=== PATIENT | male | born 1950 | race Caucasian/White ===

== ENCOUNTER 2017-01-21 14:02 | Observation (INO) | payer BC ==
[~2017-01-21 14:02] MED LIST: cefTRIAXone 2 GM Vial IVPUSH SCH
[2017-01-21] MEDS ORDERED: Ondansetron 4 MG/2 ML SDV IV PRN (14:59)
[2017-01-21] MEDS ORDERED: Sodium Chloride 0.9% 10 ML Syringe FLUSH PRN (14:59)
[2017-01-21] MEDS ORDERED: Acetaminophen/oxyCODONE 325-5 MG Tab PO PRN (14:59)
[2017-01-21] MEDS ORDERED: Temazepam 15 MG Cap PO PRN (14:59)
[2017-01-21] MEDS ORDERED: Ondansetron 8 MG in Sodium Chloride 0.9% 50 ML IV PRN (15:15)
[2017-01-21] MEDS: LEVODOPA PO SCH ×2 (15:42→20:16)
[2017-01-21] MEDS: PTOM-Gabapentin 300 MG Cap PO SCH ×2 (15:42→20:16)
[2017-01-21] MEDS: CARBIDOPA PO SCH ×2 (15:42→20:16)
[2017-01-21 15:56] LABS: CHLORIDE,CL 104 mEq/L (98-106); SODIUM,NA 140 mEq/L (136-145)
[2017-01-21] MEDS: Enoxaparin 40 MG/0.4 ML Syringe SUBCUT SCH (20:15)
[2017-01-22] MEDS: LEVODOPA PO SCH ×3 (07:42→20:49)
[2017-01-22] MEDS: CARBIDOPA PO SCH ×3 (07:42→20:49)
[2017-01-22] MEDS: PTOM-Gabapentin 300 MG Cap PO SCH ×3 (07:42→20:49)
[2017-01-22] MEDS: LOSARTAN 100 MG PO SCH (07:54)
[2017-01-22] MEDS: FUROSEMIDE 40 MG PO SCH (07:54)
[2017-01-22] MEDS: Metoprolol Succinate 100 MG Tab.ER PO SCH (07:57)
[2017-01-22] MEDS ORDERED: FUROSEMIDE 40 MG PO SCH ×2 (08:00)
[2017-01-22] MEDS ORDERED: Clindamycin Phosphate in D5W 300 MG in Premix Bag 1 BAG IV ONE ×2 (09:30)
--- NOTE | 2017-01-22 17:21 | PCM.PN ---
- General Info Date of Service: 01/22/17 Functional Status: Reports: pain controlled, tolerating diet, ambulating - Review of Systems General: Denies: fever, weakness, fatigue HEENT: Reports: no symptoms Pulmonary: Denies: shortness of breath, cough, wheezing Cardiovascular: Reports: edema. Denies: chest pain, lightheadedness Gastrointestinal: Denies: Abdominal pain, Constipation, Diarrhea, Nausea, Vomiting Genitourinary: Reports: no symptoms Musculoskeletal: Reports: leg pain Skin: Reports: other (redness noted to RLE) Neurological: Reports: no symptoms - Patient Data Vitals - most recent: Last Vital Signs Temp 98.2 F 01/22/17 16:00 Pulse 60 01/22/17 16:00 Resp 18 01/22/17 16:00 BP 138/97 H 01/22/17 16:00 Pulse Ox 97 01/22/17 16:00 Weight - most recent: 376 lb Med Orders - Current: Current Medications Carbidopa/Levodopa (Sinemet 25-100 Mg) 1 tab PO TID [facility] Last Admin: 01/22/17 13:27 Dose: 1 tab Enoxaparin Sodium (Lovenox) 40 mg SUBCUT Q24H [facility] Last Admin: 01/21/17 20:15 Dose: 40 mg Furosemide (Lasix) 80 mg PO DAILY [facility] Last Admin: 01/22/17 07:54 Dose: 80 mg Gabapentin (Neurontin) 300 mg PO TID [facility] Last Admin: 01/22/17 13:27 Dose: 300 mg Ondansetron HCl 8 mg/ Sodium (Chloride) 54 mls @ 100 mls/hr IV Q6H PRN PRN Reason: NAUSEA Clindamycin Phosphate 300 mg/ (Premix) 50 mls @ 100 mls/hr IV Q6H [facility] Losartan Potassium (Cozaar) 100 mg PO DAILY [facility] Last Admin: 01/22/17 07:54 Dose: 100 mg Metoprolol Succinate (Toprol Xl) 100 mg PO DAILY [facility] Last Admin: 01/22/17 07:57 Dose: 100 mg Oxycodone/Acetaminophen (Percocet 325-5 Mg) 1 tab PO Q4H PRN PRN Reason: Pain (moderate 4-6) Sodium Chloride (Saline Flush) 10 ml FLUSH ASDIRECTED PRN PRN Reason: Keep Vein Open Temazepam (Restoril) 15 mg PO BEDTIME PRN PRN Reason: Sleep Discontinued Medications Ceftriaxone Sodium (Rocephin) 2 gm IVPUSH Q24H [facility] Last Admin: 01/21/17 15:47 Dose: 2 gm Furosemide (Lasix) 60 mg PO DAILY [facility] Furosemide (Lasix) 40 mg PO DAILY [facility] Clindamycin Phosphate 300 mg/ (Premix) 50 mls @ 100 mls/hr IV ONETIME ONE Stop: 01/22/17 09:59 Last Admin: 01/22/17 09:29 Dose: 100 mls/hr - Exam General: alert, oriented HEENT: Mucous membr. moist/pink Neck: supple Lungs: Clear to auscultation, Normal respiratory effort Cardiovascular: regular rate, regular rhythm Abdomen: bowel sounds present, soft, no tenderness Extremities: edema, other (RLE continues to be edematous. Redness noted but improved from yesterday. Less swelling than yesterday per markings. Mildly warm to the touch in comparison to the LLE. Patient states less tender to palpation.) - Problem List & Annotations (1) Cellulitis SNOMED Code(s): 290959150 Code(s): L03.90 - CELLULITIS, UNSPECIFIED Status: Acute Priority: High Current Visit: Yes Qualifiers: Site of cellulitis: extremity Site of cellulitis of extremity: lower extremity Laterality: right Qualified Code(s): L03.115 - Cellulitis of right lower limb (2) Edema leg SNOMED Code(s): 486595314 Code(s): R60.0 - LOCALIZED EDEMA Status: Acute Priority: High Current Visit: No Qualifiers: Laterality: bilateral Qualified Code(s): R60.0 - Localized edema - Problem List Review Problem List Initiated/Reviewed/Updated: Yes - My Orders Last 24 Hours: My Active Orders 01/22/17 18:00 Clindamycin Phosphate in D5W [Cleocin in D5W] 300 mg Premix Bag 1 bag IV Q6H - Assessment Assessment:: Cellulitis of RLE - Plan Plan:: Patient states is doing well today. Per nurse markings, less redness and swelling versus admission yesterday. Did have an ultrasound yesterday to rule out DVT which was negative. Patient admits to less discomfort today in his leg. Leg is only minimally warm and tender today by exam. Lasix dose was increased on admission to 80 mg daily, Norvasc was stopped and Toprol restarted due to edema. Labs noted elevated CRP on admit. Continue to elevate leg as able. Switch to IV Cleocin. Possible discharge home in am.
[2017-01-22] MEDS: Clindamycin Phosphate in D5W 300 MG in Premix Bag 1 BAG IV SCH ×2 (18:13)
[2017-01-22] MEDS: Enoxaparin 40 MG/0.4 ML Syringe SUBCUT SCH (20:49)
[2017-01-23] MEDS: Clindamycin Phosphate in D5W 300 MG in Premix Bag 1 BAG IV SCH ×4 (00:37→05:48)
[2017-01-23 07:12] VITALS: BP 127/76
[2017-01-23] MEDS: FUROSEMIDE 40 MG PO SCH (07:51)
[2017-01-23] MEDS: CARBIDOPA PO SCH (07:52)
[2017-01-23] MEDS: LEVODOPA PO SCH (07:52)
[2017-01-23] MEDS: LOSARTAN 100 MG PO SCH (07:52)
[2017-01-23] MEDS: PTOM-Gabapentin 300 MG Cap PO SCH (07:52)
[2017-01-23 07:56] LABS: CHLORIDE,CL 105 mEq/L (98-106); SODIUM,NA 143 mEq/L (136-145)
[2017-01-23] MEDS: Metoprolol Succinate 100 MG Tab.ER PO SCH (07:56)
--- NOTE | 2017-01-23 11:05 | PCM.DCSUM1 ---
Discharge Summary - Hospital Course Free Text/Narrative:: Patient admitted by Dr. Anderson due to increased swelling and redness to E to rule out DVT versus Cellulitis. Patient does have a history of edema in his legs but states it had gotten much worse over several days prior. Extremity red and warm to the touch as well. Ultrasound ordered which did rule out a DVT. Norvasc was stopped due to increased edema. Lasix increased. Started on Toprol for control of his blood pressure. Initial CRP on admit was 10.7. Started on IV Rocephin. - Discharge Data Discharge Date: 01/23/17 Discharge Disposition: Home, Self-Care 01 Condition: Good - Discharge Diagnosis/Problem(s) (1) Cellulitis SNOMED Code(s): 084202403 ICD Code: L03.90 - CELLULITIS, UNSPECIFIED Status: Acute Priority: High Current Visit: Yes Qualifiers: Qualified Code(s): L03.115 - Cellulitis of right lower limb (2) Edema leg SNOMED Code(s): 464692680 ICD Code: R60.0 - LOCALIZED EDEMA Status: Acute Priority: High Current Visit: No Qualifiers: Qualified Code(s): R60.0 - Localized edema - Patient Summary/Data Complications: none Hospital Course: As mentioned above, US was negative for DVT. Did have improvement of swelling with increase of Lasix and stopping Norvasc. He had improvement of the swelling and redness of his leg after IV meds were switched to Cleocin. CRP improved to 4.9. WBC normal. - Patient Instructions Diet: Low Sodium Activity: As Tolerated - Discharge Plan Prescriptions/Med Rec: Clindamycin HCl [Cleocin HCl] 300 mg PO QID #40 capsule Metoprolol Succinate [Toprol XL] 100 mg PO DAILY #30 tab.er Home Medications: Home Meds Gabapentin 300 mg PO TID 08/07/16 [History] Losartan Potassium 100 mg PO DAILY 08/07/16 [History] Carbidopa/Levodopa [Carbidopa-Levodopa 25-100 Tab] 1 each PO TID 01/21/17 [ History] Clindamycin HCl [Cleocin HCl] 300 mg PO QID #40 capsule 01/23/17 [Rx] Furosemide 40 mg PO BID #60 01/23/17 [Rx] Metoprolol Succinate [Toprol XL] 100 mg PO DAILY #30 tab.er 01/23/17 [Rx] Referrals: Marbin Anderson MD [Primary Care Provider] - (Follow up with Dr. Anderson in 10 days ) - Discharge Summary/Plan Comment DC Time >30 min.: No Discharge Summary/Plan Comment: Discharge home on Cleocin. Stop Norvasc and continue Toprol. Lasix 40 mg BID. Follow up with Dr. Anderson in 10 days. - General Info Date of Service: 01/23/17 Admission Dx/Problem (Free Text: Cellulitis Functional Status: Reports: pain controlled, tolerating diet, ambulating - Review of Systems General: Denies: fever, weakness, fatigue HEENT: Reports: no symptoms Pulmonary: Denies: shortness of breath, cough, wheezing Cardiovascular: Reports: edema. Denies: chest pain, lightheadedness Gastrointestinal: Reports: No symptoms Genitourinary: Reports: no symptoms Musculoskeletal: Reports: no symptoms Skin: Reports: other (redness noted to RLE) Neurological: Reports: no symptoms Psychiatric: Reports: no symptoms - Patient Data Vitals - Most Recent: Last Vital Signs Temp 96.8 F 01/23/17 07:11 Pulse 86 01/23/17 07:56 Resp 18 01/23/17 07:11 BP 127/76 01/23/17 07:56 Pulse Ox 96 01/23/17 07:11 Weight - Most Recent: 376 lb I&O - Last 24 hours: Intake & Output 01/22/17 01/23/17 01/23/17 22:59 06:59 14:59 Intake Total 50 50 Balance 50 50 Lab Results - Last 24 hrs: Laboratory Results - last 24 hr 01/23/17 01/23/17 Range/Units 07:42 07:42 WBC 6.2 (5.0-10.0) 10^3/uL RBC 5.24 (4.50-6.00) 10^6/uL Hgb 13.5 L (14.0-18.0) g/dL Hct 42.4 (40.0-54.0) % MCV 80.9 L (82.0-94.0) fL MCH 25.8 L (27.0-32.0) pg MCHC 31.8 L (33.0-38.0) g/dL RDW Coeff of Connie 15.8 H (11.0-15.0) % Plt Count 236 (150-400) 10^3/uL Neut % (Auto) 67.5 (35-85) % Lymph % (Auto) 16.9 (10-55) % [place] % (Auto) 9.5 (0-16) % Eos % (Auto) 5.8 H (0-5) % Baso % (Auto) 0.3 (0-3) % Neut # 4.19 (1.80-7.00) 10^3/uL Lymph # 1.05 (1.00-4.80) 10^3/uL [place] # 0.59 (0.00-0.80) 10^3/uL Eos # 0.36 (0.00-0.45) 10^3/uL Baso # 0.02 10^3/uL Sodium 143 (136-145) mEq/L Potassium 3.9 (3.5-5.0) mEq/L Chloride 105 (98-106) mEq/L Carbon Dioxide 32 (21-32) mmol/L BUN 14 (7-18) mg/dL Creatinine 0.9 (0.7-1.3) mg/dL Est Cr Clr Drug Dosing 88.31 mL/min Estimated GFR (MDRD) > 60 (>=60) mL/min Glucose 90 (75-99) mg/dL Calcium 8.4 (8.4-10.1) mg/dL C-Reactive Protein 4.9 H (0.2-0.8) mg/dL Med Orders - Current: Current Medications Carbidopa/Levodopa (Sinemet 25-100 Mg) 1 tab PO TID [facility] Last Admin: 01/23/17 07:52 Dose: 1 tab Enoxaparin Sodium (Lovenox) 40 mg SUBCUT Q24H [facility] Last Admin: 01/22/17 20:49 Dose: 40 mg Furosemide (Lasix) 80 mg PO DAILY [facility] Last Admin: 01/23/17 07:51 Dose: 80 mg Gabapentin (Neurontin) 300 mg PO TID [facility] Last Admin: 01/23/17 07:52 Dose: 300 mg Ondansetron HCl 8 mg/ Sodium (Chloride) 54 mls @ 100 mls/hr IV Q6H PRN PRN Reason: NAUSEA Clindamycin Phosphate 300 mg/ (Premix) 50 mls @ 100 mls/hr IV Q6H [facility] Last Admin: 01/23/17 05:48 Dose: 100 mls/hr Losartan Potassium (Cozaar) 100 mg PO DAILY [facility] Last Admin: 01/23/17 07:52 Dose: 100 mg Metoprolol Succinate (Toprol Xl) 100 mg PO DAILY [facility] Last Admin: 01/23/17 07:56 Dose: 100 mg Oxycodone/Acetaminophen (Percocet 325-5 Mg) 1 tab PO Q4H PRN PRN Reason: Pain (moderate 4-6) Sodium Chloride (Saline Flush) 10 ml FLUSH ASDIRECTED PRN PRN Reason: Keep Vein Open Temazepam (Restoril) 15 mg PO BEDTIME PRN PRN Reason: Sleep Discontinued Medications Ceftriaxone Sodium (Rocephin) 2 gm IVPUSH Q24H [facility] Last Admin: 01/21/17 15:47 Dose: 2 gm Furosemide (Lasix) 60 mg PO DAILY [facility] Furosemide (Lasix) 40 mg PO DAILY [facility] Clindamycin Phosphate 300 mg/ (Premix) 50 mls @ 100 mls/hr IV ONETIME ONE Stop: 01/22/17 09:59 Last Admin: 01/22/17 09:29 Dose: 100 mls/hr - Exam General: Reports: alert, oriented HEENT: Reports: Mucous membr. moist/pink Neck: Reports: supple Lungs: Reports: Clear to auscultation, Normal respiratory effort Cardiovascular: Reports: regular rate, regular rhythm Abdomen: Reports: bowel sounds present, soft, no tenderness Skin: Reports: other (RLE is still red but improved from admit per markings. Mildly warm to the touch. Chronic venous stasis changes.) *Q Meaningful Use (DIS) - VTE *Q VTE Criteria *Q: - Stroke *Q Stroke Criteria *Q: - AMI *Q AMI Criteria *Q:
== END 2017-01-23 12:49 | disposition home or self-care (01) ==
LOC: UNDOADMOB 14:02 → CC.MS 14:02
PROVIDERS: ADMIT Family Medicine; ATTEND Family Medicine
DX: L03.115 Cellulitis of right lower limb (principal); I10 Essential (primary) hypertension; E78.00 Pure hypercholesterolemia, unspecified; G20 Parkinson's disease; Z79.899 Other long term (current) drug therapy; Z98.890 Other specified postprocedural states
CPT/HCPCS: 36415; 80048; 85025; 85379; 86140; 93971; 96365; 96366; 96372; 96375; A9270; G0378; J0696; J1650

== ENCOUNTER 2017-03-06 09:45 | Inpatient (IN) | payer OTHER, MEDICARE ==
[2017-03-06] MEDS ORDERED: Ondansetron 4 MG Tab.DIS PO PRN (11:09)
[2017-03-06] MEDS: Lactated Ringers 1,000 ML IV SCH ×2 (11:45→21:01)
[2017-03-06] MEDS: metroNIDAZOLE/Normal Saline 500 MG in Premix Bag 1 BAG IV SCH ×3 (11:50→23:00)
[2017-03-06] MEDS: Vancomycin 125 MG/2.5 ML Oral Solution 2.5 ML UD Cup PO SCH ×3 (11:54→20:55)
[2017-03-06] MEDS: Acetaminophen 325 MG Tab PO PRN ×2 (11:58→16:18)
[2017-03-06] MEDS: Gabapentin 300 MG Cap PO SCH ×2 (13:27→20:55)
[2017-03-06] MEDS: Carbidopa/Levodopa 25-100 MG Tab PO SCH ×2 (13:27→20:55)
[2017-03-06] MEDS: Losartan 100 MG Tab PO SCH (13:28)
[2017-03-06] MEDS: Ibuprofen 200 MG Tab PO PRN ×2 (13:52→22:57)
[2017-03-06] MEDS: Furosemide 40 MG Tab PO SCH (16:05)
[2017-03-06] MEDS: Enoxaparin 40 MG/0.4 ML Syringe SUBCUT SCH (16:05)
[2017-03-07] MEDS ORDERED: metroNIDAZOLE/Normal Saline 500 MG in Premix Bag 1 BAG IV SCH (08:00)
[2017-03-07] MEDS: Carbidopa/Levodopa 25-100 MG Tab PO SCH ×3 (08:04→19:42)
[2017-03-07] MEDS: Gabapentin 300 MG Cap PO SCH ×3 (08:04→19:42)
[2017-03-07] MEDS: Furosemide 40 MG Tab PO SCH ×2 (08:04→16:02)
[2017-03-07] MEDS: Losartan 100 MG Tab PO SCH (08:04)
[2017-03-07] MEDS: Vancomycin 125 MG/2.5 ML Oral Solution 2.5 ML UD Cup PO SCH ×4 (08:05→19:41)
[2017-03-07] MEDS: Ibuprofen 200 MG Tab PO PRN ×2 (08:05→16:36)
[2017-03-07] MEDS: Metoprolol Succinate 100 MG Tab.ER PO SCH (08:05)
[2017-03-07] MEDS: metroNIDAZOLE/Normal Saline 500 MG in Premix Bag 1 BAG IV SCH (08:07)
[2017-03-07] MEDS ORDERED: Vancomycin 1.5 GM in Sodium Chloride 0.9% 500 ML IV SCH (09:00)
--- NOTE | 2017-03-07 10:07 | PN ---
DATE: 03/07/2017 S: Albin was admitted for fever and sepsis syndrome of unclear etiology. He is being treated for C. diff. He really did not have any abdominal pain or diarrhea associated with this. Racheal Hernandez had seen him and I asked her to do blood cultures, put him on empiric antibiotics. During the night, he woke up with severe redness to his right leg and he does have a history of cellulitis related to his chronic stasis dermatitis, very well demarcated almost up to the thigh and down to the foot. He denies any pain at this time. Since admission, his temp is down to around 100 now, came in at 100.4 on exam. PHYSICAL EXAMINATION: GENERAL: He is pleasant and cooperative. HEENT: Grossly benign. NECK: Neck veins are flat. LUNGS: Clear. CARDIAC: Tones are regular. ABDOMEN: Obese, soft, and nontender. EXTREMITIES: Lower extremity with bilateral stasis dermatitis. His right leg now has cellulitis extending from the upper inner thigh all way down through the leg into the ankle, there is a grossly 3+ edema as compared to 1+ to 2 on the left. ASSESSMENT: CELLULITIS, RELATED TO STASIS DERMATITIS. P: The patient's IV Flagyl was stopped. We will keep him on the oral vancomycin because he is just getting over C-diff. We switched him to IV vancomycin and Cleocin. Blood cultures appear to be positive, we are waiting for identification. VERONIKA/MAURICIO /[id number]
[2017-03-07] MEDS ORDERED: Clindamycin Phosphate in D5W 300 MG in Premix Bag 1 BAG IV ONE ×2 (11:00)
[2017-03-07] MEDS: Lactated Ringers 1,000 ML IV SCH ×2 (13:56→21:59)
[2017-03-07] MEDS: Acetaminophen 325 MG Tab PO PRN ×2 (14:02→18:04)
[2017-03-07] MEDS: Enoxaparin 40 MG/0.4 ML Syringe SUBCUT SCH (16:03)
[2017-03-07] MEDS: ceFAZolin 1 GM Vial IVPUSH SCH ×2 (17:39→23:48)
[2017-03-07] MEDS ORDERED: Clindamycin Phosphate in D5W 300 MG in Premix Bag 1 BAG IV SCH ×2 (18:00)
[2017-03-08] MEDS: Acetaminophen 325 MG Tab PO PRN ×2 (06:44→13:17)
[2017-03-08] MEDS: Vancomycin 125 MG/2.5 ML Oral Solution 2.5 ML UD Cup PO SCH ×4 (08:00→19:48)
[2017-03-08] MEDS: Metoprolol Succinate 100 MG Tab.ER PO SCH (08:01)
[2017-03-08] MEDS: Losartan 100 MG Tab PO SCH (08:01)
[2017-03-08] MEDS: Gabapentin 300 MG Cap PO SCH ×3 (08:01→19:47)
[2017-03-08] MEDS: Carbidopa/Levodopa 25-100 MG Tab PO SCH ×3 (08:01→19:47)
[2017-03-08] MEDS: Furosemide 40 MG Tab PO SCH ×2 (08:01→16:18)
[2017-03-08] MEDS: ceFAZolin 1 GM Vial IVPUSH SCH ×3 (08:02→23:48)
[2017-03-08] MEDS: Ibuprofen 200 MG Tab PO PRN (08:02)
[2017-03-08] MEDS ORDERED: Iopamidol 612 MG/ML 100 ML Bottle IVPUSH ONE (16:08)
[2017-03-08] MEDS: Enoxaparin 40 MG/0.4 ML Syringe SUBCUT SCH (16:19)
--- NOTE | 2017-03-08 21:39 | PCM.PN ---
- General Info Date of Service: 03/08/17 Admission Dx/Problem (Free Text): R lower extremity cellulitis related to stasis dermatitis Subjective Update: Nursing staff report that patient slept in the recliner last night with his feet on the floor. This morning he woke up with significant edema behind and above his right knee. The redness and warmth to his right leg has improved some overnight. Patient has no pain to his leg and has no other concerns. Blood cultures were resulted on March 07 showing gram-positive cocci, beta-hemolytic strep, not group A or B. Patient has been receiving oral vancomycin for recent infection, IV vancomycin and IV clindamycin. CRP increased to 30.1. Functional Status: Reports: tolerating diet, urinating - Review of Systems General: Reports: Fever. Denies: Chills Pulmonary: Denies: shortness of breath, cough Cardiovascular: Denies: Chest Pain Gastrointestinal: Reports: No symptoms Genitourinary: Reports: no symptoms Neurological: Reports: No Symptoms - Patient Data Vitals - most recent: Last Vital Signs Temp 100.1 F 03/08/17 19:20 Pulse 80 03/08/17 19:20 Resp 20 03/08/17 19:20 BP 160/81 H 03/08/17 19:20 Pulse Ox 95 03/08/17 19:20 Weight - most recent: 392 lb I&O - last 24 hours: Intake & Output 03/08/17 03/08/17 03/08/17 06:59 14:59 22:59 Intake Total 480 240 990 Output Total 900 500 300 Balance -420 -260 690 Lab Results last 24 hrs: Laboratory Results - last 24 hr 03/08/17 03/08/17 03/08/17 Range/Units 07:10 07:10 07:15 WBC 10.1 H (5.0-10.0) 10^3/uL RBC 5.15 (4.50-6.00) 10^6/uL Hgb 13.2 L (14.0-18.0) g/dL Hct 41.0 (40.0-54.0) % MCV 79.6 L (82.0-94.0) fL MCH 25.6 L (27.0-32.0) pg MCHC 32.2 L (33.0-38.0) g/dL RDW Coeff of Connie 18.0 H (11.0-15.0) % Plt Count 127 L (150-400) 10^3/uL Neut % (Auto) 88.1 H (35-85) % Lymph % (Auto) 6.0 L (10-55) % [place] % (Auto) 4.6 (0-16) % Eos % (Auto) 1.1 (0-5) % Baso % (Auto) 0.2 (0-3) % Neut # (Auto) 8.92 H (1.80-7.00) 10^3/uL Lymph # (Auto) 0.61 L (1.00-4.80) 10^3/uL [place] # (Auto) 0.47 (0.00-0.80) 10^3/uL Eos # (Auto) 0.11 (0.00-0.45) 10^3/uL Baso # (Auto) 0.02 10^3/uL Sodium 140 (136-145) mEq/L Potassium 3.7 (3.5-5.0) mEq/L Chloride 101 (98-106) mEq/L Carbon Dioxide 28 (21-32) mmol/L BUN 33 H (7-18) mg/dL Creatinine 1.4 H (0.7-1.3) mg/dL Est Cr Clr Drug Dosing 56.77 mL/min Estimated GFR (MDRD) 51 L (>=60) mL/min Glucose 84 D (75-99) mg/dL Calcium 7.8 L (8.4-10.1) mg/dL C-Reactive Protein 30.1 H (0.2-0.8) mg/dL Pablo Results last 24 hrs: Microbiology 03/06/17 14:53 Urine Culture - Final Urine, Voided 03/06/17 11:51 Aerobic Blood Culture - Final Blood Gram Positive Cocci Anaerobic Blood Culture - Final Gram Positive Cocci Med Orders - Current: Current Medications Acetaminophen (Tylenol) 650 mg PO Q4H PRN PRN Reason: Pain (Mild 1-3)/fever Last Admin: 03/08/17 13:17 Dose: 650 mg Carbidopa/Levodopa (Sinemet 25-100 Mg) 1 tab PO TID [facility] Last Admin: 03/08/17 19:47 Dose: 1 tab Cefazolin Sodium (Ancef) 1 gm IVPUSH Q8H [facility] Last Admin: 03/08/17 16:19 Dose: 1 gm Enoxaparin Sodium (Lovenox) 40 mg SUBCUT Q24H [facility] Last Admin: 03/08/17 16:19 Dose: 40 mg Furosemide (Lasix) 40 mg PO BIDDIURETIC [facility] Last Admin: 03/08/17 16:18 Dose: 40 mg Gabapentin (Neurontin) 300 mg PO TID [facility] Last Admin: 03/08/17 19:47 Dose: 300 mg Ibuprofen (Motrin) 400 mg PO Q6H PRN PRN Reason: Fever Last Admin: 03/08/17 08:02 Dose: 400 mg Losartan Potassium (Cozaar) 100 mg PO DAILY [facility] Last Admin: 03/08/17 08:01 Dose: 100 mg Metoprolol Succinate (Toprol Xl) 100 mg PO DAILY [facility] Last Admin: 03/08/17 08:01 Dose: 100 mg Ondansetron HCl (Zofran Odt) 8 mg PO Q4H PRN PRN Reason: nausea, able to take PO Vancomycin HCl (Vancocin 125 Mg/2.5 Ml Soln) 125 mg PO QID [facility] Last Admin: 03/08/17 19:48 Dose: 125 mg Vancomycin HCl (Pharmacy To Dose - Vancomycin) 1 dose .XX ASDIRECTED [facility] Discontinued Medications Lactated Ringer's (Ringers, Lactated) 1,000 mls @ 100 mls/hr IV ASDIRECTED [facility] Last Admin: 03/06/17 21:01 Dose: 100 mls/hr Metronidazole 500 mg/ Premix 100 mls @ 100 mls/hr IV 1130,1700 [facility] Stop: 03/06/17 17:59 Last Admin: 03/06/17 17:24 Dose: 100 mls/hr Metronidazole 500 mg/ Premix 100 mls @ 100 mls/hr IV Q8H [facility] Last Admin: 03/07/17 08:07 Dose: 100 mls/hr Vancomycin HCl 1.5 gm/ Sodium (Chloride) 500 mls @ 334.014 mls/hr IV Q24H [facility] Last Admin: 03/07/17 09:10 Dose: 334.014 mls/hr Clindamycin Phosphate 300 mg/ (Premix) 50 mls @ 100 mls/hr IV Q6H [facility] Clindamycin Phosphate 300 mg/ (Premix) 50 mls @ 100 mls/hr IV ONETIME ONE Stop: 03/07/17 11:29 Last Admin: 03/07/17 11:53 Dose: 100 mls/hr Lactated Ringer's (Ringers, Lactated) 1,000 mls @ 125 mls/hr IV ASDIRECTED [facility] Last Admin: 03/07/17 21:59 Dose: 125 mls/hr Ibuprofen (Motrin) 400 mg PO Q4H PRN PRN Reason: Fever Last Admin: 03/07/17 08:05 Dose: 400 mg Iopamidol (Isovue-300 (61%)) 100 ml IVPUSH ONETIME ONE Stop: 03/08/17 16:09 - Exam General: alert, oriented, cooperative Lungs: Clear to auscultation, Normal respiratory effort Cardiovascular: Regular Rate, Regular Rhythm Abdomen: soft, no tenderness Extremities: other (Left ankle measures 14 inches. Right ankle measured 18 inches. Left knee 22.5 inches. Right knee 28 inches. Left midthigh 26 inches. Right midthigh 33.5 inches) Peripheral Pulses: 2+: dorsalis pedis (L), dorsalis pedis (R) Skin: warm, dry, other (No skin breakdown or weeping appreciated to right lower leg) Neurological: no new focal deficit - Problem List Review Problem List Initiated/Reviewed/Updated: Yes - My Orders Last 24 Hours: My Active Orders 03/08/17 15:16 Lower Leg w Cont Rt [CT] Routine - Assessment Assessment:: Right leg cellulitis - Plan Plan:: We'll obtain a CT scan of patient's right lower extremity looking for gas and abscess. Continue current antibiotics and treatment. Repeat CBC BMP and CRP in the morning.
[2017-03-09] MEDS: Acetaminophen 325 MG Tab PO PRN (06:51)
[2017-03-09] MEDS: ceFAZolin 1 GM Vial IVPUSH SCH ×3 (07:46→23:15)
[2017-03-09] MEDS: Metoprolol Succinate 100 MG Tab.ER PO SCH (07:47)
[2017-03-09] MEDS: Gabapentin 300 MG Cap PO SCH ×3 (07:47→20:30)
[2017-03-09] MEDS: Furosemide 40 MG Tab PO SCH ×2 (07:47→16:20)
[2017-03-09] MEDS: Carbidopa/Levodopa 25-100 MG Tab PO SCH ×3 (07:47→20:29)
[2017-03-09] MEDS: Losartan 100 MG Tab PO SCH (07:47)
[2017-03-09] MEDS: Vancomycin 125 MG/2.5 ML Oral Solution 2.5 ML UD Cup PO SCH ×4 (07:47→20:30)
[2017-03-09] MEDS: Vancomycin 1.5 GM in Sodium Chloride 0.9% 500 ML IV SCH (07:53)
[2017-03-09 08:41] LABS: CHLORIDE,CL 103 mEq/L (98-106); SODIUM,NA 140 mEq/L (136-145)
[2017-03-09] MEDS ORDERED: Ondansetron 4 MG/2 ML SDV IVPUSH PRN (10:00)
[2017-03-09] MEDS: HYDROmorphone 1 MG/ML Syringe IVPUSH PRN ×2 (10:38→13:43)
--- NOTE | 2017-03-09 11:29 | PCM.PN ---
- General Info Date of Service: 03/09/17 Admission Dx/Problem (Free Text): R lower extremity cellulitis related to stasis dermatitis Subjective Update: Patient complains of increased pain this morning to his right lower extremity unrelieved with Tylenol and ibuprofen. Improved significantly with IV Dilaudid. Nursing staff have noted increased swelling to his lower leg, knee and moving up his right thigh. Has had some mild erythema moving towards his groin area. Nursing staff have noticed red blister type lesions to his right knee area. He denies any scrotal pain and swelling. Upon chart review, it appears that IV vancomycin and clindamycin were discontinued on March 07 p.m. when Ancef was started. He continues to take orally vancomycin for recent C. difficile infection. White blood cell count has improved to 10.0. BUN decreased from 33 to 22. Creatinine from 1.4 to 1.1. CRP 3.1 to 21.3. Patient has been afebrile overnight. Vital signs are stable. Nursing staff have no other concerns at this time. Functional Status: Reports: tolerating diet, urinating - Review of Systems General: Denies: Fever, Fatigue, Chills HEENT: Reports: no symptoms Pulmonary: Denies: shortness of breath, cough Cardiovascular: Denies: Chest Pain Gastrointestinal: Denies: Abdominal pain, Decreased appetite, Nausea, Vomiting Skin: Reports: other (blistery lesions to R knee) Neurological: Reports: No Symptoms Psychiatric: Reports: no symptoms - Patient Data Vitals - most recent: Last Vital Signs Temp 98.8 F 03/09/17 07:46 Pulse 84 03/09/17 07:47 Resp 18 03/09/17 07:46 BP 150/89 H 03/09/17 07:47 Pulse Ox 94 L 03/09/17 07:46 Weight - most recent: 395 lb 14.4 oz I&O - last 24 hours: Intake & Output 03/08/17 03/09/17 03/09/17 22:59 06:59 14:59 Intake Total 990 1700 200 Output Total 300 1500 550 Balance 690 200 -350 Lab Results last 24 hrs: Laboratory Results - last 24 hr 03/09/17 03/09/17 03/09/17 Range/Units 07:10 07:10 07:15 WBC 10.0 (5.0-10.0) 10^3/uL RBC 5.12 (4.50-6.00) 10^6/uL Hgb 13.1 L (14.0-18.0) g/dL Hct 40.7 (40.0-54.0) % MCV 79.5 L (82.0-94.0) fL MCH 25.6 L (27.0-32.0) pg MCHC 32.2 L (33.0-38.0) g/dL RDW Coeff of Connie 17.6 H (11.0-15.0) % Plt Count 140 L (150-400) 10^3/uL Neut % (Auto) 80.6 (35-85) % Lymph % (Auto) 8.8 L (10-55) % [place] % (Auto) 8.4 (0-16) % Eos % (Auto) 1.9 (0-5) % Baso % (Auto) 0.3 (0-3) % Neut # (Auto) 8.10 H (1.80-7.00) 10^3/uL Lymph # (Auto) 0.88 L (1.00-4.80) 10^3/uL [place] # (Auto) 0.84 H (0.00-0.80) 10^3/uL Eos # (Auto) 0.19 (0.00-0.45) 10^3/uL Baso # (Auto) 0.03 10^3/uL Sodium 140 (136-145) mEq/L Potassium 3.5 (3.5-5.0) mEq/L Chloride 103 (98-106) mEq/L Carbon Dioxide 27 (21-32) mmol/L BUN 22 H (7-18) mg/dL Creatinine 1.1 (0.7-1.3) mg/dL Est Cr Clr Drug Dosing 72.26 mL/min Estimated GFR (MDRD) > 60 (>=60) mL/min Glucose 95 (75-99) mg/dL Calcium 7.9 L (8.4-10.1) mg/dL C-Reactive Protein 21.3 H (0.2-0.8) mg/dL Pablo Results last 24 hrs: Microbiology 03/06/17 14:53 Urine Culture - Final Urine, Voided 03/06/17 11:51 Aerobic Blood Culture - Final Blood Gram Positive Cocci Anaerobic Blood Culture - Final Gram Positive Cocci Med Orders - Current: Current Medications Acetaminophen (Tylenol) 650 mg PO Q4H PRN PRN Reason: Pain (Mild 1-3)/fever Last Admin: 03/09/17 06:51 Dose: 650 mg Carbidopa/Levodopa (Sinemet 25-100 Mg) 1 tab PO TID [facility] Last Admin: 03/09/17 07:47 Dose: 1 tab Cefazolin Sodium (Ancef) 1 gm IVPUSH Q8H [facility] Last Admin: 03/09/17 07:46 Dose: 1 gm Enoxaparin Sodium (Lovenox) 40 mg SUBCUT Q24H [facility] Last Admin: 03/08/17 16:19 Dose: 40 mg Furosemide (Lasix) 40 mg PO BIDDIURETIC [facility] Last Admin: 03/09/17 07:47 Dose: 40 mg Gabapentin (Neurontin) 300 mg PO TID [facility] Last Admin: 03/09/17 07:47 Dose: 300 mg Hydromorphone HCl (Dilaudid) 1 mg IVPUSH Q2H PRN PRN Reason: Pain (moderate 4-6) Last Admin: 03/09/17 10:38 Dose: 1 mg Vancomycin HCl 1.5 gm/ Sodium (Chloride) 500 mls @ 334.014 mls/hr IV Q24H [facility] Last Admin: 03/09/17 07:53 Dose: 334.014 mls/hr Acyclovir 1,000 mg/ Sodium (Chloride) 120 mls @ 200 mls/hr IV Q8HR [facility] Clindamycin Phosphate 300 mg/ (Premix) 50 mls @ 100 mls/hr IV Q6H [facility] Ibuprofen (Motrin) 400 mg PO Q6H PRN PRN Reason: Fever Last Admin: 03/08/17 08:02 Dose: 400 mg Losartan Potassium (Cozaar) 100 mg PO DAILY [facility] Last Admin: 03/09/17 07:47 Dose: 100 mg Metoprolol Succinate (Toprol Xl) 100 mg PO DAILY [facility] Last Admin: 03/09/17 07:47 Dose: 100 mg Ondansetron HCl (Zofran Odt) 8 mg PO Q4H PRN PRN Reason: nausea, able to take PO Ondansetron HCl (Zofran) 4 mg IVPUSH Q4H PRN PRN Reason: Nausea Vancomycin HCl (Vancocin 125 Mg/2.5 Ml Soln) 125 mg PO QID [facility] Last Admin: 03/09/17 07:47 Dose: 125 mg Vancomycin HCl (Pharmacy To Dose - Vancomycin) 1 dose .XX ASDIRECTED [facility] Discontinued Medications Lactated Ringer's (Ringers, Lactated) 1,000 mls @ 100 mls/hr IV ASDIRECTED [facility] Last Admin: 03/06/17 21:01 Dose: 100 mls/hr Metronidazole 500 mg/ Premix 100 mls @ 100 mls/hr IV 1130,1700 [facility] Stop: 03/06/17 17:59 Last Admin: 03/06/17 17:24 Dose: 100 mls/hr Metronidazole 500 mg/ Premix 100 mls @ 100 mls/hr IV Q8H [facility] Last Admin: 03/07/17 08:07 Dose: 100 mls/hr Vancomycin HCl 1.5 gm/ Sodium (Chloride) 500 mls @ 334.014 mls/hr IV Q24H [facility] Last Admin: 03/07/17 09:10 Dose: 334.014 mls/hr Clindamycin Phosphate 300 mg/ (Premix) 50 mls @ 100 mls/hr IV Q6H [facility] Clindamycin Phosphate 300 mg/ (Premix) 50 mls @ 100 mls/hr IV ONETIME ONE Stop: 03/07/17 11:29 Last Admin: 03/07/17 11:53 Dose: 100 mls/hr Lactated Ringer's (Ringers, Lactated) 1,000 mls @ 125 mls/hr IV ASDIRECTED [facility] Last Admin: 03/07/17 21:59 Dose: 125 mls/hr Ibuprofen (Motrin) 400 mg PO Q4H PRN PRN Reason: Fever Last Admin: 03/07/17 08:05 Dose: 400 mg Iopamidol (Isovue-300 (61%)) 100 ml IVPUSH ONETIME ONE Stop: 03/08/17 16:09 Last Admin: 03/09/17 07:03 Dose: Not Given - Exam General: alert, oriented, cooperative Lungs: Clear to auscultation, Normal respiratory effort. No: Crackles, Wheezing Cardiovascular: Regular Rate, Regular Rhythm Abdomen: soft, no distension Extremities: edema (swelling has increased further up his leg. See nurses notes for measurements. Increased swelling to top of R foot. 2+ pitting. Pedal pulses are 2+. 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 Very light erythema to R upper thigh/groin area. ) Skin: warm, dry, intact, other (Small vesicular lesions on an erythematous base scattered to patella of R knee, extending laterally. Consistent with herpes zoster. ) Neurological: no new focal deficit Psy/Mental Status: alert, normal affect, normal mood - Problem List Review Problem List Initiated/Reviewed/Updated: Yes - My Orders Last 24 Hours: My Active Orders 03/08/17 15:16 Lower Leg w Cont Rt [CT] Routine 03/09/17 09:34 VL Duplex Lwr Ext Veins Ltd Rt [US] Routine 03/09/17 09:58 HYDROmorphone [Dilaudid] 1 mg IVPUSH Q2H PRN 03/09/17 10:00 Ondansetron [Zofran] 4 mg IVPUSH Q4H PRN 03/09/17 11:15 Acyclovir [Zovirax] 1,000 mg Sodium Chloride 0.9% [Normal Saline] 100 ml IV Q8HR 03/09/17 11:30 Clindamycin Phosphate in D5W [Cleocin in D5W] 300 mg Premix Bag 1 bag IV Q6H 03/09/17 Breakfast 2 Gram Sodium Diet [DIET] - Assessment Assessment:: Right leg cellulitis, improving Right leg edema Herpes Zoster, R knee - Plan Plan:: obtained an ultrasound of patient's right lower extremity looking for DVT due to increased pain and swelling. No DVT or abnormality is found. Continue Ancef. Will restart Vancomycin and clindamycin IV. Start acyclovir 800mg IV q 8 hours. Order for Dilaudid is given which makes patient much more comfortable. Denies any pain 30 min after administration. We discussed adding acyclovir, and restarting clinda and vancomycin with reevaluation by Dr. Anderson in the a.m. versus transfer to [facility] for specialist intervention and evaluation. Patient would prefer to remain in [place] at this time. Repeat CBC BMP and CRP in the morning.
[2017-03-09] MEDS: Clindamycin Phosphate in D5W 300 MG in Premix Bag 1 BAG IV SCH ×6 (11:54→23:18)
[2017-03-09] MEDS: Ibuprofen 200 MG Tab PO PRN (11:54)
[2017-03-09] MEDS: Enoxaparin 40 MG/0.4 ML Syringe SUBCUT SCH (16:21)
[2017-03-10] MEDS: HYDROmorphone 1 MG/ML Syringe IVPUSH PRN ×2 (01:19→08:00)
[2017-03-10] MEDS: Clindamycin Phosphate in D5W 300 MG in Premix Bag 1 BAG IV SCH ×6 (05:02→19:00)
[2017-03-10] MEDS: Losartan 100 MG Tab PO SCH (07:54)
[2017-03-10] MEDS: Metoprolol Succinate 100 MG Tab.ER PO SCH (07:55)
[2017-03-10] MEDS: Furosemide 40 MG Tab PO SCH ×2 (07:55→16:38)
[2017-03-10] MEDS: Carbidopa/Levodopa 25-100 MG Tab PO SCH ×3 (07:55→20:09)
[2017-03-10] MEDS: Vancomycin 125 MG/2.5 ML Oral Solution 2.5 ML UD Cup PO SCH ×4 (07:55→20:09)
[2017-03-10] MEDS: Ibuprofen 200 MG Tab PO PRN ×2 (07:55→20:18)
[2017-03-10] MEDS: Gabapentin 300 MG Cap PO SCH ×3 (07:59→20:09)
[2017-03-10] MEDS: ceFAZolin 1 GM Vial IVPUSH SCH ×2 (08:02→16:39)
[2017-03-10] MEDS: Vancomycin 1.5 GM in Sodium Chloride 0.9% 500 ML IV SCH (09:24)
[2017-03-10] MEDS: Acetaminophen 325 MG Tab PO PRN (12:09)
[2017-03-10] MEDS: Enoxaparin 40 MG/0.4 ML Syringe SUBCUT SCH (16:38)
[2017-03-11] MEDS ORDERED: Acyclovir 500 MG in Sodium Chloride 0.9% 100 ML IV SCH ×2
[2017-03-11] MEDS: Clindamycin Phosphate in D5W 300 MG in Premix Bag 1 BAG IV SCH ×8 (00:09→17:59)
[2017-03-11] MEDS: HYDROmorphone 1 MG/ML Syringe IVPUSH PRN (06:20)
--- NOTE | 2017-03-11 07:09 | PN ---
DATE: 03/10/2017 S: Albin has had an interesting weekend. Apparently, his leg started getting more swollen and more red, going all the way up to the groin. CRP went up. He was put back on Cleocin and vancomycin because there was some blistering around his knee. I believe, he was given acyclovir for possible zoster. He has run some low grade temps since Friday, though his white blood cell count and CRP are trending down, I think he has never spiked another high fever and he says he feels better, less pain, and the redness has gone from the groin, it is now at the mid thigh, extending all the way to the ankle. He had a CT scan of the leg and an ultrasound. No DVTs were seen. No gas or gangrene was seen in the leg. PHYSICAL EXAMINATION: GENERAL: He is pleasant, alert, and cooperative. He does not appear in distress. He has had no blood pressure regularities or hypotension. HEENT: Benign. NECK: Veins are flat. LUNGS: Clear throughout. CARDIAC: Tones are regular. ABDOMEN: Obese, soft, and nontender. EXTREMITIES: The right lower extremity has massive edema, as compared to the left, although the left is 2 to 3+ as well. Right leg has erythema extending from the mid thigh on the inside all the way down through the ankle. There was minimal calor now and there is less tenderness to palpation. ASSESSMENT: 1. RIGHT LOWER EXTREMITY CELLULITIS WITH A HISTORY OF CHRONIC STASIS DERMATITIS. 2. HISTORY OF CHRONIC PERIPHERAL EDEMA. 3. MORBID OBESITY. P: I am going to stop the acyclovir, stop the Ancef, he is currently on vancomycin and Cleocin. I will continue him on oral vancomycin because of his recent history of C. diff colitis. Still waiting for sensitivities on his strep culture, which was positive from blood. VERONIKA/MAURICIO /[id number]
[2017-03-11] MEDS: Losartan 100 MG Tab PO SCH (07:29)
[2017-03-11] MEDS: Metoprolol Succinate 100 MG Tab.ER PO SCH (07:29)
[2017-03-11] MEDS: Vancomycin 125 MG/2.5 ML Oral Solution 2.5 ML UD Cup PO SCH ×4 (07:29→19:52)
[2017-03-11] MEDS: Furosemide 40 MG Tab PO SCH (07:30)
[2017-03-11] MEDS: Carbidopa/Levodopa 25-100 MG Tab PO SCH ×3 (07:30→19:52)
[2017-03-11] MEDS: Gabapentin 300 MG Cap PO SCH ×3 (07:30→19:52)
[2017-03-11] MEDS ORDERED: Vancomycin 1.5 GM in Sodium Chloride 0.9% 500 ML IV SCH (09:00)
--- NOTE | 2017-03-11 11:41 | PN ---
DATE: 03/11/2017 S: Albin has done well over night. He has not spiked a temp for over a day now. His lab work today shows his white count continued to trend down. His CRP is down as well. Renal function remained stable. He continues to have pain in the leg, but his erythema seems slightly less. There are a few areas that are less intense. He still has a lot of intensity of erythema and redness to the right inner thigh. O: His exam confirms clear breath sounds. Cardiac tones remain regular. His right lower extremity remains markedly edematous, erythematous from the ankle to the mid thigh. The inner thigh is much more erythematous and tender, but there is some slight lightening of his calor and erythema. ASSESSMENT: RIGHT LOWER EXTREMITY CELLULITIS. P: His blood culture came back positive for beta-hemolytic strep. We are going to stop his vancomycin now, and keep him on Cleocin and Rocephin for now. I am trying to get a hold of Infectious Disease and will try again today. I could not get the specialists on the phone yesterday and I am waiting for his call back today. No other changes at this time. VERONIKA/MAURICIO /[id number]
[2017-03-11] MEDS: cefTRIAXone 1 GM Vial IVPUSH SCH (12:28)
[2017-03-11] MEDS: Ibuprofen 200 MG Tab PO PRN (12:29)
[2017-03-11] MEDS ORDERED: Furosemide 40 MG/4 ML VIAL IVPUSH ONE (14:30)
[2017-03-11] MEDS: Enoxaparin 40 MG/0.4 ML Syringe SUBCUT SCH (18:00)
[2017-03-12] MEDS: Clindamycin Phosphate in D5W 300 MG in Premix Bag 1 BAG IV SCH ×10 (00:13→23:37)
[2017-03-12] MEDS: HYDROmorphone 1 MG/ML Syringe IVPUSH PRN ×3 (00:46→11:54)
[2017-03-12] MEDS: Metoprolol Succinate 100 MG Tab.ER PO SCH (07:46)
[2017-03-12] MEDS: Carbidopa/Levodopa 25-100 MG Tab PO SCH ×3 (07:46→19:16)
[2017-03-12] MEDS: Losartan 100 MG Tab PO SCH (07:47)
[2017-03-12] MEDS: Gabapentin 300 MG Cap PO SCH ×3 (07:47→19:15)
[2017-03-12] MEDS: Furosemide 40 MG/4 ML VIAL IVPUSH SCH (07:48)
[2017-03-12] MEDS: cefTRIAXone 1 GM Vial IVPUSH SCH (07:49)
[2017-03-12] MEDS: Vancomycin 125 MG/2.5 ML Oral Solution 2.5 ML UD Cup PO SCH ×4 (07:49→19:16)
[2017-03-12] MEDS: Acetaminophen 325 MG Tab PO PRN (11:52)
--- NOTE | 2017-03-12 12:40 | PN ---
DATE: 03/12/2017 S: Albin continues to do well. Vitals have been stable. He remains afebrile. Sensitivities came back on his beta strep sensitive to all antibiotics. Right now, he is on Cleocin and Rocephin. For the most part, his redness looks improved. There is much less intensity. He has less tenderness in the upper thigh. He continues to have a lot of edema. We did put him on IV Lasix and held his oral Lasix yesterday, and he definitely noticed results. His leg size appears improved as well. O: GENERAL: He is a pleasant, alert, and cooperative. Appears in no distress. NECK: Supple. Veins flat. LUNGS: Clear. CARDIAC: Tones are regular. ABDOMEN: Remains obese, soft, and nontender. EXTREMITIES: Remain edematous more so on the right at 3+ to 4, left side at 2+. The erythema is starting to resolve especially below the knee. His most intense remains in the right upper inner thigh, but that appears to have less calor and intensity as well. ASSESSMENT: 1. RIGHT LOWER EXTREMITY CELLULITIS. 2. CHRONIC PERIPHERAL EDEMA WITH STASIS DERMATITIS. P: We will continue all cares. Repeat lab work tomorrow. Clinically looks much better. VERONIKA/MAURICIO /[id number]
[2017-03-12] MEDS: Enoxaparin 40 MG/0.4 ML Syringe SUBCUT SCH (18:05)
[2017-03-13] MEDS: HYDROmorphone 1 MG/ML Syringe IVPUSH PRN ×3 (02:26→16:39)
[2017-03-13] MEDS: Clindamycin Phosphate in D5W 300 MG in Premix Bag 1 BAG IV SCH ×4 (05:19→11:54)
[2017-03-13] MEDS: Furosemide 40 MG/4 ML VIAL IVPUSH SCH (08:38)
[2017-03-13] MEDS: Vancomycin 125 MG/2.5 ML Oral Solution 2.5 ML UD Cup PO SCH ×4 (08:39→20:01)
[2017-03-13] MEDS: Carbidopa/Levodopa 25-100 MG Tab PO SCH ×3 (08:40→20:01)
[2017-03-13] MEDS: Gabapentin 300 MG Cap PO SCH ×3 (08:40→20:01)
[2017-03-13] MEDS: Losartan 100 MG Tab PO SCH (08:40)
[2017-03-13] MEDS: Metoprolol Succinate 100 MG Tab.ER PO SCH (08:40)
[2017-03-13] MEDS: cefTRIAXone 1 GM Vial IVPUSH SCH (08:42)
--- NOTE | 2017-03-13 09:22 | PCM.PN ---
- General Info Date of Service: 03/13/17 Functional Status: Reports: pain controlled, tolerating diet - Review of Systems General: Reports: Fever, Weakness, Fatigue HEENT: Denies: ear pain, sinus congestion, rhinitis Pulmonary: Denies: shortness of breath, cough, wheezing Cardiovascular: Reports: Edema. Denies: Chest Pain, Lightheadedness Gastrointestinal: Reports: No symptoms Genitourinary: Reports: no symptoms Musculoskeletal: Reports: leg pain Skin: Reports: other (redness and swelling up to thigh) Neurological: Reports: No Symptoms - Patient Data Vitals - most recent: Last Vital Signs Temp 99 F 03/13/17 08:00 Pulse 65 03/13/17 08:40 Resp 16 03/13/17 08:00 BP 129/66 03/13/17 08:40 Pulse Ox 98 03/13/17 08:00 Weight - most recent: 398 lb 6.4 oz I&O - last 24 hours: Intake & Output 03/12/17 03/13/17 03/13/17 22:59 06:59 14:59 Intake Total 2190 950 Output Total 450 875 Balance 1740 75 Lab Results last 24 hrs: Laboratory Results - last 24 hr 03/13/17 03/13/17 Range/Units 06:50 06:50 WBC 7.6 (5.0-10.0) 10^3/uL RBC 4.54 (4.50-6.00) 10^6/uL Hgb 11.7 L (14.0-18.0) g/dL Hct 36.9 L (40.0-54.0) % MCV 81.3 L (82.0-94.0) fL MCH 25.8 L (27.0-32.0) pg MCHC 31.7 L (33.0-38.0) g/dL RDW Coeff of Connie 16.9 H (11.0-15.0) % Plt Count 238 (150-400) 10^3/uL Neut % (Auto) 69.0 (35-85) % Lymph % (Auto) 15.1 (10-55) % [place] % (Auto) 10.2 (0-16) % Eos % (Auto) 5.4 H (0-5) % Baso % (Auto) 0.3 (0-3) % Neut # (Auto) 5.26 (1.80-7.00) 10^3/uL Lymph # (Auto) 1.15 (1.00-4.80) 10^3/uL [place] # (Auto) 0.78 (0.00-0.80) 10^3/uL Eos # (Auto) 0.41 (0.00-0.45) 10^3/uL Baso # (Auto) 0.02 10^3/uL C-Reactive Protein 9.0 H (0.2-0.8) mg/dL Med Orders - Current: Current Medications Acetaminophen (Tylenol) 650 mg PO Q4H PRN PRN Reason: Pain (Mild 1-3)/fever Last Admin: 03/12/17 11:52 Dose: 650 mg Carbidopa/Levodopa (Sinemet 25-100 Mg) 1 tab PO TID [facility] Last Admin: 03/13/17 08:40 Dose: 1 tab Ceftriaxone Sodium (Rocephin) 1 gm IVPUSH Q24H [facility] Last Admin: 03/13/17 08:42 Dose: 1 gm Enoxaparin Sodium (Lovenox) 40 mg SUBCUT Q24H [facility] Last Admin: 03/12/17 18:05 Dose: 40 mg Furosemide (Lasix) 40 mg PO BIDDIURETIC [facility] Last Admin: 03/11/17 07:30 Dose: 40 mg Furosemide (Lasix) 40 mg IVPUSH Q24H [facility] Last Admin: 03/13/17 08:38 Dose: 40 mg Gabapentin (Neurontin) 300 mg PO TID [facility] Last Admin: 03/13/17 08:40 Dose: 300 mg Hydromorphone HCl (Dilaudid) 1 mg IVPUSH Q2H PRN PRN Reason: Pain (moderate 4-6) Last Admin: 03/13/17 08:36 Dose: 1 mg Clindamycin Phosphate 300 mg/ (Premix) 50 mls @ 100 mls/hr IV Q6H [facility] Last Admin: 03/13/17 05:19 Dose: 100 mls/hr Ibuprofen (Motrin) 400 mg PO Q6H PRN PRN Reason: Fever Last Admin: 03/11/17 12:29 Dose: 400 mg Losartan Potassium (Cozaar) 100 mg PO DAILY [facility] Last Admin: 03/13/17 08:40 Dose: 100 mg Metoprolol Succinate (Toprol Xl) 100 mg PO DAILY [facility] Last Admin: 03/13/17 08:40 Dose: 100 mg Ondansetron HCl (Zofran Odt) 8 mg PO Q4H PRN PRN Reason: nausea, able to take PO Ondansetron HCl (Zofran) 4 mg IVPUSH Q4H PRN PRN Reason: Nausea Vancomycin HCl (Vancocin 125 Mg/2.5 Ml Soln) 125 mg PO QID [facility] Last Admin: 03/13/17 08:39 Dose: 125 mg Discontinued Medications Cefazolin Sodium (Ancef) 1 gm IVPUSH Q8H [facility] Last Admin: 03/10/17 16:39 Dose: Not Given Enoxaparin Sodium (Lovenox) 40 mg SUBCUT Q24H [facility] Last Admin: 03/10/17 16:38 Dose: 40 mg Furosemide (Lasix) 40 mg IVPUSH ONETIME ONE Stop: 03/11/17 14:31 Last Admin: 03/11/17 16:03 Dose: 40 mg Lactated Ringer's (Ringers, Lactated) 1,000 mls @ 100 mls/hr IV ASDIRECTED [facility] Last Admin: 03/06/17 21:01 Dose: 100 mls/hr Metronidazole 500 mg/ Premix 100 mls @ 100 mls/hr IV 1130,1700 [facility] Stop: 03/06/17 17:59 Last Admin: 03/06/17 17:24 Dose: 100 mls/hr Metronidazole 500 mg/ Premix 100 mls @ 100 mls/hr IV Q8H [facility] Last Admin: 03/07/17 08:07 Dose: 100 mls/hr Vancomycin HCl 1.5 gm/ Sodium (Chloride) 500 mls @ 334.014 mls/hr IV Q24H [facility] Last Admin: 03/07/17 09:10 Dose: 334.014 mls/hr Clindamycin Phosphate 300 mg/ (Premix) 50 mls @ 100 mls/hr IV Q6H [facility] Clindamycin Phosphate 300 mg/ (Premix) 50 mls @ 100 mls/hr IV ONETIME ONE Stop: 03/07/17 11:29 Last Admin: 03/07/17 11:53 Dose: 100 mls/hr Lactated Ringer's (Ringers, Lactated) 1,000 mls @ 125 mls/hr IV ASDIRECTED [facility] Last Admin: 03/07/17 21:59 Dose: 125 mls/hr Vancomycin HCl 1.5 gm/ Sodium (Chloride) 500 mls @ 334.014 mls/hr IV Q24H [facility] Last Admin: 03/10/17 09:24 Dose: 334.014 mls/hr Acyclovir 1,000 mg/ Sodium (Chloride) 120 mls @ 200 mls/hr IV Q8HR [facility] Clindamycin Phosphate 300 mg/ (Premix) 50 mls @ 100 mls/hr IV Q6H [facility] Last Admin: 03/10/17 11:38 Dose: 100 mls/hr Acyclovir 800 mg/ Sodium (Chloride) 116 mls @ 100 mls/hr IV Q8H [facility] Last Admin: 03/10/17 12:11 Dose: 100 mls/hr Vancomycin HCl 1.5 gm/ Sodium (Chloride) 500 mls @ 250 mls/hr IV Q24H [facility] Last Admin: 03/11/17 08:46 Dose: 250 mls/hr Acyclovir 500 mg/ Sodium (Chloride) 110 mls @ 94.828 mls/hr IV Q8H [facility] Clindamycin Phosphate 300 mg/ (Premix) 50 mls @ 100 mls/hr IV Q6H [facility] Last Admin: 03/11/17 06:14 Dose: 100 mls/hr Ibuprofen (Motrin) 400 mg PO Q4H PRN PRN Reason: Fever Last Admin: 03/07/17 08:05 Dose: 400 mg Iopamidol (Isovue-300 (61%)) 100 ml IVPUSH ONETIME ONE Stop: 03/08/17 16:09 Last Admin: 03/09/17 07:03 Dose: Not Given Vancomycin HCl (Pharmacy To Dose - Vancomycin) 1 dose .XX ASDIRECTED [facility] - Exam General: alert, oriented HEENT: Mucous membr. moist/pink Neck: supple Lungs: Clear to auscultation, Normal respiratory effort Cardiovascular: Regular Rate, Regular Rhythm Abdomen: bowel sounds present, soft, no tenderness Extremities: edema (3+ to thigh, 2+ in RLE. Is very erythematous yet in thigh, warm to the touch, tender. Patient states is somewhat improved and has much less pain than admission.) - Problem List Review Problem List Initiated/Reviewed/Updated: Yes - Assessment Assessment:: Right leg cellulitis, improving Right leg edema Herpes Zoster, R knee - Plan Plan:: obtained an ultrasound of patient's right lower extremity looking for DVT due to increased pain and swelling. No DVT or abnormality is found. Continue Ancef. Will restart Vancomycin and clindamycin IV. Start acyclovir 800mg IV q 8 hours. Order for Dilaudid is given which makes patient much more comfortable. Denies any pain 30 min after administration. We discussed adding acyclovir, and restarting clinda and vancomycin with reevaluation by Dr. Anderson in the a.m. versus transfer to [facility] for specialist intervention and evaluation. Patient would prefer to remain in [place] at this time. Repeat CBC BMP and CRP in the morning. 03-13-2017 Patient is slowing improving. Has much less pain in leg than admission. Does continue to be red and swollen. Low grade fevers. Tender. Not ambulating much due to discomfort. Overall, per notes, leg is improving. Labs much improved. CRP down to 9. WBC normal. Continue with same orders/meds. Continue to follow CRP. Patient discharge inappropriate at this time.
[2017-03-13] MEDS: Ibuprofen 200 MG Tab PO PRN (14:53)
[2017-03-13] MEDS: ceFAZolin 1 GM Vial IVPUSH SCH ×2 (17:08→23:38)
[2017-03-13] MEDS: Enoxaparin 40 MG/0.4 ML Syringe SUBCUT SCH (17:08)
[2017-03-13] MEDS: Acetaminophen/HYDROcodone 325-5 MG Tab PO PRN (20:02)
[2017-03-14] MEDS: Acetaminophen/HYDROcodone 325-5 MG Tab PO PRN ×3 (05:08→15:14)
[2017-03-14] MEDS: ceFAZolin 1 GM Vial IVPUSH SCH ×3 (06:10→17:55)
[2017-03-14] MEDS: Gabapentin 300 MG Cap PO SCH ×3 (07:48→20:20)
[2017-03-14] MEDS: Vancomycin 125 MG/2.5 ML Oral Solution 2.5 ML UD Cup PO SCH ×4 (07:48→20:20)
[2017-03-14] MEDS: Losartan 100 MG Tab PO SCH (07:48)
[2017-03-14] MEDS: Carbidopa/Levodopa 25-100 MG Tab PO SCH ×3 (07:48→20:20)
[2017-03-14] MEDS: Metoprolol Succinate 100 MG Tab.ER PO SCH (07:49)
[2017-03-14] MEDS: Furosemide 40 MG/4 ML VIAL IVPUSH SCH (07:49)
--- NOTE | 2017-03-14 08:19 | PCM.PN ---
- General Info Date of Service: 03/14/17 Admission Dx/Problem (Free Text): R lower extremity cellulitis related to stasis dermatitis Functional Status: Reports: pain controlled (states the oral pain meds have helped), tolerating diet. Denies: ambulating - Review of Systems General: Reports: Weakness, Fatigue. Denies: Fever HEENT: Reports: no symptoms Pulmonary: Denies: shortness of breath, cough, wheezing Cardiovascular: Reports: Edema. Denies: Chest Pain, Lightheadedness Gastrointestinal: Denies: Abdominal pain, Nausea, Vomiting Genitourinary: Reports: no symptoms Musculoskeletal: Reports: leg pain Skin: Reports: other (erythema) Neurological: Reports: No Symptoms Psychiatric: Reports: no symptoms - Patient Data Vitals - most recent: Last Vital Signs Temp 98.6 F 03/14/17 07:32 Pulse 63 03/14/17 07:49 Resp 20 03/14/17 07:32 BP 138/82 03/14/17 07:49 Pulse Ox 94 L 03/14/17 07:32 Weight - most recent: 395 lb 12.8 oz I&O - last 24 hours: Intake & Output 03/13/17 03/14/17 03/14/17 22:59 06:59 14:59 Intake Total 2286 1300 Output Total 3600 1025 250 Balance -1314 275 -250 Pablo Results last 24 hrs: Microbiology 03/06/17 11:51 Bacterial Identification - Final Blood Beta Streptococcus Group G Med Orders - Current: Current Medications Acetaminophen (Tylenol) 650 mg PO Q4H PRN PRN Reason: Pain (Mild 1-3)/fever Last Admin: 03/12/17 11:52 Dose: 650 mg Hydrocodone Bitart/Acetaminophen ([employer] 325-5 Mg) 1 - 2 tab PO Q6H PRN PRN Reason: pain Last Admin: 03/14/17 05:08 Dose: 1 tab Carbidopa/Levodopa (Sinemet 25-100 Mg) 1 tab PO TID MAXI Last Admin: 03/14/17 07:48 Dose: 1 tab Cefazolin Sodium (Ancef) 1 gm IVPUSH Q6H MAXI Last Admin: 03/14/17 06:10 Dose: 1 gm Enoxaparin Sodium (Lovenox) 40 mg SUBCUT Q24H MAXI Last Admin: 03/13/17 17:08 Dose: 40 mg Furosemide (Lasix) 40 mg PO BIDDIURETIC [facility] Last Admin: 03/11/17 07:30 Dose: 40 mg Furosemide (Lasix) 40 mg IVPUSH Q24H [facility] Last Admin: 03/14/17 07:49 Dose: 40 mg Gabapentin (Neurontin) 300 mg PO TID [facility] Last Admin: 03/14/17 07:48 Dose: 300 mg Hydromorphone HCl (Dilaudid) 1 mg IVPUSH Q2H PRN PRN Reason: Pain (moderate 4-6) Last Admin: 03/13/17 16:39 Dose: 1 mg Ibuprofen (Motrin) 400 mg PO Q6H PRN PRN Reason: Fever Last Admin: 03/13/17 14:53 Dose: 400 mg Losartan Potassium (Cozaar) 100 mg PO DAILY [facility] Last Admin: 03/14/17 07:48 Dose: 100 mg Metoprolol Succinate (Toprol Xl) 100 mg PO DAILY [facility] Last Admin: 03/14/17 07:49 Dose: 100 mg Ondansetron HCl (Zofran Odt) 8 mg PO Q4H PRN PRN Reason: nausea, able to take PO Ondansetron HCl (Zofran) 4 mg IVPUSH Q4H PRN PRN Reason: Nausea Vancomycin HCl (Vancocin 125 Mg/2.5 Ml Soln) 125 mg PO QID [facility] Last Admin: 03/14/17 07:48 Dose: 125 mg Discontinued Medications Cefazolin Sodium (Ancef) 1 gm IVPUSH Q8H [facility] Last Admin: 03/10/17 16:39 Dose: Not Given Ceftriaxone Sodium (Rocephin) 1 gm IVPUSH Q24H [facility] Last Admin: 03/13/17 08:42 Dose: 1 gm Enoxaparin Sodium (Lovenox) 40 mg SUBCUT Q24H [facility] Last Admin: 03/10/17 16:38 Dose: 40 mg Furosemide (Lasix) 40 mg IVPUSH ONETIME ONE Stop: 03/11/17 14:31 Last Admin: 03/11/17 16:03 Dose: 40 mg Lactated Ringer's (Ringers, Lactated) 1,000 mls @ 100 mls/hr IV ASDIRECTED [facility] Last Admin: 03/06/17 21:01 Dose: 100 mls/hr Metronidazole 500 mg/ Premix 100 mls @ 100 mls/hr IV 1130,1700 [facility] Stop: 03/06/17 17:59 Last Admin: 03/06/17 17:24 Dose: 100 mls/hr Metronidazole 500 mg/ Premix 100 mls @ 100 mls/hr IV Q8H [facility] Last Admin: 03/07/17 08:07 Dose: 100 mls/hr Vancomycin HCl 1.5 gm/ Sodium (Chloride) 500 mls @ 334.014 mls/hr IV Q24H [facility] Last Admin: 03/07/17 09:10 Dose: 334.014 mls/hr Clindamycin Phosphate 300 mg/ (Premix) 50 mls @ 100 mls/hr IV Q6H [facility] Clindamycin Phosphate 300 mg/ (Premix) 50 mls @ 100 mls/hr IV ONETIME ONE Stop: 03/07/17 11:29 Last Admin: 03/07/17 11:53 Dose: 100 mls/hr Lactated Ringer's (Ringers, Lactated) 1,000 mls @ 125 mls/hr IV ASDIRECTED [facility] Last Admin: 03/07/17 21:59 Dose: 125 mls/hr Vancomycin HCl 1.5 gm/ Sodium (Chloride) 500 mls @ 334.014 mls/hr IV Q24H [facility] Last Admin: 03/10/17 09:24 Dose: 334.014 mls/hr Acyclovir 1,000 mg/ Sodium (Chloride) 120 mls @ 200 mls/hr IV Q8HR [facility] Clindamycin Phosphate 300 mg/ (Premix) 50 mls @ 100 mls/hr IV Q6H [facility] Last Admin: 03/10/17 11:38 Dose: 100 mls/hr Acyclovir 800 mg/ Sodium (Chloride) 116 mls @ 100 mls/hr IV Q8H [facility] Last Admin: 03/10/17 12:11 Dose: 100 mls/hr Vancomycin HCl 1.5 gm/ Sodium (Chloride) 500 mls @ 250 mls/hr IV Q24H [facility] Last Admin: 03/11/17 08:46 Dose: 250 mls/hr Acyclovir 500 mg/ Sodium (Chloride) 110 mls @ 94.828 mls/hr IV Q8H [facility] Clindamycin Phosphate 300 mg/ (Premix) 50 mls @ 100 mls/hr IV Q6H [facility] Last Admin: 03/11/17 06:14 Dose: 100 mls/hr Clindamycin Phosphate 300 mg/ (Premix) 50 mls @ 100 mls/hr IV Q6H [facility] Last Admin: 03/13/17 11:54 Dose: 100 mls/hr Ibuprofen (Motrin) 400 mg PO Q4H PRN PRN Reason: Fever Last Admin: 03/07/17 08:05 Dose: 400 mg Iopamidol (Isovue-300 (61%)) 100 ml IVPUSH ONETIME ONE Stop: 03/08/17 16:09 Last Admin: 03/09/17 07:03 Dose: Not Given Vancomycin HCl (Pharmacy To Dose - Vancomycin) 1 dose .XX ASDIRECTED [facility] - Exam General: alert, oriented HEENT: Mucous membr. moist/pink Neck: supple Lungs: Clear to auscultation, Normal respiratory effort Cardiovascular: Regular Rate, Regular Rhythm Abdomen: bowel sounds present, soft, no tenderness Extremities: edema (edema to RLE) Skin: warm, other (erythema noted to thigh, warm to the touch; patient is tender ; overall looks improved) - Problem List Review Problem List Initiated/Reviewed/Updated: Yes - My Orders Last 24 Hours: My Active Orders 03/13/17 18:00 ceFAZolin [Ancef] 1 gm IVPUSH Q6H 03/13/17 19:21 Acetaminophen/HYDROcodone [[employer] 325-5 MG] 1 - 2 tab PO Q6H PRN - Assessment Assessment:: Right leg cellulitis, improving Right leg edema Herpes Zoster, R knee - Plan Plan:: obtained an ultrasound of patient's right lower extremity looking for DVT due to increased pain and swelling. No DVT or abnormality is found. Continue Ancef. Will restart Vancomycin and clindamycin IV. Start acyclovir 800mg IV q 8 hours. Order for Dilaudid is given which makes patient much more comfortable. Denies any pain 30 min after administration. We discussed adding acyclovir, and restarting clinda and vancomycin with reevaluation by Dr. Anderson in the a.m. versus transfer to [facility] for specialist intervention and evaluation. Patient would prefer to remain in [place] at this time. Repeat CBC BMP and CRP in the morning. 03-13-2017 Patient is slowing improving. Has much less pain in leg than admission. Does continue to be red and swollen. Low grade fevers. Tender. Not ambulating much due to discomfort. Overall, per notes, leg is improving. Labs much improved. CRP down to 9. WBC normal. Continue with same orders/meds. Continue to follow CRP. Patient discharge inappropriate at this time. 03-14-2017 Patient admits that does continue to have leg pain but pain pills are helping with the discomfort for longer period of time than the Dilaudid. He is ambulating but with discomfort. Leg does look improved from yesterday, less redness. Is down another 3# from yesterday. Was noted to be resistant to Clindamycin so that was discontinued yesterday. Stopped Rocephin and switched to Ancef. Continue vancomycin for C Diff coverage. Will continue with new IV meds, monitor edema. Encourage ambulation. Discharge inappropriate due to ongoing need for new IV antibiotic.
[2017-03-14] MEDS: Acetaminophen 325 MG Tab PO PRN (16:10)
[2017-03-14] MEDS: Enoxaparin 40 MG/0.4 ML Syringe SUBCUT SCH (17:54)
[2017-03-14] MEDS: HYDROmorphone 1 MG/ML Syringe IVPUSH PRN (18:01)
[2017-03-14] MEDS: Ibuprofen 200 MG Tab PO PRN (20:20)
[2017-03-15] MEDS: ceFAZolin 1 GM Vial IVPUSH SCH ×3 (00:44→11:43)
[2017-03-15] MEDS: Acetaminophen/HYDROcodone 325-5 MG Tab PO PRN ×2 (00:48→11:41)
[2017-03-15] MEDS: Furosemide 40 MG/4 ML VIAL IVPUSH SCH (08:00)
[2017-03-15] MEDS: Vancomycin 125 MG/2.5 ML Oral Solution 2.5 ML UD Cup PO SCH ×2 (08:00→11:41)
[2017-03-15] MEDS: Losartan 100 MG Tab PO SCH (08:00)
[2017-03-15] MEDS: Gabapentin 300 MG Cap PO SCH (08:00)
[2017-03-15] MEDS: Metoprolol Succinate 100 MG Tab.ER PO SCH (08:00)
[2017-03-15] MEDS: Carbidopa/Levodopa 25-100 MG Tab PO SCH (08:01)
[2017-03-15 11:47] VITALS: BP 160/97
--- NOTE | 2017-03-15 12:55 | PCM.DCSUM1 ---
Discharge Summary - Hospital Course HPI Initial Comments: This patient is a 66 year old male that presented with RLE cellulitis. He reports he is slowly getting better. Patient continues on IV abx treatment. I have reviewed the culture report and he is susceptable to Vanc, will continue. Patient denies kruse, dizziness, n, v, d, f. Will swing today. - Discharge Data Discharge Date: 03/15/17 Discharge Disposition: DC/Tfer W/I Hosp To Swing 61 Condition: Good - Patient Instructions Diet: Low Sodium Showering/Bathing: March Shower Notify Provider of: Fever, Increased Pain, Swelling and Redness, Drainage, Nausea and/or Vomiting - Discharge Plan Home Medications: Home Meds Gabapentin 300 mg PO TID 08/07/16 [History] Losartan Potassium 100 mg PO DAILY 08/07/16 [History] Carbidopa/Levodopa [Carbidopa-Levodopa 25-100 Tab] 1 each PO TID 01/21/17 [ History] Furosemide 40 mg PO BID #60 01/23/17 [Rx] Metoprolol Succinate [Toprol XL] 100 mg PO DAILY #30 tab.er 01/23/17 [Rx] metroNIDAZOLE [Flagyl] 500 mg PO TID 03/06/17 [History] - Discharge Summary/Plan Comment DC Time >30 min.: No - General Info Date of Service: 03/15/17 Functional Status: Reports: pain controlled - Review of Systems General: Reports: No Symptoms HEENT: Reports: no symptoms Pulmonary: Reports: no symptoms Cardiovascular: Reports: No Symptoms Gastrointestinal: Reports: No symptoms Genitourinary: Reports: no symptoms Musculoskeletal: Reports: other (RLE pain, swelling, redness. ) Skin: Reports: other (RLE redness. ) Neurological: Reports: No Symptoms Psychiatric: Reports: no symptoms - Patient Data Vitals - Most Recent: Last Vital Signs Temp 99.6 F 03/15/17 11:46 Pulse 66 03/15/17 11:46 Resp 20 03/15/17 11:46 BP 160/97 H 03/15/17 11:46 Pulse Ox 96 03/15/17 11:46 Weight - Most Recent: 391 lb 11.2 oz I&O - Last 24 hours: Intake & Output 03/14/17 03/15/17 03/15/17 22:59 06:59 14:59 Intake Total 180 1100 1186 Output Total 896 216 9469 Balance -670 571 -1062 Med Orders - Current: Current Medications Acetaminophen (Tylenol) 650 mg PO Q4H PRN PRN Reason: Pain (Mild 1-3)/fever Last Admin: 03/14/17 16:10 Dose: 650 mg Hydrocodone Bitart/Acetaminophen ([place] 325-5 Mg) 1 - 2 tab PO Q6H PRN PRN Reason: pain Last Admin: 03/15/17 11:41 Dose: 2 tab Carbidopa/Levodopa (Sinemet 25-100 Mg) 1 tab PO TID [facility] Last Admin: 03/15/17 08:01 Dose: 1 tab Cefazolin Sodium (Ancef) 1 gm IVPUSH Q6H [facility] Last Admin: 03/15/17 11:43 Dose: 1 gm Enoxaparin Sodium (Lovenox) 40 mg SUBCUT Q24H [facility] Last Admin: 03/14/17 17:54 Dose: 40 mg Furosemide (Lasix) 40 mg PO BIDDIURETIC [facility] Last Admin: 03/11/17 07:30 Dose: 40 mg Furosemide (Lasix) 40 mg IVPUSH Q24H [facility] Last Admin: 03/15/17 08:00 Dose: 40 mg Gabapentin (Neurontin) 300 mg PO TID [facility] Last Admin: 03/15/17 08:00 Dose: 300 mg Hydromorphone HCl (Dilaudid) 1 mg IVPUSH Q2H PRN PRN Reason: Pain (moderate 4-6) Last Admin: 03/14/17 18:01 Dose: 1 mg Ibuprofen (Motrin) 400 mg PO Q6H PRN PRN Reason: Fever Last Admin: 03/14/17 20:20 Dose: 400 mg Losartan Potassium (Cozaar) 100 mg PO DAILY [facility] Last Admin: 03/15/17 08:00 Dose: 100 mg Metoprolol Succinate (Toprol Xl) 100 mg PO DAILY [facility] Last Admin: 03/15/17 08:00 Dose: 100 mg Ondansetron HCl (Zofran Odt) 8 mg PO Q4H PRN PRN Reason: nausea, able to take PO Ondansetron HCl (Zofran) 4 mg IVPUSH Q4H PRN PRN Reason: Nausea Vancomycin HCl (Vancocin 125 Mg/2.5 Ml Soln) 125 mg PO QID [facility] Last Admin: 03/15/17 11:41 Dose: 125 mg Discontinued Medications Cefazolin Sodium (Ancef) 1 gm IVPUSH Q8H [facility] Last Admin: 03/10/17 16:39 Dose: Not Given Ceftriaxone Sodium (Rocephin) 1 gm IVPUSH Q24H [facility] Last Admin: 03/13/17 08:42 Dose: 1 gm Enoxaparin Sodium (Lovenox) 40 mg SUBCUT Q24H [facility] Last Admin: 03/10/17 16:38 Dose: 40 mg Furosemide (Lasix) 40 mg IVPUSH ONETIME ONE Stop: 03/11/17 14:31 Last Admin: 03/11/17 16:03 Dose: 40 mg Lactated Ringer's (Ringers, Lactated) 1,000 mls @ 100 mls/hr IV ASDIRECTED [facility] Last Admin: 03/06/17 21:01 Dose: 100 mls/hr Metronidazole 500 mg/ Premix 100 mls @ 100 mls/hr IV 1130,1700 [facility] Stop: 03/06/17 17:59 Last Admin: 03/06/17 17:24 Dose: 100 mls/hr Metronidazole 500 mg/ Premix 100 mls @ 100 mls/hr IV Q8H [facility] Last Admin: 03/07/17 08:07 Dose: 100 mls/hr Vancomycin HCl 1.5 gm/ Sodium (Chloride) 500 mls @ 334.014 mls/hr IV Q24H [facility] Last Admin: 03/07/17 09:10 Dose: 334.014 mls/hr Clindamycin Phosphate 300 mg/ (Premix) 50 mls @ 100 mls/hr IV Q6H [facility] Clindamycin Phosphate 300 mg/ (Premix) 50 mls @ 100 mls/hr IV ONETIME ONE Stop: 03/07/17 11:29 Last Admin: 03/07/17 11:53 Dose: 100 mls/hr Lactated Ringer's (Ringers, Lactated) 1,000 mls @ 125 mls/hr IV ASDIRECTED [facility] Last Admin: 03/07/17 21:59 Dose: 125 mls/hr Vancomycin HCl 1.5 gm/ Sodium (Chloride) 500 mls @ 334.014 mls/hr IV Q24H [facility] Last Admin: 03/10/17 09:24 Dose: 334.014 mls/hr Acyclovir 1,000 mg/ Sodium (Chloride) 120 mls @ 200 mls/hr IV Q8HR [facility] Clindamycin Phosphate 300 mg/ (Premix) 50 mls @ 100 mls/hr IV Q6H [facility] Last Admin: 03/10/17 11:38 Dose: 100 mls/hr Acyclovir 800 mg/ Sodium (Chloride) 116 mls @ 100 mls/hr IV Q8H [facility] Last Admin: 03/10/17 12:11 Dose: 100 mls/hr Vancomycin HCl 1.5 gm/ Sodium (Chloride) 500 mls @ 250 mls/hr IV Q24H [facility] Last Admin: 03/11/17 08:46 Dose: 250 mls/hr Acyclovir 500 mg/ Sodium (Chloride) 110 mls @ 94.828 mls/hr IV Q8H [facility] Clindamycin Phosphate 300 mg/ (Premix) 50 mls @ 100 mls/hr IV Q6H [facility] Last Admin: 03/11/17 06:14 Dose: 100 mls/hr Clindamycin Phosphate 300 mg/ (Premix) 50 mls @ 100 mls/hr IV Q6H [facility] Last Admin: 03/13/17 11:54 Dose: 100 mls/hr Ibuprofen (Motrin) 400 mg PO Q4H PRN PRN Reason: Fever Last Admin: 03/07/17 08:05 Dose: 400 mg Iopamidol (Isovue-300 (61%)) 100 ml IVPUSH ONETIME ONE Stop: 03/08/17 16:09 Last Admin: 03/09/17 07:03 Dose: Not Given Vancomycin HCl (Pharmacy To Dose - Vancomycin) 1 dose .XX ASDIRECTED [facility] - Exam General: Reports: alert, oriented, cooperative, no acute distress Lungs: Reports: Clear to auscultation, Normal respiratory effort Cardiovascular: Reports: Regular Rate, Regular Rhythm Abdomen: Reports: soft, no tenderness Extremities: Reports: normal pulses, other (RLE redness, heat, swelling. Improved since yesterday per RN. Circumferential. Toes to inner thigh near groin.) Wound/Incisions: Reports: healing well Neurological: Reports: no new focal deficit Psy/Mental Status: Reports: alert, normal affect, normal mood *Q Meaningful Use (DIS) - VTE *Q VTE Criteria *Q: - Stroke *Q Stroke Criteria *Q: - AMI *Q AMI Criteria *Q:
[2017-03-15] MEDS ORDERED: Ondansetron 4 MG/2 ML SDV IV PRN (13:05)
[2017-03-15] MEDS ORDERED: Acetaminophen/HYDROcodone 325-5 MG Tab PO PRN (13:05)
[2017-03-15] MEDS ORDERED: Acetaminophen 325 MG Tab PO PRN (13:05)
[2017-03-15] MEDS ORDERED: Morphine 2 MG/ML Syringe IVPUSH PRN (13:05)
[2017-03-15] MEDS ORDERED: Ibuprofen 200 MG Tab PO PRN (13:05)
[2017-03-15] MEDS ORDERED: Furosemide 40 MG/4 ML VIAL IVPUSH SCH (13:30)
[2017-03-15] MEDS ORDERED: Enoxaparin 40 MG/0.4 ML Syringe SUBCUT SCH (13:30)
[2017-03-15] MEDS ORDERED: ceFAZolin 1 GM Vial IVPUSH SCH (13:30)
[2017-03-15] MEDS ORDERED: HYDROmorphone 1 MG/ML Syringe IVPUSH PRN (13:30)
[2017-03-15] MEDS ORDERED: Gabapentin 300 MG Cap PO SCH (14:00)
[2017-03-15] MEDS ORDERED: Furosemide 40 MG Tab PO SCH (16:00)
[2017-03-15] MEDS ORDERED: Vancomycin 125 MG/2.5 ML Oral Solution 2.5 ML UD Cup PO SCH (16:00)
[2017-03-15] MEDS ORDERED: Carbidopa/Levodopa 25-100 MG Tab PO SCH (17:30)
[2017-03-16] MEDS ORDERED: Metoprolol Succinate 100 MG Tab.ER PO SCH (08:00)
[2017-03-16] MEDS ORDERED: Losartan 100 MG Tab PO SCH (08:00)
== END 2017-03-15 12:52 | disposition swing bed (61) | DRG 603 ==
LOC: CC.MS 09:45 → CC.FCMC 09:45 → UNDOADMIN 10:54 → CC.MS 10:54 → UNDOADMIN 11:09 → CC.MS 11:09
PROVIDERS: ADMIT Physician Assistant Medical; ATTEND Family Medicine
DX: L03.115 Cellulitis of right lower limb (principal); B95.4 Other streptococcus as the cause of diseases classified elsewhere; I87.2 Venous insufficiency (chronic) (peripheral); R60.9 Edema, unspecified; E66.01 Morbid (severe) obesity due to excess calories; B02.9 Zoster without complications; Z79.899 Other long term (current) drug therapy
CPT/HCPCS: 36415; 71020; 73701-RT; 80048; 80053; 81001; 82565; 85025; 86140; 87040; 87077; 87086; 87147; 87184; 87186; 93971-RT; 94760; A9270-GY; J0133; J0690; J0696; J1170; J1650; J1940; J3370; J7040; J7050; J7120; Q9967

== ENCOUNTER 2017-03-15 12:55 | Inpatient (IN) | payer BC, MEDICARE ==
[2017-03-15] MEDS ORDERED: Acetaminophen 325 MG Tab PO PRN (13:16)
[2017-03-15] MEDS ORDERED: Morphine 2 MG/ML Syringe IVPUSH PRN (13:16)
[2017-03-15] MEDS ORDERED: Ondansetron 4 MG/2 ML SDV IV PRN (13:16)
[2017-03-15] MEDS ORDERED: Ibuprofen 200 MG Tab PO PRN (13:16)
[2017-03-15] MEDS ORDERED: HYDROmorphone 1 MG/ML Syringe IVPUSH PRN (13:41)
[2017-03-15] MEDS: Gabapentin 300 MG Cap PO SCH ×2 (14:14→19:50)
[2017-03-15] MEDS: Carbidopa/Levodopa 25-100 MG Tab PO SCH ×2 (14:14→19:50)
[2017-03-15] MEDS: Vancomycin 125 MG/2.5 ML Oral Solution 2.5 ML UD Cup PO SCH ×2 (15:24→19:50)
[2017-03-15] MEDS: Enoxaparin 40 MG/0.4 ML Syringe SUBCUT SCH (17:20)
[2017-03-15] MEDS: ceFAZolin 1 GM Vial IVPUSH SCH (17:21)
[2017-03-15] MEDS: Acetaminophen/HYDROcodone 325-5 MG Tab PO PRN (19:51)
[2017-03-15] MEDS ORDERED: Furosemide 40 MG Tab PO SCH (20:00)
[2017-03-16] MEDS: ceFAZolin 1 GM Vial IVPUSH SCH ×5 (00:08→23:59)
[2017-03-16] MEDS: Acetaminophen/HYDROcodone 325-5 MG Tab PO PRN (00:12)
[2017-03-16] MEDS: Gabapentin 300 MG Cap PO SCH ×3 (08:07→20:30)
[2017-03-16] MEDS: Losartan 100 MG Tab PO SCH (08:07)
[2017-03-16] MEDS: Metoprolol Succinate 100 MG Tab.ER PO SCH (08:07)
[2017-03-16] MEDS: Vancomycin 125 MG/2.5 ML Oral Solution 2.5 ML UD Cup PO SCH ×4 (08:07→20:30)
[2017-03-16] MEDS: Furosemide 40 MG/4 ML VIAL IVPUSH SCH (08:08)
[2017-03-16] MEDS: Carbidopa/Levodopa 25-100 MG Tab PO SCH ×3 (08:08→20:30)
[2017-03-16] MEDS: Enoxaparin 40 MG/0.4 ML Syringe SUBCUT SCH (17:54)
[2017-03-17] MEDS: ceFAZolin 1 GM Vial IVPUSH SCH ×4 (05:53→23:39)
[2017-03-17] MEDS: Acetaminophen/HYDROcodone 325-5 MG Tab PO PRN ×2 (05:54→19:43)
[2017-03-17] MEDS: Metoprolol Succinate 100 MG Tab.ER PO SCH (07:43)
[2017-03-17] MEDS: Carbidopa/Levodopa 25-100 MG Tab PO SCH ×3 (07:43→19:43)
[2017-03-17] MEDS: Gabapentin 300 MG Cap PO SCH ×3 (07:43→19:44)
[2017-03-17] MEDS: Losartan 100 MG Tab PO SCH (07:43)
[2017-03-17] MEDS: Vancomycin 125 MG/2.5 ML Oral Solution 2.5 ML UD Cup PO SCH ×4 (07:44→19:44)
[2017-03-17] MEDS: Furosemide 40 MG/4 ML VIAL IVPUSH SCH (07:44)
[2017-03-17] MEDS: Enoxaparin 40 MG/0.4 ML Syringe SUBCUT SCH (17:51)
[2017-03-18] MEDS: ceFAZolin 1 GM Vial IVPUSH SCH ×2 (06:39→11:44)
[2017-03-18] MEDS: Acetaminophen/HYDROcodone 325-5 MG Tab PO PRN (07:26)
[2017-03-18] MEDS: Furosemide 40 MG/4 ML VIAL IVPUSH SCH (07:26)
[2017-03-18] MEDS: Losartan 100 MG Tab PO SCH (07:26)
[2017-03-18] MEDS: Gabapentin 300 MG Cap PO SCH ×2 (07:27→14:42)
[2017-03-18] MEDS: Carbidopa/Levodopa 25-100 MG Tab PO SCH ×2 (07:27→14:42)
[2017-03-18] MEDS: Metoprolol Succinate 100 MG Tab.ER PO SCH (07:28)
[2017-03-18] MEDS: Vancomycin 125 MG/2.5 ML Oral Solution 2.5 ML UD Cup PO SCH ×3 (07:28→16:32)
[2017-03-18 12:10] VITALS: BP 150/80
[2017-03-18] MEDS ORDERED: cefTRIAXone 2 GM Vial IVPUSH SCH (16:00)
--- NOTE | 2017-03-19 08:51 | DISCH ---
ADMISSION DIAGNOSIS: Right lower extremity cellulitis. DISCHARGE DIAGNOSIS: RIGHT LOWER EXTREMITY CELLULITIS. HISTORY: The patient presented from acute care for transfer to swing bed for ongoing IV antibiotics. He was admitted for acute onset of cellulitis with sepsis. Positive blood cultures ended up growing out group B Strep sensitive to penicillins and cephalosporins. He was ultimately put on IV Ancef and was also being actively treated for C. diff at that time and was finishing a course of Flagyl. He has been getting oral vancomycin here. HOSPITAL COURSE: The patient did well while here over the course of his admission. He has not spiked any further temperatures. Lab work shows improvement in his lab parameters including CBC and CRP. His CRP reached a giulia above 40s, down to 5.8. Clinically, he is doing quite well, although he continues to have a lot of edema to his legs. He is on daily diuretics. He has been stable. He is approved for longer swing bed stay, but he feels comfortable going home, keeping his foot up, he will have ongoing outpatient PT and he will come in for daily IV Rocephin shots for now. I will come down and see him on a daily basis and make sure he continues to make improvement. He will have a formal repeat lab work in 1 week's time. COMPLICATIONS: During his stay were none. CONSULTATIONS: PT. DISPOSITION: Discharged home. MARY /[id number]
== END 2017-03-18 16:43 | disposition home or self-care (01) | DRG 603 ==
LOC: CC.MS 12:55 → UNDOADMIN 12:55 → CC.MS 13:16
PROVIDERS: ADMIT Family Medicine; ATTEND Family Medicine
DX: L03.115 Cellulitis of right lower limb (principal); B95.1 Streptococcus, group B, as the cause of diseases classified elsewhere
CPT/HCPCS: 36415; 86140; 97161-GP; 97597-GP; 97598-GP; A9270-GY; J0690; J0696; J1650; J1940

== ENCOUNTER 2018-03-24 14:26 | Inpatient (IN) | payer MEDICARE, BC ==
[2018-03-24] MEDS ORDERED: Sodium Chloride 0.9% 10 ML Syringe FLUSH PRN (15:31)
[2018-03-24] MEDS ORDERED: Temazepam 15 MG Cap PO PRN (15:31)
[2018-03-24] MEDS ORDERED: Ondansetron 4 MG Tab.DIS PO PRN (15:31)
[2018-03-24] MEDS ORDERED: Enoxaparin 40 MG/0.4 ML Syringe SUBCUT SCH (15:45)
[2018-03-24 16:05] LABS: CHLORIDE,CL 102 mEq/L (98-106); SODIUM,NA 138 mEq/L (136-145)
[2018-03-24] MEDS: Clindamycin Phosphate in D5W 300 MG in Premix Bag 1 BAG IV SCH ×4 (16:16→21:48)
[2018-03-24] MEDS: Furosemide 40 MG Tab PO SCH (16:16)
[2018-03-24] MEDS: Acetaminophen 500 MG Tab PO PRN (16:59)
[2018-03-24] MEDS ORDERED: Triamcinolone Acetonide 0.1% Crm 15 GM Tube TOP PRN (17:00)
[2018-03-24] MEDS: Ibuprofen 200 MG Tab PO PRN (17:53)
[2018-03-24] MEDS: Acetaminophen/HYDROcodone 325-5 MG Tab PO PRN (19:02)
[2018-03-24] MEDS: Gabapentin 300 MG Cap PO SCH (20:17)
[2018-03-24] MEDS: Carbidopa/Levodopa 25-100 MG Tab PO SCH (20:17)
[2018-03-25] MEDS: Clindamycin Phosphate in D5W 300 MG in Premix Bag 1 BAG IV SCH ×8 (03:36→21:48)
[2018-03-25] MEDS: Acetaminophen 500 MG Tab PO PRN ×2 (06:22→17:17)
[2018-03-25] MEDS: Acetaminophen/HYDROcodone 325-5 MG Tab PO PRN ×2 (06:23→21:46)
[2018-03-25] MEDS ORDERED: Metoprolol Succinate 100 MG Tab.ER PO SCH (08:00)
[2018-03-25] MEDS ORDERED: amLODIPine 2.5 MG Tab PO SCH (08:00)
[2018-03-25] MEDS ORDERED: Losartan 100 MG Tab PO SCH (08:00)
[2018-03-25] MEDS: Carbidopa/Levodopa 25-100 MG Tab PO SCH ×3 (08:11→19:39)
[2018-03-25] MEDS: Gabapentin 300 MG Cap PO SCH ×3 (08:11→19:39)
[2018-03-25] MEDS: Furosemide 40 MG Tab PO SCH ×2 (08:12→16:25)
--- NOTE | 2018-03-25 08:40 | PCM.PN ---
- General Info Date of Service: 03/25/18 Admission Dx/Problem (Free Text): Cellulitis Functional Status: Reports: Pain Controlled, Tolerating Diet. Denies: Ambulating (states unable to ambulate far due to pain) - Review of Systems General: Reports: Fever, Weakness, Fatigue, Malaise HEENT: Reports: No Symptoms Pulmonary: Reports: Shortness of Breath. Denies: Cough, Sputum Cardiovascular: Reports: Edema (right lower extremity 4+ taut). Denies: Chest Pain, Lightheadedness Gastrointestinal: Denies: Abdominal Pain, Nausea, Vomiting Genitourinary: Reports: No Symptoms Musculoskeletal: Reports: Leg Pain Skin: Reports: Other (redness to leg) Neurological: Reports: No Symptoms - Patient Data Vitals - Most Recent: Last Vital Signs Temp 100.2 F 03/25/18 07:26 Pulse 104 H 03/25/18 08:11 Resp 20 03/25/18 07:26 BP 88/66 L 03/25/18 08:11 Pulse Ox 93 L 03/25/18 07:26 Weight - Most Recent: 398 lb 8 oz I&O - Last 24 Hours: Intake & Output 03/24/18 03/25/18 03/25/18 22:59 06:59 14:59 Intake Total 100 Balance 100 Lab Results Last 24 Hours: Laboratory Results - last 24 hr 03/24/18 03/24/18 03/24/18 Range/Units 15:45 15:50 16:15 WBC 9.3 (5.0-10.0) 10^3/uL RBC 5.30 (4.50-6.00) 10^6/uL Hgb 13.8 L (14.0-18.0) g/dL Hct 43.5 (40.0-54.0) % MCV 82.1 (82.0-94.0) fL MCH 26.0 L (27.0-32.0) pg MCHC 31.7 L (33.0-38.0) g/dL RDW Coeff of Connie 15.7 H (11.0-15.0) % Plt Count 162 (150-400) 10^3/uL Neut % (Auto) 80.8 (35-85) % Lymph % (Auto) 8.4 L (10-55) % [place] % (Auto) 9.4 (0-16) % Eos % (Auto) 1.3 (0-5) % Baso % (Auto) 0.1 (0-3) % Neut # (Auto) 7.53 H (1.80-7.00) 10^3/uL Lymph # (Auto) 0.78 L (1.00-4.80) 10^3/uL [place] # (Auto) 0.88 H (0.00-0.80) 10^3/uL Eos # (Auto) 0.12 (0.00-0.45) 10^3/uL Baso # (Auto) 0.01 10^3/uL Sodium 138 (136-145) mEq/L Potassium 4.1 (3.5-5.0) mEq/L Chloride 102 (98-106) mEq/L Carbon Dioxide 32 (21-32) mmol/L BUN 20 H (7-18) mg/dL Creatinine 1.2 (0.7-1.3) mg/dL Est Cr Clr Drug Dosing 65.36 mL/min Estimated GFR (MDRD) > 60 (>=60) mL/min Glucose 98 (75-99) mg/dL Calcium 8.2 L (8.4-10.1) mg/dL C-Reactive Protein 18.6 H (0.2-0.8) mg/dL Urine Color Dark yellow (YELLOW) Urine Appearance Clear (CLEAR) Urine pH 7.0 (4.5-8.0) Ur Specific [place] 1.015 (1.003-1.020) Urine Protein 100 H (NEGATIVE) mg/dL Urine Glucose (UA) Negative (NEGATIVE) mg/dL Urine Ketones Negative (NEGATIVE) mg/dL Urine Occult Blood Trace-intact H (NEGATIVE) Urine Nitrite Negative (NEGATIVE) Urine Bilirubin Negative (NEGATIVE) Urine Urobilinogen 1.0 (0.2-1.0) EU/dL Ur Leukocyte Esterase Negative (NEGATIVE) Urine RBC 0-5 (0-5) /HPF Urine WBC 0-5 (0-5) /HPF Ur Epithelial Cells Occasional H (NOT SEEN) /HPF Urine Bacteria Occasional H (NOT SEEN) /HPF Urine Mucus Occasional H (NOT SEEN) /HPF Med Orders - Current: Current Medications Acetaminophen (Tylenol Extra Strength) 1,000 mg PO Q6H PRN PRN Reason: Temperature Last Admin: 03/25/18 06:22 Dose: 500 mg Hydrocodone Bitart/Acetaminophen ([place] 325-5 Mg) 1 tab PO Q4H PRN PRN Reason: Pain (moderate 4-6) Last Admin: 03/25/18 06:23 Dose: 1 tab Amlodipine Besylate (Norvasc) 5 mg PO DAILY [facility] Last Admin: 03/25/18 08:13 Dose: Not Given Carbidopa/Levodopa (Sinemet 25-100 Mg) 2 tab PO TID [facility] Last Admin: 03/25/18 08:11 Dose: 2 tab Enoxaparin Sodium (Lovenox) 40 mg SUBCUT DAILY@1600 [facility] Furosemide (Lasix) 40 mg PO BIDDIURETIC [facility] Last Admin: 03/25/18 08:12 Dose: 40 mg Gabapentin (Neurontin) 300 mg PO TID [facility] Last Admin: 03/25/18 08:11 Dose: 300 mg Clindamycin Phosphate 300 mg/ (Premix) 50 mls @ 100 mls/hr IV Q6H [facility] Last Admin: 03/25/18 03:36 Dose: 100 mls/hr Ibuprofen (Motrin) 400 mg PO Q6H PRN PRN Reason: Temperature Last Admin: 03/24/18 17:53 Dose: 400 mg Losartan Potassium (Cozaar) 100 mg PO DAILY [facility] Last Admin: 03/25/18 08:12 Dose: 100 mg Metoprolol Succinate (Toprol Xl) 100 mg PO DAILY [facility] Last Admin: 03/25/18 08:11 Dose: 100 mg Ondansetron HCl (Zofran Odt) 8 mg PO Q6H PRN PRN Reason: nausea, able to take PO Sodium Chloride (Saline Flush) 10 ml FLUSH ASDIRECTED PRN PRN Reason: Keep Vein Open Temazepam (Restoril) 15 mg PO BEDTIME PRN PRN Reason: Sleep Triamcinolone Acetonide (Triamcinolone Acetonide 0.1% Crm) 0 gm TOP BID PRN PRN Reason: skin Discontinued Medications Enoxaparin Sodium (Lovenox) 40 mg SUBCUT Q24H [facility] Last Admin: 03/24/18 17:00 Dose: 40 mg - Exam General: Alert, Oriented HEENT: Mucous Membr. Moist/[place] Neck: Supple Lungs: Clear to Auscultation, Normal Respiratory Effort Cardiovascular: Regular Rate, Regular Rhythm GI/Abdominal Exam: Normal Bowel Sounds, Soft, Non-Tender Extremities: Leg Pain, Increased Warmth, Redness, Other (Patient has considerable edema and redness to right lower extremity; increased warmth to the touch) Skin: Other (venous stasis changes in leg noted, chronic; redness and warmth new finding ) Wound/Incisions: Erythema - Problem List & Annotations (1) Cellulitis SNOMED Code(s): 106910248 Code(s): L03.90 - CELLULITIS, UNSPECIFIED Status: Acute Priority: High Current Visit: Yes Qualifiers: Site of cellulitis: extremity Site of cellulitis of extremity: lower extremity Laterality: right Qualified Code(s): L03.115 - Cellulitis of right lower limb (2) Edema leg SNOMED Code(s): 141178562 Code(s): R60.0 - LOCALIZED EDEMA Status: Acute Priority: High Current Visit: Yes - Problem List Review Problem List Initiated/Reviewed/Updated: Yes - Assessment Assessment:: Cellulitis RLE - Plan Plan:: Patient continues to have leg pain. States difficult to ambulate due to the pain. He has considerable redness and warmth to the RLE. Edema 4+ to RLE. BLood pressure low this am, 90/60s. Temp 100.2 this am, did reach max of 103.3 last evening. Labs from admit reviewed. WBC 9.3, CRP 18.6. Electrolytes normal. Will hold BP meds this am. IV Normal saline at 100 ml per hour over 5 hours. Continue Cleocin. Inappropriate for discharge.
[2018-03-25] MEDS ORDERED: Sodium Chloride 0.9% 1,000 ML IV SCH (08:45)
[2018-03-25] MEDS ORDERED: Sodium Chloride 0.9% 500 ML ONE (09:04)
[2018-03-25] MEDS ORDERED: Sodium Chloride 0.9% 500 ML IV SCH (09:30)
[2018-03-25] MEDS ORDERED: Enoxaparin 40 MG/0.4 ML Syringe SUBCUT SCH (16:00)
[2018-03-25] MEDS: Ibuprofen 200 MG Tab PO PRN (19:41)
[2018-03-26] MEDS: Clindamycin Phosphate in D5W 300 MG in Premix Bag 1 BAG IV SCH ×4 (03:58→09:48)
[2018-03-26] MEDS: Acetaminophen 500 MG Tab PO PRN (04:04)
[2018-03-26] MEDS: Acetaminophen/HYDROcodone 325-5 MG Tab PO PRN ×2 (07:39→12:50)
[2018-03-26] MEDS: Ibuprofen 200 MG Tab PO PRN (07:39)
[2018-03-26] MEDS: Carbidopa/Levodopa 25-100 MG Tab PO SCH (07:39)
[2018-03-26] MEDS: Furosemide 40 MG Tab PO SCH (07:40)
[2018-03-26] MEDS: Gabapentin 300 MG Cap PO SCH (07:40)
[2018-03-26] MEDS ORDERED: Sodium Chloride 0.9% 1,000 ML IV SCH (08:30)
[2018-03-26] MEDS ORDERED: cefTRIAXone 1 GM Vial IVPUSH SCH (09:15)
[2018-03-26] MEDS ORDERED: Sodium Chloride 0.9% 500 ML IV SCH ×2 (09:30→12:15)
[2018-03-26 12:52] VITALS: BP 83/59
--- NOTE | 2018-03-26 16:19 | PCM.DCSUM1 ---
Discharge Summary - Hospital Course Free Text/Narrative:: Patient admitted by Dr. Anderson for cellulitis of his right lower extremity. He has had a history of recurrences of this. Presented with fever, increased swelling of his right leg and redness. Had felt increased headache and body aches. Was having more pain and difficulty with tolerating activity. Temp 102 on admission. WBC normal at 9.3, CRP 18.6, creatinine 1.2. Electrolytes normal. Blood pressure normotensive. Patient was admitted and started on IV Cleocin 300 mg every 6 hours. - Discharge Data Discharge Date: 03/26/18 Discharge Disposition: DC/Tfer to Acute Hospital 02 Condition: Undetermined - Discharge Diagnosis/Problem(s) (1) Cellulitis SNOMED Code(s): 053521165 ICD Code: L03.90 - CELLULITIS, UNSPECIFIED Status: Acute Priority: High Qualifiers: Site of cellulitis: extremity Site of cellulitis of extremity: lower extremity Laterality: right Qualified Code(s): L03.115 - Cellulitis of right lower limb (2) Edema leg SNOMED Code(s): 575829434 ICD Code: R60.0 - LOCALIZED EDEMA Status: Acute Priority: High - Patient Summary/Data Complications: hypotension, renal insuffiency, question sepsis Consults: Consultations 03/24/18 15:31 PT Evaluation and Treatment [CONS] Routine Hospital Course: Patient admitted for cellulitis of RLE. Started on IV Cleocin. Continues to have body aches, does not feel well. Yesterday, blood pressure was low at 90/ 60 in the am, fluid bolus was given and responded well and blood pressures were normotensive throughout the rest of the day. RLE swelling is more red today and swollen than even yesterday. Has been trying to elevate leg at times in bed but also reclines in the recliner. Patient's blood pressure again low this am at 85/68. Fluid bolus given without blood pressure returning to normal, still low at 80 systolic. He did have increased changes in his labs today, creatinine worsened to 2.4, CRP increased to 27.6. WBC now 16.5. Has been running low grade fevers. Did add Rocephin this am but due to concerns with sepsis and not responding, Dr. Padron was consulted at [facility]. Status of patient given. Agreed to accept the patient in transfer. Additional fluid bolus given to patient prior to transfer. Will monitor cardiac status per telemetry. Patient in agreement with plan. - Patient Instructions Other/Special Instructions: Transfer ALS to [facility]. - Discharge Plan Home Medications: Home Meds Gabapentin 300 mg PO TID 08/07/16 [History] Losartan Potassium 100 mg PO DAILY 08/07/16 [History] Carbidopa/Levodopa [Carbidopa-Levodopa 25-100 Tab] 2 tab PO TID 01/21/17 [ History] Furosemide 40 mg PO BID #60 01/23/17 [Rx] Metoprolol Succinate [Toprol XL] 100 mg PO DAILY #30 tab.er 01/23/17 [Rx] Triamcinolone Acetonide [Triamcinolone Acetonide 0.025% Crm] 1 applic TOP BID PRN 03/24/18 [History] amLODIPine [Norvasc] 5 mg PO DAILY 03/24/18 [History] - Discharge Summary/Plan Comment DC Time >30 min.: Yes Discharge Summary/Plan Comment: Transfer to [facility] per ALS to Dr. Padron. - General Info Date of Service: 03/26/18 Admission Dx/Problem (Free Text: Cellulitis Functional Status: Reports: Pain Controlled. Denies: Tolerating Diet, Ambulating - Review of Systems General: Reports: Fever, Weakness, Fatigue HEENT: Reports: No Symptoms Pulmonary: Denies: Shortness of Breath, Cough Cardiovascular: Denies: Chest Pain, Edema, Lightheadedness Gastrointestinal: Reports: No Symptoms Genitourinary: Reports: No Symptoms Musculoskeletal: Reports: Leg Pain Skin: Reports: Other (redness to RLE) Neurological: Reports: No Symptoms - Patient Data Vitals - Most Recent: Last Vital Signs Temp 98 F 03/26/18 12:00 Pulse 113 H 03/26/18 12:00 Resp 20 03/26/18 12:00 BP 83/59 L 03/26/18 12:00 Pulse Ox 91 L 03/26/18 12:00 Weight - Most Recent: 398 lb 8 oz I&O - Last 24 hours: Intake & Output 03/26/18 03/26/18 03/26/18 06:59 14:59 22:59 Intake Total 50 Balance 50 Lab Results - Last 24 hrs: Laboratory Results - last 24 hr 03/26/18 03/26/18 Range/Units 06:57 06:57 WBC 16.5 H (5.0-10.0) 10^3/uL RBC 5.02 (4.50-6.00) 10^6/uL Hgb 12.9 L (14.0-18.0) g/dL Hct 41.5 (40.0-54.0) % MCV 82.7 (82.0-94.0) fL MCH 25.7 L (27.0-32.0) pg MCHC 31.1 L (33.0-38.0) g/dL RDW Coeff of Connie 15.9 H (11.0-15.0) % Plt Count 205 (150-400) 10^3/uL Neut % (Auto) 83.5 (35-85) % Lymph % (Auto) 6.5 L (10-55) % Marion % (Auto) 9.1 (0-16) % Eos % (Auto) 0.8 (0-5) % Baso % (Auto) 0.1 (0-3) % Neut # (Auto) 13.74 H (1.80-7.00) 10^3/uL Lymph # (Auto) 1.07 (1.00-4.80) 10^3/uL Marion # (Auto) 1.50 H (0.00-0.80) 10^3/uL Eos # (Auto) 0.13 (0.00-0.45) 10^3/uL Baso # (Auto) 0.02 10^3/uL Sodium 135 L (136-145) mEq/L Potassium 3.8 (3.5-5.0) mEq/L Chloride 98 (98-106) mEq/L Carbon Dioxide 28 (21-32) mmol/L BUN 38 H D (7-18) mg/dL Creatinine 2.4 H D (0.7-1.3) mg/dL Est Cr Clr Drug Dosing 32.68 mL/min Estimated GFR (MDRD) 27 L (>=60) mL/min Glucose 111 H (75-99) mg/dL Calcium 8.1 L (8.4-10.1) mg/dL C-Reactive Protein 27.6 H (0.2-0.8) mg/dL ISSA Results - Last 24 hrs: Microbiology 03/24/18 15:45 Aerobic Blood Culture - Preliminary Blood - Venous NO GROWTH AFTER 2 DAYS Anaerobic Blood Culture - Preliminary NO GROWTH AFTER 2 DAYS 03/24/18 15:50 Aerobic Blood Culture - Preliminary Blood - Venous - Lab Draw NO GROWTH AFTER 2 DAYS Anaerobic Blood Culture - Preliminary NO GROWTH AFTER 2 DAYS Med Orders - Current: Current Medications Discontinued Medications Acetaminophen (Tylenol Extra Strength) 1,000 mg PO Q6H PRN PRN Reason: Temperature Last Admin: 03/26/18 04:04 Dose: 1,000 mg Hydrocodone Bitart/Acetaminophen ([place] 325-5 Mg) 1 tab PO Q4H PRN PRN Reason: Pain (moderate 4-6) Last Admin: 03/26/18 12:50 Dose: 1 tab Amlodipine Besylate (Norvasc) 5 mg PO DAILY [facility] Last Admin: 03/25/18 08:13 Dose: Not Given Carbidopa/Levodopa (Sinemet 25-100 Mg) 2 tab PO TID [facility] Last Admin: 03/26/18 07:39 Dose: 2 tab Ceftriaxone Sodium (Rocephin) 1 gm IVPUSH DAILY@0800 [facility] Last Admin: 03/26/18 09:16 Dose: 1 gm Enoxaparin Sodium (Lovenox) 40 mg SUBCUT Q24H [facility] Last Admin: 03/24/18 17:00 Dose: 40 mg Enoxaparin Sodium (Lovenox) 40 mg SUBCUT DAILY@1600 [facility] Last Admin: 03/25/18 16:26 Dose: 40 mg Furosemide (Lasix) 40 mg PO BIDDIURETIC [facility] Last Admin: 03/26/18 07:40 Dose: 40 mg Gabapentin (Neurontin) 300 mg PO TID [facility] Last Admin: 03/26/18 07:40 Dose: 300 mg Clindamycin Phosphate 300 mg/ (Premix) 50 mls @ 100 mls/hr IV Q6H [facility] Last Admin: 03/26/18 09:48 Dose: 100 mls/hr Sodium Chloride (Normal Saline) 1,000 mls @ 100 mls/hr IV ASDIRECTED [facility] Sodium Chloride (Normal Saline) Confirm Administered Dose 500 mls @ as directed .ROUTE .STK-MED ONE Stop: 03/25/18 09:05 Last Admin: 03/25/18 09:28 Dose: Not Given Sodium Chloride (Normal Saline) 500 mls @ 500 mls/hr IV ASDIRECTED [facility] Last Admin: 03/25/18 09:32 Dose: 100 mls/hr Sodium Chloride (Normal Saline) 1,000 mls @ 150 mls/hr IV ASDIRECTED [facility] Last Admin: 03/26/18 09:27 Dose: 150 mls/hr Sodium Chloride (Normal Saline) 500 mls @ 500 mls/hr IV ASDIRECTED [facility] Last Admin: 03/26/18 09:25 Dose: 500 mls/hr Sodium Chloride (Normal Saline) 500 mls @ 500 mls/hr IV .BOLUS [facility] Last Admin: 03/26/18 12:38 Dose: 500 mls/hr Ibuprofen (Motrin) 400 mg PO Q6H PRN PRN Reason: Temperature Last Admin: 03/26/18 07:39 Dose: 400 mg Losartan Potassium (Cozaar) 100 mg PO DAILY [facility] Last Admin: 03/25/18 08:12 Dose: 100 mg Metoprolol Succinate (Toprol Xl) 100 mg PO DAILY [facility] Last Admin: 03/25/18 08:11 Dose: 100 mg Ondansetron HCl (Zofran Odt) 8 mg PO Q6H PRN PRN Reason: nausea, able to take PO Sodium Chloride (Saline Flush) 10 ml FLUSH ASDIRECTED PRN PRN Reason: Keep Vein Open Temazepam (Restoril) 15 mg PO BEDTIME PRN PRN Reason: Sleep Triamcinolone Acetonide (Triamcinolone Acetonide 0.1% Crm) 0 gm TOP BID PRN PRN Reason: skin - Exam General: Reports: Alert, Oriented HEENT: Reports: Mucous Membr. Moist/[place] Neck: Reports: Supple Lungs: Reports: Clear to Auscultation, Normal Respiratory Effort Cardiovascular: Reports: Regular Rate, Regular Rhythm GI/Abdominal Exam: Normal Bowel Sounds, Soft, Non-Tender Extremities: Increased Warmth, Redness Skin: Reports: Warm, Dry Neurological: Reports: No New Focal Deficit
== END 2018-03-26 13:15 | DRG 603 ==
LOC: UNDOADMIN 14:26 → CC.MS 14:26
PROVIDERS: ADMIT Family Medicine; ATTEND Family Medicine
DX: L03.115 Cellulitis of right lower limb (principal); I10 Essential (primary) hypertension; E78.00 Pure hypercholesterolemia, unspecified; G20 Parkinson's disease; R60.0 Localized edema; I87.2 Venous insufficiency (chronic) (peripheral); Z79.899 Other long term (current) drug therapy
CPT/HCPCS: 36415; 80048; 81001; 85025; 86140; 87040; 97161-GP; A9270-GY; J0696; J1650; J7030; J7040

== ENCOUNTER 2018-06-09 09:46 | Observation (INO) | payer MEDICARE, BC ==
[2018-06-09] MEDS ORDERED: Ondansetron 4 MG Tab.DIS PO PRN (11:57)
[2018-06-09] MEDS ORDERED: Temazepam 15 MG Cap PO PRN (11:57)
[2018-06-09] MEDS ORDERED: Acetaminophen 325 MG Tab PO PRN (11:57)
[2018-06-09] MEDS ORDERED: Lactated Ringers 1,000 ML IV SCH (12:30)
[2018-06-09] MEDS: Pantoprazole 40 MG Vial IVPUSH SCH ×2 (12:49→21:22)
[2018-06-09] MEDS: metroNIDAZOLE/Normal Saline 500 MG in Premix Bag 1 BAG IV SCH ×2 (12:49→21:21)
[2018-06-09 13:00] LABS: CHLORIDE,CL 104 mEq/L (98-106); SODIUM,NA 143 mEq/L (136-145)
[2018-06-09] MEDS: Gabapentin 300 MG Cap**OWN MED PO SCH ×2 (13:16→21:21)
[2018-06-09] MEDS: CARBIDOPA PO SCH ×2 (13:16→21:22)
[2018-06-09] MEDS: LEVODOPA PO SCH ×2 (13:16→21:22)
[2018-06-09] MEDS ORDERED: Phytonadione ORAL 2.5mg/2.5ml Soln Simple Syrup U/D PO ONE (14:35)
[2018-06-09] MEDS ORDERED: Furosemide 40 MG Tab PO SCH (20:00)
[2018-06-09] MEDS ORDERED: Triamcinolone Acetonide 0.1% Crm 15 GM Tube TOP PRN (20:00)
[2018-06-09] MEDS ORDERED: Metoprolol Succinate 100 MG Tab.ER PO SCH ×2 (20:00)
[2018-06-09] MEDS: METOPROLOL TARTRATE 100 MG PO SCH (21:22)
[2018-06-10] MEDS: metroNIDAZOLE/Normal Saline 500 MG in Premix Bag 1 BAG IV SCH ×2 (03:14→11:00)
[2018-06-10] MEDS: Pantoprazole 40 MG Vial IVPUSH SCH (06:08)
[2018-06-10] MEDS: METOPROLOL TARTRATE 100 MG PO SCH (07:40)
[2018-06-10] MEDS: LEVODOPA PO SCH (07:41)
[2018-06-10] MEDS: CARBIDOPA PO SCH (07:41)
[2018-06-10] MEDS: Gabapentin 300 MG Cap**OWN MED PO SCH (07:41)
[2018-06-10] MEDS ORDERED: POTASSIUM 20 MEQ PO SCH (08:00)
[2018-06-10] MEDS ORDERED: Furosemide 40 MG Tab**OWN MED PO SCH (08:00)
[2018-06-10 08:31] VITALS: BP 142/92
--- NOTE | 2018-06-10 14:46 | PCM.DCSUM1 ---
Discharge Summary - Hospital Course Free Text/Narrative:: Patient admitted from clinic by Dr. Anderson for weakness, elevated blood pressure and diarrhea. Patient had not been feeling well. Saw a neurologist 2 days ago and was advised his blood pressure was elevated. Stopped in to have his blood pressure reevaluated and was found to be 160/100. He relates that many of his blood pressure pill, Diovan, was stopped due to renal concerns while he was a patient in [place] for his cellulitis. Relates he spent a month there getting IV antibiotics. Has had multiple loose stools now since. INR was supratherapeutic at 7.09. Vitamin K was given. Stool studies ordered. Labs ordered on admit showed a normal WBC, CRP of 1.6. Started on IV Flagyl. Coumadin held. Diagnosis: Stroke: No - Discharge Data Discharge Date: 06/10/18 Discharge Disposition: Home, Self-Care 01 Condition: Good - Patient Summary/Data Complications: none Hospital Course: Patient is feeling good this am. Still continues to have loose stools, tested positive for c diff, has received IV Flagyl during stay. INR still high today at 6.51. Coumadin held thus far. Blood pressure has improved since admission, ranging from 140/82 to 142/92. Denies any new pain, nausea or concerns this am. Right leg still does have significant edema, minimal redness. Is scheduled to see Dr. Singleton, vascular surgeon, to evaluate this. - Patient Instructions Diet: Usual Diet as Tolerated Activity: As Tolerated - Discharge Plan *PRESCRIPTION DRUG MONITORING PROGRAM REVIEWED*: Not Applicable *COPY OF PRESCRIPTION DRUG MONITORING REPORT IN PATIENT CYRUS: Not Applicable Prescriptions/Med Rec: metroNIDAZOLE [Flagyl] 500 mg PO Q8H #30 tablet Home Medications: Home Meds Gabapentin 300 mg PO TID 08/07/16 [History] Carbidopa/Levodopa [Carbidopa-Levodopa 25-100 Tab] 2 tab PO TID 01/21/17 [ History] Furosemide 40 mg PO BID #60 01/23/17 [Rx] Triamcinolone Acetonide [Triamcinolone Acetonide 0.025% Crm] 1 applic TOP BID PRN 03/24/18 [History] Metoprolol Tartrate 150 mg PO BID 06/09/18 [History] Pantoprazole Sodium [Protonix] 40 mg PO DAILY 06/09/18 [History] Potassium Chloride 20 meq PO DAILY 06/09/18 [History] metroNIDAZOLE [Flagyl] 500 mg PO Q8H #30 tablet 06/10/18 [Rx] Referrals: Marbin Anderson MD [Primary Care Provider] - (Follow up with Dr. Anderson on Friday, INR prior to visit ) - Discharge Summary/Plan Comment DC Time >30 min.: No Discharge Summary/Plan Comment: Patient discharged home Start Flagyl 500 mg every 8 hours Hold Coumadin Recheck with Dr. Anderson on Friday, INR prior to appointment. - General Info Date of Service: 06/10/18 Admission Dx/Problem (Free Text: C Diff Hypertension Functional Status: Reports: Pain Controlled, Tolerating Diet, Ambulating - Review of Systems General: Reports: Fatigue. Denies: Fever, Weakness HEENT: Reports: No Symptoms Pulmonary: Denies: Shortness of Breath, Cough, Sputum Cardiovascular: Reports: Edema. Denies: Chest Pain, Lightheadedness Gastrointestinal: Reports: Diarrhea. Denies: Abdominal Pain, Nausea, Vomiting Genitourinary: Reports: No Symptoms Musculoskeletal: Reports: Leg Pain Skin: Reports: No Symptoms Neurological: Reports: No Symptoms - Patient Data Vitals - Most Recent: Last Vital Signs Temp 95.9 F 06/10/18 07:45 Pulse 82 06/10/18 07:45 Resp 16 06/10/18 07:45 BP 142/92 H 06/10/18 07:45 Pulse Ox 94 L 06/10/18 07:45 Weight - Most Recent: 400 lb 3.2 oz I&O - Last 24 hours: Intake & Output 06/09/18 06/10/18 06/10/18 22:59 06:59 14:59 Intake Total 500 250 Output Total 400 850 Balance 100 -600 Lab Results - Last 24 hrs: Laboratory Results - last 24 hr 06/09/18 06/10/18 Range/Units 11:57 07:26 PT 58.9 H (9.7-12.3) SEC INR 6.51 H* (0.92-1.18) Urine Color Yellow (YELLOW) Urine Appearance Clear (CLEAR) Urine pH 5.5 (4.5-8.0) Ur Specific [place] 1.015 (1.003-1.020) Urine Protein Negative (NEGATIVE) mg/dL Urine Glucose (UA) Negative (NEGATIVE) mg/dL Urine Ketones Negative (NEGATIVE) mg/dL Urine Occult Blood Trace-lysed H (NEGATIVE) Urine Nitrite Negative (NEGATIVE) Urine Bilirubin Negative (NEGATIVE) Urine Urobilinogen 0.2 (0.2-1.0) EU/dL Ur Leukocyte Esterase Negative (NEGATIVE) Urine RBC Not seen (0-5) /HPF Urine WBC Not seen (0-5) /HPF ISSA Results - Last 24 hrs: Microbiology 06/09/18 15:07 C. difficile DNA Amplification - Final Stool / Feces Positive C. Diff Toxin 06/09/18 12:00 Stool for WBCs - Final Stool / Feces NO WBC SEEN Med Orders - Current: Current Medications Discontinued Medications Acetaminophen (Tylenol) 650 mg PO Q4H PRN PRN Reason: Pain (Mild 1-3)/fever Carbidopa/Levodopa (Sinemet 25-100 Mg) 2 tab PO TID [facility] Last Admin: 06/10/18 07:41 Dose: 2 tab Furosemide (Lasix) 40 mg PO BID [facility] Furosemide (Lasix) 40 mg PO 0800,1400 [facility] Last Admin: 06/10/18 07:41 Dose: 40 mg Gabapentin (Neurontin) 300 mg PO TID [facility] Last Admin: 06/10/18 07:41 Dose: 300 mg Lactated Ringer's (Ringers, Lactated) 1,000 mls @ 50 mls/hr IV ASDIRECTED [facility] Last Admin: 06/09/18 12:50 Dose: 50 mls/hr Metronidazole 500 mg/ Premix 100 mls @ 100 mls/hr IV 0400,1200,2000 [facility] Last Admin: 06/10/18 11:00 Dose: 100 mls/hr Metoprolol Succinate (Toprol Xl) 100 mg PO BID [facility] Metoprolol Succinate (Toprol Xl) 150 mg PO BID [facility] Potassium 20 Meq (Own Med) 1 each PO DAILY [facility] Last Admin: 06/10/18 07:40 Dose: 1 each Metoprolol Tartrate (100 Mg Own Med) 150 each PO BID [facility] Last Admin: 06/10/18 07:40 Dose: 150 each Ondansetron HCl (Zofran Odt) 8 mg PO Q6H PRN PRN Reason: nausea, able to take PO Pantoprazole Sodium (Protonix Iv) 40 mg IVPUSH 699,1999 [facility] Last Admin: 06/10/18 06:08 Dose: 40 mg Phytonadione (Aquamephyton) 2.5 mg PO ONETIME ONE Stop: 06/09/18 14:36 Last Admin: 06/09/18 14:51 Dose: 2.5 mg Temazepam (Restoril) 15 mg PO BEDTIME PRN PRN Reason: Sleep Triamcinolone Acetonide (Triamcinolone Acetonide 0.1% Crm) 0 gm TOP BID PRN PRN Reason: skin - Exam General: Reports: Alert, Oriented HEENT: Reports: Mucous Membr. Moist/[place] Neck: Reports: Supple Lungs: Reports: Clear to Auscultation, Normal Respiratory Effort Cardiovascular: Reports: Regular Rate, Regular Rhythm GI/Abdominal Exam: Normal Bowel Sounds, Soft, Non-Tender Extremities: Pedal Edema (3-4+ in RLE, 1+ in LLE) Skin: Reports: Warm, Dry, Other (terrance appearance to bilateral lower extremities. Venous stasis noted.)
== END 2018-06-10 13:00 | disposition home or self-care (01) ==
LOC: CC.LAB 09:46 → UNDOADMOB 10:39 → CC.MS 10:39
PROVIDERS: ADMIT Family Medicine; ATTEND Family Medicine
DX: R19.7 Diarrhea, unspecified (principal); B96.89 Other specified bacterial agents as the cause of diseases classified elsewhere; I10 Essential (primary) hypertension; G20 Parkinson's disease; E78.00 Pure hypercholesterolemia, unspecified; K21.9 Gastro-esophageal reflux disease without esophagitis; I48.91 Unspecified atrial fibrillation; Z79.01 Long term (current) use of anticoagulants
CPT/HCPCS: 36415; 80053; 81001; 83735; 85025; 85610; 86140; 87493; 89055; 93005; 96361; 96365; 96366; 96375; 96376; A9270-GY; C9113; G0378; J3490; J7120

== ENCOUNTER 2019-05-11 11:26 | Observation (INO) | payer MEDICARE, BC ==
[2019-05-11] MEDS ORDERED: Sodium Chloride 0.9% 10 ML Syringe FLUSH PRN (11:59)
[2019-05-11] MEDS ORDERED: Ondansetron 4 MG/2 ML SDV IV PRN (11:59)
[2019-05-11] MEDS ORDERED: Ondansetron 4 MG Tab.DIS PO PRN (11:59)
[2019-05-11] MEDS ORDERED: **PTOM** Warfarin 5 MG Tab PO SCH (12:00)
[2019-05-11] MEDS ORDERED: Barium Sulfate Oral Susp 450 ML Bottle PO ONE (12:31)
[2019-05-11] MEDS ORDERED: Iopamidol 755 Mg/ML 200 ML Bottle IV ONE (12:32)
[2019-05-11 12:34] LABS: CHLORIDE,CL 105 mEq/L (98-106); SODIUM,NA 143 mEq/L (136-145)
[2019-05-11] MEDS: Pantoprazole 40 MG Vial IVPUSH SCH ×2 (13:54→19:46)
[2019-05-11] MEDS: Furosemide 40 MG/4 ML VIAL IVPUSH SCH (13:56)
[2019-05-11] MEDS: CARBIDOPA PO SCH ×2 (17:30→19:46)
[2019-05-11] MEDS: LEVODOPA PO SCH ×2 (17:30→19:46)
[2019-05-11] MEDS: **PTOM** Gabapentin 300 MG Cap PO SCH (19:44)
[2019-05-11] MEDS: METOPROLOL TARTRATE 100 MG PO SCH (19:45)
[2019-05-12] MEDS: Furosemide 40 MG/4 ML VIAL IVPUSH SCH (07:20)
[2019-05-12] MEDS: Pantoprazole 40 MG Vial IVPUSH SCH (07:20)
[2019-05-12] MEDS: CARBIDOPA PO SCH (07:21)
[2019-05-12] MEDS: METOPROLOL TARTRATE 100 MG PO SCH (07:21)
[2019-05-12] MEDS: LEVODOPA PO SCH (07:21)
[2019-05-12 07:23] VITALS: BP 155/71
[2019-05-12] MEDS ORDERED: POTASSIUM CHLORIDE 20 MEQ PO SCH (08:00)
[2019-05-12] MEDS ORDERED: AMLODIPINE BESYLATE 5 MG PO SCH (08:00)
[2019-05-12] MEDS ORDERED: **PTOM** Losartan 100 MG Tab PO SCH (08:00)
[2019-05-12] MEDS: **PTOM** Gabapentin 300 MG Cap PO SCH (08:50)
[2019-05-12] MEDS ORDERED: **PTOM** Warfarin 5 MG Tab PO SCH (12:00)
== END 2019-05-12 09:02 | disposition home or self-care (01) ==
LOC: UNDOADMOB 11:26 → CC.MS 11:26
PROVIDERS: ADMIT Family Medicine; ATTEND Family Medicine
DX: R11.0 Nausea (principal); R06.02 Shortness of breath; R10.9 Unspecified abdominal pain; I87.2 Venous insufficiency (chronic) (peripheral); I48.91 Unspecified atrial fibrillation; I10 Essential (primary) hypertension; E78.00 Pure hypercholesterolemia, unspecified; K21.9 Gastro-esophageal reflux disease without esophagitis; G20 Parkinson's disease; M50.90 Cervical disc disorder, unspecified, unspecified cervical region; Z79.01 Long term (current) use of anticoagulants; Z79.899 Other long term (current) drug therapy
CPT/HCPCS: 36415; 74177; 80053; 81001; 82150; 83735; 85025; 85610; 93005; 96374; 96375; 96376; A9270-GY; C9113; G0378; J1940; Q9967

== ENCOUNTER 2019-11-07 04:55 | Inpatient (IN) | payer MEDICARE, BC ==
[2019-11-07] MEDS ORDERED: Acetaminophen 500 MG Tab PO ONE (05:05)
--- NOTE | 2019-11-07 05:30 | EDM.PDOC ---
ED HPI GENERAL MEDICAL PROBLEM - General Chief Complaint: Fever Stated Complaint: "Fever and weakness" Time Seen by Provider: 11/07/19 05:04 Source of Information: Reports: Patient History Limitations: Reports: No Limitations - History of Present Illness INITIAL COMMENTS - FREE TEXT/NARRATIVE: This patient is an pleasant obese 69 year old male that presents to the ER via EMS. EMS reports that they were called out to the house due to the patient kneeling on the floor and could not get up. When they responded they said the patient was laying on the floor on his right side, did not fall. They report the said he was a little confused. EMS reports patient oxygen saturation was 88% on arrival, they placed 4L NC on patient. The patient arrives to the ER. Patient reports that just today he started to not feel well. He reports that he has been short of breath, little more than usual. He reports that he has had a cough. He reports that he did not know he had a fever or his leg was red. does report patient has chronic swelling in both legs to EMS. is not here in the ER. Patient oxygen saturation on RA in ER is 89%, placed on 2L NC. He is alert and oriented. No unilateral weaknesses. Onset: Today Onset Date: 11/07/19 Improves with: Reports: None Worsens with: Reports: None Associated Symptoms: Reports: Confusion ( said he was confused at house), Cough, Fever/Chills, Malaise, Shortness of Breath, Weakness (generalized). Denies: Chest Pain, cough w sputum, Diaphoresis, Headaches, Nausea/Vomiting, Seizure, Syncope - Related Data Allergies Allergy/AdvReac Type Severity Reaction Status Date / Time No Known Allergies Allergy Verified 11/07/19 05:12 Home Meds: Home Meds Gabapentin 300 mg PO TID 08/07/16 [History] Carbidopa/Levodopa [Carbidopa-Levodopa 25-100 Tab] 2 tab PO TID 01/21/17 [ History] Triamcinolone Acetonide [Triamcinolone Acetonide 0.025% Crm] 1 applic TOP BID PRN 03/24/18 [History] Metoprolol Tartrate 150 mg PO BID 06/09/18 [History] Pantoprazole Sodium [Protonix] 40 mg PO DAILY 06/09/18 [History] Potassium Chloride 20 meq PO DAILY 06/09/18 [History] Losartan Potassium 100 mg PO DAILY 05/11/19 [History] Warfarin Sodium 2.5 mg PO SUTUTHSA 05/11/19 [History] Warfarin Sodium 5 mg PO MOWEFR 05/11/19 [History] amLODIPine Besylate [Amlodipine Besylate] 5 mg PO DAILY 05/11/19 [History] Furosemide 60 mg PO BID #60 tablet 05/12/19 [Rx] Past Medical History HEENT History: Reports: Other (See Below) Other HEENT History: tinnitis Cardiovascular History: Reports: High Cholesterol, Hypertension Gastrointestinal History: Reports: Other (See Below) Other Gastrointestinal History: abd hernia Musculoskeletal History: Reports: Arthritis, Fracture, Neck Pain, Chronic Neurological History: Reports: Migraines, Parkinson's Psychiatric History: Reports: Anxiety, Depression Endocrine/Metabolic History: Reports: Obesity/BMI 30+ Hematologic History: Reports: Blood Transfusion(s) Dermatologic History: Reports: Cellulitis, Venous Stasis Dermatitis - Infectious Disease History Infectious Disease History: Reports: C-Difficile - Past Surgical History GI Surgical History: Reports: Hernia Repair/Other, Other (See Below) Endocrine Surgical History: Reports: None Neurological Surgical History: Reports: Other (See Below) Social & Family History - Family History Family Medical History: Noncontributory Cardiac: Reports: Other (See Below) Other Cardiac Family History: enlarged heart Respiratory: Reports: Other (See Below) Other Respiratory Family Hisory: Scarlet fever Oncologic: Reports: Brain - Caffeine Use Caffeine Use: Reports: None - Living Situation & Occupation Living situation: Reports: , with Spouse, Other Occupation: Disabled ED ROS GENERAL - Review of Systems Review Of Systems: See Below Constitutional: Reports: Fever, Malaise, Weakness (generally) HEENT: Reports: No Symptoms Respiratory: Reports: Shortness of Breath, Cough. Denies: Sputum Cardiovascular: Reports: Edema. Denies: Chest Pain, Lightheadedness, Palpitations, Syncope Endocrine: Reports: No Symptoms GI/Abdominal: Reports: No Symptoms. Denies: Abdominal Pain, Diarrhea, Nausea, Vomiting : Reports: No Symptoms Musculoskeletal: Reports: No Symptoms Skin: Reports: Erythema (RLE) Neurological: Reports: No Symptoms Psychiatric: Reports: No Symptoms Hematologic/Lymphatic: Reports: No Symptoms Immunologic: Reports: No Symptoms ED EXAM, SEPSIS - Physical Exam Exam: See Below Exam Limited By: No Limitations General Appearance: Alert, WD/WN, No Apparent Distress, Obese Eye Exam: Bilateral Eye: Normal Inspection, PERRL Ears: Normal External Exam, Normal Canal, Hearing Grossly Normal, Normal TMs Nose: Normal Inspection, Normal Mucosa, No Blood Throat/Mouth: Normal Inspection, Normal Lips, Normal Gums, Normal Oropharynx, Normal Voice, No Airway Compromise, Dental Decay Head: Atraumatic, Normocephalic Neck: Normal Inspection, Supple, Non-Tender, Full Range of Motion Respiratory/Chest: No Respiratory Distress, Lungs Clear, Normal Breath Sounds, No Accessory Muscle Use Cardiovascular: Normal Peripheral Pulses, Regular Rate, Rhythm, No Edema, No Gallop, No JVD, No Murmur, No Rub Peripheral Pulses: 2+: Radial (L), Radial (R), Posterior Tibial (L), Posterior Tibial (R) GI/Abdominal Exam: Normal Bowel Sounds, Soft, Non-Tender, No Distention, Other ( obese) (Male) Exam: Deferred Rectal (Males) Exam: Deferred Back: Normal Inspection Extremities: Pedal Edema (+4), Increased Warmth (RLE), Redness (RLE all the way into the right leg medial thigh from the foot. Will kodi with marker.) Neurological: Alert, Oriented, CN II-XII Intact, Normal Cognition, No Motor/ Sensory Deficits Psychiatric: Normal Affect, Normal Mood Skin: Warm, Dry, Normal Color, Erythema (RLE), Wound/Incision (Open poor healing dry, crusty wound top of right foot. About size of half nickel.) Lymphatic: Bilateral: No Adenopathy EKG INTERPRETATION EKG Date: 11/07/19 Time: 07:40 Rhythm: A-Fib Rate (Beats/Min): 125 EKG Interpretation Comments: A-fib: Rate 125. However, patient has fever. Will monitor his HR and after temperature becomes afebrile will evaluate need for further a-fib tx if needed. Course - Vital Signs Last Recorded V/S: Last Vital Signs Temp 102.4 F H 11/07/19 05:11 Pulse 125 H 11/07/19 05:11 Resp 24 H 11/07/19 05:11 BP 152/78 H 11/07/19 05:11 Pulse Ox 88 L 11/07/19 05:11 - Orders/Labs/Meds Orders: Active Orders 24 hr Category Date Time Status Patient Status [ADT] Routine ADT 11/07/19 07:01 Active Antiembolic Devices [RC] PER UNIT ROUTINE Care 11/07/19 07:01 Active Bedrest Bedside Commode [RC] ASDIRECTED Care 11/07/19 07:01 Active Height and Weight [RC] DAILY Care 11/07/19 07:01 Active Intake and Output [RC] QSHIFT Care 11/07/19 07:01 Active Notify Provider Vital Signs [RC] ASDIRECTED Care 11/07/19 07:01 Active Oxygen Therapy [RC] PRN Care 11/07/19 07:01 Active Up With Assistance [RC] ASDIRECTED Care 11/07/19 07:01 Active VTE/DVT Education [RC] PER UNIT ROUTINE Care 11/07/19 07:01 Active Vital Signs [RC] Q4H Care 11/07/19 07:01 Active 2 Gram Sodium Diet [DIET] Diet 11/07/19 Breakfast Active Chest 1V Frontal [CR] Stat Exams 11/07/19 05:27 Taken BASIC METABOLIC PANEL,BMP [CHEM] DAILY Lab 11/08/19 05:00 Ordered BASIC METABOLIC PANEL,BMP [CHEM] DAILY Lab 11/09/19 05:00 Ordered BASIC METABOLIC PANEL,BMP [CHEM] DAILY Lab 11/10/19 05:00 Ordered CBC WITH AUTO DIFF [HEME] DAILY Lab 11/08/19 05:00 Ordered CBC WITH AUTO DIFF [HEME] DAILY Lab 11/09/19 05:00 Ordered CBC WITH AUTO DIFF [HEME] DAILY Lab 11/10/19 05:00 Ordered CULTURE BLOOD [BC] Stat Lab 11/07/19 05:04 Received CULTURE BLOOD [BC] Stat Lab 11/07/19 05:04 Received Acetaminophen [Tylenol] Med 11/07/19 07:01 Active 650 mg PO Q4H PRN Carbidopa/Levodopa [Sinemet 25-100 mg] Med 11/07/19 08:00 Active 2 tab PO TID Furosemide [Lasix] Med 11/07/19 08:00 Hold 60 mg PO BID Gabapentin [Neurontin] Med 11/07/19 08:00 Active 300 mg PO TID Ibuprofen [Motrin] Med 11/07/19 07:01 Active 600 mg PO Q6H PRN Losartan [Cozaar] Med 11/07/19 08:00 Active 100 mg PO DAILY Metoprolol Tartrate [Lopressor] Med 11/07/19 08:00 Active 150 mg PO BID Morphine Med 11/07/19 07:01 Active 2 mg IVPUSH Q2H PRN Ondansetron [Zofran] Med 11/07/19 07:01 Active 4 mg IV Q6H PRN Pantoprazole [ProTONIX] Med 11/07/19 08:00 Active 40 mg PO DAILY Potassium Chloride [Klor-Con 10] Med 11/07/19 08:00 Active 20 meq PO DAILY Sodium Chloride 0.9% [Normal Saline] 1,000 ml Med 11/07/19 07:01 Active IV ASDIRECTED Triamcinolone Acetonide [Triamcinolone Acetonide 0.025% Med 11/07/19 07:01 Pending Crm] 1 applic TOP BID PRN Warfarin [Coumadin] Med 11/07/19 12:00 Active 2.5 mg PO SuTuThSa@1200 Warfarin [Coumadin] Med 11/08/19 12:00 Active 5 mg PO MoWeFr@1200 amLODIPine [Norvasc] Med 11/07/19 08:00 Active 5 mg PO DAILY ceFAZolin [Ancef] Med 11/07/19 07:30 Active 1 gm IVPUSH Q6H Antiembolic Hose [OM.PC] Per Unit Routine Oth 11/07/19 07:01 Ordered Blood Culture x2 Reflex Set [OM.PC] Stat Oth 11/07/19 05:04 Ordered Resuscitation Status Routine Resus Stat 11/07/19 06:27 Ordered EKG 12 Lead [EK] Stat Ther 11/07/19 07:01 Ordered Medication Orders Acetaminophen (Tylenol) 650 mg PO Q4H PRN PRN Reason: Pain (Mild 1-3)/fever Amlodipine Besylate (Norvasc) 5 mg PO DAILY MAXI Carbidopa/Levodopa (Sinemet 25-100 Mg) 2 tab PO TID MAXI Cefazolin Sodium (Ancef) 1 gm IVPUSH Q6H MAXI Furosemide (Lasix) 60 mg PO BID MAXI Furosemide (Lasix) 20 mg IVPUSH BID MAXI Gabapentin (Neurontin) 300 mg PO TID MAXI Sodium Chloride (Normal Saline) 1,000 mls @ 100 mls/hr IV ASDIRECTED MAXI Stop: 11/08/19 08:00 Ibuprofen (Motrin) 600 mg PO Q6H PRN PRN Reason: Pain (mild 1-3) Losartan Potassium (Cozaar) 100 mg PO DAILY [facility] Metoprolol Tartrate (Lopressor) 150 mg PO BID [facility] Morphine Sulfate (Morphine) 2 mg IVPUSH Q2H PRN PRN Reason: Pain (severe 7-10) Non-Formulary Medication (Triamcinolone Acetonide [Triamcinolone Acetonide 0.025 % Crm]) 1 applic TOP BID PRN PRN Reason: skin Ondansetron HCl (Zofran) 4 mg IV Q6H PRN PRN Reason: Nausea/Vomiting Pantoprazole Sodium (Protonix) 40 mg PO DAILY [facility] Potassium Chloride (Klor-Con 10) 20 meq PO DAILY [facility] Warfarin Sodium (Coumadin) 2.5 mg PO SuTuThSa@1200 [facility] Warfarin Sodium (Coumadin) 5 mg PO MoWeFr@1200 [facility] Labs: Laboratory Tests 11/07/19 11/07/19 11/07/19 Range/Units 05:04 05:04 05:04 WBC 13.6 H (5.0-10.0) 10^3/uL RBC 5.01 (4.50-6.00) 10^6/uL Hgb 12.3 L (14.0-18.0) g/dL Hct 37.7 L (40.0-54.0) % MCV 75.2 L (82.0-94.0) fL MCH 24.6 L (27.0-32.0) pg MCHC 32.6 L (33.0-38.0) g/dL RDW Coeff of Connie 19.4 H (11.0-15.0) % Plt Count 162 (150-400) 10^3/uL Add Manual Diff Yes Neutrophils % (Manual) 85 (35-85) % Band Neutrophils % 5 (0-5) % Lymphocytes % (Manual) 7 L (21-55) % Monocytes % (Manual) 3 (2-12) % PT 17.6 H (9.7-12.3) SEC INR 1.76 H (0.92-1.18) Sodium 142 (136-145) mEq/L Potassium 3.7 (3.5-5.0) mEq/L Chloride 104 (98-106) mEq/L Carbon Dioxide 30 (21-32) mmol/L BUN 25 H (7-18) mg/dL Creatinine 1.5 H (0.7-1.3) mg/dL Est Cr Clr Drug Dosing TNP Estimated GFR (MDRD) 47 L (>=60) mL/min Glucose 114 H (75-99) mg/dL Lactic Acid (0.4-2.0) mmol/L Calcium 8.6 (8.4-10.1) mg/dL Total Bilirubin 1.3 H (0.0-1.0) mg/dL AST 30 (15-37) U/L ALT 11 L (12-78) U/L Alkaline Phosphatase 73 (46-116) U/L C-Reactive Protein 15.8 H (0.2-0.8) mg/dL NT-Pro-B Natriuret Pep 6721 H (0-1000) pg/mL Total Protein 7.1 (6.4-8.2) g/dL Albumin 3.3 L (3.4-5.0) g/dL Urine Color (YELLOW) Urine Appearance (CLEAR) Urine pH (4.5-8.0) Ur Specific [place] (1.003-1.020) Urine Protein (NEGATIVE) mg/dL Urine Glucose (UA) (NEGATIVE) mg/dL Urine Ketones (NEGATIVE) mg/dL Urine Occult Blood (NEGATIVE) Urine Nitrite (NEGATIVE) Urine Bilirubin (NEGATIVE) Urine Urobilinogen (0.2-1.0) EU/dL Ur Leukocyte Esterase (NEGATIVE) Urine RBC (0-5) /HPF Urine WBC (0-5) /HPF Ur Squamous Epith Cells (NOT SEEN) /HPF Urine Bacteria (NOT SEEN) /HPF Hyaline Casts (NOT SEEN) /LPF Urine Mucus (NOT SEEN) /HPF 11/07/19 11/07/19 Range/Units 05:04 05:37 WBC (5.0-10.0) 10^3/uL RBC (4.50-6.00) 10^6/uL Hgb (14.0-18.0) g/dL Hct (40.0-54.0) % MCV (82.0-94.0) fL MCH (27.0-32.0) pg MCHC (33.0-38.0) g/dL RDW Coeff of Connie (11.0-15.0) % Plt Count (150-400) 10^3/uL Add Manual Diff Neutrophils % (Manual) (35-85) % Band Neutrophils % (0-5) % Lymphocytes % (Manual) (21-55) % Monocytes % (Manual) (2-12) % PT (9.7-12.3) SEC INR (0.92-1.18) Sodium (136-145) mEq/L Potassium (3.5-5.0) mEq/L Chloride (98-106) mEq/L Carbon Dioxide (21-32) mmol/L BUN (7-18) mg/dL Creatinine (0.7-1.3) mg/dL Est Cr Clr Drug Dosing Estimated GFR (MDRD) (>=60) mL/min Glucose (75-99) mg/dL Lactic Acid 2.0 (0.4-2.0) mmol/L Calcium (8.4-10.1) mg/dL Total Bilirubin (0.0-1.0) mg/dL AST (15-37) U/L ALT (12-78) U/L Alkaline Phosphatase (46-116) U/L C-Reactive Protein (0.2-0.8) mg/dL NT-Pro-B Natriuret Pep (0-1000) pg/mL Total Protein (6.4-8.2) g/dL Albumin (3.4-5.0) g/dL Urine Color Dark yellow (YELLOW) Urine Appearance Clear (CLEAR) Urine pH 7.0 (4.5-8.0) Ur Specific [place] 1.020 (1.003-1.020) Urine Protein >=300 H (NEGATIVE) mg/dL Urine Glucose (UA) Negative (NEGATIVE) mg/dL Urine Ketones Trace H (NEGATIVE) mg/dL Urine Occult Blood Large H (NEGATIVE) Urine Nitrite Negative (NEGATIVE) Urine Bilirubin Negative (NEGATIVE) Urine Urobilinogen 0.2 (0.2-1.0) EU/dL Ur Leukocyte Esterase Small H (NEGATIVE) Urine RBC 0-5 (0-5) /HPF Urine WBC 0-5 (0-5) /HPF Ur Squamous Epith Cells Few H (NOT SEEN) /HPF Urine Bacteria Occasional H (NOT SEEN) /HPF Hyaline Casts Moderate H (NOT SEEN) /LPF Urine Mucus Few H (NOT SEEN) /HPF Meds: Medications Generic Name Dose Route Start Last Admin Trade Name Freq PRN Reason Stop Dose Admin Acetaminophen 650 mg 11/07/19 07:01 Tylenol PO Q4H PRN Pain (Mild 1-3)/fever Amlodipine Besylate 5 mg 11/07/19 08:00 Norvasc PO DAILY [facility] Carbidopa/Levodopa 2 tab 11/07/19 08:00 Sinemet 25-100 Mg PO TID [facility] Cefazolin Sodium 1 gm 11/07/19 07:30 Ancef IVPUSH Q6H [facility] Furosemide 60 mg 11/07/19 08:00 Lasix PO BID [facility] Furosemide 20 mg 11/07/19 08:00 Lasix IVPUSH BID [facility] Gabapentin 300 mg 11/07/19 08:00 Neurontin PO TID [facility] Sodium Chloride 1,000 mls @ 100 mls/hr 11/07/19 07:01 Normal Saline IV 11/08/19 08:00 ASDIRECTED [facility] Ibuprofen 600 mg 11/07/19 07:01 Motrin PO Q6H PRN Pain (mild 1-3) Losartan Potassium 100 mg 11/07/19 08:00 Cozaar PO DAILY [facility] Metoprolol Tartrate 150 mg 11/07/19 08:00 Lopressor PO BID [facility] Morphine Sulfate 2 mg 11/07/19 07:01 Morphine IVPUSH Q2H PRN Pain (severe 7-10) Non-Formulary Medication 1 applic 11/07/19 07:01 Triamcinolone Acetonide [Triamcinolone Acetonide 0.025% Crm] TOP BID PRN skin Ondansetron HCl 4 mg 11/07/19 07:01 Zofran IV Q6H PRN Nausea/Vomiting Pantoprazole Sodium 40 mg 11/07/19 08:00 Protonix PO DAILY [facility] Potassium Chloride 20 meq 11/07/19 08:00 Klor-Con 10 PO DAILY [facility] Warfarin Sodium 2.5 mg 11/07/19 12:00 Coumadin PO SuTuThSa@1200 [facility] Warfarin Sodium 5 mg 11/08/19 12:00 Coumadin PO MoWeFr@1200 [facility] Discontinued Medications Generic Name Dose Route Start Last Admin Trade Name Freq PRN Reason Stop Dose Admin Acetaminophen 1,000 mg 11/07/19 05:05 Tylenol Extra Strength PO 11/07/19 05:06 ONETIME ONE Furosemide 20 mg 11/07/19 08:00 Lasix IVPUSH BID MAXI Furosemide 40 mg 11/07/19 08:00 Lasix IVPUSH BID MAXI - Radiology Interpretation Free Text/Narrative:: CXR: Pulmonary vascular congestion, no infiltrates. Departure - Departure Time of Disposition: 06:15 Disposition: Admitted As Inpatient 68 Condition: Poor Clinical Impression: Edema leg, General weakness Cellulitis Qualifiers: Site of cellulitis: extremity Site of cellulitis of extremity: lower extremity Laterality: right Qualified Code(s): L03.115 - Cellulitis of right lower limb Congestive heart failure Qualifiers: Heart failure type: systolic Heart failure chronicity: acute Qualified Code(s) : I50.21 - Acute systolic (congestive) heart failure - Discharge Information *PRESCRIPTION DRUG MONITORING PROGRAM REVIEWED*: Not Applicable *COPY OF PRESCRIPTION DRUG MONITORING REPORT IN PATIENT CYRUS: Not Applicable Sepsis Event Note - Focused Exam Vital Signs: Vital Signs Temp Pulse Resp BP Pulse Ox 11/07/19 05:11 102.4 F H 125 H 24 H 152/78 H 88 L Date Exam was Performed: 11/07/19 Time Exam was Performed: 07:43 - My Orders Last 24 Hours: My Active Orders 11/07/19 05:04 CULTURE BLOOD [BC] Stat CULTURE BLOOD [BC] Stat Blood Culture x2 Reflex Set [OM.PC] Stat 11/07/19 05:27 Chest 1V Frontal [CR] Stat 11/07/19 06:27 Resuscitation Status Routine 11/07/19 07:01 Patient Status [ADT] Routine Antiembolic Devices [RC] PER UNIT ROUTINE Bedrest Bedside Commode [RC] ASDIRECTED Height and Weight [RC] DAILY Intake and Output [RC] QSHIFT Notify Provider Vital Signs [RC] ASDIRECTED Oxygen Therapy [RC] PRN Up With Assistance [RC] ASDIRECTED VTE/DVT Education [RC] PER UNIT ROUTINE Vital Signs [RC] Q4H Acetaminophen [Tylenol] 650 mg PO Q4H PRN Ibuprofen [Motrin] 600 mg PO Q6H PRN Morphine 2 mg IVPUSH Q2H PRN Ondansetron [Zofran] 4 mg IV Q6H PRN Sodium Chloride 0.9% [Normal Saline] 1,000 ml IV ASDIRECTED Triamcinolone Acetonide [Triamcinolone Acetonide 0.025% Crm] 1 applic TOP BID PRN Antiembolic Hose [OM.PC] Per Unit Routine EKG 12 Lead [EK] Stat 11/07/19 07:30 ceFAZolin [Ancef] 1 gm IVPUSH Q6H 11/07/19 08:00 Carbidopa/Levodopa [Sinemet 25-100 mg] 2 tab PO TID Furosemide [Lasix] 60 mg PO BID Gabapentin [Neurontin] 300 mg PO TID Losartan [Cozaar] 100 mg PO DAILY Metoprolol Tartrate [Lopressor] 150 mg PO BID Pantoprazole [ProTONIX] 40 mg PO DAILY Potassium Chloride [Klor-Con 10] 20 meq PO DAILY amLODIPine [Norvasc] 5 mg PO DAILY 11/07/19 12:00 Warfarin [Coumadin] 2.5 mg PO SuTuThSa@1200 11/07/19 Breakfast 2 Gram Sodium Diet [DIET] 11/08/19 05:00 BASIC METABOLIC PANEL,BMP [CHEM] DAILY CBC WITH AUTO DIFF [HEME] DAILY 11/08/19 12:00 Warfarin [Coumadin] 5 mg PO MoWeFr@1200 11/09/19 05:00 BASIC METABOLIC PANEL,BMP [CHEM] DAILY CBC WITH AUTO DIFF [HEME] DAILY 11/10/19 05:00 BASIC METABOLIC PANEL,BMP [CHEM] DAILY CBC WITH AUTO DIFF [HEME] DAILY - Assessment/Plan Last 24 Hours: My Active Orders 11/07/19 05:04 CULTURE BLOOD [BC] Stat CULTURE BLOOD [BC] Stat Blood Culture x2 Reflex Set [OM.PC] Stat 11/07/19 05:27 Chest 1V Frontal [CR] Stat 11/07/19 06:27 Resuscitation Status Routine 11/07/19 07:01 Patient Status [ADT] Routine Antiembolic Devices [RC] PER UNIT ROUTINE Bedrest Bedside Commode [RC] ASDIRECTED Height and Weight [RC] DAILY Intake and Output [RC] QSHIFT Notify Provider Vital Signs [RC] ASDIRECTED Oxygen Therapy [RC] PRN Up With Assistance [RC] ASDIRECTED VTE/DVT Education [RC] PER UNIT ROUTINE Vital Signs [RC] Q4H Acetaminophen [Tylenol] 650 mg PO Q4H PRN Ibuprofen [Motrin] 600 mg PO Q6H PRN Morphine 2 mg IVPUSH Q2H PRN Ondansetron [Zofran] 4 mg IV Q6H PRN Sodium Chloride 0.9% [Normal Saline] 1,000 ml IV ASDIRECTED Triamcinolone Acetonide [Triamcinolone Acetonide 0.025% Crm] 1 applic TOP BID PRN Antiembolic Hose [OM.PC] Per Unit Routine EKG 12 Lead [EK] Stat 11/07/19 07:30 ceFAZolin [Ancef] 1 gm IVPUSH Q6H 11/07/19 08:00 Carbidopa/Levodopa [Sinemet 25-100 mg] 2 tab PO TID Furosemide [Lasix] 60 mg PO BID Gabapentin [Neurontin] 300 mg PO TID Losartan [Cozaar] 100 mg PO DAILY Metoprolol Tartrate [Lopressor] 150 mg PO BID Pantoprazole [ProTONIX] 40 mg PO DAILY Potassium Chloride [Klor-Con 10] 20 meq PO DAILY amLODIPine [Norvasc] 5 mg PO DAILY 11/07/19 12:00 Warfarin [Coumadin] 2.5 mg PO SuTuThSa@1200 11/07/19 Breakfast 2 Gram Sodium Diet [DIET] 11/08/19 05:00 BASIC METABOLIC PANEL,BMP [CHEM] DAILY CBC WITH AUTO DIFF [HEME] DAILY 11/08/19 12:00 Warfarin [Coumadin] 5 mg PO MoWeFr@1200 11/09/19 05:00 BASIC METABOLIC PANEL,BMP [CHEM] DAILY CBC WITH AUTO DIFF [HEME] DAILY 11/10/19 05:00 BASIC METABOLIC PANEL,BMP [CHEM] DAILY CBC WITH AUTO DIFF [HEME] DAILY Plan: PLEASE SEE RN NOTE FOR PFSH. PLEASE USE ER H&P ADMIT H&P
[2019-11-07 05:37] LABS: CHLORIDE,CL 104 mEq/L (98-106); SODIUM,NA 142 mEq/L (136-145)
[2019-11-07] MEDS ORDERED: Ondansetron 4 MG/2 ML SDV IV PRN (07:01)
[2019-11-07] MEDS ORDERED: Morphine 2 MG/ML Syringe IVPUSH PRN (07:01)
[2019-11-07] MEDS ORDERED: Acetaminophen 500 MG Tab ONE (07:57)
[2019-11-07] MEDS ORDERED: Furosemide 20 MG Tab PO SCH (08:00)
[2019-11-07] MEDS ORDERED: Furosemide 40 MG Tab PO SCH (08:00)
[2019-11-07] MEDS ORDERED: Furosemide 20 MG/2 ML VIAL IVPUSH SCH ×2 (08:00)
[2019-11-07] MEDS: Sodium Chloride 0.9% 1,000 ML IV SCH ×2 (08:07→18:47)
[2019-11-07] MEDS: Potassium Chloride 10 MEQ Tab.ER PO SCH (08:09)
[2019-11-07] MEDS: Gabapentin 300 MG Cap PO SCH ×3 (08:09→19:33)
[2019-11-07] MEDS: Losartan 100 MG Tab PO SCH (08:09)
[2019-11-07] MEDS: Pantoprazole 40 MG Tab.CR PO SCH (08:10)
[2019-11-07] MEDS: Metoprolol Tartrate 50 MG Tab PO SCH ×2 (08:10→19:36)
[2019-11-07] MEDS: amLODIPine 2.5 MG Tab PO SCH (08:10)
[2019-11-07] MEDS: Carbidopa/Levodopa 25-100 MG Tab PO SCH ×3 (08:10→19:34)
[2019-11-07] MEDS: ceFAZolin 1 GM Vial IVPUSH SCH ×3 (08:28→18:47)
[2019-11-07] MEDS: Furosemide 20 MG/2 ML VIAL IVPUSH SCH ×2 (08:28→16:12)
--- NOTE | 2019-11-07 09:34 | PCM.SN ---
- Free Text/Narrative Note: Patient HR is now 85 controlled a-fib. His Fever is improving.
[2019-11-07] MEDS: Warfarin 5 MG Tab PO SCH (12:06)
[2019-11-07] MEDS: Acetaminophen 325 MG Tab PO PRN (12:09)
[2019-11-07] MEDS: Ibuprofen 200 MG Tab PO PRN (16:16)
[2019-11-08] MEDS: ceFAZolin 1 GM Vial IVPUSH SCH ×4 (01:40→19:41)
[2019-11-08] MEDS: Sodium Chloride 0.9% 1,000 ML IV SCH (04:50)
[2019-11-08] MEDS: Metoprolol Tartrate 50 MG Tab PO SCH ×2 (08:10→20:21)
[2019-11-08] MEDS: Pantoprazole 40 MG Tab.CR PO SCH (08:11)
[2019-11-08] MEDS: Gabapentin 300 MG Cap PO SCH ×3 (08:11→19:40)
[2019-11-08] MEDS: amLODIPine 2.5 MG Tab PO SCH (08:11)
[2019-11-08] MEDS: Carbidopa/Levodopa 25-100 MG Tab PO SCH ×3 (08:11→19:40)
[2019-11-08] MEDS: Furosemide 20 MG/2 ML VIAL IVPUSH SCH ×2 (08:12→15:58)
[2019-11-08] MEDS: Potassium Chloride 10 MEQ Tab.ER PO SCH (08:12)
[2019-11-08] MEDS: Losartan 100 MG Tab PO SCH (08:12)
[2019-11-08] MEDS ORDERED: FLU Vacc QS2019-20(6MOS UP)/PF 60 MCG/0.5 ML Vial IM ONE (08:59)
[2019-11-08] MEDS: Warfarin 5 MG Tab PO SCH (11:50)
[2019-11-08] MEDS: Acetaminophen 325 MG Tab PO PRN ×2 (13:42→19:48)
[2019-11-08] MEDS ORDERED: Albuterol/Ipratropium 3.0-0.5 MG/3 ML Neb Soln NEB PRN (15:25)
[2019-11-08] MEDS ORDERED: Albuterol/Ipratropium 3.0-0.5 MG/3 ML Neb Soln ONE (15:56)
[2019-11-08] MEDS: Ibuprofen 200 MG Tab PO PRN (15:59)
--- NOTE | 2019-11-08 22:06 | PCM.PN ---
- General Info Date of Service: 11/08/19 Admission Dx/Problem (Free Text): Cellulitis of RLE Functional Status: Reports: Pain Controlled, Tolerating Diet, Ambulating - Review of Systems General: Reports: Fever, Weakness, Fatigue, Malaise HEENT: Reports: No Symptoms Pulmonary: Denies: Shortness of Breath, Cough Cardiovascular: Reports: Edema. Denies: Chest Pain, Lightheadedness Gastrointestinal: Denies: Abdominal Pain, Nausea, Vomiting Genitourinary: Reports: No Symptoms Musculoskeletal: Reports: Leg Pain Skin: Reports: Other (redness in legs) Neurological: Reports: No Symptoms - Patient Data Vitals - Most Recent: Last Vital Signs Temp 99.1 F 11/08/19 20:56 Pulse 82 11/08/19 20:21 Resp 24 H 11/08/19 20:00 BP 86/52 L 11/08/19 20:21 Pulse Ox 94 L 11/08/19 20:00 Weight - Most Recent: 425 lb I&O - Last 24 Hours: Intake & Output 11/08/19 11/08/19 11/08/19 06:59 14:59 22:59 Intake Total 4613 610 6870 Output Total 400 1200 Balance 800 392 300 Lab Results Last 24 Hours: Laboratory Results - last 24 hr 11/08/19 11/08/19 11/08/19 Range/Units 07:00 07:00 15:35 WBC 8.6 (5.0-10.0) 10^3/uL RBC 4.87 (4.50-6.00) 10^6/uL Hgb 11.8 L (14.0-18.0) g/dL Hct 38.4 L (40.0-54.0) % MCV 78.9 L (82.0-94.0) fL MCH 24.2 L (27.0-32.0) pg MCHC 30.7 L (33.0-38.0) g/dL RDW Coeff of Connie 19.4 H (11.0-15.0) % Plt Count 127 L (150-400) 10^3/uL Neut % (Auto) 82.1 (35-85) % Lymph % (Auto) 7.8 L (10-55) % [place] % (Auto) 7.3 (0-16) % Eos % (Auto) 2.6 (0-5) % Baso % (Auto) 0.2 (0-3) % Neut # (Auto) 7.05 H (1.80-7.00) 10^3/uL Lymph # (Auto) 0.67 L (1.00-4.80) 10^3/uL [place] # (Auto) 0.63 (0.00-0.80) 10^3/uL Eos # (Auto) 0.22 (0.00-0.45) 10^3/uL Baso # (Auto) 0.02 10^3/uL Sodium 143 (136-145) mEq/L Potassium 3.8 (3.5-5.0) mEq/L Chloride 105 (98-106) mEq/L Carbon Dioxide 31 (21-32) mmol/L BUN 30 H (7-18) mg/dL Creatinine 1.5 H (0.7-1.3) mg/dL Est Cr Clr Drug Dosing 52.45 mL/min Estimated GFR (MDRD) 47 L (>=60) mL/min Glucose 88 (75-99) mg/dL Lactic Acid 0.8 (0.4-2.0) mmol/L Calcium 8.2 L (8.4-10.1) mg/dL Pablo Results Last 24 Hours: Microbiology 11/07/19 05:04 Aerobic Blood Culture - Preliminary Blood - Venous NO GROWTH AFTER 1 DAY Anaerobic Blood Culture - Preliminary NO GROWTH AFTER 1 DAY 11/07/19 05:04 Aerobic Blood Culture - Preliminary Blood - Venous - Lab Draw NO GROWTH AFTER 1 DAY Anaerobic Blood Culture - Preliminary NO GROWTH AFTER 1 DAY Med Orders - Current: Current Medications Acetaminophen (Tylenol) 650 mg PO Q4H PRN PRN Reason: Pain (Mild 1-3)/fever Last Admin: 11/08/19 19:48 Dose: 650 mg Albuterol/Ipratropium (Duoneb 3.0-0.5 Mg/3 Ml) 3 ml NEB Q4H PRN PRN Reason: Dyspnea Last Admin: 11/08/19 16:13 Dose: 3 ml Amlodipine Besylate (Norvasc) 5 mg PO DAILY [facility] Last Admin: 11/08/19 08:11 Dose: 5 mg Carbidopa/Levodopa (Sinemet 25-100 Mg) 2 tab PO TID [facility] Last Admin: 12/16/19 19:40 Dose: 2 tab Cefazolin Sodium (Ancef) 1 gm IVPUSH Q6H [facility] Last Admin: 11/08/19 19:41 Dose: 1 gm Furosemide (Lasix) 20 mg IVPUSH BIDDIURETIC [facility] Last Admin: 11/08/19 15:58 Dose: 20 mg Furosemide (Lasix) 60 mg PO BIDDIURETIC [facility] Gabapentin (Neurontin) 300 mg PO TID [facility] Last Admin: 11/08/19 19:40 Dose: 300 mg Ibuprofen (Motrin) 600 mg PO Q6H PRN PRN Reason: Pain (mild 1-3) Last Admin: 11/08/19 15:59 Dose: 600 mg Losartan Potassium (Cozaar) 100 mg PO DAILY [facility] Last Admin: 11/08/19 08:12 Dose: 100 mg Metoprolol Tartrate (Lopressor) 150 mg PO BID [facility] Last Admin: 11/08/19 20:21 Dose: Not Given Morphine Sulfate (Morphine) 2 mg IVPUSH Q2H PRN PRN Reason: Pain (severe 7-10) Non-Formulary Medication (Triamcinolone Acetonide [Triamcinolone Acetonide 0.025 % Crm]) 1 applic TOP BID PRN PRN Reason: skin Ondansetron HCl (Zofran) 4 mg IV Q6H PRN PRN Reason: Nausea/Vomiting Pantoprazole Sodium (Protonix) 40 mg PO DAILY [facility] Last Admin: 11/08/19 08:11 Dose: 40 mg Potassium Chloride (Klor-Con 10) 20 meq PO DAILY [facility] Last Admin: 11/08/19 08:12 Dose: 20 meq Warfarin Sodium (Coumadin) 2.5 mg PO SuTuThSa@1200 [facility] Last Admin: 11/07/19 12:06 Dose: 2.5 mg Warfarin Sodium (Coumadin) 5 mg PO MoWeFr@1200 [facility] Last Admin: 11/08/19 11:50 Dose: 5 mg Discontinued Medications Acetaminophen (Tylenol Extra Strength) 1,000 mg PO ONETIME ONE Stop: 11/07/19 05:06 Last Admin: 11/07/19 07:39 Dose: 1,000 mg Acetaminophen (Tylenol Extra Strength) Confirm Administered Dose 1,000 mg .ROUTE .STK-MED ONE Stop: 11/07/19 07:58 Last Admin: 11/07/19 08:00 Dose: Not Given Albuterol/Ipratropium (Duoneb 3.0-0.5 Mg/3 Ml) Confirm Administered Dose 3 ml .ROUTE .STK-MED ONE Stop: 11/08/19 15:57 Last Admin: 11/08/19 16:13 Dose: Not Given Furosemide (Lasix) 20 mg IVPUSH BID [facility] Furosemide (Lasix) 60 mg PO BIDDIURETIC [facility] Furosemide (Lasix) 40 mg IVPUSH BID [facility] Sodium Chloride (Normal Saline) 1,000 mls @ 100 mls/hr IV ASDIRECTED [facility] Stop: 11/08/19 08:00 Last Infusion: 11/08/19 08:45 Dose: 0 mls/hr - Exam General: Alert, Oriented HEENT: Mucous Membr. Moist/[place] Neck: Supple Lungs: Clear to Auscultation, Normal Respiratory Effort Cardiovascular: Regular Rate, Regular Rhythm GI/Abdominal Exam: Normal Bowel Sounds, Soft, Non-Tender Extremities: Pedal Edema, Leg Pain, Increased Warmth (patient right lower extremity is red, warm to the midthigh. Nontender. Does have chronic venous stasis changes and redness to his legs but increased at this time. ), Redness Sepsis Event Note - Evaluation Sepsis Screening Result: No Definite Risk - Focused Exam Vital Signs: Vital Signs Temp Pulse Pulse Resp BP BP BP 11/08/19 20:56 99.1 F 11/08/19 20:21 82 86/52 L 11/08/19 20:00 100 F 82 24 H 86/52 L 80/48 L 11/08/19 17:56 99.7 F 90 11/08/19 15:17 101.4 F H 108 H 20 106/65 11/08/19 13:42 101.5 F H 95 11/08/19 12:00 98.7 F 95 20 133/80 Pulse Ox 11/08/19 20:56 11/08/19 20:21 11/08/19 20:00 94 L 11/08/19 17:56 11/08/19 15:17 91 L 11/08/19 13:42 11/08/19 12:00 95 Date Exam was Performed: 11/08/19 Time Exam was Performed: 22:01 - Problem List & Annotations (1) Edema leg SNOMED Code(s): 575430418 Code(s): R60.0 - LOCALIZED EDEMA Status: Acute Priority: Low Current Visit: Yes (2) Cellulitis SNOMED Code(s): 821562194 Code(s): L03.90 - CELLULITIS, UNSPECIFIED Status: Acute Priority: High Current Visit: Yes Qualifiers: Site of cellulitis: extremity Site of cellulitis of extremity: lower extremity Laterality: right Qualified Code(s): L03.115 - Cellulitis of right lower limb (3) General weakness SNOMED Code(s): 20640236 Code(s): R53.1 - WEAKNESS Status: Acute Priority: High Current Visit: Yes - Problem List Review Problem List Initiated/Reviewed/Updated: Yes - My Orders Last 24 Hours: My Active Orders 11/08/19 15:25 Albuterol/Ipratropium [DuoNeb 3.0-0.5 MG/3 ML] 3 ml NEB Q4H PRN 11/08/19 15:26 RT Aerosol Therapy [RC] .PRN - Assessment Assessment:: RLE cellulitis - Plan Plan:: Patient resting comfortably in the recliner. Does feel mildly short of breath, on oxygen while at rest. Sats 94% on 1 liter. Lung sounds are diminished, expiratory wheezing noted. RLE edema noted, leg warm to the touch and red. Has chronic venous stasis changes. WBC is stable this am. Will continue with IV Ancef. Neb treatments, oxygen as needed. Repeat labs in am.
[2019-11-09] MEDS: ceFAZolin 1 GM Vial IVPUSH SCH ×4 (01:34→19:40)
[2019-11-09] MEDS: Losartan 100 MG Tab PO SCH (08:18)
[2019-11-09] MEDS: Carbidopa/Levodopa 25-100 MG Tab PO SCH ×3 (08:18→19:41)
[2019-11-09] MEDS: Metoprolol Tartrate 50 MG Tab PO SCH ×2 (08:18→19:42)
[2019-11-09] MEDS: Pantoprazole 40 MG Tab.CR PO SCH (08:19)
[2019-11-09] MEDS: Potassium Chloride 10 MEQ Tab.ER PO SCH (08:19)
[2019-11-09] MEDS: Gabapentin 300 MG Cap PO SCH ×3 (08:19→19:41)
[2019-11-09] MEDS: amLODIPine 2.5 MG Tab PO SCH (08:20)
[2019-11-09] MEDS: Furosemide 20 MG/2 ML VIAL IVPUSH SCH ×2 (08:20→15:54)
[2019-11-09] MEDS: Warfarin 5 MG Tab PO SCH (11:41)
--- NOTE | 2019-11-09 22:09 | PCM.PN ---
- General Info Date of Service: 11/09/19 Admission Dx/Problem (Free Text): Cellulitis of RLE Functional Status: Reports: Pain Controlled, Tolerating Diet, Ambulating - Review of Systems General: Reports: Weakness, Fatigue, Malaise. Denies: Fever HEENT: Reports: No Symptoms Pulmonary: Reports: Shortness of Breath, Cough, Hemoptysis, Wheezing Cardiovascular: Reports: Edema. Denies: Chest Pain, Lightheadedness Gastrointestinal: Denies: Abdominal Pain, Nausea, Vomiting Genitourinary: Reports: No Symptoms Musculoskeletal: Reports: Leg Pain Skin: Reports: Other (redness to legs) Neurological: Reports: No Symptoms - Patient Data Vitals - Most Recent: Last Vital Signs Temp 99.1 F 11/09/19 20:00 Pulse 78 11/09/19 20:00 Resp 20 11/09/19 20:00 BP 144/77 H 11/09/19 20:00 Pulse Ox 99 11/09/19 20:00 Weight - Most Recent: 425 lb I&O - Last 24 Hours: Intake & Output 11/09/19 11/09/19 11/09/19 06:59 14:59 22:59 Intake Total 300 900 Output Total 300 800 Balance 0 100 Lab Results Last 24 Hours: Laboratory Results - last 24 hr 11/09/19 11/09/19 Range/Units 05:00 05:00 WBC 7.5 (5.0-10.0) 10^3/uL RBC 4.55 (4.50-6.00) 10^6/uL Hgb 11.0 L (14.0-18.0) g/dL Hct 36.2 L (40.0-54.0) % MCV 79.6 L (82.0-94.0) fL MCH 24.2 L (27.0-32.0) pg MCHC 30.4 L (33.0-38.0) g/dL RDW Coeff of Connie 19.1 H (11.0-15.0) % Plt Count 132 L (150-400) 10^3/uL Neut % (Auto) 75.6 (35-85) % Lymph % (Auto) 9.2 L (10-55) % [place] % (Auto) 11.4 (0-16) % Eos % (Auto) 3.5 (0-5) % Baso % (Auto) 0.3 (0-3) % Neut # (Auto) 5.64 (1.80-7.00) 10^3/uL Lymph # (Auto) 0.69 L (1.00-4.80) 10^3/uL [place] # (Auto) 0.85 H (0.00-0.80) 10^3/uL Eos # (Auto) 0.26 (0.00-0.45) 10^3/uL Baso # (Auto) 0.02 10^3/uL Sodium 145 (136-145) mEq/L Potassium 3.5 (3.5-5.0) mEq/L Chloride 106 (98-106) mEq/L Carbon Dioxide 32 (21-32) mmol/L BUN 29 H (7-18) mg/dL Creatinine 1.3 (0.7-1.3) mg/dL Est Cr Clr Drug Dosing 60.52 mL/min Estimated GFR (MDRD) 55 L (>=60) mL/min Glucose 89 (75-99) mg/dL Calcium 8.0 L (8.4-10.1) mg/dL C-Reactive Protein 28.4 H (0.2-0.8) mg/dL Pablo Results Last 24 Hours: Microbiology 11/09/19 14:04 Gram Stain - Final Sputum - Expectorated 11/07/19 05:04 Aerobic Blood Culture - Preliminary Blood - Venous NO GROWTH AFTER 2 DAYS Anaerobic Blood Culture - Preliminary NO GROWTH AFTER 2 DAYS 11/07/19 05:04 Aerobic Blood Culture - Preliminary Blood - Venous - Lab Draw NO GROWTH AFTER 2 DAYS Anaerobic Blood Culture - Preliminary NO GROWTH AFTER 2 DAYS Med Orders - Current: Current Medications Acetaminophen (Tylenol) 650 mg PO Q4H PRN PRN Reason: Pain (Mild 1-3)/fever Last Admin: 11/08/19 19:48 Dose: 650 mg Albuterol/Ipratropium (Duoneb 3.0-0.5 Mg/3 Ml) 3 ml NEB Q4H PRN PRN Reason: Dyspnea Last Admin: 11/08/19 16:13 Dose: 3 ml Amlodipine Besylate (Norvasc) 5 mg PO DAILY [facility] Last Admin: 11/09/19 08:20 Dose: 5 mg Carbidopa/Levodopa (Sinemet 25-100 Mg) 2 tab PO TID [facility] Last Admin: 11/09/19 19:41 Dose: 2 tab Cefazolin Sodium (Ancef) 1 gm IVPUSH Q6H [facility] Last Admin: 11/09/19 19:40 Dose: 1 gm Furosemide (Lasix) 20 mg IVPUSH BIDDIURETIC [facility] Last Admin: 11/09/19 15:54 Dose: 20 mg Furosemide (Lasix) 60 mg PO BIDDIURETIC [facility] Gabapentin (Neurontin) 300 mg PO TID [facility] Last Admin: 11/09/19 19:41 Dose: 300 mg Ibuprofen (Motrin) 600 mg PO Q6H PRN PRN Reason: Pain (mild 1-3) Last Admin: 11/08/19 15:59 Dose: 600 mg Losartan Potassium (Cozaar) 100 mg PO DAILY [facility] Last Admin: 11/09/19 08:18 Dose: 100 mg Metoprolol Tartrate (Lopressor) 150 mg PO BID [facility] Last Admin: 11/09/19 19:42 Dose: 150 mg Morphine Sulfate (Morphine) 2 mg IVPUSH Q2H PRN PRN Reason: Pain (severe 7-10) Non-Formulary Medication (Triamcinolone Acetonide [Triamcinolone Acetonide 0.025 % Crm]) 1 applic TOP BID PRN PRN Reason: skin Ondansetron HCl (Zofran) 4 mg IV Q6H PRN PRN Reason: Nausea/Vomiting Pantoprazole Sodium (Protonix) 40 mg PO DAILY [facility] Last Admin: 11/09/19 08:19 Dose: 40 mg Potassium Chloride (Klor-Con 10) 20 meq PO DAILY [facility] Last Admin: 11/09/19 08:19 Dose: 20 meq Warfarin Sodium (Coumadin) 2.5 mg PO SuTuThSa@1200 [facility] Last Admin: 11/09/19 11:41 Dose: 2.5 mg Warfarin Sodium (Coumadin) 5 mg PO MoWeFr@1200 [facility] Last Admin: 11/08/19 11:50 Dose: 5 mg Discontinued Medications Acetaminophen (Tylenol Extra Strength) 1,000 mg PO ONETIME ONE Stop: 11/07/19 05:06 Last Admin: 11/07/19 07:39 Dose: 1,000 mg Acetaminophen (Tylenol Extra Strength) Confirm Administered Dose 1,000 mg .ROUTE .STK-MED ONE Stop: 11/07/19 07:58 Last Admin: 11/07/19 08:00 Dose: Not Given Albuterol/Ipratropium (Duoneb 3.0-0.5 Mg/3 Ml) Confirm Administered Dose 3 ml .ROUTE .K-MED ONE Stop: 11/08/19 15:57 Last Admin: 11/08/19 16:13 Dose: Not Given Furosemide (Lasix) 20 mg IVPUSH BID [facility] Furosemide (Lasix) 60 mg PO BIDDIURETIC [facility] Furosemide (Lasix) 40 mg IVPUSH BID [facility] Sodium Chloride (Normal Saline) 1,000 mls @ 100 mls/hr IV ASDIRECTED [facility] Stop: 11/08/19 08:00 Last Infusion: 11/08/19 08:45 Dose: 0 mls/hr - Exam Quality Assessment: Supplemental Oxygen (as needed with lying down) General: Alert, Oriented HEENT: Mucous Membr. Moist/[place] Neck: Supple Lungs: Decreased Breath Sounds, Wheezing Cardiovascular: Regular Rate, Regular Rhythm GI/Abdominal Exam: Soft, Non-Tender Extremities: Pedal Edema, Leg Pain, Increased Warmth, Redness (redness and warmth appears better today; relates legs feel stronger) Skin: Warm, Dry, Other (venous stasis/dermatitis noted in both legs) Neurological: No New Focal Deficit Sepsis Event Note - Evaluation Sepsis Screening Result: Sepsis Risk - Focused Exam Vital Signs: Vital Signs Temp Pulse Pulse Resp BP BP Pulse Ox 11/09/19 20:00 99.1 F 78 20 144/77 H 99 11/09/19 19:42 78 144/77 H 11/09/19 15:54 97.8 F 85 18 131/69 96 11/09/19 12:00 98.9 F 88 18 137/69 96 Date Exam was Performed: 11/09/19 Time Exam was Performed: 22:03 - Problem List & Annotations (1) Edema leg SNOMED Code(s): 172550103 Code(s): R60.0 - LOCALIZED EDEMA Status: Acute Priority: High Current Visit: Yes (2) Cellulitis SNOMED Code(s): 271333558 Code(s): L03.90 - CELLULITIS, UNSPECIFIED Status: Acute Priority: High Current Visit: Yes Qualifiers: Site of cellulitis: extremity Site of cellulitis of extremity: lower extremity Laterality: right Qualified Code(s): L03.115 - Cellulitis of right lower limb (3) General weakness SNOMED Code(s): 17438548 Code(s): R53.1 - WEAKNESS Status: Acute Priority: High Current Visit: Yes - Problem List Review Problem List Initiated/Reviewed/Updated: Yes - My Orders Last 24 Hours: My Active Orders 11/09/19 14:04 CULTURE SPUTUM + SMEAR [RM] Routine 11/10/19 05:11 C-REACTIVE PROTEIN [CHEM] DAILY - Assessment Assessment:: RLE cellulitis - Plan Plan:: Patient resting comfortably in the recliner. Does feel mildly short of breath, on oxygen while at rest. Sats 94% on 1 liter. Lung sounds are diminished, expiratory wheezing noted. RLE edema noted, leg warm to the touch and red. Has chronic venous stasis changes. WBC is stable this am. Will continue with IV Ancef. Neb treatments, oxygen as needed. Repeat labs in am. 11-09-2019 Patient states legs feel stronger today, less discomfort. Is afebrile this am. Does admit to still feeling short of breath at times. Has been coughing more , small amount of blood noted in phlegm this am. RLE is still red but less so than yesterday and less warmth noted. Lung sounds still note expiratory wheezing but oxygen sats are improved on room air. WBC remains normal. CRP did increase to 28 from 15 today. Continue with IV Ancef. Obtain sputum culture. Oxygen as needed. Encourage ambulation. Repeat labs in am. Possible discharge in next 1-2 days
[2019-11-10] MEDS: ceFAZolin 1 GM Vial IVPUSH SCH ×3 (01:49→13:43)
[2019-11-10] MEDS: Gabapentin 300 MG Cap PO SCH ×3 (07:32→19:36)
[2019-11-10] MEDS: Potassium Chloride 10 MEQ Tab.ER PO SCH (07:32)
[2019-11-10] MEDS: Pantoprazole 40 MG Tab.CR PO SCH (07:32)
[2019-11-10] MEDS: Furosemide 20 MG/2 ML VIAL IVPUSH SCH ×2 (07:32→15:54)
[2019-11-10] MEDS: Carbidopa/Levodopa 25-100 MG Tab PO SCH ×3 (07:33→19:36)
[2019-11-10] MEDS: Losartan 100 MG Tab PO SCH (07:35)
[2019-11-10] MEDS: Metoprolol Tartrate 50 MG Tab PO SCH ×2 (07:36→19:36)
[2019-11-10] MEDS: amLODIPine 2.5 MG Tab PO SCH (07:36)
[2019-11-10] MEDS: Acetaminophen 325 MG Tab PO PRN (07:40)
[2019-11-10 07:48] LABS: CHLORIDE,CL 107 mEq/L (98-106); SODIUM,NA 146 mEq/L (136-145)
[2019-11-10] MEDS: Ferrous Sulfate 324 MG Tab.EC PO SCH (08:55)
[2019-11-10] MEDS: Warfarin 5 MG Tab PO SCH (11:44)
[2019-11-10] MEDS ORDERED: Iopamidol 755 Mg/ML 100 ML Bottle IVPUSH ONE (14:24)
[2019-11-10] MEDS ORDERED: Levofloxacin/Dextrose 5%-Water 750 MG in Premix Bag 1 BAG IV SCH (20:00)
--- NOTE | 2019-11-10 20:19 | PCM.PN ---
- General Info Date of Service: 11/10/19 Admission Dx/Problem (Free Text): Cellulitis of RLE Functional Status: Reports: Pain Controlled - Review of Systems General: Reports: Weakness, Fatigue, Malaise. Denies: Fever HEENT: Reports: Sinus Congestion, Rhinitis Pulmonary: Reports: Shortness of Breath, Cough, Hemoptysis, Wheezing Cardiovascular: Reports: Edema. Denies: Chest Pain, Lightheadedness Gastrointestinal: Denies: Abdominal Pain, Nausea, Vomiting Genitourinary: Reports: No Symptoms Musculoskeletal: Reports: Leg Pain Skin: Reports: Dryness, Other (redness to legs) Neurological: Reports: Weakness - Patient Data Vitals - Most Recent: Last Vital Signs Temp 99 F 11/10/19 15:54 Pulse 101 H 11/10/19 19:36 Resp 16 11/10/19 15:54 BP 130/67 11/10/19 19:36 Pulse Ox 95 11/10/19 15:54 Weight - Most Recent: 425 lb I&O - Last 24 Hours: Intake & Output 11/10/19 11/10/19 11/10/19 06:59 14:59 22:59 Intake Total 600 500 800 Output Total 800 300 600 Balance -200 200 200 Lab Results Last 24 Hours: Laboratory Results - last 24 hr 11/10/19 11/10/19 11/10/19 Range/Units 06:55 06:55 13:21 WBC 6.6 (5.0-10.0) 10^3/uL RBC 4.38 L (4.50-6.00) 10^6/uL Hgb 10.6 L (14.0-18.0) g/dL Hct 35.0 L (40.0-54.0) % MCV 79.9 L (82.0-94.0) fL MCH 24.2 L (27.0-32.0) pg MCHC 30.3 L (33.0-38.0) g/dL RDW Coeff of Connie 18.8 H (11.0-15.0) % Plt Count 143 L (150-400) 10^3/uL Neut % (Auto) 71.5 (35-85) % Lymph % (Auto) 10.8 (10-55) % [place] % (Auto) 13.3 (0-16) % Eos % (Auto) 4.2 (0-5) % Baso % (Auto) 0.2 (0-3) % Neut # (Auto) 4.75 (1.80-7.00) 10^3/uL Lymph # (Auto) 0.72 L (1.00-4.80) 10^3/uL [place] # (Auto) 0.88 H (0.00-0.80) 10^3/uL Eos # (Auto) 0.28 (0.00-0.45) 10^3/uL Baso # (Auto) 0.01 10^3/uL D-Dimer, Quantitative 0.43 (0.00-0.50) Sodium 146 H (136-145) mEq/L Potassium 3.6 (3.5-5.0) mEq/L Chloride 107 H (98-106) mEq/L Carbon Dioxide 34 H (21-32) mmol/L BUN 23 H (7-18) mg/dL Creatinine 1.0 (0.7-1.3) mg/dL Est Cr Clr Drug Dosing 78.68 mL/min Estimated GFR (MDRD) > 60 (>=60) mL/min Glucose 89 (75-99) mg/dL Calcium 7.9 L (8.4-10.1) mg/dL C-Reactive Protein 17.0 H (0.2-0.8) mg/dL Pablo Results Last 24 Hours: Microbiology 11/09/19 14:04 Gram Stain - Final Sputum - Expectorated Sputum Culture - Preliminary 11/07/19 05:04 Aerobic Blood Culture - Preliminary Blood - Venous NO GROWTH AFTER 3 DAYS Anaerobic Blood Culture - Preliminary NO GROWTH AFTER 3 DAYS 11/07/19 05:04 Aerobic Blood Culture - Preliminary Blood - Venous - Lab Draw NO GROWTH AFTER 3 DAYS Anaerobic Blood Culture - Preliminary NO GROWTH AFTER 3 DAYS Med Orders - Current: Current Medications Acetaminophen (Tylenol) 650 mg PO Q4H PRN PRN Reason: Pain (Mild 1-3)/fever Last Admin: 11/10/19 07:40 Dose: 650 mg Albuterol/Ipratropium (Duoneb 3.0-0.5 Mg/3 Ml) 3 ml NEB Q4H PRN PRN Reason: Dyspnea Last Admin: 11/08/19 16:13 Dose: 3 ml Amlodipine Besylate (Norvasc) 5 mg PO DAILY [facility] Last Admin: 11/10/19 07:36 Dose: 5 mg Carbidopa/Levodopa (Sinemet 25-100 Mg) 2 tab PO TID [facility] Last Admin: 11/10/19 19:36 Dose: 2 tab Ferrous Sulfate (Ferrous Sulfate) 324 mg PO WITHBREAKFAST [facility] Last Admin: 11/10/19 08:55 Dose: 324 mg Furosemide (Lasix) 20 mg IVPUSH BIDDIURETIC [facility] Last Admin: 11/10/19 15:54 Dose: 20 mg Furosemide (Lasix) 60 mg PO BIDDIURETIC [facility] Gabapentin (Neurontin) 300 mg PO TID [facility] Last Admin: 11/10/19 19:36 Dose: 300 mg Levofloxacin/Dextrose 750 mg/ (Premix) 150 mls @ 100 mls/hr IV Q24H [facility] Last Admin: 11/10/19 19:34 Dose: 100 mls/hr Ibuprofen (Motrin) 600 mg PO Q6H PRN PRN Reason: Pain (mild 1-3) Last Admin: 11/08/19 15:59 Dose: 600 mg Losartan Potassium (Cozaar) 100 mg PO DAILY [facility] Last Admin: 11/10/19 07:35 Dose: 100 mg Metoprolol Tartrate (Lopressor) 150 mg PO BID [facility] Last Admin: 11/10/19 19:36 Dose: 150 mg Morphine Sulfate (Morphine) 2 mg IVPUSH Q2H PRN PRN Reason: Pain (severe 7-10) Non-Formulary Medication (Triamcinolone Acetonide [Triamcinolone Acetonide 0.025 % Crm]) 1 applic TOP BID PRN PRN Reason: skin Ondansetron HCl (Zofran) 4 mg IV Q6H PRN PRN Reason: Nausea/Vomiting Pantoprazole Sodium (Protonix) 40 mg PO DAILY [facility] Last Admin: 11/10/19 07:32 Dose: 40 mg Potassium Chloride (Klor-Con 10) 20 meq PO DAILY [facility] Last Admin: 11/10/19 07:32 Dose: 20 meq Warfarin Sodium (Coumadin) 2.5 mg PO SuTuThSa@1200 [facility] Last Admin: 11/09/19 11:41 Dose: 2.5 mg Warfarin Sodium (Coumadin) 5 mg PO MoWeFr@1200 [facility] Last Admin: 11/10/19 11:44 Dose: 5 mg Discontinued Medications Acetaminophen (Tylenol Extra Strength) 1,000 mg PO ONETIME ONE Stop: 11/07/19 05:06 Last Admin: 11/07/19 07:39 Dose: 1,000 mg Acetaminophen (Tylenol Extra Strength) Confirm Administered Dose 1,000 mg .ROUTE .STK-MED ONE Stop: 11/07/19 07:58 Last Admin: 11/07/19 08:00 Dose: Not Given Albuterol/Ipratropium (Duoneb 3.0-0.5 Mg/3 Ml) Confirm Administered Dose 3 ml .ROUTE .STK-MED ONE Stop: 11/08/19 15:57 Last Admin: 11/08/19 16:13 Dose: Not Given Cefazolin Sodium (Ancef) 1 gm IVPUSH Q6H [facility] Last Admin: 11/10/19 13:43 Dose: 1 gm Furosemide (Lasix) 20 mg IVPUSH BID [facility] Furosemide (Lasix) 60 mg PO BIDDIURETIC [facility] Furosemide (Lasix) 40 mg IVPUSH BID [facility] Sodium Chloride (Normal Saline) 1,000 mls @ 100 mls/hr IV ASDIRECTED [facility] Stop: 11/08/19 08:00 Last Infusion: 11/08/19 08:45 Dose: 0 mls/hr Iopamidol (Isovue-370 (76%)) 100 ml IVPUSH ONETIME ONE Stop: 11/10/19 14:25 Last Admin: 11/10/19 14:32 Dose: 100 ml - Exam General: Alert, Oriented HEENT: Mucous Membr. Moist/[place] Neck: Supple Lungs: Decreased Breath Sounds, Wheezing Cardiovascular: Regular Rate GI/Abdominal Exam: Normal Bowel Sounds, Soft, Non-Tender Extremities: Pedal Edema, Redness (redness much improved to right leg). No: Increased Warmth Skin: Warm, Dry Neurological: No New Focal Deficit Sepsis Event Note - Evaluation Sepsis Screening Result: No Definite Risk - Focused Exam Vital Signs: Vital Signs Temp Pulse Pulse Resp BP BP BP 11/10/19 19:36 101 H 130/67 11/10/19 15:54 99 F 90 16 139/90 11/10/19 11:44 97.7 F 81 22 H 118/71 Pulse Ox 11/10/19 19:36 11/10/19 15:54 95 11/10/19 11:44 Date Exam was Performed: 11/10/19 Time Exam was Performed: 19:56 - Problem List & Annotations (1) Edema leg SNOMED Code(s): 799504425 Code(s): R60.0 - LOCALIZED EDEMA Status: Acute Priority: High Current Visit: Yes (2) Cellulitis SNOMED Code(s): 290786255 Code(s): L03.90 - CELLULITIS, UNSPECIFIED Status: Acute Priority: High Current Visit: Yes Qualifiers: Site of cellulitis: extremity Site of cellulitis of extremity: lower extremity Laterality: right Qualified Code(s): L03.115 - Cellulitis of right lower limb (3) General weakness SNOMED Code(s): 86083562 Code(s): R53.1 - WEAKNESS Status: Acute Priority: High Current Visit: Yes - Problem List Review Problem List Initiated/Reviewed/Updated: Yes - My Orders Last 24 Hours: My Active Orders 11/10/19 07:00 FERRITIN [REF] Routine 11/10/19 08:12 Ferrous Sulfate 324 mg PO WITHBREAKFAST 11/10/19 14:12 Chest w Cont [CT] Routine 11/10/19 20:00 Levofloxacin/Dextrose 5%-Water [Levaquin in D5W 750 MG/150 ML] 750 mg Premix Bag 1 bag IV Q24H - Assessment Assessment:: RLE cellulitis - Plan Plan:: Patient resting comfortably in the recliner. Does feel mildly short of breath, on oxygen while at rest. Sats 94% on 1 liter. Lung sounds are diminished, expiratory wheezing noted. RLE edema noted, leg warm to the touch and red. Has chronic venous stasis changes. WBC is stable this am. Will continue with IV Ancef. Neb treatments, oxygen as needed. Repeat labs in am. 11-09-2019 Patient states legs feel stronger today, less discomfort. Is afebrile this am. Does admit to still feeling short of breath at times. Has been coughing more , small amount of blood noted in phlegm this am. RLE is still red but less so than yesterday and less warmth noted. Lung sounds still note expiratory wheezing but oxygen sats are improved on room air. WBC remains normal. CRP did increase to 28 from 15 today. Continue with IV Ancef. Obtain sputum culture. Oxygen as needed. Encourage ambulation. Repeat labs in am. Possible discharge in next 1-2 days 11-10-2019 Patient states feeling weaker today. Has been coughing more, noting blood yet this am. He does admit to shortness of breath and wheezing. Oxygen sats are still good at 97% on room air. RLE looks much better than on admit. Minimal redness. Has chronic edema and venous stasis changes. WBC 6.6. CRP 17, which is down from 28. Blood cultures negative. Gram stain negative. Hemoglobin low , MCV low. D-Dimer done today, negative. Will proceed with CT of chest due to hemoptysis. Start ferrous sulfate. Await CT report. Repeat labs in am.
[2019-11-11] MEDS: Metoprolol Tartrate 50 MG Tab PO SCH (08:28)
[2019-11-11] MEDS: Potassium Chloride 10 MEQ Tab.ER PO SCH (08:28)
[2019-11-11] MEDS: Gabapentin 300 MG Cap PO SCH (08:30)
[2019-11-11] MEDS: Carbidopa/Levodopa 25-100 MG Tab PO SCH (08:30)
[2019-11-11] MEDS: amLODIPine 2.5 MG Tab PO SCH (08:30)
[2019-11-11] MEDS: Ferrous Sulfate 324 MG Tab.EC PO SCH (08:31)
[2019-11-11] MEDS: Losartan 100 MG Tab PO SCH (08:31)
[2019-11-11] MEDS: Furosemide 20 MG/2 ML VIAL IVPUSH SCH (08:31)
[2019-11-11] MEDS: Pantoprazole 40 MG Tab.CR PO SCH (08:31)
[2019-11-11 09:02] LABS: CHLORIDE,CL 106 mEq/L (98-106); SODIUM,NA 146 mEq/L (136-145)
[2019-11-11] MEDS ORDERED: TRIAMCINOLONE ACETONIDE 0.025% TOP PRN (09:07)
[2019-11-11 11:33] VITALS: BP 113/74; PULSE 82
[2019-11-11] MEDS: Warfarin 5 MG Tab PO SCH (12:12)
--- NOTE | 2019-11-11 21:12 | PCM.DCSUM1 ---
Discharge Summary - Hospital Course Free Text/Narrative:: Albin is a 69 year old male who presented to ER per EMS after becoming weak and kneeling down on the floor. Was unable to get up due to weakness. had felt patient was a little confused, oxygen sat on arrival for EMS was 88%. Has been more short of breath than usual. Has chronic swelling and venous stasis of his legs, right leg felt to be more red than usual. Was found to have fever in ER. Oxygen sat did drop after being in ER on room air to 89% but responded well to 2 liters. History of multiple episodes of cellulitis in his legs. Heart rate 120s, atrial fib in ER. Febrile. WBC elevated at 13.7. hemoglobin 12.3. CRP 15.8. ProBNP 6721. Lactic acid 2.0. Creatinine 1.5. Chest xray shows venous congestion, no obvious infiltrate. Admitted for cellulitis of right leg, started on IV Ancef and fluids. Diagnosis: Stroke: No Modified [place] Scale: No Symptoms at All Modified [place] Scale Score: 0 - Discharge Data Discharge Date: 11/11/19 Discharge Disposition: DC/Tfer W/I Hosp To [place] [id number] Condition: Poor - Referral to Home Health Primary Care Physician: Marbin Anderson MD - Discharge Diagnosis/Problem(s) (1) Edema leg SNOMED Code(s): 506477053 ICD Code: R60.0 - LOCALIZED EDEMA Status: Acute Priority: High (2) Cellulitis SNOMED Code(s): 178238447 ICD Code: L03.90 - CELLULITIS, UNSPECIFIED Status: Acute Priority: High Qualifiers: Site of cellulitis: extremity Site of cellulitis of extremity: lower extremity Laterality: right Qualified Code(s): L03.115 - Cellulitis of right lower limb (3) General weakness SNOMED Code(s): 77506193 ICD Code: R53.1 - WEAKNESS Status: Acute Priority: High - Patient Summary/Data Complications: none Hospital Course: Patient is stable. Right lower extremity has much improved, minimal redness. Still has discomfort. chronic edema and venous stasis in legs. patient has continued to feel short of breath at times, wheezing at times. Oxygen levels had improved, no longer requiring but feels better if has on when lying down. Developed hemoptysis. D-dimer was done, was negative. CT scan of chest acquired, shows LLL pneumonia. IV Ancef was switched to Levaquin. Labs have improved. WBC normal at 6.6. CRP did peak at 28.4, now 17. Creatinine improved from 1.5 to 1.0, IV fluids stopped. Hemoglobin did drop to 10.6 with MCV low. Ferritin ordered, started on ferrous sulfate. Ferritin did come back stable at 119. As patient continues to feel short of breath, only on IV Levaquin for 2 days, will transfer to swing bed status for IV antibiotics. Oxygen as needed. - Patient Instructions Diet: Usual Diet as Tolerated Activity: As Tolerated - Discharge Plan *PRESCRIPTION DRUG MONITORING PROGRAM REVIEWED*: Not Applicable *COPY OF PRESCRIPTION DRUG MONITORING REPORT IN PATIENT CYRUS: Not Applicable Home Medications: Home Meds Gabapentin 300 mg PO TID 08/07/16 [History] Carbidopa/Levodopa [Carbidopa-Levodopa 25-100 Tab] 2 tab PO TID 01/21/17 [ History] Triamcinolone Acetonide [Triamcinolone Acetonide 0.025% Crm] 1 applic TOP BID PRN 03/24/18 [History] Metoprolol Tartrate 150 mg PO BID 06/09/18 [History] Pantoprazole Sodium [Protonix] 40 mg PO DAILY 06/09/18 [History] Potassium Chloride 20 meq PO DAILY 06/09/18 [History] Losartan Potassium 100 mg PO DAILY 05/11/19 [History] Warfarin Sodium 2.5 mg PO SUTUTHSA 05/11/19 [History] Warfarin Sodium 5 mg PO MOWEFR 05/11/19 [History] amLODIPine Besylate [Amlodipine Besylate] 5 mg PO DAILY 05/11/19 [History] Furosemide 60 mg PO BID #60 tablet 05/12/19 [Rx] Patient Handouts: Cellulitis, Adult, Edema, Heart Failure Forms: ED Department Discharge Referrals: Marbin Anderson MD [Primary Care Provider] - - Discharge Summary/Plan Comment DC Time >30 min.: No - General Info Date of Service: 11/11/19 Admission Dx/Problem (Free Text: Cellulitis of RLE Functional Status: Reports: Pain Controlled, Tolerating Diet, Ambulating - Review of Systems General: Reports: Weakness, Fatigue, Malaise, Chills HEENT: Reports: Sinus Congestion. Denies: Ear Pain, Sore Throat Pulmonary: Reports: Shortness of Breath, Cough, Sputum, Hemoptysis Cardiovascular: Reports: Edema. Denies: Chest Pain, Lightheadedness Gastrointestinal: Denies: Abdominal Pain, Nausea, Vomiting Genitourinary: Reports: No Symptoms Musculoskeletal: Reports: Leg Pain Skin: Reports: No Symptoms Neurological: Reports: No Symptoms - Patient Data Vitals - Most Recent: Last Vital Signs Temp 98.2 F 11/11/19 11:33 Pulse 82 11/11/19 11:33 Resp 20 11/11/19 11:33 BP 113/74 11/11/19 11:33 Pulse Ox 95 11/11/19 11:33 Weight - Most Recent: 425 lb I&O - Last 24 hours: Intake & Output 11/11/19 11/11/19 11/11/19 06:59 14:59 22:59 Intake Total 600 Balance 600 Lab Results - Last 24 hrs: Laboratory Results - last 24 hr 11/10/19 11/11/19 11/11/19 Range/Units 07:00 08:35 08:35 WBC 7.9 (5.0-10.0) 10^3/uL RBC 4.66 (4.50-6.00) 10^6/uL Hgb 11.4 L (14.0-18.0) g/dL Hct 36.8 L (40.0-54.0) % MCV 79.0 L (82.0-94.0) fL MCH 24.5 L (27.0-32.0) pg MCHC 31.0 L (33.0-38.0) g/dL RDW Coeff of Connie 18.6 H (11.0-15.0) % Plt Count 163 (150-400) 10^3/uL Neut % (Auto) 77.4 (35-85) % Lymph % (Auto) 9.1 L (10-55) % Ector % (Auto) 9.5 (0-16) % Eos % (Auto) 3.7 (0-5) % Baso % (Auto) 0.3 (0-3) % Neut # (Auto) 6.13 (1.80-7.00) 10^3/uL Lymph # (Auto) 0.72 L (1.00-4.80) 10^3/uL Ector # (Auto) 0.75 (0.00-0.80) 10^3/uL Eos # (Auto) 0.29 (0.00-0.45) 10^3/uL Baso # (Auto) 0.02 10^3/uL Sodium 146 H (136-145) mEq/L Potassium 3.7 (3.5-5.0) mEq/L Chloride 106 (98-106) mEq/L Carbon Dioxide 34 H (21-32) mmol/L BUN 18 (7-18) mg/dL Creatinine 0.9 (0.7-1.3) mg/dL Est Cr Clr Drug Dosing 87.42 mL/min Estimated GFR (MDRD) > 60 (>=60) mL/min Glucose 99 (75-99) mg/dL Calcium 8.1 L (8.4-10.1) mg/dL Ferritin 119 (24-336) ng/mL C-Reactive Protein 18.3 H (0.2-0.8) mg/dL ISSA Results - Last 24 hrs: Microbiology 11/09/19 14:04 Gram Stain - Final Sputum - Expectorated Sputum Culture - Final 11/07/19 05:04 Aerobic Blood Culture - Preliminary Blood - Venous NO GROWTH AFTER 4 DAYS Anaerobic Blood Culture - Preliminary NO GROWTH AFTER 4 DAYS 11/07/19 05:04 Aerobic Blood Culture - Preliminary Blood - Venous - Lab Draw NO GROWTH AFTER 4 DAYS Anaerobic Blood Culture - Preliminary NO GROWTH AFTER 4 DAYS Med Orders - Current: Current Medications Discontinued Medications Acetaminophen (Tylenol Extra Strength) 1,000 mg PO ONETIME ONE Stop: 11/07/19 05:06 Last Admin: 11/07/19 07:39 Dose: 1,000 mg Acetaminophen (Tylenol) 650 mg PO Q4H PRN PRN Reason: Pain (Mild 1-3)/fever Last Admin: 11/10/19 07:40 Dose: 650 mg Acetaminophen (Tylenol Extra Strength) Confirm Administered Dose 1,000 mg .ROUTE .STK-MED ONE Stop: 11/07/19 07:58 Last Admin: 11/07/19 08:00 Dose: Not Given Albuterol/Ipratropium (Duoneb 3.0-0.5 Mg/3 Ml) 3 ml NEB Q4H PRN PRN Reason: Dyspnea Last Admin: 11/08/19 16:13 Dose: 3 ml Albuterol/Ipratropium (Duoneb 3.0-0.5 Mg/3 Ml) Confirm Administered Dose 3 ml .ROUTE .STK-MED ONE Stop: 11/08/19 15:57 Last Admin: 11/08/19 16:13 Dose: Not Given Amlodipine Besylate (Norvasc) 5 mg PO DAILY [facility] Last Admin: 11/11/19 08:30 Dose: 5 mg Carbidopa/Levodopa (Sinemet 25-100 Mg) 2 tab PO TID [facility] Last Admin: 11/11/19 08:30 Dose: 2 tab Cefazolin Sodium (Ancef) 1 gm IVPUSH Q6H [facility] Last Admin: 11/10/19 13:43 Dose: 1 gm Ferrous Sulfate (Ferrous Sulfate) 324 mg PO WITHBREAKFAST [facility] Last Admin: 11/11/19 08:31 Dose: 324 mg Furosemide (Lasix) 20 mg IVPUSH BID MAXI Furosemide (Lasix) 60 mg PO BIDDIURETIC [facility] Furosemide (Lasix) 40 mg IVPUSH BID MAXI Furosemide (Lasix) 20 mg IVPUSH BIDDIURETIC [facility] Last Admin: 11/11/19 08:31 Dose: 20 mg Furosemide (Lasix) 60 mg PO BIDDIURETIC [facility] Gabapentin (Neurontin) 300 mg PO TID [facility] Last Admin: 11/11/19 08:30 Dose: 300 mg Sodium Chloride (Normal Saline) 1,000 mls @ 100 mls/hr IV ASDIRECTED [facility] Stop: 11/08/19 08:00 Last Infusion: 11/08/19 08:45 Dose: 0 mls/hr Levofloxacin/Dextrose 750 mg/ (Premix) 150 mls @ 100 mls/hr IV Q24H [facility] Last Admin: 11/10/19 19:34 Dose: 100 mls/hr Ibuprofen (Motrin) 600 mg PO Q6H PRN PRN Reason: Pain (mild 1-3) Last Admin: 11/08/19 15:59 Dose: 600 mg Iopamidol (Isovue-370 (76%)) 100 ml IVPUSH ONETIME ONE Stop: 11/10/19 14:25 Last Admin: 11/10/19 14:32 Dose: 100 ml Losartan Potassium (Cozaar) 100 mg PO DAILY [facility] Last Admin: 11/11/19 08:31 Dose: 100 mg Metoprolol Tartrate (Lopressor) 150 mg PO BID [facility] Last Admin: 11/11/19 08:28 Dose: 150 mg Morphine Sulfate (Morphine) 2 mg IVPUSH Q2H PRN PRN Reason: Pain (severe 7-10) Triamcinolone Acetonide 0.025% CreamOwn Med 1 applic TOP BID PRN PRN Reason: skin Last Admin: 11/11/19 12:13 Dose: 1 applic Ondansetron HCl (Zofran) 4 mg IV Q6H PRN PRN Reason: Nausea/Vomiting Pantoprazole Sodium (Protonix) 40 mg PO DAILY [facility] Last Admin: 11/11/19 08:31 Dose: 40 mg Potassium Chloride (Klor-Con 10) 20 meq PO DAILY [facility] Last Admin: 11/11/19 08:28 Dose: 20 meq Warfarin Sodium (Coumadin) 2.5 mg PO SuTuThSa@1200 [facility] Last Admin: 11/11/19 12:12 Dose: 2.5 mg Warfarin Sodium (Coumadin) 5 mg PO MoWeFr@1200 [facility] Last Admin: 11/10/19 11:44 Dose: 5 mg - Exam Quality Assessment: Reports: Supplemental Oxygen General: Reports: Alert, Oriented HEENT: Reports: Mucous Membr. Moist/[place] Neck: Reports: Supple Lungs: Reports: Decreased Breath Sounds, Wheezing Cardiovascular: Reports: Regular Rate, Regular Rhythm GI/Abdominal Exam: Normal Bowel Sounds, Soft, Non-Tender Extremities: Pedal Edema, Leg Pain, Redness (redness much improved since admit) Skin: Reports: Warm, Dry Neurological: Reports: No New Focal Deficit
== END 2019-11-11 12:21 | disposition swing bed (61) | DRG 602 ==
LOC: CC.ED 04:55 → UNDOADMIN 06:22 → CC.MS 06:22 → UNDOADMIN 06:51 → CC.MS 06:51 → UNDODISIN 11-11 12:21
PROVIDERS: ADMIT Nurse Practitioner; ATTEND Nurse Practitioner
DX: L03.115 Cellulitis of right lower limb (principal); J18.9 Pneumonia, unspecified organism; I50.21 Acute systolic (congestive) heart failure; R53.1 Weakness; R50.9 Fever, unspecified; Z68.42 Body mass index [BMI] 45.0-49.9, adult; R41.0 Disorientation, unspecified; E78.00 Pure hypercholesterolemia, unspecified; G89.29 Other chronic pain; M54.2 Cervicalgia; M19.90 Unspecified osteoarthritis, unspecified site; F41.9 Anxiety disorder, unspecified; F32.9 Major depressive disorder, single episode, unspecified; G43.909 Migraine, unspecified, not intractable, without status migrainosus; G20 Parkinson's disease; I48.91 Unspecified atrial fibrillation; L30.9 Dermatitis, unspecified; R60.0 Localized edema; I11.0 Hypertensive heart disease with heart failure; I87.8 Other specified disorders of veins; E66.9 Obesity, unspecified; Z79.899 Other long term (current) drug therapy; Z79.01 Long term (current) use of anticoagulants; Z98.890 Other specified postprocedural states; Z99.81 Dependence on supplemental oxygen
CPT/HCPCS: 36415; 71045; 71260; 80048; 80053; 81001; 82728; 83605; 83880; 85025; 85379; 85610; 86140; 87040; 87070; 87205; 87804; 90686; 93005; 99285-25; A9270-GY; J0690; J1940; J1956; J7030; J7620-GY; Q9967

== ENCOUNTER 2019-11-11 09:33 | Inpatient (IN) | payer MEDICARE, BC ==
[2019-11-11] MEDS ORDERED: Ibuprofen 200 MG Tab PO PRN (14:14)
[2019-11-11] MEDS ORDERED: Ondansetron 4 MG/2 ML SDV IV PRN (14:14)
[2019-11-11] MEDS ORDERED: Morphine 2 MG/ML Syringe IVPUSH PRN (14:14)
[2019-11-11] MEDS ORDERED: Acetaminophen 325 MG Tab PO PRN (14:14)
[2019-11-11] MEDS: Carbidopa/Levodopa 25-100 MG Tab PO SCH ×2 (15:06→19:40)
[2019-11-11] MEDS: Gabapentin 300 MG Cap PO SCH ×2 (15:06→19:41)
[2019-11-11] MEDS ORDERED: Furosemide 20 MG Tab PO SCH (16:00)
[2019-11-11] MEDS: Furosemide 20 MG/2 ML VIAL IVPUSH SCH (17:20)
[2019-11-11] MEDS: Levofloxacin/Dextrose 5%-Water 750 MG in Premix Bag 1 BAG IV SCH (19:40)
[2019-11-11] MEDS: Albuterol/Ipratropium 3.0-0.5 MG/3 ML Neb Soln NEB PRN (19:41)
[2019-11-11] MEDS: Metoprolol Tartrate 50 MG Tab PO SCH (19:41)
[2019-11-12] MEDS: amLODIPine 2.5 MG Tab PO SCH (07:42)
[2019-11-12] MEDS: Metoprolol Tartrate 50 MG Tab PO SCH ×2 (07:43→20:10)
[2019-11-12] MEDS: Carbidopa/Levodopa 25-100 MG Tab PO SCH ×3 (07:43→20:11)
[2019-11-12] MEDS: Losartan 100 MG Tab PO SCH (07:43)
[2019-11-12] MEDS: Furosemide 20 MG/2 ML VIAL IVPUSH SCH ×2 (07:43→15:28)
[2019-11-12] MEDS: Potassium Chloride 10 MEQ Tab.ER PO SCH (07:44)
[2019-11-12] MEDS: Gabapentin 300 MG Cap PO SCH ×3 (07:44→20:11)
[2019-11-12] MEDS: Ferrous Sulfate 324 MG Tab.EC PO SCH (07:44)
[2019-11-12] MEDS: Pantoprazole 40 MG Tab.CR PO SCH (07:45)
[2019-11-12] MEDS: Albuterol/Ipratropium 3.0-0.5 MG/3 ML Neb Soln NEB PRN (07:48)
[2019-11-12] MEDS: TRIAMCINOLONE ACETONIDE 0.025% TOP PRN (10:15)
[2019-11-12] MEDS ORDERED: Warfarin 5 MG Tab PO SCH (12:00)
[2019-11-12] MEDS: Levofloxacin/Dextrose 5%-Water 750 MG in Premix Bag 1 BAG IV SCH (20:14)
[2019-11-13] MEDS: Furosemide 20 MG/2 ML VIAL IVPUSH SCH ×2 (08:28→15:31)
[2019-11-13] MEDS: amLODIPine 2.5 MG Tab PO SCH (08:29)
[2019-11-13] MEDS: Pantoprazole 40 MG Tab.CR PO SCH (08:29)
[2019-11-13] MEDS: Gabapentin 300 MG Cap PO SCH ×3 (08:32→19:37)
[2019-11-13] MEDS: Metoprolol Tartrate 50 MG Tab PO SCH ×2 (08:32→19:37)
[2019-11-13] MEDS: Carbidopa/Levodopa 25-100 MG Tab PO SCH ×3 (08:33→19:37)
[2019-11-13] MEDS: Potassium Chloride 10 MEQ Tab.ER PO SCH (08:33)
[2019-11-13] MEDS: Ferrous Sulfate 324 MG Tab.EC PO SCH (08:34)
[2019-11-13] MEDS: Losartan 100 MG Tab PO SCH (08:34)
[2019-11-13] MEDS: TRIAMCINOLONE ACETONIDE 0.025% TOP PRN (10:23)
[2019-11-13] MEDS ORDERED: Warfarin 5 MG Tab PO SCH (12:00)
[2019-11-13] MEDS ORDERED: Warfarin 2.5 MG Tab PO ONE (12:15)
[2019-11-13] MEDS: Levofloxacin/Dextrose 5%-Water 750 MG in Premix Bag 1 BAG IV SCH (19:40)
[2019-11-14] MEDS: Metoprolol Tartrate 50 MG Tab PO SCH ×2 (08:04→19:39)
[2019-11-14] MEDS: Furosemide 20 MG/2 ML VIAL IVPUSH SCH ×2 (08:04→16:30)
[2019-11-14] MEDS: Losartan 100 MG Tab PO SCH (08:10)
[2019-11-14] MEDS: Potassium Chloride 10 MEQ Tab.ER PO SCH (08:10)
[2019-11-14] MEDS: Gabapentin 300 MG Cap PO SCH ×3 (08:11→19:39)
[2019-11-14] MEDS: Carbidopa/Levodopa 25-100 MG Tab PO SCH ×3 (08:11→19:39)
[2019-11-14] MEDS: amLODIPine 2.5 MG Tab PO SCH (08:11)
[2019-11-14] MEDS: Ferrous Sulfate 324 MG Tab.EC PO SCH (08:12)
[2019-11-14] MEDS: Pantoprazole 40 MG Tab.CR PO SCH (08:12)
[2019-11-14] MEDS: Levofloxacin/Dextrose 5%-Water 750 MG in Premix Bag 1 BAG IV SCH (19:39)
[2019-11-15 08:07] VITALS: BP 154/90; PULSE 94
[2019-11-15] MEDS: Furosemide 20 MG/2 ML VIAL IVPUSH SCH ×2 (08:09→15:05)
[2019-11-15] MEDS: Carbidopa/Levodopa 25-100 MG Tab PO SCH ×2 (08:10→15:04)
[2019-11-15] MEDS: Metoprolol Tartrate 50 MG Tab PO SCH (08:10)
[2019-11-15] MEDS: amLODIPine 2.5 MG Tab PO SCH (08:11)
[2019-11-15] MEDS: Losartan 100 MG Tab PO SCH (08:11)
[2019-11-15] MEDS: Ferrous Sulfate 324 MG Tab.EC PO SCH (08:11)
[2019-11-15] MEDS: Pantoprazole 40 MG Tab.CR PO SCH (08:12)
[2019-11-15] MEDS: Gabapentin 300 MG Cap PO SCH ×2 (08:12→15:04)
[2019-11-15] MEDS: Potassium Chloride 10 MEQ Tab.ER PO SCH (08:12)
--- NOTE | 2019-11-15 09:18 | PCM.DCSUM1 ---
Discharge Summary - Hospital Course Free Text/Narrative:: Patient initially admitted to acute care for cellulitis in his leg. Right leg was edematous and warm. Started on Ancef. While hospitalized, patient was noting more shortness of breath, wheezing and cough. Developed hemoptysis. CT scan of chest was done and noted bilateral pneumonia. He was switched to Levaquin and transferred to swing bed for ongoing IV antibiotics, nebs and oxygen. Diagnosis: Stroke: No Modified [place] Scale: No Symptoms at All Modified [place] Scale Score: 0 - Discharge Data Discharge Date: 11/15/19 Discharge Disposition: Home, Self-Care 01 Condition: Good - Referral to Home Health Primary Care Physician: Marbin Anderson MD - Patient Summary/Data Complications: none Hospital Course: Patient is doing well. Is ambulating without concern. Feels minimal shortness of breath with exertion. Oxygen sats are over 90% on room air. Lung sounds are now clear. Will discharge home on Ceftin. Follow up with Dr. Anderson in 2 weeks. - Patient Instructions Diet: Usual Diet as Tolerated Activity: As Tolerated Other/Special Instructions: INR prior to appointment with Dr. Anderson - Discharge Plan *PRESCRIPTION DRUG MONITORING PROGRAM REVIEWED*: No *COPY OF PRESCRIPTION DRUG MONITORING REPORT IN PATIENT CYRUS: No Prescriptions/Med Rec: Cefuroxime Axetil [Ceftin] 500 mg PO BID #10 tablet Ferrous Sulfate 324 mg PO WITHBREAKFAST #30 tab.ec Home Medications: Home Meds Gabapentin 300 mg PO TID 08/07/16 [History] Carbidopa/Levodopa [Carbidopa-Levodopa 25-100 Tab] 2 tab PO TID 01/21/17 [ History] Triamcinolone Acetonide [Triamcinolone Acetonide 0.025% Crm] 1 applic TOP BID PRN 03/24/18 [History] Metoprolol Tartrate 150 mg PO BID 06/09/18 [History] Pantoprazole Sodium [Protonix] 40 mg PO DAILY 06/09/18 [History] Potassium Chloride 20 meq PO DAILY 06/09/18 [History] Losartan Potassium 100 mg PO DAILY 05/11/19 [History] Warfarin Sodium 2.5 mg PO SUTUTHSA 05/11/19 [History] Warfarin Sodium 5 mg PO MOWEFR 05/11/19 [History] amLODIPine Besylate [Amlodipine Besylate] 5 mg PO DAILY 05/11/19 [History] Furosemide 60 mg PO BID #60 tablet 05/12/19 [Rx] Cefuroxime Axetil [Ceftin] 500 mg PO BID #10 tablet 11/15/19 [Rx] Ferrous Sulfate 324 mg PO WITHBREAKFAST #30 tab.ec 11/15/19 [Rx] - Discharge Summary/Plan Comment DC Time >30 min.: No - General Info Date of Service: 11/15/19 Admission Dx/Problem (Free Text: Cellulitis LLL Pneumonia Functional Status: Reports: Pain Controlled, Tolerating Diet, Ambulating - Review of Systems General: Reports: Weakness, Fatigue. Denies: Fever HEENT: Reports: Rhinitis Pulmonary: Reports: Cough. Denies: Shortness of Breath, Hemoptysis, Wheezing Cardiovascular: Reports: Edema Gastrointestinal: Reports: No Symptoms Genitourinary: Reports: No Symptoms Musculoskeletal: Reports: Leg Pain Skin: Reports: No Symptoms Neurological: Reports: Weakness - Patient Data Vitals - Most Recent: Last Vital Signs Temp 98.4 F 11/15/19 08:00 Pulse 94 11/15/19 08:10 Resp 18 11/15/19 08:00 BP 154/90 H 11/15/19 08:11 Pulse Ox 95 11/15/19 08:00 Weight - Most Recent: 425 lb Lab Results - Last 24 hrs: Laboratory Results - last 24 hr 11/15/19 Range/Units 06:50 PT 26.5 H (9.7-12.3) SEC INR 2.72 H (0.92-1.18) Med Orders - Current: Current Medications Acetaminophen (Tylenol) 650 mg PO Q4H PRN PRN Reason: Pain (Mild 1-3)/fever Last Admin: 11/13/19 05:50 Dose: 650 mg Albuterol/Ipratropium (Duoneb 3.0-0.5 Mg/3 Ml) 3 ml NEB Q4H PRN PRN Reason: Dyspnea Last Admin: 11/12/19 07:48 Dose: 3 ml Amlodipine Besylate (Norvasc) 5 mg PO DAILY MAXI Last Admin: 11/15/19 08:11 Dose: 5 mg Carbidopa/Levodopa (Sinemet 25-100 Mg) 2 tab PO TID MAXI Last Admin: 11/15/19 08:10 Dose: 2 tab Ferrous Sulfate (Ferrous Sulfate) 324 mg PO WITHBREAKFAST MAXI Last Admin: 11/15/19 08:11 Dose: 324 mg Furosemide (Lasix) 20 mg IVPUSH BIDDIURETIC [facility] Last Admin: 11/15/19 08:09 Dose: 20 mg Gabapentin (Neurontin) 300 mg PO TID [facility] Last Admin: 11/15/19 08:12 Dose: 300 mg Levofloxacin/Dextrose 750 mg/ (Premix) 150 mls @ 100 mls/hr IV Q24H [facility] Last Admin: 11/14/19 19:39 Dose: 100 mls/hr Ibuprofen (Motrin) 600 mg PO Q6H PRN PRN Reason: Pain (mild 1-3) Losartan Potassium (Cozaar) 100 mg PO DAILY [facility] Last Admin: 11/15/19 08:11 Dose: 100 mg Metoprolol Tartrate (Lopressor) 150 mg PO BID [facility] Last Admin: 11/15/19 08:10 Dose: 150 mg Morphine Sulfate (Morphine) 2 mg IVPUSH Q2H PRN PRN Reason: Pain (severe 7-10) Triamcinolone Acetonide 0.025% Crm Own Med 1 applic TOP BID PRN PRN Reason: skin Last Admin: 11/13/19 10:23 Dose: 1 applic Ondansetron HCl (Zofran) 4 mg IV Q6H PRN PRN Reason: Nausea/Vomiting Pantoprazole Sodium (Protonix) 40 mg PO DAILY [facility] Last Admin: 11/15/19 08:12 Dose: 40 mg Potassium Chloride (Klor-Con 10) 20 meq PO DAILY [facility] Last Admin: 11/15/19 08:12 Dose: 20 meq Discontinued Medications Furosemide (Lasix) 60 mg PO BIDDIURETIC [facility] Warfarin Sodium (Coumadin) 2.5 mg PO SuTuThSa@1200 [facility] Warfarin Sodium (Coumadin) 5 mg PO MoWeFr@1200 [facility] Warfarin Sodium (Coumadin) 2.5 mg PO ONETIME ONE Stop: 11/13/19 12:16 Last Admin: 11/13/19 12:51 Dose: 2.5 mg - Exam General: Reports: Alert, Oriented HEENT: Reports: Mucous Membr. Moist/[place] Neck: Reports: Supple Lungs: Reports: Decreased Breath Sounds Cardiovascular: Reports: Regular Rate, Regular Rhythm GI/Abdominal Exam: Normal Bowel Sounds, Soft, Non-Tender Extremities: Pedal Edema, Other (chronic venous stasis to lower legs, no redness noted at this time.)
== END 2019-11-15 16:50 | disposition home or self-care (01) | DRG 602 ==
LOC: CC.MS 09:33 → UNDOADMIN 12:31 → CC.MS 12:31
PROVIDERS: ADMIT Family Medicine; ATTEND Family Medicine
DX: L03.115 Cellulitis of right lower limb (principal); J18.1 Lobar pneumonia, unspecified organism; R04.2 Hemoptysis; R60.0 Localized edema; I87.8 Other specified disorders of veins; Z79.899 Other long term (current) drug therapy
CPT/HCPCS: 36415; 85610; 94640; A9270-GY; J1940; J1956; J7620-GY

== ENCOUNTER 2020-12-10 08:17 | Emergency (ER) | payer MEDICARE, BC ==
[2020-12-10] MEDS ORDERED: Acetaminophen 500 MG Tab PO ONE (08:42)
--- NOTE | 2020-12-10 08:57 | EDM.PDOC ---
ED HPI GENERAL MEDICAL PROBLEM - General Chief Complaint: General Stated Complaint: L leg pain Time Seen by Provider: 12/10/20 08:30 Source of Information: Reports: Patient, EMS History Limitations: Reports: No Limitations - History of Present Illness INITIAL COMMENTS - FREE TEXT/NARRATIVE: This patient is a 70 year old obese male that presents to the ER via EMS. Patient is alert. EMS reports that when they arrived to the home patient was on his knees on the floor with his arms and head on the bed. In a praying position. They reported the patient reports that at about 4am was getting up and fell down to his knees and landed on his bed in that same position. EMS reports that they were unable to get the patient to the cot, so fire was called and multiple person lift assistance. The patient here in the ER is alert. He is oriented to person and place. He says the year is 2016. He also reports he had fallen at noon. He was then told the time was 0830am, he said, oh, not noon then. The patient reports for the past day, he has not felt well. He reports fatigued, generally weak, cold chills, redness to the RLE. He reports after his fall his knees now hurt, otherwise to pain complaints. Patient is 88% on RA, does not appear short of breath, denies shortness of breath. Trauma code not called due to not a complete fall, as was to his knees with soft landing partially onto bed, not hitting head. Onset: Today Onset Date: 12/10/20 Onset Time: 04:00 Quality: Reports: Throbbing Severity: Moderate Improves with: Reports: None Worsens with: Reports: None Associated Symptoms: Reports: Confusion, Fever/Chills, Malaise, Rash, Weakness (generally). Denies: Chest Pain, Cough, cough w sputum, Diaphoresis, Headaches, Loss of Appetite, Nausea/Vomiting, Seizure, Shortness of Breath, Syncope Left Leg Pain Score (Numeric/FACES): 9 - Related Data Allergies Allergy/AdvReac Type Severity Reaction Status Date / Time No Known Allergies Allergy Verified 12/10/20 08:37 Home Meds: Home Meds Gabapentin 300 mg PO TID 08/07/16 [History] Carbidopa/Levodopa [Carbidopa-Levodopa 25-100 Tab] 2 tab PO TID 01/21/17 [History] Triamcinolone Acetonide [Triamcinolone Acetonide 0.025% Crm] 1 applic TOP BID PRN 03/24/18 [History] Metoprolol Tartrate 150 mg PO BID 06/09/18 [History] Pantoprazole Sodium [Protonix] 40 mg PO DAILY 06/09/18 [History] Potassium Chloride 20 meq PO DAILY 06/09/18 [History] Losartan Potassium 100 mg PO DAILY 05/11/19 [History] Warfarin Sodium 2.5 mg PO SUTUTHSA 05/11/19 [History] Warfarin Sodium 5 mg PO MOWEFR 05/11/19 [History] amLODIPine Besylate [Amlodipine Besylate] 5 mg PO DAILY 05/11/19 [History] Furosemide 60 mg PO BID #60 tablet 05/12/19 [Rx] Cefuroxime Axetil [Ceftin] 500 mg PO BID #10 tablet 11/15/19 [Rx] Ferrous Sulfate 324 mg PO WITHBREAKFAST #30 tab.ec 11/15/19 [Rx] Past Medical History HEENT History: Reports: Other (See Below) Other HEENT History: tinnitis Cardiovascular History: Reports: High Cholesterol, Hypertension Gastrointestinal History: Reports: Other (See Below) Other Gastrointestinal History: abd hernia Musculoskeletal History: Reports: Arthritis, Fracture, Neck Pain, Chronic Neurological History: Reports: Migraines, Parkinson's Psychiatric History: Reports: Anxiety, Depression Endocrine/Metabolic History: Reports: Obesity/BMI 30+ Hematologic History: Reports: Blood Transfusion(s) Dermatologic History: Reports: Cellulitis, Venous Stasis Dermatitis - Infectious Disease History Infectious Disease History: Reports: C-Difficile - Past Surgical History GI Surgical History: Reports: Hernia Repair/Other Endocrine Surgical History: Reports: None Neurological Surgical History: Reports: Other (See Below) Social & Family History - Family History Family Medical History: No Pertinent Family History Cardiac: Reports: Other (See Below) Other Cardiac Family History: enlarged heart Respiratory: Reports: Other (See Below) Other Respiratory Family Hisory: Scarlet fever Oncologic: Reports: Brain - Tobacco Use Tobacco Use Status *Q: Never Tobacco User - Caffeine Use Caffeine Use: Reports: None - Recreational Drug Use Recreational Drug Use: No - Living Situation & Occupation Living situation: Reports: , with Spouse, Other Occupation: Disabled ED ROS GENERAL - Review of Systems Review Of Systems: See Below Constitutional: Reports: Fever, Chills, Malaise, Weakness (general), Fatigue HEENT: Reports: No Symptoms Respiratory: Reports: No Symptoms. Denies: Shortness of Breath, Cough Cardiovascular: Reports: No Symptoms. Denies: Chest Pain, Dyspnea on Exertion, Lightheadedness, Palpitations, Syncope Endocrine: Reports: No Symptoms GI/Abdominal: Reports: No Symptoms. Denies: Abdominal Pain, Diarrhea, Nausea, Vomiting : Reports: No Symptoms Musculoskeletal: Reports: Leg Pain (BLE, Right worse than left.), Joint Pain (Bilateral knee pain.) Skin: Reports: Erythema (RLE) Neurological: Reports: Confusion. Denies: Headache, Numbness, Seizure, Syncope, Tingling, Tremors, Weakness, Change in Speech Psychiatric: Reports: No Symptoms Hematologic/Lymphatic: Reports: No Symptoms Immunologic: Reports: No Symptoms ED EXAM, GENERAL - Physical Exam Exam: See Below Exam Limited By: Altered Mental Status (confused on timing) General Appearance: Alert, WD/WN, No Apparent Distress, Obese Eye Exam: Bilateral Eye: EOMI, Normal Inspection, PERRL Ears: Normal External Exam, Normal Canal, Hearing Grossly Normal, Normal TMs Ear Exam: Bilateral Ear: Auricle Normal, Canal Normal, TM normal Nose: Normal Inspection, Normal Mucosa, No Blood Throat/Mouth: Normal Oropharynx, Normal Voice, No Airway Compromise, Other (dry oral mucosa, very poor dentation with several missing teeth. Lower front teeth appear chronically fractured and decayed. ) Head: Atraumatic, Normocephalic. No: Facial Swelling, Facial Tenderness, Sinus Tenderness Neck: Normal Inspection, Supple, Non-Tender, Full Range of Motion Respiratory/Chest: No Respiratory Distress, Lungs Clear, Normal Breath Sounds, No Accessory Muscle Use, Chest Non-Tender Cardiovascular: Normal Peripheral Pulses, Tachycardia (110 on exam) Peripheral Pulses: 1+: Radial (L), Radial (R), Posterior Tibial (L), Posterior Tibial (R), Dorsalis Pedis (L), Dorsalis Pedis (R) GI/Abdominal: Soft, Non-Tender, Other (Obesity, unable to locate landmarks or organs. ) Back Exam: Normal Inspection Extremities: Normal Capillary Refill, Limited Range of Motion (due to obesity and possible swelling and infection), Increased Warmth (RLE, Left knee), Redness (Left knee, RLE from groin to toes circumferiental ) Neurological: Alert, CN II-XII Intact, Normal Cognition, No Motor/Sensory Deficits, Confused, Other (Oriented to self and place. Says year is 2017. GCS 14. ) Psychiatric: Normal Affect, Normal Mood Skin Exam: Warm, Dry, Erythema (RLE from toes into right groin, hot to touch. Left knee erythema heat with what appears to be a pressure ulcer or healing wound.), Increased Warmth, Wound/Incision (left knee) #1 Interpretation EKG Date: 12/10/20 Time: 09:18 Rhythm: A-Fib Rate (Beats/Min): 117 Comparison: Change From Previous EKG (previous in [place] does show a-fib, but controlled rate then.) Course - Vital Signs Last Recorded V/S: Last Vital Signs Temp 101.2 F H 12/10/20 10:04 Pulse 121 H 12/10/20 10:19 Resp 19 12/10/20 10:19 BP 121/94 H 12/10/20 10:19 Pulse Ox 97 12/10/20 10:19 - Orders/Labs/Meds Orders: Active Orders 24 hr Category Date Time Status Cardiac Monitoring [RC] . DIRECTED Care 12/10/20 09:24 Active Chest 1V Frontal [CR] Stat Exams 12/10/20 08:46 Taken Knee 3V Lt [CR] Stat Exams 12/10/20 08:44 Taken Knee 3V Rt [CR] Stat Exams 12/10/20 08:44 Taken CULTURE BLOOD [BC] Stat Lab 12/10/20 09:00 Received CULTURE BLOOD [BC] Stat Lab 12/10/20 09:00 Received Sodium Chloride 0.9% [Normal Saline] 1,000 ml Med 12/10/20 09:59 Active IV .BOLUS Vancomycin/Water for INJ (PEG) [Vancomycin 2 GM/400 ML Med 12/10/20 09:58 Active Premix] 2 gm Premix Bag 1 bag IV STAT Blood Culture x2 Reflex Set [OM.PC] Stat Oth 12/10/20 08:41 Ordered Medication Orders Vancomycin HCl 2 gm/ Premix 400 mls @ 200 mls/hr IV STAT ONE Stop: 12/10/20 11:57 Sodium Chloride (Normal Saline) 1,000 mls @ 1,000 mls/hr IV .BOLUS ONE Stop: 12/10/20 10:58 Last Admin: 12/10/20 10:30 Dose: 1,000 mls/hr Documented by: GEOVANNY Labs: Laboratory Tests 12/10/20 12/10/20 12/10/20 Range/Units 09:00 09:00 09:00 WBC 22.2 H* (5.0-10.0) 10^3/uL RBC 5.57 (4.50-6.00) 10^6/uL Hgb 14.2 (14.0-18.0) g/dL Hct 43.6 (40.0-54.0) % MCV 78.3 L (82.0-94.0) fL MCH 25.5 L (27.0-32.0) pg MCHC 32.6 L (33.0-38.0) g/dL RDW Coeff of Connie 20.2 H (11.0-15.0) % Plt Count 206 (150-400) 10^3/uL Add Manual Diff Yes Neutrophils % (Manual) 85 (35-85) % Band Neutrophils % 8 H (0-5) % Lymphocytes % (Manual) 2 L (21-55) % Monocytes % (Manual) 5 (2-12) % PT (9.7-12.3) SEC INR (0.92-1.18) ABG pH (7.35-7.45) ABG pCO2 (35-45) mm/Hg0 ABG pO2 (80-100) mm/Hg ABG HCO3 (22.0-26.0) mm/L ABG O2 Saturation (95-98) % ABG Base Excess (-2.0-3.0) O2 Delivery Device Sodium 135 L (136-145) mEq/L Potassium 5.0 D (3.5-5.0) mEq/L Chloride 100 (98-106) mEq/L Carbon Dioxide 23 (21-32) mmol/L BUN 57 H D (7-18) mg/dL Creatinine 3.3 H* D (0.7-1.3) mg/dL Est Cr Clr Drug Dosing 24.21 mL/min Estimated GFR (MDRD) 19 L (>=60) mL/min Glucose 109 H (75-99) mg/dL Lactic Acid 4.5 H (0.4-2.0) mmol/L Calcium 8.5 (8.4-10.1) mg/dL Total Bilirubin 0.9 (0.0-1.0) mg/dL AST 173 H (15-37) U/L ALT 28 (12-78) U/L Alkaline Phosphatase 77 (46-116) U/L Lactate Dehydrogenase (100-190) U/L Creatine Kinase 6311 H (35-232) U/L Troponin I (0.00-0.06) ng/mL NT-Pro-B Natriuret Pep 6501 H (0-1000) pg/mL Total Protein 7.6 (6.4-8.2) g/dL Albumin 3.0 L (3.4-5.0) g/dL SARS CoV-2 RNA Rapid AUNG (NEGATIVE) 12/10/20 12/10/20 12/10/20 Range/Units 09:00 09:00 09:22 WBC (5.0-10.0) 10^3/uL RBC (4.50-6.00) 10^6/uL Hgb (14.0-18.0) g/dL Hct (40.0-54.0) % MCV (82.0-94.0) fL MCH (27.0-32.0) pg MCHC (33.0-38.0) g/dL RDW Coeff of Connie (11.0-15.0) % Plt Count (150-400) 10^3/uL Add Manual Diff Neutrophils % (Manual) (35-85) % Band Neutrophils % (0-5) % Lymphocytes % (Manual) (21-55) % Monocytes % (Manual) (2-12) % PT 27.5 H (9.7-12.3) SEC INR 2.75 H (0.92-1.18) ABG pH (7.35-7.45) ABG pCO2 (35-45) mm/Hg0 ABG pO2 (80-100) mm/Hg ABG HCO3 (22.0-26.0) mm/L ABG O2 Saturation (95-98) % ABG Base Excess (-2.0-3.0) O2 Delivery Device Sodium (136-145) mEq/L Potassium (3.5-5.0) mEq/L Chloride (98-106) mEq/L Carbon Dioxide (21-32) mmol/L BUN (7-18) mg/dL Creatinine (0.7-1.3) mg/dL Est Cr Clr Drug Dosing mL/min Estimated GFR (MDRD) (>=60) mL/min Glucose (75-99) mg/dL Lactic Acid (0.4-2.0) mmol/L Calcium (8.4-10.1) mg/dL Total Bilirubin (0.0-1.0) mg/dL AST (15-37) U/L ALT (12-78) U/L Alkaline Phosphatase (46-116) U/L Lactate Dehydrogenase 355 H (100-190) U/L Creatine Kinase (35-232) U/L Troponin I 0.062 H (0.00-0.06) ng/mL NT-Pro-B Natriuret Pep (0-1000) pg/mL Total Protein (6.4-8.2) g/dL Albumin (3.4-5.0) g/dL SARS CoV-2 RNA Rapid AUNG Negative (NEGATIVE) 12/10/20 Range/Units 09:53 WBC (5.0-10.0) 10^3/uL RBC (4.50-6.00) 10^6/uL Hgb (14.0-18.0) g/dL Hct (40.0-54.0) % MCV (82.0-94.0) fL MCH (27.0-32.0) pg MCHC (33.0-38.0) g/dL RDW Coeff of Connie (11.0-15.0) % Plt Count (150-400) 10^3/uL Add Manual Diff Neutrophils % (Manual) (35-85) % Band Neutrophils % (0-5) % Lymphocytes % (Manual) (21-55) % Monocytes % (Manual) (2-12) % PT (9.7-12.3) SEC INR (0.92-1.18) ABG pH 7.42 (7.35-7.45) ABG pCO2 32 L (35-45) mm/Hg0 ABG pO2 59 L (80-100) mm/Hg ABG HCO3 20.8 L (22.0-26.0) mm/L ABG O2 Saturation 91 L (95-98) % ABG Base Excess -3.7 L (-2.0-3.0) O2 Delivery Device Nasal cannula Sodium (136-145) mEq/L Potassium (3.5-5.0) mEq/L Chloride (98-106) mEq/L Carbon Dioxide (21-32) mmol/L BUN (7-18) mg/dL Creatinine (0.7-1.3) mg/dL Est Cr Clr Drug Dosing mL/min Estimated GFR (MDRD) (>=60) mL/min Glucose (75-99) mg/dL Lactic Acid (0.4-2.0) mmol/L Calcium (8.4-10.1) mg/dL Total Bilirubin (0.0-1.0) mg/dL AST (15-37) U/L ALT (12-78) U/L Alkaline Phosphatase (46-116) U/L Lactate Dehydrogenase (100-190) U/L Creatine Kinase (35-232) U/L Troponin I (0.00-0.06) ng/mL NT-Pro-B Natriuret Pep (0-1000) pg/mL Total Protein (6.4-8.2) g/dL Albumin (3.4-5.0) g/dL SARS CoV-2 RNA Rapid AUNG (NEGATIVE) Meds: Medications Generic Name Dose Route Start Last Admin Trade Name Freq PRN Reason Stop Dose Admin Vancomycin HCl 2 gm/ Premix 400 mls @ 200 mls/hr 12/10/20 09:58 IV 12/10/20 11:57 STAT ONE Sodium Chloride 1,000 mls @ 1,000 mls/hr 12/10/20 09:59 12/10/20 10:30 Normal Saline IV 12/10/20 10:58 1,000 mls/hr .BOLUS ONE Administration Discontinued Medications Generic Name Dose Route Start Last Admin Trade Name Freq PRN Reason Stop Dose Admin Acetaminophen 1,000 mg 12/10/20 08:42 12/10/20 08:49 Tylenol Extra Strength PO 12/10/20 08:43 1,000 mg ONETIME ONE Administration Sodium Chloride 1,000 mls @ 1,000 mls/hr 12/10/20 09:19 12/10/20 09:31 Normal Saline IV 12/10/20 10:18 1,000 mls/hr .BOLUS ONE Administration Piperacillin Sod/Tazobactam 100 mls @ 200 mls/hr 12/10/20 09:58 Sod 4.5 gm/ Sodium Chloride IV 12/10/20 10:27 STAT ONE Morphine Sulfate 4 mg 12/10/20 10:24 12/10/20 10:28 Morphine IVPUSH 12/10/20 10:25 4 mg ONETIME ONE Administration Ondansetron HCl 4 mg 12/10/20 10:24 12/10/20 10:32 Zofran IVPUSH 12/10/20 10:25 4 mg NOW STA Administration - Re-Assessments/Exams Free Text/Narrative Re-Assessment/Exam: 12/10/20 08:55 CT scanner limit is 300lb, patient weights well above that. Although he does not known the year and confused on the timing of the fall, he does not have any focal unilateral weaknesses or slurred speech. Will not transfer for ct of head at this time. 12/10/20 09:27 Lactic acid on this patient is 4.5, covid negative at this time is what I have back. Patient is in rapid a-fib, temperature is now 103.1 tympanic, was given Tylenol. Oxygen saturation is now at 88% on 4L NC. I believe this patient is septic. Fluids have been ordered, but RNs have been attempting IV access without success at this time. Will consider central line if IV unsuccessful. 12/10/20 09:30 IV access obtained by RN, fluids started. 12/10/20 09:45am Spoke to Dr. Tiffanie DINH MD at [facility]. He has accepted the patient. He would like Vincent started on this patient. Give IV fluids as doing, if pressure does not respond then to use pressors. 12/10/20 09:55 BP is 104/54, HR 110 at this time. Called [facility] [employer]. Their cut off for weight is 450lbs. We will weight the patient and call them back. 12/10/20 10:10 We were able to move the patient over to a bed to weigh. Patient measured weight is 448.8lbs. Called [facility] back and they will page out to see if they can take him and call us back. BP is now 121/94. HR is 112. BP responding to fluids at this time. 12/10/20 10:22 [employer] called back, due to all male crew and staff weight limits. They would not be able to fly this patient. Will arrange ALS ground transfer. 12/10/20 1025 Patient is requesting pain medication for his legs. At this time, his BP is improved, will treat pain. HR is also improving 104-112 at this time. Departure - Departure Time of Disposition: 10:31 Disposition: DC/Tfer to [facility] 02 Condition: Serious Clinical Impression: Sepsis associated hypotension, Renal insufficiency, Hypoxia Cellulitis Qualifiers: Site of cellulitis: extremity Site of cellulitis of extremity: lower extremity Laterality: right Qualified Code(s): L03.115 - Cellulitis of right lower limb Atrial fibrillation Qualifiers: Atrial fibrillation type: unspecified Qualified Code(s): I48.91 - Unspecified atrial fibrillation - Discharge Information *PRESCRIPTION DRUG MONITORING PROGRAM REVIEWED*: Not Applicable *COPY OF PRESCRIPTION DRUG MONITORING REPORT IN PATIENT CYRUS: Not Applicable Referrals: PCP,None [Primary Care Provider] - Forms: ED Department Discharge Sepsis Event Note (ED) - Evaluation Sepsis Screening Result: Possible Sepsis Risk - Focused Exam Vital Signs: Vital Signs Temp Temp Temp Pulse Resp BP Pulse Ox 12/10/20 10:19 121 H 19 121/94 H 97 12/10/20 10:04 101.2 F H 116 H 18 104/57 L 95 12/10/20 09:49 101.5 F H 107 H 18 92/55 L 94 L 12/10/20 09:42 90 L 12/10/20 09:34 101.9 F H 115 H 20 81/54 L 87 L 12/10/20 08:49 99.4 F 12/10/20 08:30 103.2 F H 100 97 12/10/20 08:23 99.5 F 109 H 22 H 121/73 90 L - My Orders Last 24 Hours: My Active Orders 12/10/20 08:41 Blood Culture x2 Reflex Set [OM.PC] Stat 12/10/20 08:44 Knee 3V Lt [CR] Stat Knee 3V Rt [CR] Stat 12/10/20 08:46 Chest 1V Frontal [CR] Stat 12/10/20 09:00 CULTURE BLOOD [BC] Stat CULTURE BLOOD [BC] Stat 12/10/20 09:24 Cardiac Monitoring [RC] . DIRECTED 12/10/20 09:58 Vancomycin/Water for INJ (PEG) [Vancomycin 2 GM/400 ML Premix] 2 gm Premix Bag 1 bag IV STAT 12/10/20 09:59 Sodium Chloride 0.9% [Normal Saline] 1,000 ml IV .BOLUS - Assessment/Plan Last 24 Hours: My Active Orders 12/10/20 08:41 Blood Culture x2 Reflex Set [OM.PC] Stat 12/10/20 08:44 Knee 3V Lt [CR] Stat Knee 3V Rt [CR] Stat 12/10/20 08:46 Chest 1V Frontal [CR] Stat 12/10/20 09:00 CULTURE BLOOD [BC] Stat CULTURE BLOOD [BC] Stat 12/10/20 09:24 Cardiac Monitoring [RC] . DIRECTED 12/10/20 09:58 Vancomycin/Water for INJ (PEG) [Vancomycin 2 GM/400 ML Premix] 2 gm Premix Bag 1 bag IV STAT 12/10/20 09:59 Sodium Chloride 0.9% [Normal Saline] 1,000 ml IV .BOLUS Plan: PLEASE SEE RN NOTE FOR PFSH. This patient is being transferred to [facility]. The patient is being transferred to the ER. The risk vs benefits of transfer are explained and acce pted by the patient. The risk of transfer are mvc, , worsening of condition. The risk of staying in [place] are no higher level care, , worsening of condition. The benefits of transfer are higher level of care, ICU care, infectious disease if needed. The benefits of staying in [place] is close to home.
[2020-12-10] MEDS ORDERED: Sodium Chloride 0.9% 1,000 ML IV ONE ×2 (09:19→09:59)
[2020-12-10 09:53] LABS: O2 DELIVERY DEVICE NASAL CANNULA
[2020-12-10 09:55] LABS: BASE EXCESS ARTERIAL -3.7 (-2.0-3.0); BICARBONATE,ARTERIAL 20.8 mm/L (22.0-26.0); O2 SATURATION ARTERIAL 91 % (95-98); PCO2 ARTERIAL 32 mm/Hg0 (35-45); PO2 ARTERIAL 59 mm/Hg (80-100)
[2020-12-10] MEDS ORDERED: Vancomycin/Water for INJ (PEG) 2 GM in Premix Bag 1 BAG IV ONE (09:58)
[2020-12-10] MEDS ORDERED: Piperacillin/Tazobactam 4.5 GM in Sodium Chloride 0.9% 100 ML IV ONE (09:58)
[2020-12-10] MEDS ORDERED: Vancomycin 1 GM SDV ONE ×2 (10:18)
[2020-12-10] MEDS ORDERED: Sodium Chloride 0.9% 500 ML ONE (10:19)
[2020-12-10] MEDS ORDERED: Sodium Chloride 0.9% 100 ML ONE (10:19)
[2020-12-10] MEDS ORDERED: Ondansetron 4 MG/2 ML SDV IVPUSH STA (10:24)
[2020-12-10] MEDS ORDERED: Morphine 4 MG/ML VIAL IVPUSH ONE (10:24)
[2020-12-10 10:59] VITALS: PULSE 111
[2020-12-10 11:16] VITALS: BP 99/48
== END 2020-12-10 11:26 ==
LOC: CC.ED 08:17
DX: A41.9 Sepsis, unspecified organism (principal); I95.9 Hypotension, unspecified; N28.9 Disorder of kidney and ureter, unspecified; R09.02 Hypoxemia; L03.115 Cellulitis of right lower limb; I48.91 Unspecified atrial fibrillation; I10 Essential (primary) hypertension; G20 Parkinson's disease; E66.9 Obesity, unspecified; Z68.43 Body mass index [BMI] 50.0-59.9, adult; Z20.822 Contact with and (suspected) exposure to COVID-19; W18.30XA Fall on same level, unspecified, initial encounter
CPT/HCPCS: 36415; 36600; 71045; 73562-LT; 73562-RT; 80053; 82550; 82803; 83605; 83615; 83880; 84484; 85025; 85610; 87040; 93005; 96365; 96368; 96375; 99284; 99285-25; A9270-GY; J2270; J2405; J2543; J3370; J7030; J7050; U0002

== ENCOUNTER 2021-06-23 05:25 | Emergency (ER) | payer MEDICARE, BC ==
[2021-06-23] MEDS ORDERED: Acetaminophen 500 MG Tab PO ONE (06:02)
[2021-06-23] MEDS ORDERED: Ibuprofen 200 MG Tab PO ONE (06:04)
[2021-06-23] MEDS ORDERED: VANCOmycin 2 GM/400 ML 2 GM in Premix Bag 1 BAG IV ONE (06:11)
[2021-06-23] MEDS ORDERED: Sodium Chloride 0.9% 1,000 ML IV ONE ×4 (06:11→08:16)
[2021-06-23] MEDS ORDERED: Piperacillin/Tazobactam 4.5 GM in Sodium Chloride 0.9% 100 ML IV ONE (06:11)
[2021-06-23] MEDS ORDERED: Ondansetron 4 MG/2 ML SDV IVPUSH STA (06:11)
[2021-06-23] MEDS ORDERED: Morphine 4 MG/ML VIAL IVPUSH ONE (06:11)
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
[2021-06-23 06:39] LABS: CHLORIDE,CL 103 mEq/L (98-106); SODIUM,NA 137 mEq/L (136-145)
[2021-06-23] MEDS ORDERED: Dextrose 5% in Water 250 ML ONE (08:32)
[2021-06-23] MEDS ORDERED: EPINEPHrine 1 MG/ML SDV ONE (08:36)
[2021-06-23] MEDS ORDERED: Cefepime 2 GM in Sodium Chloride 0.9% 50 ML IV ONE (08:49)
[2021-06-23 09:21] VITALS: BP 81/36; PULSE 133
== END 2021-06-23 09:43 ==
LOC: CC.ED 05:25
DX: A41.9 Sepsis, unspecified organism (principal); L03.115 Cellulitis of right lower limb; R65.21 Severe sepsis with septic shock; I95.9 Hypotension, unspecified; R60.0 Localized edema; R00.0 Tachycardia, unspecified; K02.9 Dental caries, unspecified; I48.91 Unspecified atrial fibrillation; I10 Essential (primary) hypertension; M19.90 Unspecified osteoarthritis, unspecified site; E66.9 Obesity, unspecified; Z68.43 Body mass index [BMI] 50.0-59.9, adult; Z88.0 Allergy status to penicillin; Z79.899 Other long term (current) drug therapy; Z20.822 Contact with and (suspected) exposure to COVID-19
CPT/HCPCS: 36415; 51702; 71045; 80053; 81001; 82550; 83605; 83615; 83880; 84484; 85025; 85610; 86140; 87040; 93005; 96365; 96366; 96367; 96368; 96375; 99285; A9270; J0171; J0692; J2270; J2405; J2543; J3370; J7030; J7060; U0002; 93010; 99284

== ENCOUNTER 2021-07-21 14:21 | Emergency (ER) | payer MEDICARE, BC ==
[2021-07-21 14:24] VITALS: BP 98/67; PULSE 96
--- NOTE | 2021-07-21 14:38 | EDM.PDOC ---
ED HPI GENERAL MEDICAL PROBLEM - General Chief Complaint: General Stated Complaint: Wound Time Seen by Provider: 07/21/21 14:21 Source of Information: Reports: Patient History Limitations: Reports: No Limitations - History of Present Illness INITIAL COMMENTS - FREE TEXT/NARRATIVE: Albin is a 71 year old male who presents to ER with bleeding from a wound to his left lower extremity. Was doing the bandage change and noted a "bleeder". had a procedure done yesterday to debride the wound in [place] yesterday and will be seeing them again on Friday for possible wound vac. Patient jass has had this wound on his leg for some time. Has been at [facility] now for several weeks and has been to see wound care 3 times thus far. He denies fevers. Does have discomfort to the wound since they removed the prior dressing. Long standing history of cellulitis in his legs. Was at a tertiary facility since February. Jass spent a month at [facility] for dialysis as infection and meds caused kidney issues. States he then went to a rehab facility for a week to "learn to walk again" and then returned home. Started having problems again with his legs and was short of breath. Was transferred to [facility] for sepsis at the end of May and after a 3 day stay there, was admitted to [facility] for strengthening. He denies any chest pain, does get short of breath if lying flat. Oxygen sat had dropped to the mid 80s for EMS so increased his O2 to 4 liters with good recovering of his sats. EMS reports they reinforced the bandage to his leg prior to coming here and have not noted any bleeding through the bandage since. Onset: Today Duration: Minutes:, Resolved Prior to Arrival Location: Reports: Lower Extremity, Left Quality: Reports: Ache Severity: Mild Associated Symptoms: Reports: No Other Symptoms Treatments MANAGER INPATIENT: Reports: Dressing(s), See EMS Report - Related Data Allergies Allergy/AdvReac Type Severity Reaction Status Date / Time piperacillin Allergy Hypotension Verified 07/21/21 14:25 Home Meds: Home Meds Gabapentin 300 mg PO TID 08/07/16 [History] Carbidopa/Levodopa [Carbidopa-Levodopa 25-100 Tab] 2 tab PO TID 01/21/17 [History] Triamcinolone Acetonide [Triamcinolone Acetonide 0.025% Crm] 1 applic TOP BID PRN 03/24/18 [History] Metoprolol Tartrate 150 mg PO BID 06/09/18 [History] Pantoprazole Sodium [Protonix] 40 mg PO DAILY 06/09/18 [History] Potassium Chloride 20 meq PO DAILY 06/09/18 [History] Losartan Potassium 100 mg PO DAILY 05/11/19 [History] Warfarin Sodium 2.5 mg PO SUTUWEFRSA 05/11/19 [History] Warfarin Sodium 5 mg PO MOTH 05/11/19 [History] amLODIPine Besylate [Amlodipine Besylate] 5 mg PO DAILY 05/11/19 [History] Furosemide 60 mg PO BID #60 tablet 05/12/19 [Rx] Ferrous Sulfate 324 mg PO WITHBREAKFAST #30 tab.ec 11/15/19 [Rx] Past Medical History HEENT History: Reports: Other (See Below) Other HEENT History: tinnitis Cardiovascular History: Reports: Afib, High Cholesterol, Hypertension Gastrointestinal History: Reports: Other (See Below) Other Gastrointestinal History: abd hernia Genitourinary History: Reports: Dialysis Musculoskeletal History: Reports: Arthritis, Fracture, Neck Pain, Chronic Neurological History: Reports: Migraines, Parkinson's Psychiatric History: Reports: Anxiety, Depression Endocrine/Metabolic History: Reports: Obesity/BMI 30+ Hematologic History: Reports: Blood Transfusion(s) Dermatologic History: Reports: Cellulitis, Venous Stasis Dermatitis - Infectious Disease History Infectious Disease History: Reports: C-Difficile Other Infectious Disease History: sepsis - Past Surgical History GI Surgical History: Reports: Hernia Repair/Other Other GI Surgeries/Procedures: "abd surgery a few years ago" Endocrine Surgical History: Reports: None Neurological Surgical History: Reports: Other (See Below) Other Neurological Surgeries/Procedures: "spinal injections from 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" Social & Family History - Family History Family Medical History: No Pertinent Family History Cardiac: Reports: Other (See Below) Other Cardiac Family History: enlarged heart Respiratory: Reports: Other (See Below) Other Respiratory Family Hisory: Scarlet fever Oncologic: Reports: Brain - Tobacco Use Tobacco Use Status *Q: Never Tobacco User Second Hand Smoke Exposure: No - Caffeine Use Caffeine Use: Reports: None - Recreational Drug Use Recreational Drug Use: No - Living Situation & Occupation Living situation: Reports: , with Spouse, Other Occupation: Disabled ED ROS GENERAL - Review of Systems Review Of Systems: See Below Constitutional: Reports: Weakness. Denies: Fever, Chills, Malaise HEENT: Reports: No Symptoms Respiratory: Denies: Shortness of Breath Cardiovascular: Reports: No Symptoms Endocrine: Reports: No Symptoms GI/Abdominal: Reports: No Symptoms Musculoskeletal: Reports: Leg Pain Skin: Reports: Wound ED EXAM, GENERAL - Physical Exam Exam: See Below Exam Limited By: No Limitations General Appearance: Alert, WD/WN, No Apparent Distress Respiratory/Chest: No Respiratory Distress, Lungs Clear, Normal Breath Sounds Cardiovascular: Regular Rate, Rhythm, Other (chronic lymphedema) Extremities: Other (coban removed from left lower leg. Saline applied to mendosa ge for removal. Has pink-tinged out bandages. Removed the inner bandage slowly after moistening with saline. Observed for 5 minutes with no active bleeding noted. New wet to dry dressing applied and wrapped again with coban) Neurological: Alert, Oriented Course - Vital Signs Last Recorded V/S: Last Vital Signs Temp 97.6 F 07/21/21 14:21 Pulse 96 07/21/21 14:21 Resp 20 07/21/21 14:21 BP 98/67 07/21/21 14:21 Pulse Ox 96 07/21/21 14:21 Departure - Departure Time of Disposition: 14:42 Disposition: Home, Self-Care 01 Clinical Impression: Bleeding from wound - Discharge Information *PRESCRIPTION DRUG MONITORING PROGRAM REVIEWED*: No *COPY OF PRESCRIPTION DRUG MONITORING REPORT IN PATIENT CYRUS: No Referrals: Marbin Anderson MD [Primary Care Provider] - Forms: ED Department Discharge Additional Instructions: 1. Moisten dressings with saline prior to dressing change and remove slowly. Repack with wet to dry dressings. 2. If bleeding noted from wound, apply pressure and return to ER if unable to control the bleeding. Sepsis Event Note (ED) - Evaluation Sepsis Screening Result: No Definite Risk - Focused Exam Vital Signs: Vital Signs Temp Pulse Resp BP Pulse Ox 07/21/21 14:21 97.6 F 96 20 98/67 96
== END 2021-07-21 15:04 | disposition home or self-care (01) ==
LOC: CC.ED 14:21
DX: L76.22 Postprocedural hemorrhage of skin and subcutaneous tissue following other procedure (principal); I10 Essential (primary) hypertension; I48.91 Unspecified atrial fibrillation; M19.90 Unspecified osteoarthritis, unspecified site; E66.9 Obesity, unspecified; Z68.43 Body mass index [BMI] 50.0-59.9, adult; Z88.0 Allergy status to penicillin; Z79.899 Other long term (current) drug therapy
CPT/HCPCS: 99283

== ENCOUNTER 2021-07-24 22:52 | Emergency (ER) | payer MEDICARE, BC ==
[2021-07-24 23:38] VITALS: BP 157/71; PULSE 74
[2021-07-24] MEDS ORDERED: EPINEPHrine Nasal Soln 30 MG/30 ML Bottle ONE (23:39)
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
[2021-07-25] MEDS ORDERED: EPINEPHrine Nasal Soln 30 MG/30 ML Bottle ONE (10:45)
== END 2021-07-25 00:01 | disposition home or self-care (01) ==
LOC: CC.ED 22:52 → SUPCPDRO 22:52 → CC.ED 07-25 00:01
DX: M96.831 Postprocedural hemorrhage of a musculoskeletal structure following other procedure (principal); R60.0 Localized edema; E78.00 Pure hypercholesterolemia, unspecified; I10 Essential (primary) hypertension; E66.9 Obesity, unspecified; Z88.0 Allergy status to penicillin; Z79.01 Long term (current) use of anticoagulants; Z79.899 Other long term (current) drug therapy; Z68.43 Body mass index [BMI] 50.0-59.9, adult
CPT/HCPCS: 99282; 99283; A9270-GY

== ENCOUNTER 2021-08-04 16:15 | Emergency (ER) | payer MEDICARE, BC ==
[2021-08-04] MEDS ORDERED: Acetaminophen 500 MG Tab PO ONE (16:44)
--- NOTE | 2021-08-04 17:20 | EDM.PDOC ---
ED HPI GENERAL MEDICAL PROBLEM - General Chief Complaint: General Stated Complaint: fever, wound infection Time Seen by Provider: 08/04/21 16:48 Source of Information: Reports: Patient, Jail Records History Limitations: Reports: No Limitations - History of Present Illness INITIAL COMMENTS - FREE TEXT/NARRATIVE: Albin is a 71 yo male who is brought to the ED this evening by the local assisted with complaints of increased redness to left lower leg and a fever. Patient had recently spent a couple of weeks at [facility] in [place] with cellulitis. He had been on amoxicillin up until the 29 of July. States last night he started to notice some discomfort again in the left inner thigh. Nursing staff had called and patient was started on Augmentin. Unfortunately, around 1:00pm this afternoon he had started to have a low grade temp per nursing notes. This afternoon the redness has also started to spread. Patient has not received anything for his fever. 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 Left Leg Pain Score (Numeric/FACES): 3 - Related Data Allergies Allergy/AdvReac Type Severity Reaction Status Date / Time piperacillin Allergy Hypotension Verified 07/24/21 23:18 vancomycin Allergy Cannot Verified 08/04/21 16:31 Remember Home Meds: Home Meds Gabapentin 200 mg PO BID 08/07/16 [History] Carbidopa/Levodopa [Carbidopa-Levodopa 25-100 Tab] 2 tab PO TID 01/21/17 [History] Triamcinolone Acetonide [Triamcinolone Acetonide 0.025% Crm] 1 applic TOP BID PRN 03/24/18 [History] Warfarin Sodium 1.5 mg PO Q48H 05/11/19 [History] Warfarin Sodium 2 mg PO Q48H 05/11/19 [History] Acetaminophen [Tylenol] 650 mg PO Q6H PRN 07/25/21 [History] Amiodarone [Cordarone] 1 tab PO DAILY 07/25/21 [History] Ammonium Lactate [Lac-Hydrin 12% Crm] 1 applic TOP ASDIRECTED PRN 07/25/21 [History] Digoxin 0.25 mg PO DAILY 07/25/21 [History] Famotidine 1 tab PO BID 07/25/21 [History] Nystatin [Nystatin Crm] 1 applic TOP BID 07/25/21 [History] Olmesartan/Hydrochlorothiazide [Olmesartan-Hctz 40-12.5 mg Tab] 1 tab PO DAILY 07/25/21 [History] guaiFENesin/Dextromethorphan [Tussin Dm Liquid] 10 ml PO QID PRN 07/25/21 [History] Amoxicillin/Clavulanate K [Augmentin 875-125 MG] 1 tab PO BID 08/04/21 [History] LORazepam [Ativan] 1 mg IM ASDIRECTED 08/04/21 [History] Past Medical History HEENT History: Reports: Other (See Below) Other HEENT History: tinnitis Cardiovascular History: Reports: Afib, High Cholesterol, Hypertension Gastrointestinal History: Reports: Other (See Below) Other Gastrointestinal History: abd hernia Genitourinary History: Reports: Dialysis Musculoskeletal History: Reports: Arthritis, Fracture, Neck Pain, Chronic Neurological History: Reports: Migraines, Parkinson's Psychiatric History: Reports: Anxiety, Depression Endocrine/Metabolic History: Reports: Obesity/BMI 30+ Hematologic History: Reports: Blood Transfusion(s) Dermatologic History: Reports: Cellulitis, Venous Stasis Dermatitis - Infectious Disease History Infectious Disease History: Reports: C-Difficile Other Infectious Disease History: sepsis - Past Surgical History GI Surgical History: Reports: Hernia Repair/Other Other GI Surgeries/Procedures: "abd surgery a few years ago" Endocrine Surgical History: Reports: None Neurological Surgical History: Reports: Other (See Below) Other Neurological Surgeries/Procedures: "spinal injections from 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" Social & Family History - Family History Family Medical History: No Pertinent Family History Cardiac: Reports: Other (See Below) Other Cardiac Family History: enlarged heart Respiratory: Reports: Other (See Below) Other Respiratory Family Hisory: Scarlet fever Oncologic: Reports: Brain - Tobacco Use Tobacco Use Status *Q: Never Tobacco User - Caffeine Use Caffeine Use: Reports: None - Living Situation & Occupation Living situation: Reports: , with Spouse, Other Occupation: Disabled ED ROS GENERAL - Review of Systems Review Of Systems: See Below Constitutional: Reports: Fever, Chills, Fatigue HEENT: Reports: No Symptoms Respiratory: Reports: No Symptoms Cardiovascular: Reports: No Symptoms GI/Abdominal: Reports: No Symptoms Skin: Reports: Rash, Erythema Neurological: Reports: No Symptoms Psychiatric: Reports: No Symptoms ED EXAM, GENERAL - Physical Exam Exam: See Below Exam Limited By: No Limitations General Appearance: No Apparent Distress, Obese Ears: Normal External Exam, Hearing Grossly Normal Nose: Normal Inspection, No Blood Throat/Mouth: Normal Inspection, Normal Voice, No Airway Compromise Head: Atraumatic, Normocephalic Neck: Normal Inspection, Supple Cardiovascular: Normal Peripheral Pulses, No Murmur, Irregularly Irregular GI/Abdominal: Other (morbidly obese) Extremities: Pedal Edema, Leg Pain, Increased Warmth (extending from proximal inner thigh down below the left knee), Redness, Other (wound vac to area of distal fibula) Neurological: Alert, Oriented Psychiatric: Normal Affect, Normal Mood Skin Exam: Erythema, Increased Warmth. No: Diaphoretic Course - Vital Signs Last Recorded V/S: Last Vital Signs Temp 100.7 F H 08/04/21 18:38 Pulse 81 08/04/21 16:40 Resp 18 08/04/21 18:38 BP 90/41 L 08/04/21 18:54 Pulse Ox 98 08/04/21 18:38 - Orders/Labs/Meds Orders: Active Orders 24 hr Category Date Time Status Telemetry Monitoring [Cardiac Monitoring] [RC] . Care 08/04/21 16:05 Active DIRECTED CULTURE BLOOD [BC] Stat Lab 08/04/21 17:20 Received CULTURE BLOOD [BC] Stat Lab 08/04/21 17:20 Received DAPTOmycin [Cubicin] Med 08/04/21 17:45 Active 500 mg IVPUSH Q24H Norepinephrine [Levophed] 4 mg Med 08/04/21 18:45 Active Dextrose 5% in Water 246 ml IV TITRATE Blood Culture x2 Reflex Set [OM.PC] Stat Oth 08/04/21 16:56 Ordered Medication Orders Daptomycin (Daptomycin 500 Mg Vial) 500 mg IVPUSH Q24H MAXI Last Admin: 08/04/21 18:15 Dose: 500 mg Documented by: MEGAN Norepinephrine Bitartrate 4 mg (/ Dextrose/Water) 250 mls @ 7.5 mls/hr IV TITRATE MAXI; Protocol Labs: Laboratory Tests 08/04/21 08/04/21 08/04/21 Range/Units 16:02 16:02 16:02 WBC 21.1 H* (4.0-11.0) 10^3/uL RBC 4.23 L (4.50-6.00) x10^6/uL Hgb 10.8 L (14.0-18.0) g/dL Hct 35.7 L (42.0-52.0) % MCV 84.4 (83.0-97.0) fL MCH 25.5 L (27.0-32.0) pg MCHC 30.3 L (32.0-36.0) g/dL RDW Coeff of Connie 19.7 H (11.0-15.0) % Plt Count 171 (150-400) 10^3/uL Add Manual Diff Yes Neutrophils % (Manual) 93 H (35-85) % Band Neutrophils % 3 (0-5) % Lymphocytes % (Manual) 2 L (21-55) % Monocytes % (Manual) 2 (2-12) % PT (9.7-12.3) SEC INR (0.92-1.18) Sodium 145 (136-145) mEq/L Potassium 3.8 (3.5-5.0) mEq/L Chloride 103 (98-106) mEq/L Carbon Dioxide 36 H (21-32) mmol/L BUN 24 H (7-18) mg/dL Creatinine 1.6 H (0.7-1.3) mg/dL Est Cr Clr Drug Dosing 46.41 mL/min Estimated GFR (MDRD) 43 L (>=60) mL/min Glucose 103 H (75-99) mg/dL Lactic Acid 1.3 (0.4-2.0) mmol/L Calcium 8.2 L (8.4-10.1) mg/dL Total Bilirubin 0.9 (0.0-1.0) mg/dL AST 11 L (15-37) U/L ALT 8 L (12-78) U/L Alkaline Phosphatase 79 (46-116) U/L C-Reactive Protein 11.6 H (0.2-0.8) mg/dL Total Protein 7.0 (6.4-8.2) g/dL Albumin 2.8 L (3.4-5.0) g/dL SARS CoV-2 RNA Rapid AUNG (NEGATIVE) 08/04/21 08/04/21 Range/Units 16:45 17:20 WBC (4.0-11.0) 10^3/uL RBC (4.50-6.00) x10^6/uL Hgb (14.0-18.0) g/dL Hct (42.0-52.0) % MCV (83.0-97.0) fL MCH (27.0-32.0) pg MCHC (32.0-36.0) g/dL RDW Coeff of Connie (11.0-15.0) % Plt Count (150-400) 10^3/uL Add Manual Diff Neutrophils % (Manual) (35-85) % Band Neutrophils % (0-5) % Lymphocytes % (Manual) (21-55) % Monocytes % (Manual) (2-12) % PT 18.8 H (9.7-12.3) SEC INR 1.79 H (0.92-1.18) Sodium (136-145) mEq/L Potassium (3.5-5.0) mEq/L Chloride (98-106) mEq/L Carbon Dioxide (21-32) mmol/L BUN (7-18) mg/dL Creatinine (0.7-1.3) mg/dL Est Cr Clr Drug Dosing mL/min Estimated GFR (MDRD) (>=60) mL/min Glucose (75-99) mg/dL Lactic Acid (0.4-2.0) mmol/L Calcium (8.4-10.1) mg/dL Total Bilirubin (0.0-1.0) mg/dL AST (15-37) U/L ALT (12-78) U/L Alkaline Phosphatase (46-116) U/L C-Reactive Protein (0.2-0.8) mg/dL Total Protein (6.4-8.2) g/dL Albumin (3.4-5.0) g/dL SARS CoV-2 RNA Rapid AUNG Negative (NEGATIVE) Meds: Medications Generic Name Dose Route Start Last Admin Trade Name Freq PRN Reason Stop Dose Admin Daptomycin 500 mg 08/04/21 17:45 08/04/21 18:15 Daptomycin 500 Mg Vial IVPUSH 500 mg Q24H MAXI Administration Norepinephrine Bitartrate 4 mg 250 mls @ 7.5 mls/hr 08/04/21 18:45 / Dextrose/Water IV TITRATE MAXI Protocol 2 MCG/MIN Discontinued Medications Generic Name Dose Route Start Last Admin Trade Name Freq PRN Reason Stop Dose Admin Acetaminophen 1,000 mg 08/04/21 16:44 08/04/21 16:48 Acetaminophen 500 Mg Tab PO 08/04/21 16:45 1,000 mg ONETIME ONE Administration Sodium Chloride 1,000 mls @ 999 mls/hr 08/04/21 17:39 08/04/21 17:47 Normal Saline IV 08/04/21 18:39 999 mls/hr .BOLUS ONE Administration Meropenem 1 gm 08/04/21 17:39 08/04/21 17:47 Meropenem 1 Gm Sdv IVPUSH 08/04/21 17:40 1 gm ONETIME ONE Administration Departure - Departure Time of Disposition: 17:48 Disposition: DC/Tfer to [facility] 02 Clinical Impression: Cellulitis - Discharge Information Referrals: Marbin Anderson MD [Primary Care Provider] - Forms: ED Department Discharge Sepsis Event Note (ED) - Evaluation Sepsis Screening Result: Possible Sepsis Risk - Focused Exam Vital Signs: Vital Signs Temp Temp Pulse Resp BP Pulse Ox 08/04/21 18:54 90/41 L 08/04/21 18:38 100.7 F H 18 79/44 L 98 08/04/21 18:24 16 90/43 L 97 08/04/21 18:12 87/51 L 95 08/04/21 18:07 100.6 F 18 84/45 L 93 L 08/04/21 17:52 95/53 L 08/04/21 17:19 100.1 F 08/04/21 17:18 100.1 F 08/04/21 16:48 101.8 F H 08/04/21 16:40 101.8 F H 81 18 114/67 94 L - Problem List & Annotations (1) Cellulitis SNOMED Code(s): 329644890 Code(s): L03.90 - CELLULITIS, UNSPECIFIED Status: Acute Priority: High Current Visit: Yes Qualifiers: Site of cellulitis: extremity Site of cellulitis of extremity: lower extremity Laterality: left Qualified Code(s): L03.116 - Cellulitis of left lower limb (2) Sepsis associated hypotension SNOMED Code(s): 38637820 Code(s): A41.9 - SEPSIS, UNSPECIFIED ORGANISM; I95.9 - HYPOTENSION, UNSPECIFIED Status: Acute Current Visit: No - My Orders Last 24 Hours: My Active Orders 08/04/21 16:05 Telemetry Monitoring [Cardiac Monitoring] [RC] . DIRECTED 08/04/21 16:56 Blood Culture x2 Reflex Set [OM.PC] Stat 08/04/21 17:20 CULTURE BLOOD [BC] Stat CULTURE BLOOD [BC] Stat 08/04/21 17:45 DAPTOmycin [Cubicin] 500 mg IVPUSH Q24H 08/04/21 18:45 Norepinephrine [Levophed] 4 mg Dextrose 5% in Water 246 ml IV TITRATE - Assessment/Plan Last 24 Hours: My Active Orders 08/04/21 16:05 Telemetry Monitoring [Cardiac Monitoring] [RC] . DIRECTED 08/04/21 16:56 Blood Culture x2 Reflex Set [OM.PC] Stat 08/04/21 17:20 CULTURE BLOOD [BC] Stat CULTURE BLOOD [BC] Stat 08/04/21 17:45 DAPTOmycin [Cubicin] 500 mg IVPUSH Q24H 08/04/21 18:45 Norepinephrine [Levophed] 4 mg Dextrose 5% in Water 246 ml IV TITRATE Plan: Patient did have an elevated WBC of 21,000 with an elevated CRP. Consulted with Dr. Rivera, hospitalist, at [facility] in [place] in regards to Albin's condition. Patient has history of ESBL E. Coli with allergies to piperacillin and vancomycin. Dr. Rivera did kindly accept transfer. Advised giving Meropenem and Daptomycin. Patient given Daptomycin 500mg and Meropenem 1gm intravenously. Attempted ALS transfer from [place], which they were unable to take patient. EMS did contact [facility] who kindly accepted transfer and are currently en route. While waiting for EMS arrival patient's blood pressure did drop into the 70/40's. I initially gave 500ml bolus of NS with no significant change in blood pressure. Patient however was completely asymptomatic. No lightheadedness or new onset of any symptoms. Patient continued to receive another 250ml bolus of NS and blood pressure was 90/50. Consulted with one call at [facility] in [place] who did connect with Dr. Rivera. I discussed current blood pressures concerns and whether or not it would be appropriate to start norepinephrine. Dr. Rivera recommended consulting with emergency room physician as they do not have any ICU beds available. Dr. Cline discussed patients current condition and will continue to give IV fluids. [facility] did arrive at 1920. Blood pressure was 88/49. I discussed with EMS staff to continue to closely monitor blood pressure. Discussed starting norepinephrine if needed, which I confirmed they do have available. They will given another 1L bolus of NS. Discussed risks and benefits of transfer with Albin. Risks of transfer included worsening of condition, MVA, . Benefits of transfer included higher level of care faciity, critical care monitoring and specialty interventions. Risks of non-transfer included lack of specialized care/treatment, worsening of condition, . Benefits of non-transfer included staying in familiar en vironment and close to home. Patient verbalized understanding and is in agreement with transfer.
[2021-08-04] MEDS ORDERED: Meropenem 1 GM SDV IVPUSH ONE (17:39)
[2021-08-04] MEDS ORDERED: Sodium Chloride 0.9% 1,000 ML IV ONE (17:39)
[2021-08-04] MEDS ORDERED: DAPTOmycin 500 MG Vial IVPUSH SCH (17:45)
[2021-08-04] MEDS ORDERED: Norepinephrine 4 MG/4 ML SDV ONE (18:43)
[2021-08-04] MEDS ORDERED: Norepinephrine 4 MG in Dextrose 5% in Water 246 ML IV SCH ×2 (18:45)
[2021-08-04 19:04] VITALS: BP 100/44; PULSE 74
== END 2021-08-04 19:37 ==
LOC: CC.ED 16:15
DX: L03.116 Cellulitis of left lower limb (principal); E66.01 Morbid (severe) obesity due to excess calories; I10 Essential (primary) hypertension; E78.00 Pure hypercholesterolemia, unspecified; I48.91 Unspecified atrial fibrillation; Z88.1 Allergy status to other antibiotic agents; Z79.01 Long term (current) use of anticoagulants; Z79.899 Other long term (current) drug therapy; Z68.42 Body mass index [BMI] 45.0-49.9, adult; Z20.822 Contact with and (suspected) exposure to COVID-19
CPT/HCPCS: 36415; 80053; 83605; 85025; 85610; 86140; 87040; 96374; 96375; 99284; 99284-25; A9270-GY; J0878; J2185; J7030; U0002

== ENCOUNTER 2021-12-19 22:59 | Emergency (ER) | payer MEDICARE, BC ==
[2021-12-19] MEDS ORDERED: Ketorolac 30 MG/ML SDV IM ONE (23:23)
[2021-12-19] MEDS ORDERED: Ketorolac 30 MG/ML SDV IVPUSH ONE (23:34)
[2021-12-19] MEDS ORDERED: Acetaminophen 325 MG Tab PO ONE (23:34)
[2021-12-19 23:36] VITALS: PULSE 121
[2021-12-19] MEDS ORDERED: cefTRIAXone 2 GM Vial IVPUSH ONE (23:38)
[2021-12-19] MEDS: Sodium Chloride 0.9% 1,000 ML IV SCH (23:50)
[2021-12-20] MEDS ORDERED: Clindamycin Phosphate in D5W 600 MG in Premix Bag 1 BAG IV SCH ×2 (00:30)
[2021-12-20] MEDS: Sodium Chloride 0.9% 1,000 ML IV SCH ×3 (03:17→05:32)
[2021-12-20] MEDS ORDERED: Norepinephrine 4 MG in Dextrose 5% in Water 246 ML IV SCH ×2 (05:15)
[2021-12-20] MEDS ORDERED: Dextrose 5% in Water 250 ML ONE (06:11)
[2021-12-20 06:34] VITALS: BP 105/77
== END 2021-12-20 07:46 ==
LOC: CC.ED 22:59
DX: A41.9 Sepsis, unspecified organism (principal); R65.21 Severe sepsis with septic shock; L03.116 Cellulitis of left lower limb; I48.91 Unspecified atrial fibrillation; E78.00 Pure hypercholesterolemia, unspecified; I10 Essential (primary) hypertension; E66.9 Obesity, unspecified; Z68.43 Body mass index [BMI] 50.0-59.9, adult; Z88.1 Allergy status to other antibiotic agents; Z88.0 Allergy status to penicillin; Z79.01 Long term (current) use of anticoagulants; Z79.899 Other long term (current) drug therapy
CPT/HCPCS: 36415; 71045; 80053; 83605; 85025; 85610; 86140; 87040; 87077; 93005; 96365; 96367; 96375; 99285-25; A9270-GY; J0696; J1885; J3490; J7030; J7060; U0002

== ENCOUNTER 2022-01-24 09:27 | Inpatient (IN) | payer MEDICARE, BC ==
[2022-01-24] MEDS ORDERED: Acetaminophen 325 MG Tab PO PRN ×2 (11:35→11:45)
[2022-01-24] MEDS ORDERED: Polyethylene Glycol 3350 Powder 17 GM Packet PO PRN (11:45)
[2022-01-24] MEDS ORDERED: Triamcinolone Acetonide 0.1% Crm 15 GM Tube TOP PRN (11:45)
[2022-01-24] MEDS ORDERED: Furosemide 40 MG Tab PO SCH (12:15)
[2022-01-24 12:18] LABS: CHLORIDE,CL 105 mEq/L (98-106); SODIUM,NA 145 mEq/L (136-145)
[2022-01-24] MEDS: Metoprolol Tartrate 50 MG Tab PO SCH ×2 (12:20→20:12)
[2022-01-24] MEDS: Bumetanide 1 MG Tab PO SCH (12:20)
[2022-01-24] MEDS ORDERED: Furosemide 40 MG/4 ML VIAL IVPUSH ONE (13:15)
[2022-01-24] MEDS ORDERED: ceFAZolin 1 GM Vial IV SCH (13:30)
[2022-01-24] MEDS: Carbidopa/Levodopa 25-100 MG Tab PO SCH ×2 (14:54→20:12)
[2022-01-24] MEDS ORDERED: Furosemide 20 MG Tab PO SCH (20:00)
[2022-01-24] MEDS ORDERED: Furosemide 20 MG/2 ML VIAL IVPUSH ONE (20:00)
[2022-01-24] MEDS: ceFAZolin 1 GM Vial IV SCH (20:12)
[2022-01-24] MEDS: Gabapentin 100 MG Cap PO SCH (20:12)
[2022-01-24] MEDS: Famotidine 20 MG Tab PO SCH (20:13)
[2022-01-25] MEDS: diphenhydrAMINE 25 MG Cap PO PRN ×3 (03:16→22:01)
[2022-01-25] MEDS: ceFAZolin 1 GM Vial IV SCH ×2 (03:16→12:41)
[2022-01-25] MEDS ORDERED: [UNRECOGNIZED DRUG - OTHER] MC SCH (08:00)
[2022-01-25] MEDS ORDERED: SODIUM HYPOCHLORITE MC SCH (08:00)
[2022-01-25] MEDS ORDERED: Furosemide 40 MG/4 ML VIAL IVPUSH SCH (08:00)
[2022-01-25] MEDS: Carbidopa/Levodopa 25-100 MG Tab PO SCH ×3 (08:12→19:44)
[2022-01-25] MEDS: Gabapentin 100 MG Cap PO SCH ×2 (08:13→19:42)
[2022-01-25] MEDS: Metoprolol Tartrate 50 MG Tab PO SCH ×2 (08:14→19:43)
[2022-01-25] MEDS: Bumetanide 1 MG Tab PO SCH ×2 (08:14→17:16)
[2022-01-25] MEDS: Famotidine 20 MG Tab PO SCH ×2 (08:14→19:43)
[2022-01-25] MEDS ORDERED: hydrOXYzine HCl 50 MG/ML SDV IM ONE ×2 (15:01→18:45)
[2022-01-25] MEDS ORDERED: Furosemide 20 MG/2 ML VIAL IVPUSH SCH (16:00)
[2022-01-25] MEDS ORDERED: Meropenem 1 GM SDV IV SCH (19:15)
[2022-01-25] MEDS: Meropenem 1 GM SDV IV SCH (19:42)
[2022-01-25] MEDS ORDERED: Potassium Chloride 10 MEQ Tab.ER PO ONE (20:00)
[2022-01-26] MEDS: Meropenem 1 GM SDV IV SCH ×3 (04:02→19:25)
[2022-01-26] MEDS: Bumetanide 1 MG Tab PO SCH ×2 (07:37→16:17)
[2022-01-26] MEDS: Metoprolol Tartrate 50 MG Tab PO SCH ×2 (07:38→19:26)
[2022-01-26] MEDS: Carbidopa/Levodopa 25-100 MG Tab PO SCH ×3 (07:38→19:25)
[2022-01-26] MEDS: Gabapentin 100 MG Cap PO SCH ×2 (07:40→19:25)
[2022-01-26] MEDS: Famotidine 20 MG Tab PO SCH ×2 (07:40→19:25)
[2022-01-26] MEDS ORDERED: Potassium Chloride Riders 40 MEQ in Premix Bag 1 BAG IV ONE (18:31)
[2022-01-26] MEDS: Potassium Chloride 10 MEQ Tab.ER PO SCH (19:47)
[2022-01-26] MEDS ORDERED: Oxyquinoline/Emollient 0.3% Oint 4 OZ Canister TOP PRN (19:59)
[2022-01-26] MEDS ORDERED: Triamcinolone Acetonide 0.1% Crm 15 GM Tube TOP SCH ×2 (20:00→20:04)
[2022-01-26] MEDS: Menthol/Zinc Oxide Ointment 113 GM Tube TOP SCH (20:32)
[2022-01-27] MEDS: Meropenem 1 GM SDV IV SCH ×2 (04:28→12:50)
[2022-01-27] MEDS: Bumetanide 1 MG Tab PO SCH ×2 (07:59→16:10)
[2022-01-27] MEDS: Famotidine 20 MG Tab PO SCH (08:00)
[2022-01-27] MEDS: Carbidopa/Levodopa 25-100 MG Tab PO SCH ×2 (08:00→13:08)
[2022-01-27] MEDS: Metoprolol Tartrate 50 MG Tab PO SCH (08:00)
[2022-01-27] MEDS: Gabapentin 100 MG Cap PO SCH (08:01)
[2022-01-27] MEDS: Potassium Chloride 10 MEQ Tab.ER PO SCH (08:01)
[2022-01-27] MEDS: Menthol/Zinc Oxide Ointment 113 GM Tube TOP SCH (08:14)
[2022-01-27] MEDS ORDERED: Warfarin 5 MG Tab PO ONE (12:00)
[2022-01-27] MEDS ORDERED: Enoxaparin 40 MG/0.4 ML Syringe SUBCUT SCH ×2 (13:30→20:00)
[2022-01-27 16:18] VITALS: BP 134/80; PULSE 80
[2022-01-28] MEDS ORDERED: Warfarin 5 MG Tab PO SCH (12:00)
== END 2022-01-27 18:21 | disposition swing bed (61) | DRG 606 ==
LOC: UNDOADMIN 09:27 → CC.MS 09:27
PROVIDERS: ADMIT Nurse Practitioner Family; ATTEND Family Medicine
DX: I89.0 Lymphedema, not elsewhere classified (principal); I50.21 Acute systolic (congestive) heart failure; L03.115 Cellulitis of right lower limb; Z68.42 Body mass index [BMI] 45.0-49.9, adult; L03.116 Cellulitis of left lower limb; I48.91 Unspecified atrial fibrillation; E78.00 Pure hypercholesterolemia, unspecified; F41.9 Anxiety disorder, unspecified; F32.A Depression, unspecified; E66.9 Obesity, unspecified; I10 Essential (primary) hypertension; E87.6 Hypokalemia; L29.9 Pruritus, unspecified; Z20.822 Contact with and (suspected) exposure to COVID-19; Z88.1 Allergy status to other antibiotic agents; Z79.899 Other long term (current) drug therapy
CPT/HCPCS: 36415; 80048; 80053; 83735; 85025; 85610; 93005; 97161-GP; A9270-GY; J0690; J1940; J2185; J3410; J3480; U0002

== ENCOUNTER 2022-01-27 15:57 | Inpatient (IN) | payer MEDICARE, BC ==
[2022-01-27] MEDS ORDERED: Polyethylene Glycol 3350 Powder 17 GM Packet PO PRN (19:09)
[2022-01-27] MEDS ORDERED: Oxyquinoline/Emollient 0.3% Oint 1 OZ Canister TOP PRN (19:17)
[2022-01-27] MEDS: Meropenem 1 GM SDV IVPUSH SCH (20:42)
[2022-01-27] MEDS: Gabapentin 100 MG Cap PO SCH (20:44)
[2022-01-27] MEDS: Carbidopa/Levodopa 25-100 MG Tab PO SCH (20:44)
[2022-01-27] MEDS: Famotidine 20 MG Tab PO SCH (20:45)
[2022-01-27] MEDS: Metoprolol Tartrate 50 MG Tab PO SCH (20:45)
[2022-01-27] MEDS: Enoxaparin 40 MG/0.4 ML Syringe SUBCUT SCH (20:46)
[2022-01-27] MEDS: Menthol/Zinc Oxide Ointment 113 GM Tube TOP SCH (20:47)
[2022-01-28] MEDS: Meropenem 1 GM SDV IVPUSH SCH ×3 (04:01→19:27)
[2022-01-28] MEDS: Acetaminophen 325 MG Tab PO PRN (08:09)
[2022-01-28] MEDS: Metoprolol Tartrate 50 MG Tab PO SCH ×2 (08:10→19:28)
[2022-01-28] MEDS: Gabapentin 100 MG Cap PO SCH ×2 (08:10→19:28)
[2022-01-28] MEDS: Carbidopa/Levodopa 25-100 MG Tab PO SCH ×3 (08:10→19:28)
[2022-01-28] MEDS: Famotidine 20 MG Tab PO SCH ×2 (08:10→19:27)
[2022-01-28] MEDS: Potassium Chloride 10 MEQ Tab.ER PO SCH (08:11)
[2022-01-28] MEDS: Menthol/Zinc Oxide Ointment 113 GM Tube TOP SCH ×2 (08:11→19:27)
[2022-01-28] MEDS: Triamcinolone Acetonide 0.1% Crm 15 GM Tube TOP PRN (11:12)
[2022-01-28] MEDS ORDERED: SODIUM HYPOCHLORITE TOP SCH (11:15)
[2022-01-28] MEDS: Warfarin 5 MG Tab PO SCH (11:18)
[2022-01-28] MEDS: Enoxaparin 40 MG/0.4 ML Syringe SUBCUT SCH (19:28)
[2022-01-29] MEDS: Meropenem 1 GM SDV IVPUSH SCH ×3 (04:04→19:44)
[2022-01-29] MEDS: Potassium Chloride 10 MEQ Tab.ER PO SCH (07:59)
[2022-01-29] MEDS: Famotidine 20 MG Tab PO SCH ×2 (07:59→19:44)
[2022-01-29] MEDS: Metoprolol Tartrate 50 MG Tab PO SCH ×2 (08:00→19:48)
[2022-01-29] MEDS: Carbidopa/Levodopa 25-100 MG Tab PO SCH ×3 (08:00→19:44)
[2022-01-29] MEDS: Gabapentin 100 MG Cap PO SCH ×2 (08:00→19:44)
[2022-01-29] MEDS: SODIUM HYPOCHLORITE TOP SCH (08:01)
[2022-01-29] MEDS: Menthol/Zinc Oxide Ointment 113 GM Tube TOP SCH ×2 (08:01→19:46)
[2022-01-29] MEDS: Warfarin 5 MG Tab PO SCH (13:43)
[2022-01-29] MEDS: Enoxaparin 40 MG/0.4 ML Syringe SUBCUT SCH (19:45)
[2022-01-29] MEDS: diphenhydrAMINE 25 MG Cap PO PRN (19:48)
[2022-01-30] MEDS: Meropenem 1 GM SDV IVPUSH SCH ×3 (06:11→19:49)
[2022-01-30] MEDS: Metoprolol Tartrate 50 MG Tab PO SCH ×2 (08:15→19:50)
[2022-01-30] MEDS: Famotidine 20 MG Tab PO SCH ×2 (08:15→19:50)
[2022-01-30] MEDS: diphenhydrAMINE 25 MG Cap PO PRN (08:16)
[2022-01-30] MEDS: Menthol/Zinc Oxide Ointment 113 GM Tube TOP SCH ×2 (08:16→21:53)
[2022-01-30] MEDS: Gabapentin 100 MG Cap PO SCH ×2 (08:16→19:50)
[2022-01-30] MEDS: Carbidopa/Levodopa 25-100 MG Tab PO SCH ×3 (08:16→19:50)
[2022-01-30] MEDS: Potassium Chloride 10 MEQ Tab.ER PO SCH (08:16)
[2022-01-30] MEDS: Warfarin 5 MG Tab PO SCH (12:26)
[2022-01-30] MEDS: Acetaminophen 325 MG Tab PO PRN (19:50)
[2022-01-31] MEDS: Meropenem 1 GM SDV IVPUSH SCH ×3 (04:06→19:32)
[2022-01-31] MEDS: Metoprolol Tartrate 50 MG Tab PO SCH ×2 (08:06→19:33)
[2022-01-31] MEDS: Famotidine 20 MG Tab PO SCH ×2 (08:06→19:34)
[2022-01-31] MEDS: Carbidopa/Levodopa 25-100 MG Tab PO SCH ×3 (08:07→19:33)
[2022-01-31] MEDS: Gabapentin 100 MG Cap PO SCH ×2 (08:07→19:33)
[2022-01-31] MEDS: Potassium Chloride 10 MEQ Tab.ER PO SCH (08:07)
[2022-01-31] MEDS: Menthol/Zinc Oxide Ointment 113 GM Tube TOP SCH ×2 (08:43→20:53)
[2022-01-31] MEDS: Warfarin 5 MG Tab PO SCH (11:38)
[2022-02-01] MEDS: Meropenem 1 GM SDV IVPUSH SCH ×3 (03:59→20:00)
[2022-02-01] MEDS: Acetaminophen 325 MG Tab PO PRN ×3 (06:10→20:02)
[2022-02-01] MEDS: Carbidopa/Levodopa 25-100 MG Tab PO SCH ×3 (07:23→20:00)
[2022-02-01] MEDS: Gabapentin 100 MG Cap PO SCH ×2 (07:23→20:00)
[2022-02-01] MEDS: Menthol/Zinc Oxide Ointment 113 GM Tube TOP SCH ×2 (07:24→20:01)
[2022-02-01] MEDS: Metoprolol Tartrate 50 MG Tab PO SCH ×2 (07:24→20:00)
[2022-02-01] MEDS: Potassium Chloride 10 MEQ Tab.ER PO SCH (07:24)
[2022-02-01] MEDS: Famotidine 20 MG Tab PO SCH ×2 (07:24→20:00)
[2022-02-01] MEDS: SODIUM HYPOCHLORITE TOP SCH (07:28)
[2022-02-01] MEDS ORDERED: Warfarin 2.5 MG Tab PO SCH (12:00)
[2022-02-01] MEDS: tiZANidine 4 MG Tab PO PRN ×2 (14:11→22:16)
[2022-02-02] MEDS: Meropenem 1 GM SDV IVPUSH SCH ×3 (04:30→20:09)
[2022-02-02] MEDS: Potassium Chloride 10 MEQ Tab.ER PO SCH (07:42)
[2022-02-02] MEDS: Carbidopa/Levodopa 25-100 MG Tab PO SCH ×3 (07:42→20:29)
[2022-02-02] MEDS: Famotidine 20 MG Tab PO SCH ×2 (07:42→20:08)
[2022-02-02] MEDS: Metoprolol Tartrate 50 MG Tab PO SCH ×2 (07:42→20:08)
[2022-02-02] MEDS: Gabapentin 100 MG Cap PO SCH ×2 (07:42→20:08)
[2022-02-02] MEDS: Menthol/Zinc Oxide Ointment 113 GM Tube TOP SCH ×2 (07:43→20:09)
[2022-02-02] MEDS ORDERED: [UNRECOGNIZED DRUG - REMARK] SCH (08:00)
[2022-02-02] MEDS: diphenhydrAMINE 25 MG Cap PO PRN (18:08)
[2022-02-03] MEDS: Meropenem 1 GM SDV IVPUSH SCH ×3 (04:50→20:41)
[2022-02-03] MEDS: Metoprolol Tartrate 50 MG Tab PO SCH ×2 (07:46→20:40)
[2022-02-03] MEDS: Potassium Chloride 10 MEQ Tab.ER PO SCH (07:46)
[2022-02-03] MEDS: Famotidine 20 MG Tab PO SCH ×2 (07:46→20:40)
[2022-02-03] MEDS: Carbidopa/Levodopa 25-100 MG Tab PO SCH ×3 (07:46→20:41)
[2022-02-03] MEDS: Gabapentin 100 MG Cap PO SCH ×2 (07:46→20:41)
[2022-02-03] MEDS: Menthol/Zinc Oxide Ointment 113 GM Tube TOP SCH ×2 (07:47→20:00)
[2022-02-04] MEDS: Meropenem 1 GM SDV IVPUSH SCH ×3 (03:57→19:46)
[2022-02-04] MEDS: Gabapentin 100 MG Cap PO SCH ×2 (07:56→19:46)
[2022-02-04] MEDS: Famotidine 20 MG Tab PO SCH ×2 (07:57→19:47)
[2022-02-04] MEDS: Metoprolol Tartrate 50 MG Tab PO SCH ×2 (07:57→19:46)
[2022-02-04] MEDS: Menthol/Zinc Oxide Ointment 113 GM Tube TOP SCH ×2 (07:57→19:47)
[2022-02-04] MEDS: Carbidopa/Levodopa 25-100 MG Tab PO SCH ×3 (07:57→19:46)
[2022-02-04] MEDS: Potassium Chloride 10 MEQ Tab.ER PO SCH (07:57)
[2022-02-04] MEDS: SODIUM HYPOCHLORITE TOP SCH (08:02)
[2022-02-04] MEDS ORDERED: Warfarin 2.5 MG Tab PO SCH (12:00)
[2022-02-05] MEDS: Meropenem 1 GM SDV IVPUSH SCH ×3 (03:25→19:42)
[2022-02-05] MEDS: Potassium Chloride 10 MEQ Tab.ER PO SCH (07:55)
[2022-02-05] MEDS: Metoprolol Tartrate 50 MG Tab PO SCH ×2 (07:56→19:42)
[2022-02-05] MEDS: Famotidine 20 MG Tab PO SCH ×2 (07:56→19:43)
[2022-02-05] MEDS: Gabapentin 100 MG Cap PO SCH ×2 (07:56→19:43)
[2022-02-05] MEDS: Carbidopa/Levodopa 25-100 MG Tab PO SCH ×3 (07:56→19:43)
[2022-02-05] MEDS: Menthol/Zinc Oxide Ointment 113 GM Tube TOP SCH ×2 (08:03→19:44)
[2022-02-05] MEDS: Triamcinolone Acetonide 0.1% Crm 15 GM Tube TOP PRN (08:07)
[2022-02-05] MEDS: Bumetanide 1 MG Tab PO SCH ×2 (09:55→16:21)
[2022-02-06] MEDS: Acetaminophen 325 MG Tab PO PRN (06:00)
[2022-02-06] MEDS: Meropenem 1 GM SDV IVPUSH SCH ×3 (07:03→19:57)
[2022-02-06] MEDS: Gabapentin 100 MG Cap PO SCH ×2 (08:22→19:58)
[2022-02-06] MEDS: Potassium Chloride 10 MEQ Tab.ER PO SCH (08:22)
[2022-02-06] MEDS: Bumetanide 1 MG Tab PO SCH ×2 (08:22→16:52)
[2022-02-06] MEDS: Famotidine 20 MG Tab PO SCH ×2 (08:22→19:58)
[2022-02-06] MEDS: Carbidopa/Levodopa 25-100 MG Tab PO SCH ×3 (08:23→19:58)
[2022-02-06] MEDS: Metoprolol Tartrate 50 MG Tab PO SCH ×2 (08:23→19:58)
[2022-02-06] MEDS: Menthol/Zinc Oxide Ointment 113 GM Tube TOP SCH ×2 (10:14→20:30)
[2022-02-06] MEDS ORDERED: Warfarin 2 MG Tab PO ONE (12:00)
[2022-02-07] MEDS: Meropenem 1 GM SDV IVPUSH SCH ×3 (04:48→19:31)
[2022-02-07] MEDS: Bumetanide 1 MG Tab PO SCH ×2 (07:19→15:13)
[2022-02-07] MEDS: Potassium Chloride 10 MEQ Tab.ER PO SCH (07:20)
[2022-02-07] MEDS: Carbidopa/Levodopa 25-100 MG Tab PO SCH ×3 (07:20→19:31)
[2022-02-07] MEDS: Famotidine 20 MG Tab PO SCH ×2 (07:20→19:31)
[2022-02-07] MEDS: Gabapentin 100 MG Cap PO SCH ×2 (07:20→19:31)
[2022-02-07] MEDS: SODIUM HYPOCHLORITE TOP SCH (07:21)
[2022-02-07] MEDS: Menthol/Zinc Oxide Ointment 113 GM Tube TOP SCH ×2 (07:21→19:32)
[2022-02-07] MEDS: Metoprolol Tartrate 50 MG Tab PO SCH ×2 (07:33→19:31)
[2022-02-08] MEDS: Meropenem 1 GM SDV IVPUSH SCH (04:12)
[2022-02-08] MEDS: Bumetanide 1 MG Tab PO SCH ×2 (08:23→16:08)
[2022-02-08] MEDS: Gabapentin 100 MG Cap PO SCH ×2 (08:23→19:39)
[2022-02-08] MEDS: Famotidine 20 MG Tab PO SCH ×2 (08:24→19:39)
[2022-02-08] MEDS: Carbidopa/Levodopa 25-100 MG Tab PO SCH ×3 (08:24→19:39)
[2022-02-08] MEDS: Metoprolol Tartrate 50 MG Tab PO SCH ×2 (08:24→19:39)
[2022-02-08] MEDS: Potassium Chloride 10 MEQ Tab.ER PO SCH (08:24)
[2022-02-08] MEDS: Menthol/Zinc Oxide Ointment 113 GM Tube TOP SCH ×2 (08:26→19:48)
[2022-02-08] MEDS ORDERED: Warfarin 2 MG Tab PO ONE (12:00)
[2022-02-09] MEDS: Menthol/Zinc Oxide Ointment 113 GM Tube TOP SCH ×2 (07:56→19:25)
[2022-02-09] MEDS: Famotidine 20 MG Tab PO SCH ×2 (07:57→19:17)
[2022-02-09] MEDS: Potassium Chloride 10 MEQ Tab.ER PO SCH (07:57)
[2022-02-09] MEDS: Carbidopa/Levodopa 25-100 MG Tab PO SCH ×3 (07:57→19:18)
[2022-02-09] MEDS: Bumetanide 1 MG Tab PO SCH ×2 (07:58→15:54)
[2022-02-09] MEDS: Gabapentin 100 MG Cap PO SCH ×2 (07:58→19:18)
[2022-02-09] MEDS: Metoprolol Tartrate 50 MG Tab PO SCH ×2 (07:58→19:17)
[2022-02-09] MEDS ORDERED: Warfarin 2.5 MG Tab PO ONE (12:00)
[2022-02-10] MEDS: Carbidopa/Levodopa 25-100 MG Tab PO SCH ×3 (08:01→19:02)
[2022-02-10] MEDS: Metoprolol Tartrate 50 MG Tab PO SCH ×2 (08:01→19:02)
[2022-02-10] MEDS: Bumetanide 1 MG Tab PO SCH ×2 (08:02→15:49)
[2022-02-10] MEDS: Gabapentin 100 MG Cap PO SCH ×2 (08:03→19:02)
[2022-02-10] MEDS: Potassium Chloride 10 MEQ Tab.ER PO SCH (08:03)
[2022-02-10] MEDS: Famotidine 20 MG Tab PO SCH ×2 (08:03→19:02)
[2022-02-10] MEDS: Menthol/Zinc Oxide Ointment 113 GM Tube TOP SCH ×2 (08:03→19:49)
[2022-02-10] MEDS: SODIUM HYPOCHLORITE TOP SCH (08:09)
[2022-02-10] MEDS ORDERED: Warfarin 2.5 MG Tab PO ONE (12:00)
[2022-02-11] MEDS: Potassium Chloride 10 MEQ Tab.ER PO SCH (08:27)
[2022-02-11] MEDS: Metoprolol Tartrate 50 MG Tab PO SCH (08:28)
[2022-02-11] MEDS: Gabapentin 100 MG Cap PO SCH (08:28)
[2022-02-11] MEDS: Bumetanide 1 MG Tab PO SCH (08:28)
[2022-02-11] MEDS: Carbidopa/Levodopa 25-100 MG Tab PO SCH (08:28)
[2022-02-11] MEDS: Famotidine 20 MG Tab PO SCH (08:28)
[2022-02-11] MEDS: Menthol/Zinc Oxide Ointment 113 GM Tube TOP SCH (08:29)
[2022-02-11 08:30] VITALS: BP 132/77; PULSE 79
[2022-02-11] MEDS ORDERED: Warfarin 2 MG Tab PO SCH (12:00)
== END 2022-02-11 13:10 | disposition home health service (06) | DRG 948 ==
LOC: CC.MS 15:57 → UNDOADMIN 18:27 → CC.MS 18:27
PROVIDERS: ADMIT Physician Assistant; ATTEND Nurse Practitioner Family
DX: R53.1 Weakness (principal); L03.116 Cellulitis of left lower limb; I50.22 Chronic systolic (congestive) heart failure; L03.115 Cellulitis of right lower limb; I48.91 Unspecified atrial fibrillation; N28.9 Disorder of kidney and ureter, unspecified; I89.0 Lymphedema, not elsewhere classified; Z79.899 Other long term (current) drug therapy; Z79.01 Long term (current) use of anticoagulants; M62.838 Other muscle spasm
CPT/HCPCS: 36415; 71046; 80048; 80053; 82947; 83735; 85025; 85610; 94760; 97110-GP; 97161-GP; A9270-GY; J1650; J2185

== ENCOUNTER 2022-02-17 00:40 | Emergency (ER) | payer MEDICARE, BC ==
[2022-02-17 00:49] VITALS: BP 136/74; PULSE 83
== END 2022-02-17 01:10 | disposition home or self-care (01) ==
LOC: CC.ED 00:40
DX: S90.414A Abrasion, right lesser toe(s), initial encounter (principal); R60.0 Localized edema; I48.91 Unspecified atrial fibrillation; E78.00 Pure hypercholesterolemia, unspecified; I10 Essential (primary) hypertension; E66.9 Obesity, unspecified; Z68.41 Body mass index [BMI] 40.0-44.9, adult; Z88.0 Allergy status to penicillin; Z88.1 Allergy status to other antibiotic agents; Z88.8 Allergy status to other drugs, medicaments and biological substances; W22.09XA Striking against other stationary object, initial encounter
CPT/HCPCS: 99283; 99284

== ENCOUNTER 2022-03-28 09:46 | Observation (INO) | payer MEDICARE, BC ==
[2022-03-28 10:11] LABS: CHLORIDE,CL 104 mEq/L (98-106); SODIUM,NA 144 mEq/L (136-145)
[2022-03-28] MEDS ORDERED: Sodium Chloride 0.9% 10 ML Syringe FLUSH PRN (10:52)
[2022-03-28] MEDS ORDERED: Bumetanide 1 MG Tab PO ONE (14:09)
[2022-03-28] MEDS: Doxycycline 100 MG Tab PO SCH ×2 (14:30→19:05)
[2022-03-28] MEDS: Acetaminophen 500 MG Tab PO PRN (14:30)
[2022-03-29] MEDS: Doxycycline 100 MG Tab PO SCH (07:51)
[2022-03-29] MEDS ORDERED: BUMETANIDE 2 MG PO SCH (08:00)
[2022-03-29] MEDS ORDERED: Metoprolol Tartrate 50 MG Tab **PTOM PO SCH (08:00)
[2022-03-29] MEDS ORDERED: Gabapentin 100 MG Cap **PTOM PO SCH (08:00)
[2022-03-29] MEDS ORDERED: POTASSIUM CHLORIDE 20 MEQ PO SCH (08:00)
[2022-03-29] MEDS ORDERED: Carbidopa/Levodopa 25-100 MG Tab **PTOM PO SCH (08:00)
[2022-03-29 08:25] VITALS: BP 131/76; PULSE 71
[2022-03-29] MEDS: Acetaminophen 500 MG Tab PO PRN (09:12)
[2022-03-29] MEDS ORDERED: WARFARIN 2 MG PO SCH (12:00)
== END 2022-03-29 13:50 | disposition home or self-care (01) ==
LOC: CC.MS 09:46 → CC.FCMC 09:46 → UNDOADMOB 10:32 → CC.MS 10:32
PROVIDERS: ADMIT Family Medicine; ATTEND Nurse Practitioner Family
DX: I89.0 Lymphedema, not elsewhere classified (principal); I48.91 Unspecified atrial fibrillation; E78.00 Pure hypercholesterolemia, unspecified; G20 Parkinson's disease; I10 Essential (primary) hypertension; E66.9 Obesity, unspecified; Z88.0 Allergy status to penicillin; Z88.1 Allergy status to other antibiotic agents; Z88.2 Allergy status to sulfonamides; Z79.899 Other long term (current) drug therapy; Z79.01 Long term (current) use of anticoagulants; Z68.42 Body mass index [BMI] 45.0-49.9, adult
CPT/HCPCS: 36415; 71045; 80048; 81003; 83605; 83880; 85025; 85610; 86140; 97161-GP; A9270-GY; G0378; G0379

== ENCOUNTER 2022-04-17 15:04 | Emergency (ER) | payer MEDICARE, BC ==
[2022-04-17] MEDS ORDERED: Sodium Chloride 0.9% 10 ML Syringe FLUSH PRN (15:32)
[2022-04-17 16:13] VITALS: BP 127/82; PULSE 92
== END 2022-04-17 18:40 | disposition home or self-care (01) ==
LOC: CC.ED 15:04
DX: I48.91 Unspecified atrial fibrillation (principal); S51.819A Laceration without foreign body of unspecified forearm, initial encounter; R79.1 Abnormal coagulation profile; R60.0 Localized edema; E78.00 Pure hypercholesterolemia, unspecified; I10 Essential (primary) hypertension; E66.9 Obesity, unspecified; Z68.30 Body mass index [BMI] 30.0-30.9, adult; Z88.0 Allergy status to penicillin; Z88.1 Allergy status to other antibiotic agents; Z88.8 Allergy status to other drugs, medicaments and biological substances; Z79.01 Long term (current) use of anticoagulants; W18.30XA Fall on same level, unspecified, initial encounter
CPT/HCPCS: 36415; 71250; 72125; 74176; 80053; 81003; 84484; 85025; 85610; 93005; 99284-25; 99285

== ENCOUNTER 2022-04-29 09:00 | Emergency (ER) | payer MEDICARE, BC ==
[2022-04-29 09:41] LABS: CHLORIDE,CL 104 mEq/L (98-106); SODIUM,NA 144 mEq/L (136-145)
[2022-04-29] MEDS ORDERED: Acetaminophen 325 MG Tab PO ONE (10:27)
[2022-04-29 12:31] VITALS: BP 139/89; PULSE 87
== END 2022-04-29 11:40 | disposition home or self-care (01) ==
LOC: CC.ED 09:00
DX: S06.0X0A Concussion without loss of consciousness, initial encounter (principal); S16.1XXA Strain of muscle, fascia and tendon at neck level, initial encounter; S20.212A Contusion of left front wall of thorax, initial encounter; S50.312A Abrasion of left elbow, initial encounter; M25.551 Pain in right hip; E78.00 Pure hypercholesterolemia, unspecified; I10 Essential (primary) hypertension; E66.9 Obesity, unspecified; Z88.0 Allergy status to penicillin; Z88.1 Allergy status to other antibiotic agents; Z68.41 Body mass index [BMI] 40.0-44.9, adult; Z79.01 Long term (current) use of anticoagulants; W18.09XA Striking against other object with subsequent fall, initial encounter
CPT/HCPCS: 36415; 70450; 71250; 72125; 80053; 85025; 85610; 99284; 99284-25; A9270-GY

== ENCOUNTER 2022-06-20 14:12 | Emergency (ER) | payer MEDICARE, BC ==
[2022-06-20 14:24] VITALS: PULSE 88
[2022-06-20 14:27] VITALS: BP 132/83
== END 2022-06-20 15:25 | disposition home or self-care (01) ==
LOC: CC.ED 14:12
DX: L03.115 Cellulitis of right lower limb (principal); I89.0 Lymphedema, not elsewhere classified; I10 Essential (primary) hypertension; E66.9 Obesity, unspecified; Z68.42 Body mass index [BMI] 45.0-49.9, adult; Z88.1 Allergy status to other antibiotic agents; Z88.8 Allergy status to other drugs, medicaments and biological substances; Z79.899 Other long term (current) drug therapy; Z79.01 Long term (current) use of anticoagulants
CPT/HCPCS: 99283

== ENCOUNTER 2022-06-21 23:43 | Emergency (ER) | payer MEDICARE, BC ==
[2022-06-21 23:53] VITALS: BP 140/98; PULSE 80
[2022-06-22] MEDS: Sodium Chloride 0.9% 500 ML IV SCH (00:04)
[2022-06-22] MEDS: diphenhydrAMINE 50 MG/ML SDV IVPUSH STA (00:06)
[2022-06-22] MEDS: methylPREDNISolone Sodium Succinate 125 MG/2 ML SDV IVPUSH STA (00:10)
[2022-06-22] MEDS: Take Home: predniSONE 20 MG, 2 Tab Pack PO ONE (00:18)
== END 2022-06-22 00:44 | disposition home or self-care (01) ==
LOC: CC.ED 23:43
DX: L50.0 Allergic urticaria (principal); I10 Essential (primary) hypertension; I48.91 Unspecified atrial fibrillation; E78.00 Pure hypercholesterolemia, unspecified; E66.9 Obesity, unspecified; Z68.42 Body mass index [BMI] 45.0-49.9, adult; Z88.0 Allergy status to penicillin; Z88.1 Allergy status to other antibiotic agents; Z88.8 Allergy status to other drugs, medicaments and biological substances; Z79.01 Long term (current) use of anticoagulants
CPT/HCPCS: 96374; 96375; 99283; 99283-25; J1200; J2930; J7040; J7512

== ENCOUNTER 2022-07-02 14:10 | Inpatient (IN) | payer MEDICARE, BC ==
[2022-07-02] MEDS ORDERED: Ondansetron 4 MG Tab.DIS PO PRN (15:06)
[2022-07-02] MEDS ORDERED: Ondansetron 4 MG/2 ML SDV IV PRN (15:06)
[2022-07-02] MEDS ORDERED: TRIAMCINOLONE ACETONIDE 0.025% TOP PRN (16:23)
[2022-07-02] MEDS ORDERED: PETROLATUM WHITE TOP PRN (16:23)
[2022-07-02] MEDS ORDERED: LANOLIN TOP PRN (16:23)
[2022-07-02] MEDS: cefTRIAXone 1 GM Vial IVPUSH SCH (17:05)
[2022-07-02] MEDS: Metoprolol Tartrate 50 MG Tab PO SCH (19:54)
[2022-07-02] MEDS: Gabapentin 100 MG Cap PO SCH (19:54)
[2022-07-02] MEDS: Carbidopa/Levodopa 25-100 MG Tab PO SCH (19:55)
[2022-07-02] MEDS ORDERED: Bumetanide 1 MG Tab PO ONE (20:29)
[2022-07-03] MEDS: Gabapentin 100 MG Cap PO SCH ×2 (07:55→20:44)
[2022-07-03] MEDS: Carbidopa/Levodopa 25-100 MG Tab PO SCH ×3 (07:55→20:44)
[2022-07-03] MEDS: Potassium Chloride 10 MEQ Tab.ER PO SCH (07:56)
[2022-07-03] MEDS: Bumetanide 1 MG Tab PO SCH ×2 (07:56→16:48)
[2022-07-03] MEDS: Metoprolol Tartrate 50 MG Tab PO SCH ×2 (07:57→20:44)
[2022-07-03] MEDS: diphenhydrAMINE 25 MG Cap PO PRN ×2 (07:59→20:47)
[2022-07-03] MEDS ORDERED: SODIUM HYPOCHLORITE TOP PRN (08:00)
[2022-07-03] MEDS: Warfarin 2 MG Tab PO SCH (11:51)
[2022-07-03] MEDS: Nystatin Topical Powder 15 GM Bottle TOP PRN (11:51)
[2022-07-03] MEDS: cefTRIAXone 1 GM Vial IVPUSH SCH (16:48)
[2022-07-04] MEDS: Carbidopa/Levodopa 25-100 MG Tab PO SCH ×3 (07:49→20:00)
[2022-07-04] MEDS: Gabapentin 100 MG Cap PO SCH ×2 (07:49→19:59)
[2022-07-04] MEDS: Potassium Chloride 10 MEQ Tab.ER PO SCH (07:49)
[2022-07-04] MEDS: Bumetanide 1 MG Tab PO SCH ×2 (07:49→16:26)
[2022-07-04] MEDS: Metoprolol Tartrate 50 MG Tab PO SCH ×2 (07:51→20:00)
[2022-07-04] MEDS: diphenhydrAMINE 25 MG Cap PO PRN ×2 (07:53→20:05)
[2022-07-04] MEDS: Warfarin 2 MG Tab PO SCH (11:55)
[2022-07-04] MEDS: cefTRIAXone 1 GM Vial IVPUSH SCH (16:27)
[2022-07-04] MEDS: Acetaminophen 325 MG Tab PO PRN (20:06)
[2022-07-05] MEDS: Potassium Chloride 10 MEQ Tab.ER PO SCH (08:03)
[2022-07-05] MEDS: Gabapentin 100 MG Cap PO SCH ×2 (08:04→19:38)
[2022-07-05] MEDS: Metoprolol Tartrate 50 MG Tab PO SCH ×2 (08:04→19:38)
[2022-07-05] MEDS: Bumetanide 1 MG Tab PO SCH ×2 (08:04→15:36)
[2022-07-05] MEDS: Carbidopa/Levodopa 25-100 MG Tab PO SCH ×3 (08:04→19:38)
[2022-07-05] MEDS ORDERED: hydrOXYzine HCl 25 MG Tab PO PRN (11:42)
[2022-07-05] MEDS ORDERED: methylPREDNISolone Sodium Succinate 125 MG/2 ML SDV IVPUSH STA (11:44)
[2022-07-05] MEDS ORDERED: Potassium Chloride 10 MEQ Tab.ER PO ONE (12:00)
[2022-07-05] MEDS: Warfarin 2 MG Tab PO SCH (12:13)
[2022-07-05] MEDS: Meropenem 1 GM SDV IVPUSH SCH ×2 (12:18→19:38)
[2022-07-05] MEDS: Loratadine 10 MG Tab PO SCH (13:17)
[2022-07-05] MEDS: Acetaminophen 325 MG Tab PO PRN (15:28)
[2022-07-05] MEDS: Nystatin Topical Powder 15 GM Bottle TOP PRN (19:39)
[2022-07-06] MEDS: Meropenem 1 GM SDV IVPUSH SCH (04:21)
[2022-07-06] MEDS: Metoprolol Tartrate 50 MG Tab PO SCH (07:36)
[2022-07-06] MEDS: Loratadine 10 MG Tab PO SCH (07:36)
[2022-07-06] MEDS: Carbidopa/Levodopa 25-100 MG Tab PO SCH (07:37)
[2022-07-06] MEDS: Bumetanide 1 MG Tab PO SCH (07:37)
[2022-07-06] MEDS: Potassium Chloride 10 MEQ Tab.ER PO SCH (07:37)
[2022-07-06] MEDS: Gabapentin 100 MG Cap PO SCH (07:37)
[2022-07-06] MEDS: Acetaminophen 325 MG Tab PO PRN (07:45)
[2022-07-06 08:33] VITALS: BP 139/90; PULSE 73
== END 2022-07-06 10:41 | disposition swing bed (61) | DRG 603 ==
LOC: CC.MS 14:10 → UNDOADMIN 14:10 → CC.MS 15:06
PROVIDERS: ADMIT Family Medicine; ATTEND Nurse Practitioner Family
DX: L03.116 Cellulitis of left lower limb (principal); Z68.42 Body mass index [BMI] 45.0-49.9, adult; L03.115 Cellulitis of right lower limb; I89.0 Lymphedema, not elsewhere classified; I48.91 Unspecified atrial fibrillation; E78.5 Hyperlipidemia, unspecified; I10 Essential (primary) hypertension; F41.9 Anxiety disorder, unspecified; F32.A Depression, unspecified; E66.9 Obesity, unspecified; I87.2 Venous insufficiency (chronic) (peripheral); Z20.822 Contact with and (suspected) exposure to COVID-19; L27.0 Generalized skin eruption due to drugs and medicaments taken internally; T50.995A Adverse effect of other drugs, medicaments and biological substances, initial encounter; Z86.19 Personal history of other infectious and parasitic diseases; Z79.899 Other long term (current) drug therapy; Z79.01 Long term (current) use of anticoagulants; Z87.81 Personal history of (healed) traumatic fracture; Y92.89 Other specified places as the place of occurrence of the external cause
CPT/HCPCS: 36415; 80053; 83735; 85025; 85610; 86140; 97110-GP; 97161-GP; 99223; 99232; 99233; 99238; A9270-GY; J0696; J2185; J2930; U0002

== ENCOUNTER 2022-07-06 10:45 | Inpatient (IN) | payer MEDICARE, BC ==
[2022-07-06] MEDS ORDERED: Ondansetron 4 MG Tab.DIS PO PRN (11:09)
[2022-07-06] MEDS ORDERED: PETROLATUM WHITE TOP PRN (11:15)
[2022-07-06] MEDS ORDERED: LANOLIN TOP PRN (11:15)
[2022-07-06] MEDS ORDERED: Triamcinolone Acetonide 0.1% Crm 15 GM Tube TOP PRN (11:15)
[2022-07-06] MEDS ORDERED: hydrOXYzine HCl 25 MG Tab PO PRN (11:17)
[2022-07-06] MEDS ORDERED: diphenhydrAMINE 25 MG Cap PO PRN (11:18)
[2022-07-06] MEDS: Metoprolol Tartrate 50 MG Tab PO SCH ×2 (11:38→19:42)
[2022-07-06] MEDS: Meropenem 1 GM SDV IVPUSH SCH ×2 (11:56→19:38)
[2022-07-06] MEDS: Carbidopa/Levodopa 25-100 MG Tab PO SCH ×2 (13:18→19:42)
[2022-07-06] MEDS: Bumetanide 1 MG Tab PO SCH (15:18)
[2022-07-06] MEDS: Gabapentin 100 MG Cap PO SCH (19:41)
[2022-07-06] MEDS: Acetaminophen 500 MG Tab PO PRN (19:41)
[2022-07-07] MEDS: Meropenem 1 GM SDV IVPUSH SCH ×3 (03:13→20:06)
[2022-07-07] MEDS: Potassium Chloride 10 MEQ Tab.ER PO SCH (07:46)
[2022-07-07] MEDS: Gabapentin 100 MG Cap PO SCH ×2 (07:47→20:11)
[2022-07-07] MEDS: Bumetanide 1 MG Tab PO SCH ×2 (07:48→16:58)
[2022-07-07] MEDS: Metoprolol Tartrate 50 MG Tab PO SCH ×2 (07:48→20:12)
[2022-07-07] MEDS: Carbidopa/Levodopa 25-100 MG Tab PO SCH ×3 (07:48→20:10)
[2022-07-07] MEDS: Loratadine 10 MG Tab PO SCH (07:48)
[2022-07-07] MEDS ORDERED: SODIUM HYPOCHLORITE TOP PRN (08:00)
[2022-07-07] MEDS: Acetaminophen 500 MG Tab PO PRN ×2 (08:04→20:19)
[2022-07-07] MEDS ORDERED: Magnesium Hydroxide 400 MG/5 ML Susp 30 ML Cup PO PRN (20:24)
[2022-07-07] MEDS: Docusate Sodium 100 MG Cap PO SCH (20:41)
[2022-07-08] MEDS: Meropenem 1 GM SDV IVPUSH SCH ×3 (04:01→19:19)
[2022-07-08] MEDS: Acetaminophen 500 MG Tab PO PRN (07:51)
[2022-07-08] MEDS: Docusate Sodium 100 MG Cap PO SCH (07:52)
[2022-07-08] MEDS: Metoprolol Tartrate 50 MG Tab PO SCH ×2 (07:52→19:17)
[2022-07-08] MEDS: Potassium Chloride 10 MEQ Tab.ER PO SCH (07:53)
[2022-07-08] MEDS: Gabapentin 100 MG Cap PO SCH ×2 (07:53→19:18)
[2022-07-08] MEDS: Bumetanide 1 MG Tab PO SCH ×2 (07:53→17:29)
[2022-07-08] MEDS: Carbidopa/Levodopa 25-100 MG Tab PO SCH ×3 (07:53→19:18)
[2022-07-08] MEDS: Loratadine 10 MG Tab PO SCH (07:54)
[2022-07-08] MEDS ORDERED: cloNIDine 0.1 MG Tab PO STA (09:50)
[2022-07-08] MEDS: Warfarin 2.5 MG Tab PO SCH (12:15)
[2022-07-09] MEDS: Meropenem 1 GM SDV IVPUSH SCH ×3 (03:23→20:06)
[2022-07-09] MEDS: Acetaminophen 500 MG Tab PO PRN (04:44)
[2022-07-09] MEDS: Gabapentin 100 MG Cap PO SCH ×2 (07:54→20:09)
[2022-07-09] MEDS: Docusate Sodium 100 MG Cap PO SCH (07:55)
[2022-07-09] MEDS: Bumetanide 1 MG Tab PO SCH ×2 (07:55→15:11)
[2022-07-09] MEDS: Loratadine 10 MG Tab PO SCH (07:56)
[2022-07-09] MEDS: Carbidopa/Levodopa 25-100 MG Tab PO SCH ×3 (07:56→20:09)
[2022-07-09] MEDS: Potassium Chloride 10 MEQ Tab.ER PO SCH (07:56)
[2022-07-09] MEDS: Metoprolol Tartrate 50 MG Tab PO SCH ×2 (07:57→20:10)
[2022-07-09 09:37] LABS: CORONAVIRUS COVID-19 NAA NEGATIVE (NEGATIVE)
[2022-07-09] MEDS: Warfarin 2.5 MG Tab PO SCH (11:46)
[2022-07-10] MEDS: Meropenem 1 GM SDV IVPUSH SCH ×3 (03:23→19:08)
[2022-07-10] MEDS: Acetaminophen 500 MG Tab PO PRN ×2 (07:56→15:42)
[2022-07-10] MEDS: Loratadine 10 MG Tab PO SCH (07:57)
[2022-07-10] MEDS: Carbidopa/Levodopa 25-100 MG Tab PO SCH ×3 (07:57→19:09)
[2022-07-10] MEDS: Metoprolol Tartrate 50 MG Tab PO SCH ×2 (07:57→19:08)
[2022-07-10] MEDS: Potassium Chloride 10 MEQ Tab.ER PO SCH (07:57)
[2022-07-10] MEDS: Bumetanide 1 MG Tab PO SCH ×2 (07:57→15:00)
[2022-07-10] MEDS: Gabapentin 100 MG Cap PO SCH ×2 (07:57→19:09)
[2022-07-10] MEDS: Docusate Sodium 100 MG Cap PO SCH (07:57)
[2022-07-10] MEDS: Warfarin 2.5 MG Tab PO SCH (11:32)
[2022-07-10] MEDS ORDERED: Oxyquinoline/Emollient 0.3% Oint 4 OZ Canister TOP PRN (19:18)
[2022-07-11] MEDS: Acetaminophen 500 MG Tab PO PRN ×2 (02:38→10:52)
[2022-07-11] MEDS: Meropenem 1 GM SDV IVPUSH SCH ×2 (03:30→11:47)
[2022-07-11] MEDS: Gabapentin 100 MG Cap PO SCH (08:18)
[2022-07-11] MEDS: Carbidopa/Levodopa 25-100 MG Tab PO SCH ×2 (08:18→13:37)
[2022-07-11] MEDS: Bumetanide 1 MG Tab PO SCH (08:18)
[2022-07-11] MEDS: Potassium Chloride 10 MEQ Tab.ER PO SCH (08:19)
[2022-07-11] MEDS: Loratadine 10 MG Tab PO SCH (08:19)
[2022-07-11] MEDS: Docusate Sodium 100 MG Cap PO SCH (08:19)
[2022-07-11] MEDS: Metoprolol Tartrate 50 MG Tab PO SCH (08:19)
[2022-07-11 08:20] VITALS: BP 156/99; PULSE 63
[2022-07-11] MEDS: Warfarin 2.5 MG Tab PO SCH (11:47)
== END 2022-07-11 14:05 | disposition home or self-care (01) | DRG 603 ==
LOC: CC.MS 10:45 → UNDOADMIN 10:45 → CC.MS 11:09
PROVIDERS: ADMIT Nurse Practitioner Family; ATTEND Nurse Practitioner Family
DX: L03.115 Cellulitis of right lower limb (principal); L03.116 Cellulitis of left lower limb; I89.0 Lymphedema, not elsewhere classified; Z20.822 Contact with and (suspected) exposure to COVID-19; R53.1 Weakness; L25.9 Unspecified contact dermatitis, unspecified cause; M50.30 Other cervical disc degeneration, unspecified cervical region
CPT/HCPCS: 0240U; 36415; 80053; 83735; 85025; 85610; 86140; 97035-GP; 97110-GP; A9270-GY; G0283-GP; J2185

== ENCOUNTER 2022-09-24 13:46 | Inpatient (IN) | payer MEDICARE, BC ==
[2022-09-24] MEDS: Meropenem 1 GM SDV IVPUSH SCH (15:41)
[2022-09-24] MEDS: Bumetanide 1 MG Tab PO SCH (15:49)
[2022-09-24] MEDS ORDERED: Triamcinolone Acetonide 0.1% Crm 15 GM Tube TOP PRN (15:53)
[2022-09-24] MEDS: Gabapentin 100 MG Cap PO SCH (20:01)
[2022-09-24] MEDS: Metoprolol Tartrate 50 MG Tab PO SCH (20:02)
[2022-09-24] MEDS: Carbidopa/Levodopa 25-100 MG Tab PO SCH (20:06)
[2022-09-25] MEDS: Meropenem 1 GM SDV IVPUSH SCH ×4 (00:01→23:38)
[2022-09-25] MEDS ORDERED: [UNRECOGNIZED DRUG - OTHER] MC SCH (08:00)
[2022-09-25] MEDS: Carbidopa/Levodopa 25-100 MG Tab PO SCH ×3 (08:00→20:13)
[2022-09-25] MEDS ORDERED: SODIUM HYPOCHLORITE MC SCH (08:00)
[2022-09-25] MEDS: Gabapentin 100 MG Cap PO SCH ×2 (08:00→20:13)
[2022-09-25] MEDS: Potassium Chloride 10 MEQ Tab.ER PO SCH (08:00)
[2022-09-25] MEDS: Bumetanide 1 MG Tab PO SCH ×2 (08:01→16:05)
[2022-09-25] MEDS: Metoprolol Tartrate 50 MG Tab PO SCH ×2 (08:01→20:12)
[2022-09-25] MEDS: Warfarin 2.5 MG Tab PO SCH (11:52)
[2022-09-25] MEDS: Acetaminophen 500 MG Tab PO PRN (20:12)
[2022-09-26] MEDS: Potassium Chloride 10 MEQ Tab.ER PO SCH (07:51)
[2022-09-26] MEDS: Metoprolol Tartrate 50 MG Tab PO SCH ×2 (07:51→20:06)
[2022-09-26] MEDS: Gabapentin 100 MG Cap PO SCH ×2 (07:51→20:06)
[2022-09-26] MEDS: Carbidopa/Levodopa 25-100 MG Tab PO SCH ×3 (07:51→20:06)
[2022-09-26] MEDS: Meropenem 1 GM SDV IVPUSH SCH ×2 (07:51→16:26)
[2022-09-26] MEDS: Bumetanide 1 MG Tab PO SCH ×2 (07:51→16:26)
[2022-09-26] MEDS: Warfarin 2.5 MG Tab PO SCH (11:46)
[2022-09-26] MEDS: Acetaminophen 500 MG Tab PO PRN (11:53)
[2022-09-27] MEDS: Meropenem 1 GM SDV IVPUSH SCH ×2 (00:45→08:07)
[2022-09-27] MEDS: Acetaminophen 500 MG Tab PO PRN (08:07)
[2022-09-27] MEDS: Potassium Chloride 10 MEQ Tab.ER PO SCH (08:08)
[2022-09-27] MEDS: Metoprolol Tartrate 50 MG Tab PO SCH ×2 (08:09→20:04)
[2022-09-27] MEDS: Carbidopa/Levodopa 25-100 MG Tab PO SCH ×3 (08:09→19:57)
[2022-09-27] MEDS: Gabapentin 100 MG Cap PO SCH ×2 (08:09→19:56)
[2022-09-27] MEDS: Bumetanide 1 MG Tab PO SCH ×2 (08:10→15:50)
[2022-09-27] MEDS ORDERED: traMADol 50 MG Tab PO ONE (08:41)
[2022-09-27] MEDS: Warfarin 2.5 MG Tab PO SCH (12:18)
[2022-09-27] MEDS: Acetaminophen/HYDROcodone 325-5 MG Tab PO PRN ×2 (15:51→21:52)
[2022-09-28] MEDS: Acetaminophen/HYDROcodone 325-5 MG Tab PO PRN ×2 (04:05→15:02)
[2022-09-28] MEDS: Potassium Chloride 10 MEQ Tab.ER PO SCH (07:49)
[2022-09-28] MEDS: Metoprolol Tartrate 50 MG Tab PO SCH (07:50)
[2022-09-28] MEDS: Gabapentin 100 MG Cap PO SCH (07:50)
[2022-09-28] MEDS: Carbidopa/Levodopa 25-100 MG Tab PO SCH ×2 (07:50→15:02)
[2022-09-28] MEDS: Bumetanide 1 MG Tab PO SCH (07:50)
[2022-09-28] MEDS: Warfarin 2.5 MG Tab PO SCH (11:59)
[2022-09-28 16:16] VITALS: BP 132/80; PULSE 90
== END 2022-09-28 15:45 | disposition home or self-care (01) | DRG 603 ==
LOC: CC.MS 13:46 → UNDOADMIN 13:46 → CC.MS 14:19
PROVIDERS: ADMIT Family Medicine; ATTEND Nurse Practitioner Family
PROC: XW033N5 Introduction of Meropenem-vaborbactam Anti-infective into Peripheral Vein, Percutaneous Approach, New Technology Group 5 (ICD-10-PCS; principal; 2022-09-24)
DX: L03.116 Cellulitis of left lower limb (principal); S22.31XA Fracture of one rib, right side, initial encounter for closed fracture; L03.115 Cellulitis of right lower limb; I89.0 Lymphedema, not elsewhere classified; I48.91 Unspecified atrial fibrillation; E78.00 Pure hypercholesterolemia, unspecified; I10 Essential (primary) hypertension; M54.2 Cervicalgia; G89.29 Other chronic pain; G20 Parkinson's disease; Z79.01 Long term (current) use of anticoagulants; Z88.0 Allergy status to penicillin; Z88.1 Allergy status to other antibiotic agents; W19.XXXA Unspecified fall, initial encounter; Y92.239 Unspecified place in hospital as the place of occurrence of the external cause
CPT/HCPCS: 36415; 71101-RT; 80053; 85025; 85610; 86140; 97110-GP; 97161-GP; A9270-GY; J2185

== ENCOUNTER 2022-10-03 13:34 | Inpatient (IN) | payer MEDICARE, BC ==
[2022-10-03] MEDS ORDERED: Acetaminophen 325 MG Tab PO PRN (16:59)
[2022-10-03] MEDS ORDERED: Calcium Carbonate 500 MG Tab.Chew PO PRN (16:59)
[2022-10-03] MEDS ORDERED: Triamcinolone Acetonide 0.1% Crm 15 GM Tube TOP PRN (17:01)
[2022-10-03] MEDS ORDERED: Acetaminophen 500 MG Tab PO PRN (17:01)
[2022-10-03] MEDS: Metoprolol Tartrate 50 MG Tab PO SCH (19:16)
[2022-10-03] MEDS: Gabapentin 100 MG Cap PO SCH (19:17)
[2022-10-03] MEDS: Carbidopa/Levodopa 25-100 MG Tab PO SCH (19:17)
[2022-10-03] MEDS: Acetaminophen/HYDROcodone 325-5 MG Tab PO PRN (19:22)
[2022-10-04] MEDS: Gabapentin 100 MG Cap PO SCH ×2 (08:03→20:50)
[2022-10-04] MEDS: Carbidopa/Levodopa 25-100 MG Tab PO SCH ×3 (08:03→20:50)
[2022-10-04] MEDS: Bumetanide 1 MG Tab PO SCH ×2 (08:03→15:28)
[2022-10-04] MEDS: Metoprolol Tartrate 50 MG Tab PO SCH ×2 (08:24→20:57)
[2022-10-04] MEDS: Acetaminophen/HYDROcodone 325-5 MG Tab PO PRN ×2 (09:10→20:56)
[2022-10-04] MEDS ORDERED: fentaNYL 50 MCG/ML SDV IVPUSH PRN (13:03)
[2022-10-04] MEDS ORDERED: Morphine 4 MG/ML VIAL IVPUSH PRN (13:07)
[2022-10-04] MEDS: Lidocaine 5% 700 MG Patch TRDERM SCH ×2 (15:28→15:48)
[2022-10-05] MEDS: Acetaminophen/HYDROcodone 325-5 MG Tab PO PRN ×3 (03:38→16:08)
[2022-10-05] MEDS: Lidocaine 5% 700 MG Patch TRDERM SCH ×2 (07:54→07:55)
[2022-10-05] MEDS: Bumetanide 1 MG Tab PO SCH ×2 (07:54→16:08)
[2022-10-05] MEDS: Gabapentin 100 MG Cap PO SCH ×2 (07:56→19:56)
[2022-10-05] MEDS: Carbidopa/Levodopa 25-100 MG Tab PO SCH ×3 (07:56→19:56)
[2022-10-05] MEDS: Metoprolol Tartrate 50 MG Tab PO SCH ×2 (10:05→19:57)
[2022-10-05] MEDS: Docusate Sodium 100 MG Cap PO PRN (20:07)
[2022-10-06] MEDS: Acetaminophen/HYDROcodone 325-5 MG Tab PO PRN ×4 (01:15→21:08)
[2022-10-06] MEDS: Bumetanide 1 MG Tab PO SCH ×2 (08:14→16:19)
[2022-10-06] MEDS: Carbidopa/Levodopa 25-100 MG Tab PO SCH ×3 (08:14→19:41)
[2022-10-06] MEDS: Gabapentin 100 MG Cap PO SCH ×2 (08:15→19:40)
[2022-10-06] MEDS: Docusate Sodium 100 MG Cap PO PRN (08:15)
[2022-10-06] MEDS: Lidocaine 5% 700 MG Patch TRDERM SCH ×2 (08:16→08:17)
[2022-10-06] MEDS: Metoprolol Tartrate 50 MG Tab PO SCH ×2 (08:17→19:40)
[2022-10-06] MEDS: Warfarin 2.5 MG Tab PO SCH (12:25)
[2022-10-06 19:41] VITALS: PULSE 91
[2022-10-06] MEDS: Polyethylene Glycol 3350 Powder 17 GM Packet PO SCH (20:14)
[2022-10-07] MEDS: Acetaminophen/HYDROcodone 325-5 MG Tab PO PRN ×3 (03:04→16:08)
[2022-10-07] MEDS: Lidocaine 5% 700 MG Patch TRDERM SCH ×2 (07:50→07:51)
[2022-10-07] MEDS: Polyethylene Glycol 3350 Powder 17 GM Packet PO SCH (07:50)
[2022-10-07] MEDS: Docusate Sodium 100 MG Cap PO PRN (07:51)
[2022-10-07] MEDS: Gabapentin 100 MG Cap PO SCH ×2 (07:51→19:32)
[2022-10-07] MEDS: Bumetanide 1 MG Tab PO SCH ×2 (07:51→16:07)
[2022-10-07] MEDS: Carbidopa/Levodopa 25-100 MG Tab PO SCH ×3 (07:51→19:32)
[2022-10-07] MEDS: Metoprolol Tartrate 50 MG Tab PO SCH ×2 (07:52→19:32)
[2022-10-07] MEDS: Warfarin 2.5 MG Tab PO SCH (11:37)
[2022-10-07 19:31] VITALS: BP 94/49
== END 2022-10-07 21:16 | disposition home or self-care (01) | DRG 184 ==
LOC: CC.ED 13:34 → CC.MS 16:30 → UNDOADMIN 16:30 → CC.MS 16:39
PROVIDERS: ADMIT Nurse Practitioner Family; ATTEND Nurse Practitioner Family
DX: S22.41XA Multiple fractures of ribs, right side, initial encounter for closed fracture (principal); S32.009A Unspecified fracture of unspecified lumbar vertebra, initial encounter for closed fracture; J98.11 Atelectasis; S32.008A Other fracture of unspecified lumbar vertebra, initial encounter for closed fracture; T14.8XXA Other injury of unspecified body region, initial encounter; R16.1 Splenomegaly, not elsewhere classified; S30.1XXA Contusion of abdominal wall, initial encounter; N19 Unspecified kidney failure; E78.00 Pure hypercholesterolemia, unspecified; M54.2 Cervicalgia; G89.29 Other chronic pain; N18.9 Chronic kidney disease, unspecified; I48.91 Unspecified atrial fibrillation; I12.9 Hypertensive chronic kidney disease with stage 1 through stage 4 chronic kidney disease, or unspecified chronic kidney disease; G20 Parkinson's disease; M19.90 Unspecified osteoarthritis, unspecified site; F41.9 Anxiety disorder, unspecified; F32.A Depression, unspecified; Z88.0 Allergy status to penicillin; Z88.1 Allergy status to other antibiotic agents; Z88.8 Allergy status to other drugs, medicaments and biological substances; Z79.01 Long term (current) use of anticoagulants; Z79.899 Other long term (current) drug therapy; W19.XXXA Unspecified fall, initial encounter; Y92.239 Unspecified place in hospital as the place of occurrence of the external cause
CPT/HCPCS: 36415; 71250; 72192; 74176; 80048; 80053; 82550; 85025; 85610; 86140; 99284; A9270-GY; J2270

== ENCOUNTER 2022-12-17 09:26 | Emergency (ER) | payer MEDICARE, BC ==
[2022-12-17] MEDS ORDERED: Sodium Chloride 0.9% 1,000 ML IV ONE ×2 (09:33→11:05)
[2022-12-17] MEDS ORDERED: Acetaminophen 500 MG Tab PO ONE (10:52)
[2022-12-17] MEDS ORDERED: Meropenem 1 GM SDV IVPUSH ONE (10:52)
[2022-12-17] MEDS ORDERED: Sodium Chloride 0.9% 1,000 ML IV SCH (12:15)
[2022-12-17 13:43] VITALS: BP 88/54; PULSE 104
== END 2022-12-17 13:44 ==
LOC: CC.ED 09:26
DX: A41.9 Sepsis, unspecified organism (principal); R65.20 Severe sepsis without septic shock; I11.0 Hypertensive heart disease with heart failure; I50.22 Chronic systolic (congestive) heart failure; J18.9 Pneumonia, unspecified organism; I48.91 Unspecified atrial fibrillation; L03.115 Cellulitis of right lower limb; R09.02 Hypoxemia; E66.9 Obesity, unspecified; Z68.43 Body mass index [BMI] 50.0-59.9, adult; Z20.822 Contact with and (suspected) exposure to COVID-19; Z88.0 Allergy status to penicillin; Z88.1 Allergy status to other antibiotic agents; Z79.01 Long term (current) use of anticoagulants; Z79.899 Other long term (current) drug therapy
CPT/HCPCS: 36415; 71045; 80053; 81001; 82550; 83605; 83880; 84484; 85025; 85610; 86140; 87040; 87077; 87804; 93005; 93010; 96361; 96374; 99284; 99285-25; A9270-GY; J2185; J7030; U0002

== ENCOUNTER 2023-01-27 14:10 | Observation (INO) | payer MEDICARE, BC ==
[2023-01-27] MEDS ORDERED: Acetaminophen 325 MG Tab PO PRN (15:51)
[2023-01-27] MEDS ORDERED: Docusate Sodium 100 MG Cap PO PRN (15:51)
[2023-01-27] MEDS ORDERED: Ondansetron 4 MG/2 ML SDV IV PRN (15:51)
[2023-01-27] MEDS ORDERED: Ondansetron 4 MG Tab.DIS PO PRN (15:51)
[2023-01-27] MEDS ORDERED: Polyethylene Glycol 3350 Powder 17 GM Packet PO PRN (15:51)
[2023-01-27] MEDS: Sodium Chloride 0.9% 1,000 ML IV SCH (16:32)
[2023-01-27] MEDS ORDERED: Sodium Chloride 0.9% 500 ML IV SCH (17:15)
[2023-01-27] MEDS: Potassium Chloride 10 MEQ Tab.ER PO SCH (18:28)
[2023-01-27] MEDS ORDERED: Triamcinolone Acetonide 0.1% Crm 15 GM Tube TOP PRN (19:25)
[2023-01-27] MEDS ORDERED: Acetaminophen/HYDROcodone 325-5 MG Tab PO PRN (19:25)
[2023-01-27] MEDS ORDERED: Nirmatrelvir/Ritonavir 150 MG/100 MG Dose Pack PO SCH (20:00)
[2023-01-27] MEDS: Carbidopa/Levodopa 25-100 MG Tab PO SCH (20:16)
[2023-01-27] MEDS: Gabapentin 100 MG Cap PO SCH (20:16)
[2023-01-27] MEDS: Metoprolol Tartrate 50 MG Tab PO SCH (20:17)
[2023-01-28] MEDS: Sodium Chloride 0.9% 1,000 ML IV SCH (00:23)
[2023-01-28] MEDS: Carbidopa/Levodopa 25-100 MG Tab PO SCH ×2 (07:54→14:25)
[2023-01-28] MEDS: Metoprolol Tartrate 50 MG Tab PO SCH (07:54)
[2023-01-28] MEDS: Gabapentin 100 MG Cap PO SCH (07:54)
[2023-01-28] MEDS: Bumetanide 1 MG Tab PO SCH ×2 (07:55→16:20)
[2023-01-28] MEDS: Potassium Chloride 10 MEQ Tab.ER PO SCH ×2 (07:55→17:16)
[2023-01-28] MEDS ORDERED: Potassium Chloride 10 MEQ Tab.ER PO SCH (08:00)
[2023-01-28] MEDS ORDERED: Warfarin 2.5 MG Tab PO SCH (12:00)
[2023-01-28 17:42] VITALS: BP 109/61; PULSE 77
== END 2023-01-28 19:30 | disposition home health service (06) ==
LOC: CC.FCMC 14:10 → UNDOADMOB 14:45 → CC.MS 14:45
PROVIDERS: ADMIT Nurse Practitioner Family; ATTEND Nurse Practitioner Family
DX: U07.1 COVID-19 (principal); N17.9 Acute kidney failure, unspecified; E87.6 Hypokalemia; I48.91 Unspecified atrial fibrillation; E78.00 Pure hypercholesterolemia, unspecified; I10 Essential (primary) hypertension; Z88.1 Allergy status to other antibiotic agents; Z88.8 Allergy status to other drugs, medicaments and biological substances; Z79.01 Long term (current) use of anticoagulants; Z79.899 Other long term (current) drug therapy
CPT/HCPCS: 36415; 80048; 80053; 85025; 85610; 87804; 99223; 99239; A9270-GY; G0378; J7030; U0002

== ENCOUNTER 2023-03-05 14:30 | Inpatient (IN) | payer MEDICARE, BC ==
[2023-03-05] MEDS ORDERED: Sodium Chloride 0.9% 10 ML Syringe FLUSH PRN (18:50)
[2023-03-05] MEDS ORDERED: Ondansetron 4 MG/2 ML SDV IV PRN (18:50)
[2023-03-05] MEDS ORDERED: Acetaminophen/oxyCODONE 325-5 MG Tab PO PRN (18:50)
[2023-03-05] MEDS ORDERED: Polyethylene Glycol 3350 Powder 17 GM Packet PO PRN (18:50)
[2023-03-05] MEDS ORDERED: Docusate Sodium 100 MG Cap PO PRN (18:50)
[2023-03-05] MEDS ORDERED: Ondansetron 4 MG Tab.DIS PO PRN (18:50)
[2023-03-05] MEDS ORDERED: Meropenem 1 GM in Sodium Chloride 0.9% 100 ML IV SCH (19:00)
[2023-03-05] MEDS ORDERED: Meropenem 1 GM in Sodium Chloride 0.9% 100 ML IV ONE (19:00)
[2023-03-05] MEDS ORDERED: Triamcinolone Acetonide 0.1% Crm 15 GM Tube TOP PRN (19:18)
[2023-03-05] MEDS ORDERED: Acetaminophen 325 MG Tab PO PRN (19:18)
[2023-03-05] MEDS ORDERED: Acetaminophen/HYDROcodone 325-5 MG Tab PO PRN (19:18)
[2023-03-05] MEDS: Gabapentin 100 MG Cap PO SCH (20:08)
[2023-03-05] MEDS: Meropenem 1 GM SDV IVPUSH SCH (20:08)
[2023-03-05] MEDS: Carbidopa/Levodopa 25-100 MG Tab PO SCH (20:08)
[2023-03-05] MEDS: Metoprolol Tartrate 50 MG Tab PO SCH (20:08)
[2023-03-05] MEDS: Acetaminophen 325 MG Tab PO PRN (20:08)
[2023-03-06] MEDS: Meropenem 1 GM SDV IVPUSH SCH (04:06)
[2023-03-06] MEDS: Metoprolol Tartrate 50 MG Tab PO SCH ×2 (08:47→19:44)
[2023-03-06] MEDS: Potassium Chloride 10 MEQ Tab.ER PO SCH (08:48)
[2023-03-06] MEDS: Gabapentin 100 MG Cap PO SCH ×2 (08:48→19:44)
[2023-03-06] MEDS: Bumetanide 1 MG Tab PO SCH ×2 (08:48→16:53)
[2023-03-06] MEDS: Carbidopa/Levodopa 25-100 MG Tab PO SCH ×3 (08:49→19:43)
[2023-03-06] MEDS ORDERED: Meropenem 1 GM SDV ONE (11:13)
[2023-03-06] MEDS: Meropenem 0.5 GM in Sodium Chloride 0.9% 100 ML IV SCH ×2 (11:37→16:58)
[2023-03-06] MEDS: Warfarin 2.5 MG Tab PO SCH (11:38)
[2023-03-07] MEDS: Meropenem 0.5 GM in Sodium Chloride 0.9% 100 ML IV SCH ×5 (00:15→23:44)
[2023-03-07] MEDS: Acetaminophen 325 MG Tab PO PRN (05:10)
[2023-03-07] MEDS: Carbidopa/Levodopa 25-100 MG Tab PO SCH ×3 (08:46→20:06)
[2023-03-07] MEDS: Potassium Chloride 10 MEQ Tab.ER PO SCH (08:46)
[2023-03-07] MEDS: Gabapentin 100 MG Cap PO SCH ×2 (08:46→20:06)
[2023-03-07] MEDS: Bumetanide 1 MG Tab PO SCH ×2 (08:46→15:50)
[2023-03-07] MEDS: Metoprolol Tartrate 50 MG Tab PO SCH ×2 (08:46→20:06)
[2023-03-07] MEDS: Warfarin 2.5 MG Tab PO SCH (11:43)
[2023-03-08] MEDS: Meropenem 0.5 GM in Sodium Chloride 0.9% 100 ML IV SCH ×4 (05:00→21:51)
[2023-03-08] MEDS: Gabapentin 100 MG Cap PO SCH ×2 (07:31→19:28)
[2023-03-08] MEDS: Potassium Chloride 10 MEQ Tab.ER PO SCH (07:31)
[2023-03-08] MEDS: Bumetanide 1 MG Tab PO SCH ×2 (07:31→15:43)
[2023-03-08] MEDS: Carbidopa/Levodopa 25-100 MG Tab PO SCH ×3 (07:32→19:28)
[2023-03-08] MEDS: Metoprolol Tartrate 50 MG Tab PO SCH ×2 (07:32→19:28)
[2023-03-08] MEDS ORDERED: Sodium Chloride 0.9% 100 ML ONE (08:28)
[2023-03-08] MEDS: Warfarin 2.5 MG Tab PO SCH (11:39)
[2023-03-09] MEDS: Meropenem 0.5 GM in Sodium Chloride 0.9% 100 ML IV SCH ×2 (04:02→10:30)
[2023-03-09] MEDS: Carbidopa/Levodopa 25-100 MG Tab PO SCH ×2 (07:38→13:14)
[2023-03-09] MEDS: Bumetanide 1 MG Tab PO SCH (07:38)
[2023-03-09] MEDS: Potassium Chloride 10 MEQ Tab.ER PO SCH (07:38)
[2023-03-09] MEDS: Gabapentin 100 MG Cap PO SCH (07:38)
[2023-03-09] MEDS: Metoprolol Tartrate 50 MG Tab PO SCH (07:42)
[2023-03-09] MEDS: Warfarin 2.5 MG Tab PO SCH (11:44)
[2023-03-09 13:04] VITALS: BP 108/71; PULSE 81
== END 2023-03-09 13:18 | disposition swing bed (61) | DRG 603 ==
LOC: UNDOADMIN 14:30 → CC.MS 14:30
PROVIDERS: ADMIT Nurse Practitioner; ATTEND Nurse Practitioner
DX: L03.115 Cellulitis of right lower limb (principal); I50.22 Chronic systolic (congestive) heart failure; Z68.42 Body mass index [BMI] 45.0-49.9, adult; L03.116 Cellulitis of left lower limb; I89.0 Lymphedema, not elsewhere classified; E87.6 Hypokalemia; I48.91 Unspecified atrial fibrillation; E78.00 Pure hypercholesterolemia, unspecified; G89.29 Other chronic pain; M19.90 Unspecified osteoarthritis, unspecified site; G43.909 Migraine, unspecified, not intractable, without status migrainosus; N18.9 Chronic kidney disease, unspecified; E66.01 Morbid (severe) obesity due to excess calories; G20 Parkinson's disease; F41.9 Anxiety disorder, unspecified; F32.A Depression, unspecified; Z98.890 Other specified postprocedural states; Z79.01 Long term (current) use of anticoagulants; Z79.899 Other long term (current) drug therapy; Z88.0 Allergy status to penicillin; Z88.8 Allergy status to other drugs, medicaments and biological substances; Z88.1 Allergy status to other antibiotic agents
CPT/HCPCS: 36415; 80048; 80053; 83605; 83735; 85025; 85610; 87040; 97110-GP; 97161-GP; 99223; 99232; 99233; 99238; A9270-GY; J2185; J3490

== ENCOUNTER 2023-03-09 13:19 | Inpatient (IN) | payer MEDICARE, BC ==
[2023-03-09] MEDS ORDERED: Ondansetron 4 MG/2 ML SDV IV PRN (13:39)
[2023-03-09] MEDS ORDERED: Triamcinolone Acetonide 0.1% Crm 15 GM Tube TOP PRN (13:39)
[2023-03-09] MEDS ORDERED: Docusate Sodium 100 MG Cap PO PRN (13:39)
[2023-03-09] MEDS ORDERED: Polyethylene Glycol 3350 Powder 17 GM Packet PO PRN (13:39)
[2023-03-09] MEDS ORDERED: Acetaminophen 325 MG Tab PO PRN (13:39)
[2023-03-09] MEDS ORDERED: Acetaminophen/HYDROcodone 325-5 MG Tab PO PRN (13:39)
[2023-03-09] MEDS ORDERED: Sodium Chloride 0.9% 10 ML Syringe FLUSH PRN ×2 (13:39)
[2023-03-09] MEDS ORDERED: Ondansetron 4 MG Tab.DIS PO PRN (13:39)
[2023-03-09] MEDS: Bumetanide 1 MG Tab PO SCH (16:22)
[2023-03-09] MEDS: Meropenem 0.5 GM in Sodium Chloride 0.9% 100 ML IV SCH ×2 (16:44→22:41)
[2023-03-09] MEDS: Gabapentin 100 MG Cap PO SCH (19:37)
[2023-03-09] MEDS: Metoprolol Tartrate 50 MG Tab PO SCH (19:37)
[2023-03-09] MEDS: Carbidopa/Levodopa 25-100 MG Tab PO SCH (19:37)
[2023-03-10] MEDS: Meropenem 0.5 GM in Sodium Chloride 0.9% 100 ML IV SCH ×4 (04:17→22:26)
[2023-03-10] MEDS: Metoprolol Tartrate 50 MG Tab PO SCH ×2 (08:04→19:40)
[2023-03-10] MEDS: Bumetanide 1 MG Tab PO SCH ×2 (08:04→17:00)
[2023-03-10] MEDS: Gabapentin 100 MG Cap PO SCH ×2 (08:04→19:40)
[2023-03-10] MEDS: Carbidopa/Levodopa 25-100 MG Tab PO SCH ×3 (08:04→19:40)
[2023-03-10] MEDS: Potassium Chloride 10 MEQ Tab.ER PO SCH (09:54)
[2023-03-10] MEDS: Warfarin 2.5 MG Tab PO SCH (12:15)
[2023-03-11] MEDS: Meropenem 0.5 GM in Sodium Chloride 0.9% 100 ML IV SCH ×4 (04:13→21:55)
[2023-03-11] MEDS: Metoprolol Tartrate 50 MG Tab PO SCH ×2 (07:42→19:40)
[2023-03-11] MEDS: Bumetanide 1 MG Tab PO SCH ×2 (07:42→15:56)
[2023-03-11] MEDS: Gabapentin 100 MG Cap PO SCH ×2 (07:43→19:39)
[2023-03-11] MEDS: Potassium Chloride 10 MEQ Tab.ER PO SCH (07:43)
[2023-03-11] MEDS: Carbidopa/Levodopa 25-100 MG Tab PO SCH ×3 (07:43→19:40)
[2023-03-11] MEDS: Warfarin 2.5 MG Tab PO SCH (12:40)
[2023-03-12] MEDS: Meropenem 0.5 GM in Sodium Chloride 0.9% 100 ML IV SCH ×4 (03:51→21:50)
[2023-03-12] MEDS: Gabapentin 100 MG Cap PO SCH ×2 (08:04→19:30)
[2023-03-12] MEDS: Carbidopa/Levodopa 25-100 MG Tab PO SCH ×3 (08:04→19:30)
[2023-03-12] MEDS: Metoprolol Tartrate 50 MG Tab PO SCH ×2 (08:04→19:30)
[2023-03-12] MEDS: Bumetanide 1 MG Tab PO SCH ×2 (08:04→16:01)
[2023-03-12] MEDS: Potassium Chloride 10 MEQ Tab.ER PO SCH (08:04)
[2023-03-12] MEDS: Warfarin 2.5 MG Tab PO SCH (11:51)
[2023-03-13] MEDS: Meropenem 0.5 GM in Sodium Chloride 0.9% 100 ML IV SCH ×4 (03:59→21:17)
[2023-03-13] MEDS: Bumetanide 1 MG Tab PO SCH ×2 (07:41→15:55)
[2023-03-13] MEDS: Gabapentin 100 MG Cap PO SCH ×2 (07:41→19:06)
[2023-03-13] MEDS: Potassium Chloride 10 MEQ Tab.ER PO SCH (07:41)
[2023-03-13] MEDS: Carbidopa/Levodopa 25-100 MG Tab PO SCH ×3 (07:41→19:06)
[2023-03-13] MEDS: Metoprolol Tartrate 50 MG Tab PO SCH ×2 (07:42→19:06)
[2023-03-13] MEDS: Warfarin 2.5 MG Tab PO SCH (11:38)
[2023-03-14] MEDS: Meropenem 0.5 GM in Sodium Chloride 0.9% 100 ML IV SCH ×2 (03:48→10:26)
[2023-03-14] MEDS: Carbidopa/Levodopa 25-100 MG Tab PO SCH ×2 (07:50→14:44)
[2023-03-14] MEDS: Gabapentin 100 MG Cap PO SCH (07:51)
[2023-03-14] MEDS: Bumetanide 1 MG Tab PO SCH (07:51)
[2023-03-14] MEDS: Metoprolol Tartrate 50 MG Tab PO SCH (07:51)
[2023-03-14] MEDS: Potassium Chloride 10 MEQ Tab.ER PO SCH (07:51)
[2023-03-14] MEDS: Warfarin 2.5 MG Tab PO SCH (12:08)
[2023-03-14 12:19] VITALS: BP 132/80; PULSE 70
== END 2023-03-14 16:10 | disposition home or self-care (01) | DRG 603 ==
LOC: CC.MS 13:19 → UNDOADMIN 13:19 → CC.MS 13:39
PROVIDERS: ADMIT Nurse Practitioner; ATTEND Nurse Practitioner
DX: L03.115 Cellulitis of right lower limb (principal); I50.22 Chronic systolic (congestive) heart failure; N28.9 Disorder of kidney and ureter, unspecified; I48.91 Unspecified atrial fibrillation; Z79.01 Long term (current) use of anticoagulants; Z79.899 Other long term (current) drug therapy
CPT/HCPCS: 36415; 85610; 97110-GP; A9270-GY; J2185; J3490

== ENCOUNTER 2023-03-25 21:52 | Emergency (ER) | payer MEDICARE, BC ==
[2023-03-25] MEDS: Acetaminophen 500 MG Tab PO ONE (22:24)
[2023-03-25] MEDS: Sodium Chloride 0.9% 1,000 ML IV STA ×2 (22:44→22:46)
[2023-03-25] MEDS: Meropenem 1 GM SDV IVPUSH ONE (22:48)
[2023-03-25 22:50] LABS: CHLORIDE,CL 103 mEq/L (98-106); SODIUM,NA 144 mEq/L (136-145)
[2023-03-25 22:51] LABS: ESTIMATED GFR 40 mL/min (>=60)
[2023-03-25] MEDS: VANCOmycin 2 GM/400 ML 2 GM in Premix Bag 1 BAG IV ONE (23:22)
[2023-03-26] MEDS: Sodium Chloride 0.9% 1,000 ML ONE (00:48)
[2023-03-26] MEDS: Norepinephrine 4 MG in Dextrose 5% in Water 246 ML IV SCH ×2 (01:39)
[2023-03-26] MEDS: Sodium Chloride 0.9% 1,000 ML IV STA ×2 (01:40)
[2023-03-26 03:03] VITALS: BP 121/70; PULSE 104
== END 2023-03-26 03:28 ==
LOC: CC.ED 21:52
DX: A41.9 Sepsis, unspecified organism (principal); R65.21 Severe sepsis with septic shock; L03.115 Cellulitis of right lower limb; R09.02 Hypoxemia; E87.20 Acidosis, unspecified; I48.91 Unspecified atrial fibrillation; I10 Essential (primary) hypertension; E66.9 Obesity, unspecified; Z88.0 Allergy status to penicillin; Z88.1 Allergy status to other antibiotic agents; Z79.01 Long term (current) use of anticoagulants; Z68.41 Body mass index [BMI] 40.0-44.9, adult
CPT/HCPCS: 36415; 71045; 80053; 83605; 83735; 84484; 85025; 85610; 86140; 87040; 87077; 93005; 93010; 96361; 96365; 96366; 96367; 96375; 99285-25; 99291; A9270-GY; J2185; J3370; J3490; J7030; J7060

== ENCOUNTER 2023-06-30 07:19 | Inpatient (IN) | payer MEDICARE, BC ==
[2023-06-30] MEDS ORDERED: Sodium Chloride 0.9% 1,000 ML IV ONE ×4 (07:35→16:02)
[2023-06-30] MEDS ORDERED: Acetaminophen 500 MG Tab PO ONE (07:46)
[2023-06-30 07:59] LABS: BASOPHILS ABSOLUTE AUTO 0.01 10^3/uL (0.00-0.50); BASOPHILS PERCENT AUTO 0.1 % (0-1); EOSINOPHILS ABSOLUTE AUTO 0.14 10^3/uL (0.00-1.50); EOSINOPHILS PERCENT AUTO 1.4 % (0-6); HEMATOCRIT 31.3 % (42.0-52.0); HEMOGLOBIN 9.6 g/dL (14.0-18.0); IMMATURE GRAN ABSOLUTE AUTO 0.01 10^3/uL (0.00-0.49); IMMATURE GRAN PERCENT AUTO 0.1 % (0.0-4.9); LYMPHOCYTES ABSOLUTE AUTO 0.34 10^3/uL (0.60-5.00); LYMPHOCYTES PERCENT AUTO 3.3 % (24-44); MEAN CORPUSCULAR HEMOGLOBIN 25.5 pg (27.0-32.0); MEAN CORPUSCULAR HGB CONC 30.7 g/dL (32.0-36.0); MONOCYTES ABSOLUTE AUTO 0.32 10^3/uL (0.00-1.50); MONOCYTES PERCENT AUTO 3.1 % (0-10); NEUTROPHILS ABSOLUTE AUTO 9.43 x10^3/uL (1.80-8.00); PLATELET COUNT,PLT 126 10^3/uL (150-400); RED BLOOD CELL COUNT 3.77 x10^6/uL (4.50-6.00); WHITE BLOOD CELL COUNT,WBC 10.3 10^3/uL (4.0-11.0)
[2023-06-30 08:15] LABS: ALBUMIN 2.3 g/dL (3.4-5.0); BILIRUBIN TOTAL 0.4 mg/dL (0.0-1.0); C-REACTIVE PROTEIN 0.72 mg/dL (<=0.30); EST CRCL DRUG DOSING (CG) 76.57 mL/min; PROTEIN TOTAL,TP 5.3 g/dL (6.4-8.2)
[2023-06-30 08:16] LABS: LACTIC ACID 1.7 mmol/L (0.4-2.0)
[2023-06-30 08:17] LABS: APPEARANCE,URINE CLEAR (CLEAR); BILIRUBIN,URINE NEGATIVE (NEGATIVE); COLOR,URINE YELLOW (YELLOW); GLUCOSE,URINE NEGATIVE (NEGATIVE); KETONES,URINE NEGATIVE (NEGATIVE); LEUKOCYTE ESTERASE,URINE NEGATIVE (NEGATIVE); NITRITE,URINE NEGATIVE (NEGATIVE); OCCULT BLOOD,URINE TRACE-INTACT (NEGATIVE); PH,URINE 6.5 (4.5-8.0); PROTEIN,URINE 100 mg/dL (NEGATIVE); UROBILINOGEN,URINE 0.2 EU/dL (0.2-1.0)
[2023-06-30] MEDS ORDERED: Acetaminophen 650 MG Supp RECTAL ONE (08:24)
[2023-06-30] MEDS ORDERED: Meropenem 1 GM in Sodium Chloride 0.9% 100 ML IV SCH ×2 (08:30→16:00)
[2023-06-30 08:34] LABS: BACTERIA,URINE OCCASIONAL /HPF (NOT SEEN); EPITHELIAL CELLS,URINE NOT SEEN /HPF (NOT SEEN); MUCUS,URINE OCCASIONAL /HPF (NOT SEEN); RBC,URINE 0-5 /HPF (0-5); WBC,URINE 0-5 /HPF (0-5)
[2023-06-30 08:34] LABS: POTASSIUM,K 2.8 mEq/L (3.5-5.0)
[2023-06-30 08:40] LABS: INR 3.09 (0.92-1.18); PROTHROMBIN TIME 30.8 SEC (9.3-11.3)
[2023-06-30] MEDS ORDERED: Potassium Chloride Riders 20 MEQ in Premix Bag 1 BAG IV ONE (08:46)
[2023-06-30 08:54] LABS: CORONAVIRUS COVID-19 NAA NEGATIVE (NEGATIVE); INFLUENZA A NAA NEGATIVE (NEGATIVE); INFLUENZA B NAA NEGATIVE (NEGATIVE)
[2023-06-30] MEDS ORDERED: Docusate Sodium 100 MG Cap PO PRN (10:25)
[2023-06-30] MEDS ORDERED: Acetaminophen 325 MG Tab PO PRN ×2 (10:25→10:50)
[2023-06-30] MEDS ORDERED: Ondansetron 4 MG/2 ML SDV IV PRN (10:25)
[2023-06-30] MEDS ORDERED: Bumetanide 1 MG Tab PO ONE (10:47)
[2023-06-30] MEDS ORDERED: Triamcinolone Acetonide 0.1% Crm 15 GM Tube TOP PRN (10:50)
[2023-06-30 11:16] LABS: MAGNESIUM 1.3 mg/dL (1.8-2.4); TSH ULTRASENSITIVE 0.43 uIU/mL (0.36-5.60)
[2023-06-30] MEDS ORDERED: Magnesium Sulfate/Water 2 GM in Premix Bag 1 BAG IV ONE (13:43)
[2023-06-30] MEDS ORDERED: Carbidopa/Levodopa 25-100 MG Tab PO SCH (14:00)
[2023-06-30] MEDS ORDERED: Calcium Gluconate 1 GM in Sodium Chloride 0.9% 100 ML IV ONE (14:30)
[2023-06-30 15:58] VITALS: BP 95/54; PULSE 88
[2023-06-30] MEDS ORDERED: Bumetanide 1 MG Tab PO SCH ×2 (16:00)
[2023-06-30 16:17] LABS: BASOPHILS ABSOLUTE AUTO 0.02 10^3/uL (0.00-0.50); BASOPHILS PERCENT AUTO 0.1 % (0-1); EOSINOPHILS ABSOLUTE AUTO 0.01 10^3/uL (0.00-1.50); HEMATOCRIT 37.5 % (42.0-52.0); HEMOGLOBIN 11.9 g/dL (14.0-18.0); IMMATURE GRAN ABSOLUTE AUTO 0.14 10^3/uL (0.00-0.49); IMMATURE GRAN PERCENT AUTO 0.6 % (0.0-4.9); LYMPHOCYTES ABSOLUTE AUTO 0.45 10^3/uL (0.60-5.00); LYMPHOCYTES PERCENT AUTO 1.8 % (24-44); MEAN CORPUSCULAR HEMOGLOBIN 25.3 pg (27.0-32.0); MEAN CORPUSCULAR HGB CONC 31.7 g/dL (32.0-36.0); MEAN CORPUSCULAR VOLUME 79.8 fL (83.0-97.0); MONOCYTES ABSOLUTE AUTO 0.63 10^3/uL (0.00-1.50); MONOCYTES PERCENT AUTO 2.5 % (0-10); PLATELET COUNT,PLT 182 10^3/uL (150-400)
[2023-06-30 16:19] LABS: WHITE BLOOD CELL COUNT,WBC 25.2 10^3/uL (4.0-11.0)
[2023-06-30 16:29] LABS: BILIRUBIN TOTAL 1.1 mg/dL (0.0-1.0); CALCIUM 8.4 mg/dL (8.4-10.1); CREATININE 1.5 mg/dL (0.7-1.3); EST CRCL DRUG DOSING (CG) 51.05 mL/min; POTASSIUM,K 4.3 mEq/L (3.5-5.0); PROTEIN TOTAL,TP 6.9 g/dL (6.4-8.2)
[2023-06-30] MEDS ORDERED: Calcium Carbonate/Vitamin D3 1250 MG-5 MCG Tab PO SCH (17:30)
[2023-06-30] MEDS ORDERED: Potassium Chloride 10 MEQ Tab.ER PO SCH (17:30)
[2023-06-30] MEDS ORDERED: Gabapentin 100 MG Cap PO SCH (20:00)
[2023-06-30] MEDS ORDERED: Metoprolol Tartrate 50 MG Tab PO SCH (20:00)
[2023-07-01] MEDS ORDERED: Warfarin 2.5 MG Tab PO SCH (12:00)
== END 2023-06-30 19:10 | DRG 871 ==
LOC: CC.ED 07:19 → UNDOADMIN 09:34 → CC.MS 09:34
PROVIDERS: ADMIT Nurse Practitioner Family; ATTEND Nurse Practitioner Family
DX: A41.9 Sepsis, unspecified organism (principal); I50.23 Acute on chronic systolic (congestive) heart failure; E87.3 Alkalosis; Z68.42 Body mass index [BMI] 45.0-49.9, adult; L03.115 Cellulitis of right lower limb; R09.02 Hypoxemia; E87.6 Hypokalemia; Z20.822 Contact with and (suspected) exposure to COVID-19; I11.0 Hypertensive heart disease with heart failure; E66.01 Morbid (severe) obesity due to excess calories; E78.00 Pure hypercholesterolemia, unspecified; M19.90 Unspecified osteoarthritis, unspecified site; G89.29 Other chronic pain; M54.9 Dorsalgia, unspecified; G43.909 Migraine, unspecified, not intractable, without status migrainosus; I10 Essential (primary) hypertension; F41.9 Anxiety disorder, unspecified; E66.9 Obesity, unspecified; F32.A Depression, unspecified; G20 Parkinson's disease; I48.91 Unspecified atrial fibrillation; Z88.8 Allergy status to other drugs, medicaments and biological substances; Z98.890 Other specified postprocedural states; Z88.0 Allergy status to penicillin; Z88.1 Allergy status to other antibiotic agents; Z79.01 Long term (current) use of anticoagulants; Z79.899 Other long term (current) drug therapy
CPT/HCPCS: 0240U; 36415; 51702; 71045; 80053; 81001; 83605; 83735; 83880; 84443; 84484; 85025; 85379; 85610; 86140; 87040; 87077; 93005; 93010; 96361; 96365; 96366; 96368; 99236; 99285-25; A9270-GY; J2185; J3475; J3480; J3490; J7030

== ENCOUNTER 2023-07-13 02:15 | Emergency (ER) | payer MEDICARE, BC ==
[2023-07-13 02:30] VITALS: BP 150/84; PULSE 91
[2023-07-13] MEDS ORDERED: Acetaminophen/HYDROcodone 325-5 MG Tab PO ONE (03:03)
[2023-07-13] MEDS ORDERED: Take Home: Acetaminophen/HYDROcodone 325-5 MG, 2 Tab Pack PO ONE (03:19)
== END 2023-07-13 03:42 | disposition home or self-care (01) ==
LOC: CC.ED 02:15
DX: S80.01XA Contusion of right knee, initial encounter (principal); E78.00 Pure hypercholesterolemia, unspecified; I10 Essential (primary) hypertension; E66.9 Obesity, unspecified; Z88.0 Allergy status to penicillin; Z88.1 Allergy status to other antibiotic agents; Z88.6 Allergy status to analgesic agent; Z79.01 Long term (current) use of anticoagulants; Z68.42 Body mass index [BMI] 45.0-49.9, adult; Z79.899 Other long term (current) drug therapy; W18.30XA Fall on same level, unspecified, initial encounter; Y92.002 Bathroom of unspecified non-institutional (private) residence as the place of occurrence of the external cause
CPT/HCPCS: 73560-RT; 99284; A9270-GY

== ENCOUNTER 2023-07-14 11:45 | Inpatient (IN) | payer MEDICARE, BC ==
[2023-07-14] MEDS ORDERED: Sodium Chloride 0.9% 10 ML Syringe FLUSH PRN (12:17)
[2023-07-14] MEDS ORDERED: Ondansetron 4 MG/2 ML SDV IV PRN (12:17)
[2023-07-14] MEDS ORDERED: Ondansetron 4 MG Tab.DIS PO PRN (12:17)
[2023-07-14] MEDS ORDERED: Meropenem 1 GM in Sodium Chloride 0.9% 100 ML IV SCH (12:30)
[2023-07-14 12:53] LABS: BASOPHILS ABSOLUTE AUTO 0.01 10^3/uL (0.00-0.50); BASOPHILS PERCENT AUTO 0.1 % (0-1); EOSINOPHILS ABSOLUTE AUTO 0.29 10^3/uL (0.00-1.50); EOSINOPHILS PERCENT AUTO 2.2 % (0-6); HEMATOCRIT 30.3 % (42.0-52.0); HEMOGLOBIN 9.4 g/dL (14.0-18.0); IMMATURE GRAN ABSOLUTE AUTO 0.05 10^3/uL (0.00-0.49); IMMATURE GRAN PERCENT AUTO 0.4 % (0.0-4.9); LYMPHOCYTES ABSOLUTE AUTO 1.09 10^3/uL (0.60-5.00); LYMPHOCYTES PERCENT AUTO 8.2 % (24-44); MEAN CORPUSCULAR HEMOGLOBIN 25.1 pg (27.0-32.0); MONOCYTES ABSOLUTE AUTO 0.76 10^3/uL (0.00-1.50); MONOCYTES PERCENT AUTO 5.7 % (0-10); NEUTROPHILS ABSOLUTE AUTO 11.05 x10^3/uL (1.80-8.00); NEUTROPHILS PERCENT AUTO 83.4 % (41-71); PLATELET COUNT,PLT 225 10^3/uL (150-400); RED BLOOD CELL COUNT 3.74 x10^6/uL (4.50-6.00); WHITE BLOOD CELL COUNT,WBC 13.3 10^3/uL (4.0-11.0)
[2023-07-14] MEDS: Sodium Chloride 0.9% 1,000 ML IV SCH (13:24)
[2023-07-14 13:33] LABS: INR 3.32 (0.92-1.18); PROTHROMBIN TIME 33.1 SEC (9.3-11.3)
[2023-07-14 13:44] LABS: BILIRUBIN TOTAL 0.5 mg/dL (0.0-1.0); C-REACTIVE PROTEIN 2.01 mg/dL (<=0.30); CALCIUM 8.5 mg/dL (8.4-10.1); CREATININE 1.8 mg/dL (0.7-1.3); EST CRCL DRUG DOSING (CG) 41.31 mL/min; POTASSIUM,K 4.2 mEq/L (3.5-5.0); PROTEIN TOTAL,TP 6.9 g/dL (6.4-8.2)
[2023-07-14 13:45] LABS: LACTIC ACID 1.9 mmol/L (0.4-2.0)
[2023-07-14] MEDS: ceFAZolin 2 GM Vial IVPUSH SCH (20:09)
[2023-07-14] MEDS ORDERED: Triamcinolone Acetonide 0.1% Crm 15 GM Tube TOP PRN (20:16)
[2023-07-14] MEDS: Metoprolol Tartrate 50 MG Tab PO SCH (21:55)
[2023-07-14] MEDS: Gabapentin 100 MG Cap PO SCH (21:55)
[2023-07-15] MEDS: Sodium Chloride 0.9% 1,000 ML IV SCH ×2 (02:44→12:55)
[2023-07-15] MEDS: ceFAZolin 2 GM Vial IVPUSH SCH ×3 (03:48→19:19)
[2023-07-15] MEDS: Gabapentin 100 MG Cap PO SCH ×2 (07:49→19:22)
[2023-07-15] MEDS: Carbidopa/Levodopa 25-100 MG Tab PO SCH ×3 (07:50→19:22)
[2023-07-15] MEDS: Bumetanide 1 MG Tab PO SCH ×2 (07:50→15:55)
[2023-07-15] MEDS: Potassium Chloride 10 MEQ Tab.ER PO SCH (07:52)
[2023-07-15 07:56] LABS: BASOPHILS ABSOLUTE AUTO 0.01 10^3/uL (0.00-0.50); BASOPHILS PERCENT AUTO 0.1 % (0-1); EOSINOPHILS ABSOLUTE AUTO 0.54 10^3/uL (0.00-1.50); EOSINOPHILS PERCENT AUTO 5.3 % (0-6); HEMATOCRIT 25.5 % (42.0-52.0); IMMATURE GRAN ABSOLUTE AUTO 0.05 10^3/uL (0.00-0.49); IMMATURE GRAN PERCENT AUTO 0.5 % (0.0-4.9); INR 3.68 (0.92-1.18); LYMPHOCYTES ABSOLUTE AUTO 0.74 10^3/uL (0.60-5.00); LYMPHOCYTES PERCENT AUTO 7.2 % (24-44); MEAN CORPUSCULAR HEMOGLOBIN 25.3 pg (27.0-32.0); MEAN CORPUSCULAR HGB CONC 31.4 g/dL (32.0-36.0); MEAN CORPUSCULAR VOLUME 80.7 fL (83.0-97.0); MONOCYTES ABSOLUTE AUTO 0.82 10^3/uL (0.00-1.50); NEUTROPHILS ABSOLUTE AUTO 8.06 x10^3/uL (1.80-8.00); NEUTROPHILS PERCENT AUTO 78.9 % (41-71); PLATELET COUNT,PLT 214 10^3/uL (150-400); PROTHROMBIN TIME 36.5 SEC (9.3-11.3); RED BLOOD CELL COUNT 3.16 x10^6/uL (4.50-6.00); WHITE BLOOD CELL COUNT,WBC 10.2 10^3/uL (4.0-11.0)
[2023-07-15] MEDS: Acetaminophen 325 MG Tab PO PRN ×2 (07:56→19:22)
[2023-07-15 08:01] LABS: ALBUMIN 2.7 g/dL (3.4-5.0); BILIRUBIN TOTAL 0.5 mg/dL (0.0-1.0); C-REACTIVE PROTEIN 2.45 mg/dL (<=0.30); CALCIUM 7.9 mg/dL (8.4-10.1); CREATININE 1.7 mg/dL (0.7-1.3); EST CRCL DRUG DOSING (CG) 43.75 mL/min; POTASSIUM,K 3.8 mEq/L (3.5-5.0); PROTEIN TOTAL,TP 6.3 g/dL (6.4-8.2)
[2023-07-15] MEDS: Metoprolol Tartrate 50 MG Tab PO SCH ×2 (09:31→20:20)
[2023-07-15] MEDS ORDERED: Warfarin 2 MG Tab PO SCH (12:00)
[2023-07-16] MEDS: ceFAZolin 2 GM Vial IVPUSH SCH ×3 (04:03→19:57)
[2023-07-16] MEDS: Gabapentin 100 MG Cap PO SCH ×2 (07:25→19:24)
[2023-07-16] MEDS: Carbidopa/Levodopa 25-100 MG Tab PO SCH ×3 (07:25→19:24)
[2023-07-16] MEDS: Bumetanide 1 MG Tab PO SCH ×2 (07:25→15:19)
[2023-07-16] MEDS: Potassium Chloride 10 MEQ Tab.ER PO SCH (07:25)
[2023-07-16] MEDS: TERBINAFINE HCL 250 MG PO SCH (07:33)
[2023-07-16] MEDS: Metoprolol Tartrate 50 MG Tab PO SCH ×2 (07:37→19:58)
[2023-07-16 07:45] LABS: BASOPHILS ABSOLUTE AUTO 0.01 10^3/uL (0.00-0.50); BASOPHILS PERCENT AUTO 0.1 % (0-1); EOSINOPHILS ABSOLUTE AUTO 0.31 10^3/uL (0.00-1.50); HEMATOCRIT 22.3 % (42.0-52.0); IMMATURE GRAN ABSOLUTE AUTO 0.04 10^3/uL (0.00-0.49); IMMATURE GRAN PERCENT AUTO 0.4 % (0.0-4.9); LYMPHOCYTES ABSOLUTE AUTO 0.51 10^3/uL (0.60-5.00); LYMPHOCYTES PERCENT AUTO 4.9 % (24-44); MEAN CORPUSCULAR HEMOGLOBIN 25.1 pg (27.0-32.0); MEAN CORPUSCULAR HGB CONC 31.4 g/dL (32.0-36.0); MEAN CORPUSCULAR VOLUME 79.9 fL (83.0-97.0); MONOCYTES ABSOLUTE AUTO 1.04 10^3/uL (0.00-1.50); MONOCYTES PERCENT AUTO 10.1 % (0-10); NEUTROPHILS ABSOLUTE AUTO 8.43 x10^3/uL (1.80-8.00); NEUTROPHILS PERCENT AUTO 81.5 % (41-71); PLATELET COUNT,PLT 188 10^3/uL (150-400); RED BLOOD CELL COUNT 2.79 x10^6/uL (4.50-6.00); WHITE BLOOD CELL COUNT,WBC 10.3 10^3/uL (4.0-11.0)
[2023-07-16 07:55] LABS: INR 3.37 (0.92-1.18); PROTHROMBIN TIME 33.5 SEC (9.3-11.3)
[2023-07-16] MEDS ORDERED: Acetaminophen 325 MG Tab PO ONE (08:03)
[2023-07-16] MEDS ORDERED: Furosemide 20 MG/2 ML VIAL IVPUSH ONE (08:03)
[2023-07-16 08:05] LABS: ALBUMIN 2.5 g/dL (3.4-5.0); BILIRUBIN TOTAL 0.8 mg/dL (0.0-1.0); C-REACTIVE PROTEIN 6.65 mg/dL (<=0.30); CALCIUM 7.8 mg/dL (8.4-10.1); CREATININE 1.5 mg/dL (0.7-1.3); EST CRCL DRUG DOSING (CG) 49.58 mL/min; POTASSIUM,K 4.1 mEq/L (3.5-5.0); PROTEIN TOTAL,TP 6.1 g/dL (6.4-8.2)
[2023-07-16] MEDS ORDERED: Sodium Chloride 0.9% 250 ML IV ONE (09:45)
[2023-07-16] MEDS ORDERED: Morphine 2 MG/ML SYRINGE IVPUSH PRN (12:20)
[2023-07-16] MEDS: Acetaminophen 500 MG Tab PO PRN ×2 (15:19→21:37)
[2023-07-17] MEDS: ceFAZolin 2 GM Vial IVPUSH SCH ×3 (04:14→19:22)
[2023-07-17 07:14] LABS: BASOPHILS ABSOLUTE AUTO 0.01 10^3/uL (0.00-0.50); BASOPHILS PERCENT AUTO 0.1 % (0-1); EOSINOPHILS ABSOLUTE AUTO 0.27 10^3/uL (0.00-1.50); EOSINOPHILS PERCENT AUTO 2.8 % (0-6); HEMATOCRIT 24.8 % (42.0-52.0); IMMATURE GRAN ABSOLUTE AUTO 0.03 10^3/uL (0.00-0.49); IMMATURE GRAN PERCENT AUTO 0.3 % (0.0-4.9); LYMPHOCYTES ABSOLUTE AUTO 0.44 10^3/uL (0.60-5.00); LYMPHOCYTES PERCENT AUTO 4.5 % (24-44); MEAN CORPUSCULAR HEMOGLOBIN 26.3 pg (27.0-32.0); MEAN CORPUSCULAR HGB CONC 32.3 g/dL (32.0-36.0); MEAN CORPUSCULAR VOLUME 81.6 fL (83.0-97.0); MONOCYTES PERCENT AUTO 10.2 % (0-10); NEUTROPHILS ABSOLUTE AUTO 8.03 x10^3/uL (1.80-8.00); NEUTROPHILS PERCENT AUTO 82.1 % (41-71); PLATELET COUNT,PLT 166 10^3/uL (150-400); RED BLOOD CELL COUNT 3.04 x10^6/uL (4.50-6.00); WHITE BLOOD CELL COUNT,WBC 9.8 10^3/uL (4.0-11.0)
[2023-07-17 07:24] LABS: INR 2.99 (0.92-1.18); PROTHROMBIN TIME 29.9 SEC (9.3-11.3)
[2023-07-17] MEDS: Metoprolol Tartrate 50 MG Tab PO SCH ×2 (07:50→19:30)
[2023-07-17] MEDS: Acetaminophen 500 MG Tab PO PRN ×3 (07:51→19:36)
[2023-07-17] MEDS: Potassium Chloride 10 MEQ Tab.ER PO SCH (07:51)
[2023-07-17] MEDS: Gabapentin 100 MG Cap PO SCH ×2 (07:51→19:22)
[2023-07-17] MEDS: Carbidopa/Levodopa 25-100 MG Tab PO SCH ×3 (07:51→19:23)
[2023-07-17] MEDS: Bumetanide 1 MG Tab PO SCH ×2 (07:52→15:55)
[2023-07-17 08:02] LABS: ALBUMIN 2.4 g/dL (3.4-5.0); BILIRUBIN TOTAL 1.1 mg/dL (0.0-1.0); C-REACTIVE PROTEIN 19.44 mg/dL (<=0.30); CALCIUM 7.9 mg/dL (8.4-10.1); CREATININE 1.6 mg/dL (0.7-1.3); EST CRCL DRUG DOSING (CG) 46.48 mL/min; PROTEIN TOTAL,TP 6.3 g/dL (6.4-8.2)
[2023-07-17] MEDS: TERBINAFINE HCL 250 MG PO SCH (08:39)
[2023-07-18] MEDS: Acetaminophen 500 MG Tab PO PRN ×2 (02:25→08:30)
[2023-07-18] MEDS: ceFAZolin 2 GM Vial IVPUSH SCH (03:57)
[2023-07-18 07:25] LABS: BASOPHILS ABSOLUTE AUTO 0.01 10^3/uL (0.00-0.50); BASOPHILS PERCENT AUTO 0.1 % (0-1); EOSINOPHILS ABSOLUTE AUTO 0.27 10^3/uL (0.00-1.50); EOSINOPHILS PERCENT AUTO 3.2 % (0-6); HEMATOCRIT 22.2 % (42.0-52.0); IMMATURE GRAN ABSOLUTE AUTO 0.03 10^3/uL (0.00-0.49); IMMATURE GRAN PERCENT AUTO 0.4 % (0.0-4.9); LYMPHOCYTES ABSOLUTE AUTO 0.46 10^3/uL (0.60-5.00); LYMPHOCYTES PERCENT AUTO 5.4 % (24-44); MEAN CORPUSCULAR HEMOGLOBIN 26.6 pg (27.0-32.0); MEAN CORPUSCULAR HGB CONC 32.4 g/dL (32.0-36.0); MEAN CORPUSCULAR VOLUME 81.9 fL (83.0-97.0); MONOCYTES ABSOLUTE AUTO 0.81 10^3/uL (0.00-1.50); MONOCYTES PERCENT AUTO 9.5 % (0-10); NEUTROPHILS ABSOLUTE AUTO 6.97 x10^3/uL (1.80-8.00); NEUTROPHILS PERCENT AUTO 81.4 % (41-71); PLATELET COUNT,PLT 197 10^3/uL (150-400); RED BLOOD CELL COUNT 2.71 x10^6/uL (4.50-6.00); WHITE BLOOD CELL COUNT,WBC 8.6 10^3/uL (4.0-11.0)
[2023-07-18 07:31] LABS: HEMOGLOBIN 7.2 g/dL (14.0-18.0)
[2023-07-18 07:32] LABS: INR 2.59 (0.92-1.18)
[2023-07-18] MEDS: Potassium Chloride 10 MEQ Tab.ER PO SCH (07:44)
[2023-07-18] MEDS: Carbidopa/Levodopa 25-100 MG Tab PO SCH ×2 (07:45→14:22)
[2023-07-18] MEDS: Metoprolol Tartrate 50 MG Tab PO SCH (07:49)
[2023-07-18 07:51] LABS: CALCIUM 7.9 mg/dL (8.4-10.1); CREATININE 1.7 mg/dL (0.7-1.3); EST CRCL DRUG DOSING (CG) 43.75 mL/min; POTASSIUM,K 4.1 mEq/L (3.5-5.0)
[2023-07-18] MEDS: Gabapentin 100 MG Cap PO SCH (07:51)
[2023-07-18] MEDS: Bumetanide 1 MG Tab PO SCH ×2 (07:51→17:21)
[2023-07-18] MEDS: TERBINAFINE HCL 250 MG PO SCH (08:04)
[2023-07-18 08:09] LABS: C-REACTIVE PROTEIN 27.8 mg/dL (<=0.30)
[2023-07-18] MEDS ORDERED: Sodium Chloride 0.9% 250 ML IV SCH (09:15)
[2023-07-18] MEDS ORDERED: Phytonadione 5 MG Tab PO ONE (13:52)
[2023-07-18 16:43] VITALS: BP 109/67; PULSE 98
[2023-07-18] MEDS ORDERED: Sulfamethoxazole/Trimethoprim 800-160 MG Tab PO SCH (17:30)
== END 2023-07-18 19:00 | DRG 565 ==
LOC: UNDOADMIN 11:45 → CC.MS 11:45
PROVIDERS: ADMIT Physician Assistant Medical; ATTEND Nurse Practitioner Family
PROC: 30233N1 Transfusion of Nonautologous Red Blood Cells into Peripheral Vein, Percutaneous Approach (ICD-10-PCS; principal; 2023-07-16)
PROC: 30233N1 Transfusion of Nonautologous Red Blood Cells into Peripheral Vein, Percutaneous Approach (ICD-10-PCS; 2023-07-18)
DX: M25.461 Effusion, right knee (principal); D62 Acute posthemorrhagic anemia; L03.115 Cellulitis of right lower limb; L03.116 Cellulitis of left lower limb; I10 Essential (primary) hypertension; E78.00 Pure hypercholesterolemia, unspecified; I48.91 Unspecified atrial fibrillation; G43.909 Migraine, unspecified, not intractable, without status migrainosus; G20 Parkinson's disease; F41.9 Anxiety disorder, unspecified; F32.9 Major depressive disorder, single episode, unspecified; E66.9 Obesity, unspecified; Z68.32 Body mass index [BMI] 32.0-32.9, adult; Z88.1 Allergy status to other antibiotic agents; Z79.899 Other long term (current) drug therapy; Z86.19 Personal history of other infectious and parasitic diseases; Z79.01 Long term (current) use of anticoagulants
CPT/HCPCS: 36415; 36430; 73700-RT; 80048; 80053; 83605; 85025; 85610; 86140; 86850; 86900; 86901; 86920; 86922; 87040; 87070; 87077; 87186; 87205; 97110-GP; 97161-GP; A9270-GY; J0690; J2185; J2270; J3490; J7030; J7050; P9016

== ENCOUNTER 2023-07-23 09:28 | Inpatient (IN) | payer MEDICARE, BC ==
[2023-07-23] MEDS ORDERED: Triamcinolone Acetonide 0.1% Crm 15 GM Tube TOP PRN (14:04)
[2023-07-23] MEDS ORDERED: oxyCODONE 5 MG Tab PO PRN (14:19)
[2023-07-23] MEDS ORDERED: Temazepam 15 MG Cap PO PRN (14:19)
[2023-07-23] MEDS ORDERED: Polyethylene Glycol 3350 Powder 17 GM Packet PO PRN (14:19)
[2023-07-23] MEDS ORDERED: Ondansetron 4 MG Tab.DIS PO PRN (14:19)
[2023-07-23] MEDS ORDERED: Enoxaparin 40 MG/0.4 ML Syringe SUBCUT SCH (14:30)
[2023-07-23] MEDS: Cefadroxil 500 MG Cap PO SCH (17:00)
[2023-07-23] MEDS: Metoprolol Tartrate 25 MG Tab PO SCH (20:07)
[2023-07-23] MEDS: Gabapentin 100 MG Cap PO SCH (20:09)
[2023-07-23] MEDS: Carbidopa/Levodopa 25-100 MG Tab PO SCH (20:10)
[2023-07-24 07:23] LABS: BASOPHILS ABSOLUTE AUTO 0.01 10^3/uL (0.00-0.50); BASOPHILS PERCENT AUTO 0.2 % (0-1); EOSINOPHILS ABSOLUTE AUTO 0.74 10^3/uL (0.00-1.50); EOSINOPHILS PERCENT AUTO 11.1 % (0-6); HEMATOCRIT 25.2 % (42.0-52.0); HEMOGLOBIN 7.8 g/dL (14.0-18.0); IMMATURE GRAN ABSOLUTE AUTO 0.05 10^3/uL (0.00-0.49); IMMATURE GRAN PERCENT AUTO 0.8 % (0.0-4.9); LYMPHOCYTES ABSOLUTE AUTO 0.61 10^3/uL (0.60-5.00); LYMPHOCYTES PERCENT AUTO 9.2 % (24-44); MEAN CORPUSCULAR HEMOGLOBIN 26.3 pg (27.0-32.0); MEAN CORPUSCULAR VOLUME 84.8 fL (83.0-97.0); MONOCYTES ABSOLUTE AUTO 0.59 10^3/uL (0.00-1.50); MONOCYTES PERCENT AUTO 8.9 % (0-10); NEUTROPHILS ABSOLUTE AUTO 4.65 x10^3/uL (1.80-8.00); NEUTROPHILS PERCENT AUTO 69.8 % (41-71); PLATELET COUNT,PLT 278 10^3/uL (150-400); RED BLOOD CELL COUNT 2.97 x10^6/uL (4.50-6.00); WHITE BLOOD CELL COUNT,WBC 6.7 10^3/uL (4.0-11.0)
[2023-07-24 07:44] LABS: ALBUMIN 2.1 g/dL (3.4-5.0); BILIRUBIN TOTAL 0.9 mg/dL (0.0-1.0); CREATININE 1.2 mg/dL (0.7-1.3); EST CRCL DRUG DOSING (CG) 63.81 mL/min; POTASSIUM,K 4.5 mEq/L (3.5-5.0); PROTEIN TOTAL,TP 6.6 g/dL (6.4-8.2)
[2023-07-24 07:47] LABS: INR 1.23 (0.92-1.18); PROTHROMBIN TIME 12.6 SEC (9.3-11.3)
[2023-07-24] MEDS: Potassium Chloride 10 MEQ Tab.ER PO SCH (08:12)
[2023-07-24] MEDS: Metoprolol Tartrate 25 MG Tab PO SCH ×2 (08:13→19:24)
[2023-07-24] MEDS: Cefadroxil 500 MG Cap PO SCH ×2 (08:13→17:41)
[2023-07-24] MEDS: Gabapentin 100 MG Cap PO SCH ×2 (08:13→19:23)
[2023-07-24] MEDS: Carbidopa/Levodopa 25-100 MG Tab PO SCH ×3 (08:13→19:23)
[2023-07-24] MEDS: TERBINAFINE HCL 250 MG PO SCH (08:14)
[2023-07-24] MEDS: Bumetanide 1 MG Tab PO SCH ×2 (08:20→16:17)
[2023-07-24] MEDS: Warfarin 2.5 MG Tab PO SCH (11:50)
[2023-07-24] MEDS ORDERED: Bumetanide 1 MG Tab PO SCH (16:00)
[2023-07-25] MEDS: Carbidopa/Levodopa 25-100 MG Tab PO SCH ×3 (07:50→19:36)
[2023-07-25] MEDS: Metoprolol Tartrate 25 MG Tab PO SCH ×2 (07:50→19:35)
[2023-07-25] MEDS: Gabapentin 100 MG Cap PO SCH ×2 (07:50→19:36)
[2023-07-25] MEDS: Potassium Chloride 10 MEQ Tab.ER PO SCH (07:51)
[2023-07-25] MEDS: Cefadroxil 500 MG Cap PO SCH ×2 (07:51→17:09)
[2023-07-25] MEDS: Bumetanide 1 MG Tab PO SCH ×2 (07:52→15:11)
[2023-07-25] MEDS: TERBINAFINE HCL 250 MG PO SCH (07:52)
[2023-07-25 08:51] LABS: INR 1.32 (0.92-1.18); PROTHROMBIN TIME 13.5 SEC (9.3-11.3)
[2023-07-25] MEDS: Warfarin 2.5 MG Tab PO SCH (12:13)
[2023-07-26 07:50] LABS: INR 1.46 (0.92-1.18); PROTHROMBIN TIME 14.8 SEC (9.3-11.3)
[2023-07-26] MEDS: Bumetanide 1 MG Tab PO SCH ×2 (08:09→15:23)
[2023-07-26] MEDS: Cefadroxil 500 MG Cap PO SCH ×2 (08:09→17:18)
[2023-07-26] MEDS: Gabapentin 100 MG Cap PO SCH ×2 (08:09→19:26)
[2023-07-26] MEDS: Metoprolol Tartrate 25 MG Tab PO SCH ×2 (08:10→19:26)
[2023-07-26] MEDS: Potassium Chloride 10 MEQ Tab.ER PO SCH (08:10)
[2023-07-26] MEDS: Carbidopa/Levodopa 25-100 MG Tab PO SCH ×3 (08:10→19:26)
[2023-07-26] MEDS: TERBINAFINE HCL 250 MG PO SCH (08:16)
[2023-07-26] MEDS: Warfarin 2.5 MG Tab PO SCH (12:18)
[2023-07-26] MEDS: Acetaminophen 325 MG Tab PO PRN (19:30)
[2023-07-27] MEDS: TERBINAFINE HCL 250 MG PO SCH (07:56)
[2023-07-27] MEDS: Cefadroxil 500 MG Cap PO SCH ×2 (07:58→17:12)
[2023-07-27] MEDS: Carbidopa/Levodopa 25-100 MG Tab PO SCH ×3 (07:58→19:34)
[2023-07-27] MEDS: Potassium Chloride 10 MEQ Tab.ER PO SCH (07:58)
[2023-07-27] MEDS: Bumetanide 1 MG Tab PO SCH ×2 (07:59→17:12)
[2023-07-27] MEDS: Gabapentin 100 MG Cap PO SCH ×2 (07:59→19:34)
[2023-07-27] MEDS: Metoprolol Tartrate 25 MG Tab PO SCH ×2 (07:59→19:34)
[2023-07-27 08:06] LABS: BASOPHILS ABSOLUTE AUTO 0.02 10^3/uL (0.00-0.50); BASOPHILS PERCENT AUTO 0.3 % (0-1); EOSINOPHILS ABSOLUTE AUTO 0.65 10^3/uL (0.00-1.50); EOSINOPHILS PERCENT AUTO 9.5 % (0-6); HEMATOCRIT 26.3 % (42.0-52.0); HEMOGLOBIN 8.2 g/dL (14.0-18.0); IMMATURE GRAN ABSOLUTE AUTO 0.24 10^3/uL (0.00-0.49); IMMATURE GRAN PERCENT AUTO 3.5 % (0.0-4.9); LYMPHOCYTES ABSOLUTE AUTO 0.88 10^3/uL (0.60-5.00); LYMPHOCYTES PERCENT AUTO 12.9 % (24-44); MEAN CORPUSCULAR HEMOGLOBIN 25.9 pg (27.0-32.0); MEAN CORPUSCULAR HGB CONC 31.2 g/dL (32.0-36.0); MONOCYTES PERCENT AUTO 8.8 % (0-10); NEUTROPHILS ABSOLUTE AUTO 4.45 x10^3/uL (1.80-8.00); PLATELET COUNT,PLT 323 10^3/uL (150-400); RED BLOOD CELL COUNT 3.17 x10^6/uL (4.50-6.00); WHITE BLOOD CELL COUNT,WBC 6.8 10^3/uL (4.0-11.0)
[2023-07-27 08:10] LABS: INR 1.65 (0.92-1.18); PROTHROMBIN TIME 16.8 SEC (9.3-11.3)
[2023-07-27 08:13] LABS: ALBUMIN 2.5 g/dL (3.4-5.0); BILIRUBIN TOTAL 0.9 mg/dL (0.0-1.0); CALCIUM 8.2 mg/dL (8.4-10.1); CREATININE 1.5 mg/dL (0.7-1.3); EST CRCL DRUG DOSING (CG) 51.05 mL/min; POTASSIUM,K 3.9 mEq/L (3.5-5.0); PROTEIN TOTAL,TP 7.1 g/dL (6.4-8.2)
[2023-07-27] MEDS: Warfarin 2.5 MG Tab PO SCH (11:58)
[2023-07-28] MEDS: Gabapentin 100 MG Cap PO SCH ×2 (07:11→19:27)
[2023-07-28] MEDS: Metoprolol Tartrate 25 MG Tab PO SCH ×2 (07:11→19:27)
[2023-07-28] MEDS: Potassium Chloride 10 MEQ Tab.ER PO SCH (07:11)
[2023-07-28] MEDS: Bumetanide 1 MG Tab PO SCH ×2 (07:11→15:56)
[2023-07-28] MEDS: Carbidopa/Levodopa 25-100 MG Tab PO SCH ×3 (07:12→19:26)
[2023-07-28] MEDS: Cefadroxil 500 MG Cap PO SCH ×2 (07:12→17:19)
[2023-07-28] MEDS: TERBINAFINE HCL 250 MG PO SCH (07:15)
[2023-07-28] MEDS: Warfarin 2.5 MG Tab PO SCH (11:37)
[2023-07-29] MEDS: Potassium Chloride 10 MEQ Tab.ER PO SCH (07:56)
[2023-07-29] MEDS: Bumetanide 1 MG Tab PO SCH ×2 (07:57→16:26)
[2023-07-29] MEDS: Carbidopa/Levodopa 25-100 MG Tab PO SCH ×3 (07:57→19:42)
[2023-07-29] MEDS: Metoprolol Tartrate 25 MG Tab PO SCH ×2 (07:57→19:42)
[2023-07-29] MEDS: Cefadroxil 500 MG Cap PO SCH ×2 (07:57→17:13)
[2023-07-29] MEDS: Gabapentin 100 MG Cap PO SCH ×2 (07:57→19:42)
[2023-07-29] MEDS: TERBINAFINE HCL 250 MG PO SCH (07:58)
[2023-07-29] MEDS: Warfarin 2 MG Tab PO SCH (12:55)
[2023-07-30] MEDS: Potassium Chloride 10 MEQ Tab.ER PO SCH (08:26)
[2023-07-30] MEDS: Gabapentin 100 MG Cap PO SCH ×2 (08:26→19:39)
[2023-07-30] MEDS: Carbidopa/Levodopa 25-100 MG Tab PO SCH ×3 (08:27→19:40)
[2023-07-30] MEDS: Bumetanide 1 MG Tab PO SCH ×2 (08:27→16:23)
[2023-07-30] MEDS: Cefadroxil 500 MG Cap PO SCH ×2 (08:27→18:13)
[2023-07-30] MEDS: Metoprolol Tartrate 25 MG Tab PO SCH ×2 (08:29→19:39)
[2023-07-30] MEDS: TERBINAFINE HCL 250 MG PO SCH (08:29)
[2023-07-30] MEDS: Warfarin 2 MG Tab PO SCH (12:09)
[2023-07-31] MEDS: Acetaminophen 325 MG Tab PO PRN (03:12)
[2023-07-31] MEDS: Gabapentin 100 MG Cap PO SCH ×2 (08:27→19:42)
[2023-07-31] MEDS: Carbidopa/Levodopa 25-100 MG Tab PO SCH ×3 (08:27→23:54)
[2023-07-31] MEDS: Metoprolol Tartrate 25 MG Tab PO SCH ×2 (08:28→19:42)
[2023-07-31] MEDS: Potassium Chloride 10 MEQ Tab.ER PO SCH (08:28)
[2023-07-31] MEDS: Bumetanide 1 MG Tab PO SCH ×2 (08:28→16:58)
[2023-07-31] MEDS: TERBINAFINE HCL 250 MG PO SCH (08:31)
[2023-07-31] MEDS: Warfarin 2 MG Tab PO SCH (18:54)
[2023-08-01 07:58] LABS: INR 2.04 (0.92-1.18); PROTHROMBIN TIME 20.6 SEC (9.3-11.3)
[2023-08-01] MEDS: Bumetanide 1 MG Tab PO SCH (08:34)
[2023-08-01] MEDS: Metoprolol Tartrate 25 MG Tab PO SCH (08:34)
[2023-08-01] MEDS: Gabapentin 100 MG Cap PO SCH (08:34)
[2023-08-01] MEDS: Carbidopa/Levodopa 25-100 MG Tab PO SCH ×2 (08:34→14:09)
[2023-08-01] MEDS: Potassium Chloride 10 MEQ Tab.ER PO SCH (08:34)
[2023-08-01] MEDS: TERBINAFINE HCL 250 MG PO SCH (08:42)
[2023-08-01 10:54] VITALS: BP 121/63; PULSE 70
[2023-08-01] MEDS: Warfarin 2 MG Tab PO SCH (11:38)
== END 2023-08-01 16:05 | disposition home or self-care (01) | DRG 948 ==
LOC: CC.MS 13:20 → UNDOADMIN 13:20 → CC.MS 14:05
PROVIDERS: ADMIT Physician Assistant Medical; ATTEND Physician Assistant Medical
DX: R53.81 Other malaise (principal); D62 Acute posthemorrhagic anemia; I48.91 Unspecified atrial fibrillation; E78.00 Pure hypercholesterolemia, unspecified; I10 Essential (primary) hypertension; M19.90 Unspecified osteoarthritis, unspecified site; M54.9 Dorsalgia, unspecified; G89.29 Other chronic pain; F41.9 Anxiety disorder, unspecified; F32.A Depression, unspecified; G43.909 Migraine, unspecified, not intractable, without status migrainosus; I87.2 Venous insufficiency (chronic) (peripheral); E66.9 Obesity, unspecified; G20 Parkinson's disease; Z98.890 Other specified postprocedural states; Z79.899 Other long term (current) drug therapy; Z88.0 Allergy status to penicillin; Z88.8 Allergy status to other drugs, medicaments and biological substances; Z88.1 Allergy status to other antibiotic agents; Z79.01 Long term (current) use of anticoagulants
CPT/HCPCS: 36415; 80053; 85025; 85610; 97110-GP; 97161-GP; 97530-GP; A9270-GY

== ENCOUNTER 2023-09-04 14:00 | Emergency (ER) | payer MEDICARE, BC ==
[2023-09-04 14:51] LABS: EOSINOPHILS ABSOLUTE AUTO 0.03 10^3/uL (0.00-1.50); EOSINOPHILS PERCENT AUTO 0.2 % (0-6); HEMATOCRIT 35.6 % (42.0-52.0); IMMATURE GRAN ABSOLUTE AUTO 0.05 10^3/uL (0.00-0.49); IMMATURE GRAN PERCENT AUTO 0.3 % (0.0-4.9); LYMPHOCYTES ABSOLUTE AUTO 0.22 10^3/uL (0.60-5.00); LYMPHOCYTES PERCENT AUTO 1.3 % (24-44); MEAN CORPUSCULAR HEMOGLOBIN 24.7 pg (27.0-32.0); MEAN CORPUSCULAR HGB CONC 30.9 g/dL (32.0-36.0); MONOCYTES ABSOLUTE AUTO 0.25 10^3/uL (0.00-1.50); MONOCYTES PERCENT AUTO 1.5 % (0-10); NEUTROPHILS ABSOLUTE AUTO 16.23 x10^3/uL (1.80-8.00); NEUTROPHILS PERCENT AUTO 96.7 % (41-71); PLATELET COUNT,PLT 350 10^3/uL (150-400); RED BLOOD CELL COUNT 4.45 x10^6/uL (4.50-6.00); WHITE BLOOD CELL COUNT,WBC 16.8 10^3/uL (4.0-11.0)
[2023-09-04 14:59] LABS: APPEARANCE,URINE CLEAR (CLEAR); BILIRUBIN,URINE NEGATIVE (NEGATIVE); COLOR,URINE YELLOW (YELLOW); GLUCOSE,URINE NEGATIVE (NEGATIVE); KETONES,URINE NEGATIVE (NEGATIVE); LEUKOCYTE ESTERASE,URINE NEGATIVE (NEGATIVE); NITRITE,URINE NEGATIVE (NEGATIVE); OCCULT BLOOD,URINE NEGATIVE (NEGATIVE); PROTEIN,URINE 30 mg/dL (NEGATIVE); UROBILINOGEN,URINE 0.2 EU/dL (0.2-1.0)
[2023-09-04 15:04] LABS: BACTERIA,URINE NOT SEEN /HPF (NOT SEEN); EPITHELIAL CELLS,URINE OCCASIONAL /HPF (NOT SEEN); MUCUS,URINE FEW /HPF (NOT SEEN); RBC,URINE NOT SEEN /HPF (0-5); WBC,URINE NOT SEEN /HPF (0-5)
[2023-09-04 15:09] LABS: PROTHROMBIN TIME 50.2 SEC (9.3-11.3)
[2023-09-04] MEDS ORDERED: ceFAZolin 2 GM Vial IVPUSH SCH (15:15)
[2023-09-04 15:16] LABS: ALBUMIN 2.8 g/dL (3.4-5.0); BILIRUBIN TOTAL 1.1 mg/dL (0.0-1.0); C-REACTIVE PROTEIN 14.61 mg/dL (<=0.30); CALCIUM 8.6 mg/dL (8.4-10.1); CREATININE 1.6 mg/dL (0.7-1.3); EST CRCL DRUG DOSING (CG) 47.86 mL/min; POTASSIUM,K 4.7 mEq/L (3.5-5.0)
[2023-09-04 15:21] LABS: INR 5.11 (0.92-1.18)
[2023-09-04] MEDS ORDERED: Albuterol/Ipratropium 3.0-0.5 MG/3 ML Neb Soln NEB PRN (15:46)
[2023-09-04] MEDS ORDERED: Acetaminophen 325 MG Tab PO PRN (15:46)
[2023-09-04] MEDS ORDERED: Acetaminophen 325 MG Tab PO ONE (15:55)
[2023-09-04] MEDS ORDERED: Sodium Chloride 0.9% 500 ML ONE (16:14)
[2023-09-04] MEDS ORDERED: Sodium Chloride 0.9% 500 ML IV SCH (16:15)
[2023-09-04] MEDS ORDERED: Sodium Chloride 0.9% 1,000 ML IV ONE (17:07)
[2023-09-04] MEDS ORDERED: Norepinephrine 4 MG in Dextrose 5% in Water 246 ML IV SCH ×2 (17:15)
[2023-09-04] MEDS ORDERED: Meropenem 1 GM SDV IVPUSH ONE (17:21)
[2023-09-04] MEDS ORDERED: Furosemide 20 MG/2 ML VIAL IVPUSH ONE (17:43)
[2023-09-04] MEDS: Furosemide 40 MG/4 ML VIAL ONE ×2 (17:48→18:47)
[2023-09-04 20:25] VITALS: BP 88/47; PULSE 112
== END 2023-09-04 18:52 ==
LOC: CC.ED 14:00 → CC.MS 15:46 → UNDOADMIN 15:46 → CC.MS 15:57 → UNDODISIN 18:52
PROC: 3E033XZ Introduction of Vasopressor into Peripheral Vein, Percutaneous Approach (ICD-10-PCS; principal; 2023-09-04)
DX: A41.9 Sepsis, unspecified organism (principal); I50.43 Acute on chronic combined systolic (congestive) and diastolic (congestive) heart failure; R65.21 Severe sepsis with septic shock; Z68.42 Body mass index [BMI] 45.0-49.9, adult; I13.0 Hypertensive heart and chronic kidney disease with heart failure and stage 1 through stage 4 chronic kidney disease, or unspecified chronic kidney disease; L03.115 Cellulitis of right lower limb; N17.9 Acute kidney failure, unspecified; G20.A1 Parkinson's disease without dyskinesia, without mention of fluctuations; E66.01 Morbid (severe) obesity due to excess calories; I48.91 Unspecified atrial fibrillation; I89.0 Lymphedema, not elsewhere classified; E78.00 Pure hypercholesterolemia, unspecified; M19.90 Unspecified osteoarthritis, unspecified site; F41.9 Anxiety disorder, unspecified; F32.A Depression, unspecified; N18.32 Chronic kidney disease, stage 3b; I95.9 Hypotension, unspecified; Z79.01 Long term (current) use of anticoagulants; Z88.1 Allergy status to other antibiotic agents; Z88.8 Allergy status to other drugs, medicaments and biological substances; Z79.899 Other long term (current) drug therapy; Z86.16 Personal history of COVID-19; Z98.890 Other specified postprocedural states
CPT/HCPCS: 36415; 71045; 80053; 81001; 82800; 83605; 83880; 85025; 85610; 86140; 87040; 87077; 93005; 96374; 99291-25; A9270-GY; J0690; J1940; J2185; J3490; J7030; J7040; J7060

== ENCOUNTER 2023-09-24 11:23 | Inpatient (IN) | payer MEDICARE, BC ==
[2023-09-24] MEDS ORDERED: Acetaminophen 325 MG Tab PO PRN (14:18)
[2023-09-24] MEDS ORDERED: Ondansetron 4 MG Tab.DIS PO PRN (14:18)
[2023-09-24] MEDS ORDERED: oxyCODONE 5 MG Tab PO PRN (14:31)
[2023-09-24] MEDS ORDERED: hydrOXYzine HCl 25 MG Tab PO PRN (14:31)
[2023-09-24] MEDS ORDERED: Triamcinolone Acetonide 0.1% Crm 15 GM Tube TOP PRN (14:31)
[2023-09-24] MEDS ORDERED: Melatonin 3 MG Tab PO PRN (14:31)
[2023-09-24 14:44] LABS: BASOPHILS ABSOLUTE AUTO 0.02 10^3/uL (0.00-0.50); BASOPHILS PERCENT AUTO 0.2 % (0-1); EOSINOPHILS ABSOLUTE AUTO 1.39 10^3/uL (0.00-1.50); EOSINOPHILS PERCENT AUTO 15.8 % (0-6); HEMATOCRIT 34.4 % (42.0-52.0); HEMOGLOBIN 10.4 g/dL (14.0-18.0); IMMATURE GRAN ABSOLUTE AUTO 0.04 10^3/uL (0.00-0.49); IMMATURE GRAN PERCENT AUTO 0.5 % (0.0-4.9); LYMPHOCYTES PERCENT AUTO 12.5 % (24-44); MEAN CORPUSCULAR HEMOGLOBIN 23.9 pg (27.0-32.0); MEAN CORPUSCULAR HGB CONC 30.2 g/dL (32.0-36.0); MEAN CORPUSCULAR VOLUME 79.1 fL (83.0-97.0); MONOCYTES ABSOLUTE AUTO 0.79 10^3/uL (0.00-1.50); NEUTROPHILS ABSOLUTE AUTO 5.45 x10^3/uL (1.80-8.00); PLATELET COUNT,PLT 235 10^3/uL (150-400); RED BLOOD CELL COUNT 4.35 x10^6/uL (4.50-6.00); WHITE BLOOD CELL COUNT,WBC 8.8 10^3/uL (4.0-11.0)
[2023-09-24 14:53] LABS: INR 1.08 (0.92-1.18); PROTHROMBIN TIME 11.1 SEC (9.3-11.3)
[2023-09-24 14:58] LABS: ALANINE AMINOTRANSFERASE,ALT 6 U/L (12-78); ALBUMIN 2.8 g/dL (3.4-5.0); ALKALINE PHOSPHATASE 79 U/L (46-116); ASPARTATE AMNIOTRANSFERASE,AST 11 U/L (15-37); BILIRUBIN TOTAL 0.6 mg/dL (0.0-1.0); BLOOD UREA NITROGEN,BUN 46 mg/dL (7-18); C-REACTIVE PROTEIN 1.68 mg/dL (<=0.30); CALCIUM 9.2 mg/dL (8.4-10.1); CARBON DIOXIDE,CO2 39 mmol/L (21-32); CHLORIDE,CL 100 mEq/L (98-106); CREATININE 2.2 mg/dL (0.7-1.3); GLUCOSE RANDOM 113 mg/dL (75-99); POTASSIUM,K 4.5 mEq/L (3.5-5.0); PROTEIN TOTAL,TP 7.5 g/dL (6.4-8.2); SODIUM,NA 140 mEq/L (136-145)
[2023-09-24 15:02] LABS: ESTIMATED GFR 31 mL/min (>=60)
[2023-09-24] MEDS: Torsemide 20 MG Tab PO SCH (16:21)
[2023-09-24] MEDS ORDERED: Warfarin 5 MG Tab PO ONE (17:00)
[2023-09-24] MEDS ORDERED: Bacitracin/Neomycin/Polymyxin B Oint 28.4 GM Tube ONE (18:51)
[2023-09-24] MEDS: Metoprolol Tartrate 25 MG Tab PO SCH (21:15)
[2023-09-24] MEDS: Carbidopa/Levodopa 25-100 MG Tab PO SCH (21:17)
[2023-09-24] MEDS: Gabapentin 100 MG Cap PO SCH (21:17)
[2023-09-25] MEDS: Metoprolol Tartrate 25 MG Tab PO SCH (07:45)
[2023-09-25 07:47] VITALS: BP 97/62
[2023-09-25] MEDS: Carbidopa/Levodopa 25-100 MG Tab PO SCH ×2 (07:59→15:34)
[2023-09-25] MEDS ORDERED: Cholecalciferol (Vitamin D3) 5,000 UNIT Tab PO SCH (08:00)
[2023-09-25] MEDS ORDERED: Potassium Chloride 10 MEQ Tab.ER PO SCH (08:00)
[2023-09-25] MEDS ORDERED: Torsemide 20 MG Tab PO SCH (08:00)
[2023-09-25] MEDS: Gabapentin 100 MG Cap PO SCH (08:00)
[2023-09-25 08:21] VITALS: PULSE 86
[2023-09-25 08:22] LABS: INR 1.13 (0.92-1.18); PROTHROMBIN TIME 11.6 SEC (9.3-11.3)
[2023-09-25 09:09] LABS: BASOPHILS ABSOLUTE AUTO 0.03 10^3/uL (0.00-0.50); BASOPHILS PERCENT AUTO 0.5 % (0-1); EOSINOPHILS ABSOLUTE AUTO 1.16 10^3/uL (0.00-1.50); EOSINOPHILS PERCENT AUTO 17.4 % (0-6); HEMATOCRIT 32.3 % (42.0-52.0); HEMOGLOBIN 9.9 g/dL (14.0-18.0); IMMATURE GRAN ABSOLUTE AUTO 0.01 10^3/uL (0.00-0.49); IMMATURE GRAN PERCENT AUTO 0.2 % (0.0-4.9); LYMPHOCYTES ABSOLUTE AUTO 1.26 10^3/uL (0.60-5.00); LYMPHOCYTES PERCENT AUTO 18.9 % (24-44); MEAN CORPUSCULAR HEMOGLOBIN 24.2 pg (27.0-32.0); MEAN CORPUSCULAR HGB CONC 30.7 g/dL (32.0-36.0); MONOCYTES ABSOLUTE AUTO 0.63 10^3/uL (0.00-1.50); MONOCYTES PERCENT AUTO 9.5 % (0-10); NEUTROPHILS ABSOLUTE AUTO 3.57 x10^3/uL (1.80-8.00); NEUTROPHILS PERCENT AUTO 53.5 % (41-71); PLATELET COUNT,PLT 235 10^3/uL (150-400); RED BLOOD CELL COUNT 4.09 x10^6/uL (4.50-6.00); WHITE BLOOD CELL COUNT,WBC 6.7 10^3/uL (4.0-11.0)
[2023-09-25 09:22] LABS: ALBUMIN 2.5 g/dL (3.4-5.0); BILIRUBIN TOTAL 0.5 mg/dL (0.0-1.0); C-REACTIVE PROTEIN 1.77 mg/dL (<=0.30); CALCIUM 8.6 mg/dL (8.4-10.1); CREATININE 2.1 mg/dL (0.7-1.3); EST CRCL DRUG DOSING (CG) 34.36 mL/min; POTASSIUM,K 3.4 mEq/L (3.5-5.0)
[2023-09-25] MEDS ORDERED: Warfarin 5 MG Tab PO ONE (13:45)
[2023-09-25 14:54] LABS: LACTIC ACID 1.3 mmol/L (0.4-2.0)
[2023-09-25] MEDS ORDERED: Sodium Chloride 0.9% 1,000 ML IV ONE (15:15)
[2023-09-25] MEDS: Torsemide 20 MG Tab PO SCH (15:33)
[2023-09-26] MEDS ORDERED: Warfarin 5 MG Tab PO SCH (12:00)
== END 2023-09-25 16:09 | disposition critical access hospital (66) | DRG 948 ==
LOC: CC.MS 13:20 → UNDOADMIN 13:20 → CC.MS 14:18
PROVIDERS: ADMIT Nurse Practitioner Family; ATTEND Nurse Practitioner Family
DX: R53.81 Other malaise (principal); I48.11 Longstanding persistent atrial fibrillation; Z68.41 Body mass index [BMI] 40.0-44.9, adult; N18.30 Chronic kidney disease, stage 3 unspecified; I89.0 Lymphedema, not elsewhere classified; E66.01 Morbid (severe) obesity due to excess calories; E78.00 Pure hypercholesterolemia, unspecified; I12.9 Hypertensive chronic kidney disease with stage 1 through stage 4 chronic kidney disease, or unspecified chronic kidney disease; M19.90 Unspecified osteoarthritis, unspecified site; G89.29 Other chronic pain; M54.9 Dorsalgia, unspecified; G43.909 Migraine, unspecified, not intractable, without status migrainosus; G20.A1 Parkinson's disease without dyskinesia, without mention of fluctuations; F41.9 Anxiety disorder, unspecified; F32.A Depression, unspecified; E66.9 Obesity, unspecified; Z79.01 Long term (current) use of anticoagulants; Z98.890 Other specified postprocedural states; Z79.899 Other long term (current) drug therapy
CPT/HCPCS: 36415; 70450; 71045; 73700-RT; 80053; 83605; 84484; 85025; 85610; 86140; 87040; 87070; 87077; 87186; 87205; 93005; A9270-GY; J7030

== ENCOUNTER 2023-10-23 14:38 | Inpatient (IN) | payer MEDICARE, BC ==
[2023-10-23 15:22] LABS: BASOPHILS ABSOLUTE AUTO 0.03 10^3/uL (0.00-0.50); BASOPHILS PERCENT AUTO 0.5 % (0-1); EOSINOPHILS ABSOLUTE AUTO 0.19 10^3/uL (0.00-1.50); EOSINOPHILS PERCENT AUTO 3.1 % (0-6); HEMATOCRIT 33.9 % (42.0-52.0); HEMOGLOBIN 9.9 g/dL (14.0-18.0); IMMATURE GRAN ABSOLUTE AUTO 0.01 10^3/uL (0.00-0.49); IMMATURE GRAN PERCENT AUTO 0.2 % (0.0-4.9); LYMPHOCYTES ABSOLUTE AUTO 0.57 10^3/uL (0.60-5.00); LYMPHOCYTES PERCENT AUTO 9.4 % (24-44); MEAN CORPUSCULAR HEMOGLOBIN 24.3 pg (27.0-32.0); MEAN CORPUSCULAR HGB CONC 29.2 g/dL (32.0-36.0); MEAN CORPUSCULAR VOLUME 83.3 fL (83.0-97.0); MONOCYTES ABSOLUTE AUTO 0.44 10^3/uL (0.00-1.50); MONOCYTES PERCENT AUTO 7.2 % (0-10); NEUTROPHILS ABSOLUTE AUTO 4.85 x10^3/uL (1.80-8.00); NEUTROPHILS PERCENT AUTO 79.6 % (41-71); PLATELET COUNT,PLT 179 10^3/uL (150-400); RED BLOOD CELL COUNT 4.07 x10^6/uL (4.50-6.00); WHITE BLOOD CELL COUNT,WBC 6.1 10^3/uL (4.0-11.0)
[2023-10-23 15:36] LABS: ALBUMIN 3.3 g/dL (3.4-5.0); BILIRUBIN TOTAL 0.7 mg/dL (0.0-1.0); C-REACTIVE PROTEIN 1.35 mg/dL (<=0.30); CALCIUM 8.3 mg/dL (8.4-10.1); CREATININE 1.6 mg/dL (0.7-1.3); EST CRCL DRUG DOSING (CG) 47.86 mL/min; MAGNESIUM 2.3 mg/dL (1.8-2.4); POTASSIUM,K 3.6 mEq/L (3.5-5.0); PROTEIN TOTAL,TP 7.2 g/dL (6.4-8.2)
[2023-10-23] MEDS ORDERED: OXYCODONE HCL 5 MG PO PRN (16:14)
[2023-10-23] MEDS ORDERED: Take Home: hydrOXYzine HCl 25 MG Tab, 4 Tab Pack PO PRN (16:14)
[2023-10-23] MEDS ORDERED: Melatonin 3 MG Tab PO PRN (16:14)
[2023-10-23] MEDS ORDERED: Triamcinolone Acetonide 0.1% Crm 15 GM Tube TOP PRN (16:14)
[2023-10-23] MEDS: Sulfamethoxazole/Trimethoprim 10 ML in Dextrose 5% in Water 250 ML IV SCH ×2 (16:54)
[2023-10-23] MEDS: Carbidopa/Levodopa 25-100 MG Tab PO SCH (19:32)
[2023-10-23] MEDS ORDERED: Gabapentin 100 MG Cap PO SCH (20:00)
[2023-10-23] MEDS ORDERED: Metoprolol Tartrate 50 MG Tab PO SCH (20:00)
[2023-10-24] MEDS: Sulfamethoxazole/Trimethoprim 10 ML in Dextrose 5% in Water 250 ML IV SCH ×4 (03:41→15:33)
[2023-10-24] MEDS: Acetaminophen 325 MG Tab PO PRN ×2 (05:19→17:05)
[2023-10-24 07:45] LABS: BASOPHILS ABSOLUTE AUTO 0.04 10^3/uL (0.00-0.50); BASOPHILS PERCENT AUTO 0.5 % (0-1); EOSINOPHILS ABSOLUTE AUTO 0.19 10^3/uL (0.00-1.50); EOSINOPHILS PERCENT AUTO 2.5 % (0-6); HEMATOCRIT 32.7 % (42.0-52.0); HEMOGLOBIN 9.6 g/dL (14.0-18.0); IMMATURE GRAN ABSOLUTE AUTO 0.02 10^3/uL (0.00-0.49); IMMATURE GRAN PERCENT AUTO 0.3 % (0.0-4.9); LYMPHOCYTES PERCENT AUTO 5.2 % (24-44); MEAN CORPUSCULAR HEMOGLOBIN 24.7 pg (27.0-32.0); MEAN CORPUSCULAR HGB CONC 29.4 g/dL (32.0-36.0); MEAN CORPUSCULAR VOLUME 84.1 fL (83.0-97.0); MONOCYTES PERCENT AUTO 7.9 % (0-10); NEUTROPHILS ABSOLUTE AUTO 6.39 x10^3/uL (1.80-8.00); NEUTROPHILS PERCENT AUTO 83.6 % (41-71); PLATELET COUNT,PLT 166 10^3/uL (150-400); RED BLOOD CELL COUNT 3.89 x10^6/uL (4.50-6.00); WHITE BLOOD CELL COUNT,WBC 7.6 10^3/uL (4.0-11.0)
[2023-10-24] MEDS ORDERED: CHOLECALCIFEROL 5000 UNIT PO SCH (08:00)
[2023-10-24] MEDS ORDERED: Non-Formulary Medication 1 Each (Magnesium Chloride [Magnesium] 64 MG Tablet) PO SCH (08:00)
[2023-10-24] MEDS ORDERED: Torsemide 20 MG Tab PO SCH (08:00)
[2023-10-24 08:03] LABS: CALCIUM 8.5 mg/dL (8.4-10.1); CREATININE 1.5 mg/dL (0.7-1.3); EST CRCL DRUG DOSING (CG) 51.05 mL/min; MAGNESIUM 2.2 mg/dL (1.8-2.4); POTASSIUM,K 3.8 mEq/L (3.5-5.0)
[2023-10-24] MEDS: Gabapentin 100 MG Cap PO SCH (08:14)
[2023-10-24] MEDS: Torsemide 20 MG Tab PO SCH (08:15)
[2023-10-24] MEDS: Potassium Chloride 20 MEQ Tab.ER PO SCH (08:15)
[2023-10-24] MEDS: Amiodarone 200 MG Tab PO SCH (08:15)
[2023-10-24] MEDS: Carbidopa/Levodopa 25-100 MG Tab PO SCH ×3 (08:15→19:26)
[2023-10-24] MEDS: Warfarin 2 MG Tab PO SCH (12:10)
[2023-10-24 13:30] LABS: INR 2.17 (0.92-1.18); PROTHROMBIN TIME 21.8 SEC (9.3-11.3)
[2023-10-25] MEDS: Sulfamethoxazole/Trimethoprim 10 ML in Dextrose 5% in Water 250 ML IV SCH ×4 (03:43→16:03)
[2023-10-25] MEDS: Amiodarone 200 MG Tab PO SCH (07:33)
[2023-10-25] MEDS: Torsemide 20 MG Tab PO SCH (07:34)
[2023-10-25] MEDS: Gabapentin 100 MG Cap PO SCH (07:34)
[2023-10-25] MEDS: Carbidopa/Levodopa 25-100 MG Tab PO SCH ×3 (07:34→19:33)
[2023-10-25] MEDS: Potassium Chloride 20 MEQ Tab.ER PO SCH (07:34)
[2023-10-25 07:35] LABS: BASOPHILS ABSOLUTE AUTO 0.04 10^3/uL (0.00-0.50); BASOPHILS PERCENT AUTO 0.5 % (0-1); EOSINOPHILS ABSOLUTE AUTO 0.28 10^3/uL (0.00-1.50); EOSINOPHILS PERCENT AUTO 3.5 % (0-6); HEMATOCRIT 34.3 % (42.0-52.0); HEMOGLOBIN 10.1 g/dL (14.0-18.0); IMMATURE GRAN ABSOLUTE AUTO 0.02 10^3/uL (0.00-0.49); IMMATURE GRAN PERCENT AUTO 0.2 % (0.0-4.9); LYMPHOCYTES ABSOLUTE AUTO 0.62 10^3/uL (0.60-5.00); LYMPHOCYTES PERCENT AUTO 7.7 % (24-44); MEAN CORPUSCULAR HEMOGLOBIN 24.9 pg (27.0-32.0); MEAN CORPUSCULAR HGB CONC 29.4 g/dL (32.0-36.0); MEAN CORPUSCULAR VOLUME 84.7 fL (83.0-97.0); MONOCYTES ABSOLUTE AUTO 0.49 10^3/uL (0.00-1.50); MONOCYTES PERCENT AUTO 6.1 % (0-10); NEUTROPHILS ABSOLUTE AUTO 6.58 x10^3/uL (1.80-8.00); PLATELET COUNT,PLT 205 10^3/uL (150-400); RED BLOOD CELL COUNT 4.05 x10^6/uL (4.50-6.00)
[2023-10-25 07:40] LABS: INR 2.24 (0.92-1.18); PROTHROMBIN TIME 22.6 SEC (9.3-11.3)
[2023-10-25 07:41] LABS: ALBUMIN 3.1 g/dL (3.4-5.0); BILIRUBIN TOTAL 1.1 mg/dL (0.0-1.0); CALCIUM 8.5 mg/dL (8.4-10.1); CREATININE 1.5 mg/dL (0.7-1.3); EST CRCL DRUG DOSING (CG) 51.05 mL/min; POTASSIUM,K 3.9 mEq/L (3.5-5.0); PROTEIN TOTAL,TP 7.2 g/dL (6.4-8.2)
[2023-10-25] MEDS ORDERED: Ondansetron 4 MG Tab.DIS PO PRN (10:25)
[2023-10-25] MEDS ORDERED: Bumetanide 2.5 MG/10 ML MDV IVPUSH ONE (10:57)
[2023-10-25] MEDS: Warfarin 2 MG Tab PO SCH (11:17)
[2023-10-25] MEDS: Acetaminophen 325 MG Tab PO PRN (19:33)
[2023-10-26] MEDS ORDERED: Sodium Chloride 0.9% 0 ML ONE (03:51)
[2023-10-26] MEDS: Sulfamethoxazole/Trimethoprim 10 ML in Dextrose 5% in Water 250 ML IV SCH ×4 (04:05→15:28)
[2023-10-26 07:41] LABS: INR 2.32 (0.92-1.18); PROTHROMBIN TIME 23.3 SEC (9.3-11.3)
[2023-10-26] MEDS: Torsemide 20 MG Tab PO SCH (07:41)
[2023-10-26] MEDS: Potassium Chloride 20 MEQ Tab.ER PO SCH (07:41)
[2023-10-26] MEDS: Amiodarone 200 MG Tab PO SCH (07:41)
[2023-10-26] MEDS: Gabapentin 100 MG Cap PO SCH (07:41)
[2023-10-26] MEDS: Carbidopa/Levodopa 25-100 MG Tab PO SCH ×3 (07:41→19:18)
[2023-10-26 07:53] LABS: ALBUMIN 2.9 g/dL (3.4-5.0); BILIRUBIN TOTAL 0.8 mg/dL (0.0-1.0); CALCIUM 8.4 mg/dL (8.4-10.1); CREATININE 1.8 mg/dL (0.7-1.3); EST CRCL DRUG DOSING (CG) 42.54 mL/min; POTASSIUM,K 3.5 mEq/L (3.5-5.0)
[2023-10-26 08:05] LABS: BASOPHILS ABSOLUTE AUTO 0.03 10^3/uL (0.00-0.50); BASOPHILS PERCENT AUTO 0.6 % (0-1); EOSINOPHILS PERCENT AUTO 8.5 % (0-6); HEMATOCRIT 33.5 % (42.0-52.0); HEMOGLOBIN 9.7 g/dL (14.0-18.0); IMMATURE GRAN ABSOLUTE AUTO 0.01 10^3/uL (0.00-0.49); IMMATURE GRAN PERCENT AUTO 0.2 % (0.0-4.9); LYMPHOCYTES ABSOLUTE AUTO 0.45 10^3/uL (0.60-5.00); LYMPHOCYTES PERCENT AUTO 9.6 % (24-44); MEAN CORPUSCULAR HEMOGLOBIN 24.6 pg (27.0-32.0); MONOCYTES ABSOLUTE AUTO 0.39 10^3/uL (0.00-1.50); MONOCYTES PERCENT AUTO 8.3 % (0-10); NEUTROPHILS ABSOLUTE AUTO 3.43 x10^3/uL (1.80-8.00); NEUTROPHILS PERCENT AUTO 72.8 % (41-71); PLATELET COUNT,PLT 208 10^3/uL (150-400); RED BLOOD CELL COUNT 3.94 x10^6/uL (4.50-6.00); WHITE BLOOD CELL COUNT,WBC 4.7 10^3/uL (4.0-11.0)
[2023-10-26] MEDS: Warfarin 2 MG Tab PO SCH (12:17)
[2023-10-27] MEDS: Sulfamethoxazole/Trimethoprim 10 ML in Dextrose 5% in Water 250 ML IV SCH ×2 (03:42)
[2023-10-27 07:33] LABS: INR 2.22 (0.92-1.18); PROTHROMBIN TIME 22.3 SEC (9.3-11.3)
[2023-10-27] MEDS: Potassium Chloride 20 MEQ Tab.ER PO SCH (07:54)
[2023-10-27] MEDS: Carbidopa/Levodopa 25-100 MG Tab PO SCH ×3 (07:55→19:33)
[2023-10-27] MEDS: Gabapentin 100 MG Cap PO SCH (07:55)
[2023-10-27] MEDS: Torsemide 20 MG Tab PO SCH (07:55)
[2023-10-27] MEDS: Amiodarone 200 MG Tab PO SCH (07:55)
[2023-10-27] MEDS: Warfarin 2 MG Tab PO SCH (12:33)
[2023-10-27] MEDS: Sulfamethoxazole/Trimethoprim 800-160 MG Tab PO SCH (18:15)
[2023-10-28] MEDS: Potassium Chloride 20 MEQ Tab.ER PO SCH (08:05)
[2023-10-28] MEDS: Carbidopa/Levodopa 25-100 MG Tab PO SCH (08:06)
[2023-10-28] MEDS: Sulfamethoxazole/Trimethoprim 800-160 MG Tab PO SCH (08:06)
[2023-10-28] MEDS: Gabapentin 100 MG Cap PO SCH (08:07)
[2023-10-28] MEDS: Amiodarone 200 MG Tab PO SCH (08:07)
[2023-10-28] MEDS: Torsemide 20 MG Tab PO SCH (08:07)
[2023-10-28 08:42] VITALS: BP 144/94; PULSE 84
[2023-10-28] MEDS: Warfarin 2 MG Tab PO SCH (11:51)
== END 2023-10-28 13:45 | disposition home or self-care (01) | DRG 603 ==
LOC: UNDOADMIN 14:38 → CC.MS 14:38
PROVIDERS: ADMIT Nurse Practitioner; ATTEND Nurse Practitioner
DX: L03.115 Cellulitis of right lower limb (principal); R04.2 Hemoptysis; Z68.41 Body mass index [BMI] 40.0-44.9, adult; I13.0 Hypertensive heart and chronic kidney disease with heart failure and stage 1 through stage 4 chronic kidney disease, or unspecified chronic kidney disease; L02.415 Cutaneous abscess of right lower limb; I50.9 Heart failure, unspecified; I48.91 Unspecified atrial fibrillation; E78.00 Pure hypercholesterolemia, unspecified; M19.90 Unspecified osteoarthritis, unspecified site; G89.29 Other chronic pain; M54.9 Dorsalgia, unspecified; G43.909 Migraine, unspecified, not intractable, without status migrainosus; G20.A1 Parkinson's disease without dyskinesia, without mention of fluctuations; F41.9 Anxiety disorder, unspecified; F32.A Depression, unspecified; E66.9 Obesity, unspecified; N18.9 Chronic kidney disease, unspecified; N40.0 Benign prostatic hyperplasia without lower urinary tract symptoms; K21.9 Gastro-esophageal reflux disease without esophagitis; Z79.01 Long term (current) use of anticoagulants; Z79.899 Other long term (current) drug therapy; Z98.890 Other specified postprocedural states; Z88.0 Allergy status to penicillin; Z88.8 Allergy status to other drugs, medicaments and biological substances; Z88.1 Allergy status to other antibiotic agents
CPT/HCPCS: 36415; 71046; 73700-RT; 80048; 80053; 83605; 83735; 83880; 85025; 85610; 86140; 87040; 87070; 87077; 87186; 87205; 97110-GP; 97597-GP; A9270-GY; J3490; J7060

== ENCOUNTER 2024-06-18 10:54 | Emergency (ER) | payer MEDICARE, BC ==
[2024-06-18 11:23] LABS: BASOPHILS ABSOLUTE AUTO 0.04 10^3/uL (0.00-0.50); BASOPHILS PERCENT AUTO 0.6 % (0-1); EOSINOPHILS ABSOLUTE AUTO 0.21 10^3/uL (0.00-1.50); HEMATOCRIT 39.5 % (42.0-52.0); HEMOGLOBIN 11.9 g/dL (14.0-18.0); IMMATURE GRAN ABSOLUTE AUTO 0.02 10^3/uL (0.00-0.49); IMMATURE GRAN PERCENT AUTO 0.3 % (0.0-4.9); LYMPHOCYTES ABSOLUTE AUTO 0.56 10^3/uL (0.60-5.00); LYMPHOCYTES PERCENT AUTO 7.9 % (24-44); MEAN CORPUSCULAR HEMOGLOBIN 23.5 pg (27.0-32.0); MEAN CORPUSCULAR HGB CONC 30.1 g/dL (32.0-36.0); MEAN CORPUSCULAR VOLUME 78.1 fL (83.0-97.0); MONOCYTES PERCENT AUTO 8.4 % (0-10); NEUTROPHILS ABSOLUTE AUTO 5.68 x10^3/uL (1.80-8.00); NEUTROPHILS PERCENT AUTO 79.8 % (41-71); PLATELET COUNT,PLT 194 10^3/uL (150-400); RED BLOOD CELL COUNT 5.06 x10^6/uL (4.50-6.00); WHITE BLOOD CELL COUNT,WBC 7.1 10^3/uL (4.0-11.0)
[2024-06-18 11:23] LABS: APPEARANCE,URINE CLEAR (CLEAR); BILIRUBIN,URINE NEGATIVE (NEGATIVE); COLOR,URINE YELLOW (YELLOW); GLUCOSE,URINE NEGATIVE (NEGATIVE); KETONES,URINE NEGATIVE (NEGATIVE); LEUKOCYTE ESTERASE,URINE NEGATIVE (NEGATIVE); NITRITE,URINE NEGATIVE (NEGATIVE); OCCULT BLOOD,URINE NEGATIVE (NEGATIVE); PROTEIN,URINE NEGATIVE (NEGATIVE); UROBILINOGEN,URINE 0.2 EU/dL (0.2-1.0)
[2024-06-18 11:29] LABS: INR 3.24 (0.92-1.18); PROTHROMBIN TIME 32.1 SEC (9.3-11.3)
[2024-06-18 11:33] LABS: ALANINE AMINOTRANSFERASE,ALT 8 U/L (12-78); ALBUMIN 3.8 g/dL (3.4-5.0); ALKALINE PHOSPHATASE 111 U/L (46-116); ASPARTATE AMNIOTRANSFERASE,AST 15 U/L (15-37); BILIRUBIN TOTAL 1.1 mg/dL (0.0-1.0); BLOOD UREA NITROGEN,BUN 40 mg/dL (7-18); C-REACTIVE PROTEIN 0.71 mg/dL (<=0.50); CALCIUM 8.4 mg/dL (8.4-10.1); CARBON DIOXIDE,CO2 31 mmol/L (21-32); CHLORIDE,CL 106 mEq/L (98-106); CREATININE 2.3 mg/dL (0.7-1.3); GLUCOSE RANDOM 93 mg/dL (75-99); MAGNESIUM 2.3 mg/dL (1.8-2.4); POTASSIUM,K 3.5 mEq/L (3.5-5.0); PROTEIN TOTAL,TP 7.8 g/dL (6.4-8.2); SODIUM,NA 146 mEq/L (136-145)
[2024-06-18 11:36] LABS: ESTIMATED GFR 30 mL/min (>=60)
[2024-06-18 11:37] VITALS: BP 165/105; PULSE 70
== END 2024-06-18 12:47 | disposition home or self-care (01) ==
LOC: CC.ED 10:54
DX: S51.012A Laceration without foreign body of left elbow, initial encounter (principal); M54.2 Cervicalgia; I48.91 Unspecified atrial fibrillation; E78.00 Pure hypercholesterolemia, unspecified; I10 Essential (primary) hypertension; Z88.0 Allergy status to penicillin; Z88.1 Allergy status to other antibiotic agents; Z88.8 Allergy status to other drugs, medicaments and biological substances; Z88.5 Allergy status to narcotic agent; Z79.01 Long term (current) use of anticoagulants; Z79.899 Other long term (current) drug therapy; W18.39XA Other fall on same level, initial encounter; Y92.009 Unspecified place in unspecified non-institutional (private) residence as the place of occurrence of the external cause
CPT/HCPCS: 36415; 70450; 72125; 80053; 81003; 83735; 85025; 85610; 86140; 93005; 93010; 99284

== ENCOUNTER 2024-07-05 10:21 | Emergency (ER) | payer MEDICARE, BC ==
[2024-07-05 10:33] VITALS: BP 135/84; PULSE 71
== END 2024-07-05 10:52 | disposition home or self-care (01) ==
LOC: SUPCPDRO 10:21 → CC.ED 10:21
DX: H43.391 Other vitreous opacities, right eye (principal); E78.00 Pure hypercholesterolemia, unspecified; I10 Essential (primary) hypertension; Z79.899 Other long term (current) drug therapy; Z88.1 Allergy status to other antibiotic agents; Z88.0 Allergy status to penicillin; Z88.8 Allergy status to other drugs, medicaments and biological substances
CPT/HCPCS: 99283; 99284

== ENCOUNTER 2024-09-22 12:34 | Inpatient (IN) | payer MEDICARE, BC ==
[2024-09-22] MEDS ORDERED: Triamcinolone Acetonide 0.1% Crm 15 GM Tube TOP PRN (12:40)
[2024-09-22] MEDS ORDERED: Docusate Sodium 100 MG Cap PO PRN (12:40)
[2024-09-22] MEDS ORDERED: Cyclobenzaprine 10 MG Tab PO PRN (12:40)
[2024-09-22] MEDS ORDERED: Albuterol 0.083% 2.5 MG/3 ML Neb Soln NEB PRN (12:40)
[2024-09-22] MEDS ORDERED: Ondansetron 4 MG Tab.DIS PO PRN (12:40)
[2024-09-22] MEDS ORDERED: Polyethylene Glycol 3350 Powder 17 GM Packet PO PRN (12:40)
[2024-09-22] MEDS ORDERED: Ondansetron 4 MG/2 ML SDV IV PRN (12:40)
[2024-09-22] MEDS: Carbidopa/Levodopa 25-100 MG Tab PO SCH (13:55)
[2024-09-22] MEDS: Meropenem 1 GM SDV IVPUSH SCH (15:33)
[2024-09-22] MEDS: Torsemide 20 MG Tab PO SCH (15:33)
[2024-09-22] MEDS: Carvedilol 12.5 MG Tab PO SCH (17:22)
[2024-09-22] MEDS: Gabapentin 100 MG Cap PO SCH (20:06)
[2024-09-22] MEDS: Nystatin Crm 30 GM Tube TOP SCH (20:08)
[2024-09-23] MEDS: Potassium Chloride 20 MEQ Tab.ER PO SCH (07:51)
[2024-09-23] MEDS: Amiodarone 200 MG Tab PO SCH (07:52)
[2024-09-23 08:08] LABS: PROTHROMBIN TIME 40.3 SEC (9.3-11.3)
[2024-09-23 08:15] LABS: INR 4.11 (0.92-1.18)
[2024-09-24 07:48] LABS: INR 3.04 (0.92-1.18); PROTHROMBIN TIME 30.2 SEC (9.3-11.3)
[2024-09-24] MEDS: Acetaminophen 325 MG Tab PO PRN (08:09)
[2024-09-24] MEDS: Warfarin 2.5 MG Tab PO ONE (12:10)
[2024-09-25 07:49] LABS: INR 2.62 (0.92-1.18); PROTHROMBIN TIME 26.2 SEC (9.3-11.3)
[2024-09-25] MEDS: Warfarin 2.5 MG Tab PO SCH (13:07)
[2024-09-26 08:22] LABS: INR 2.73 (0.92-1.18); PROTHROMBIN TIME 27.3 SEC (9.3-11.3)
[2024-09-26] MEDS: Meropenem 1 GM SDV IVPUSH SCH (10:16)
[2024-09-26] MEDS: Warfarin 2.5 MG Tab PO ONE (12:07)
[2024-09-27 08:10] VITALS: BP 157/82; PULSE 65
== END 2024-09-27 14:44 | disposition home or self-care (01) | DRG 602 ==
LOC: CC.MS 12:34 → UNDOADMIN 12:34 → CC.MS 12:40
PROVIDERS: ADMIT Nurse Practitioner; ATTEND Nurse Practitioner
DX: L03.116 Cellulitis of left lower limb (principal); J18.9 Pneumonia, unspecified organism; R53.81 Other malaise; I50.9 Heart failure, unspecified; I87.2 Venous insufficiency (chronic) (peripheral); D72.828 Other elevated white blood cell count
CPT/HCPCS: 36415; 85610; 93005; 93010; 97110-GP; 99307; 99315; A9270-GY; J2185

== ENCOUNTER 2025-07-05 16:05 | Inpatient (IN) | payer MEDICARE, BC ==
[2025-07-05 16:33] LABS: BASOPHILS ABSOLUTE AUTO 0.01 10^3/uL (0.00-0.50); BASOPHILS PERCENT AUTO 0.1 % (0-1); EOSINOPHILS ABSOLUTE AUTO 0.11 10^3/uL (0.00-1.50); EOSINOPHILS PERCENT AUTO 0.7 % (0-6); IMMATURE GRAN ABSOLUTE AUTO 0.03 10^3/uL (0.00-0.49); IMMATURE GRAN PERCENT AUTO 0.2 % (0.0-4.9); LYMPHOCYTES ABSOLUTE AUTO 0.21 10^3/uL (0.60-5.00); LYMPHOCYTES PERCENT AUTO 1.3 % (24-44); MONOCYTES ABSOLUTE AUTO 0.85 10^3/uL (0.00-1.50); MONOCYTES PERCENT AUTO 5.1 % (0-10); NEUTROPHILS ABSOLUTE AUTO 15.51 x10^3/uL (1.80-8.00); NEUTROPHILS PERCENT AUTO 92.6 % (41-71); PLATELET COUNT,PLT 171 10^3/uL (150-400); RED BLOOD CELL COUNT 4.52 x10^6/uL (4.50-6.00); WHITE BLOOD CELL COUNT,WBC 16.7 10^3/uL (4.0-11.0)
[2025-07-05 16:46] LABS: ALANINE AMINOTRANSFERASE,ALT 9.0 U/L (12-78); ASPARTATE AMNIOTRANSFERASE,AST 11.0 U/L (15-37); BILIRUBIN TOTAL 1.1 mg/dL (0.0-1.0); BLOOD UREA NITROGEN,BUN 32.0 mg/dL (7-18); CARBON DIOXIDE,CO2 31.0 mmol/L (21-32); CHLORIDE,CL 105.0 mEq/L (98-106); CREATININE 2.3 mg/dL (0.7-1.3); EST CRCL DRUG DOSING (CG) 32.33 mL/min; GLUCOSE RANDOM 94.0 mg/dL (75-99); POTASSIUM,K 3.9 mEq/L (3.5-5.0); PROTEIN TOTAL,TP 6.6 g/dL (6.4-8.2); SODIUM,NA 144.0 mEq/L (136-145)
[2025-07-05 16:51] LABS: ESTIMATED GFR 29.0 mL/min (>=60)
[2025-07-05] MEDS: Meropenem 1 GM SDV IVPUSH ONE (16:58)
[2025-07-05] MEDS ORDERED: Ondansetron 4 MG Tab.DIS PO PRN (19:42)
[2025-07-05] MEDS ORDERED: Ondansetron 4 MG/2 ML SDV IV PRN (19:42)
[2025-07-05 20:13] LABS: APPEARANCE,URINE CLEAR (CLEAR); GLUCOSE,URINE NEGATIVE (NEGATIVE); OCCULT BLOOD,URINE NEGATIVE (NEGATIVE)
[2025-07-05 20:23] LABS: EPITHELIAL CELLS,URINE FEW /HPF (NOT SEEN)
[2025-07-06] MEDS ORDERED: Meropenem 1 GM SDV IVPUSH SCH
[2025-07-06] MEDS: Meropenem 1 GM SDV IVPUSH SCH (03:51)
[2025-07-06] MEDS ORDERED: Triamcinolone Acetonide 0.1% Crm 15 GM Tube TOP PRN (04:08)
[2025-07-06] MEDS ORDERED: [UNRECOGNIZED DRUG - OTHER] PO SCH (04:15)
[2025-07-06] MEDS: Potassium Chloride 20 MEQ Tab.ER PO SCH (07:40)
[2025-07-06 07:56] LABS: ALANINE AMINOTRANSFERASE,ALT 12.0 U/L (12-78); ASPARTATE AMNIOTRANSFERASE,AST 15.0 U/L (15-37); BILIRUBIN TOTAL 1.3 mg/dL (0.0-1.0); BLOOD UREA NITROGEN,BUN 39.0 mg/dL (7-18); CARBON DIOXIDE,CO2 33.0 mmol/L (21-32); CHLORIDE,CL 106.0 mEq/L (98-106); EST CRCL DRUG DOSING (CG) 28.6 mL/min; GLUCOSE RANDOM 92.0 mg/dL (75-99); POTASSIUM,K 4.4 mEq/L (3.5-5.0); PROTEIN TOTAL,TP 6.1 g/dL (6.4-8.2); SODIUM,NA 145.0 mEq/L (136-145)
[2025-07-06 08:14] LABS: BASOPHILS ABSOLUTE AUTO 0.02 10^3/uL (0.00-0.50); BASOPHILS PERCENT AUTO 0.1 % (0-1); EOSINOPHILS ABSOLUTE AUTO 0.08 10^3/uL (0.00-1.50); EOSINOPHILS PERCENT AUTO 0.4 % (0-6); IMMATURE GRAN ABSOLUTE AUTO 0.14 10^3/uL (0.00-0.49); IMMATURE GRAN PERCENT AUTO 0.7 % (0.0-4.9); LYMPHOCYTES ABSOLUTE AUTO 0.69 10^3/uL (0.60-5.00); LYMPHOCYTES PERCENT AUTO 3.5 % (24-44); MONOCYTES ABSOLUTE AUTO 0.91 10^3/uL (0.00-1.50); MONOCYTES PERCENT AUTO 4.6 % (0-10); NEUTROPHILS ABSOLUTE AUTO 17.92 x10^3/uL (1.80-8.00); NEUTROPHILS PERCENT AUTO 90.7 % (41-71); PLATELET COUNT,PLT 148 10^3/uL (150-400); RED BLOOD CELL COUNT 4.23 x10^6/uL (4.50-6.00); WHITE BLOOD CELL COUNT,WBC 19.8 10^3/uL (4.0-11.0)
[2025-07-06 08:27] LABS: CREATININE 2.6 mg/dL (0.7-1.3); ESTIMATED GFR 25.0 mL/min (>=60)
[2025-07-06 10:08] LABS: INR 2.75 (0.92-1.18)
[2025-07-06] MEDS: Nystatin Topical Powder 15 GM Bottle TOP SCH (20:05)
[2025-07-07 07:26] LABS: BASOPHILS ABSOLUTE AUTO 0.01 10^3/uL (0.00-0.50); BASOPHILS PERCENT AUTO 0.1 % (0-1); EOSINOPHILS ABSOLUTE AUTO 0.29 10^3/uL (0.00-1.50); EOSINOPHILS PERCENT AUTO 1.7 % (0-6); IMMATURE GRAN ABSOLUTE AUTO 0.08 10^3/uL (0.00-0.49); IMMATURE GRAN PERCENT AUTO 0.5 % (0.0-4.9); LYMPHOCYTES ABSOLUTE AUTO 0.37 10^3/uL (0.60-5.00); LYMPHOCYTES PERCENT AUTO 2.2 % (24-44); MONOCYTES ABSOLUTE AUTO 0.96 10^3/uL (0.00-1.50); MONOCYTES PERCENT AUTO 5.7 % (0-10); NEUTROPHILS ABSOLUTE AUTO 15.11 x10^3/uL (1.80-8.00); NEUTROPHILS PERCENT AUTO 89.8 % (41-71); PLATELET COUNT,PLT 159 10^3/uL (150-400); RED BLOOD CELL COUNT 4.38 x10^6/uL (4.50-6.00); WHITE BLOOD CELL COUNT,WBC 16.8 10^3/uL (4.0-11.0)
[2025-07-07 07:47] LABS: ALANINE AMINOTRANSFERASE,ALT 8.0 U/L (12-78); ASPARTATE AMNIOTRANSFERASE,AST 19.0 U/L (15-37); BILIRUBIN TOTAL 1.2 mg/dL (0.0-1.0); BLOOD UREA NITROGEN,BUN 44.0 mg/dL (7-18); CARBON DIOXIDE,CO2 32.0 mmol/L (21-32); CHLORIDE,CL 104.0 mEq/L (98-106); CREATININE 2.2 mg/dL (0.7-1.3); EST CRCL DRUG DOSING (CG) 33.8 mL/min; GLUCOSE RANDOM 85.0 mg/dL (75-99); POTASSIUM,K 4.3 mEq/L (3.5-5.0); PROTEIN TOTAL,TP 6.7 g/dL (6.4-8.2); SODIUM,NA 141.0 mEq/L (136-145)
[2025-07-07 08:06] LABS: ESTIMATED GFR 31.0 mL/min (>=60)
[2025-07-07] MEDS: Meropenem 1 GM SDV IVPUSH SCH (19:18)
[2025-07-08] MEDS: Acetaminophen/HYDROcodone 325-5 MG Tab PO PRN (04:16)
[2025-07-08 07:35] LABS: BASOPHILS ABSOLUTE AUTO 0.02 10^3/uL (0.00-0.50); BASOPHILS PERCENT AUTO 0.2 % (0-1); EOSINOPHILS ABSOLUTE AUTO 0.38 10^3/uL (0.00-1.50); EOSINOPHILS PERCENT AUTO 3.0 % (0-6); IMMATURE GRAN ABSOLUTE AUTO 0.05 10^3/uL (0.00-0.49); IMMATURE GRAN PERCENT AUTO 0.4 % (0.0-4.9); LYMPHOCYTES ABSOLUTE AUTO 0.33 10^3/uL (0.60-5.00); LYMPHOCYTES PERCENT AUTO 2.6 % (24-44); MONOCYTES ABSOLUTE AUTO 0.80 10^3/uL (0.00-1.50); MONOCYTES PERCENT AUTO 6.4 % (0-10); NEUTROPHILS ABSOLUTE AUTO 10.90 x10^3/uL (1.80-8.00); NEUTROPHILS PERCENT AUTO 87.4 % (41-71); PLATELET COUNT,PLT 180 10^3/uL (150-400); RED BLOOD CELL COUNT 4.45 x10^6/uL (4.50-6.00); WHITE BLOOD CELL COUNT,WBC 12.5 10^3/uL (4.0-11.0)
[2025-07-08 07:52] VITALS: BP 119/68; PULSE 73
[2025-07-08 07:56] LABS: ALANINE AMINOTRANSFERASE,ALT 6.0 U/L (12-78); ASPARTATE AMNIOTRANSFERASE,AST 15.0 U/L (15-37); BILIRUBIN TOTAL 1.6 mg/dL (0.0-1.0); BLOOD UREA NITROGEN,BUN 48.0 mg/dL (7-18); CARBON DIOXIDE,CO2 32.0 mmol/L (21-32); CHLORIDE,CL 104.0 mEq/L (98-106); CREATININE 2.0 mg/dL (0.7-1.3); EST CRCL DRUG DOSING (CG) 37.18 mL/min; GLUCOSE RANDOM 86.0 mg/dL (75-99); POTASSIUM,K 4.4 mEq/L (3.5-5.0); PROTEIN TOTAL,TP 7.2 g/dL (6.4-8.2); SODIUM,NA 141.0 mEq/L (136-145)
[2025-07-08 08:16] LABS: ESTIMATED GFR 35.0 mL/min (>=60)
[2025-07-08] MEDS: Acetaminophen/oxyCODONE 325-5 MG Tab PO PRN (10:42)
== END 2025-07-08 11:20 | disposition swing bed (61) | DRG 871 ==
LOC: CC.ED 16:05 → CC.MS 18:05 → UNDOADMIN 18:35 → CC.MS 18:35
PROVIDERS: ADMIT Physician Assistant Medical; ATTEND Physician Assistant Medical
DX: A41.9 Sepsis, unspecified organism (principal); R65.21 Severe sepsis with septic shock; N17.9 Acute kidney failure, unspecified; Z68.42 Body mass index [BMI] 45.0-49.9, adult; L03.116 Cellulitis of left lower limb; I10 Essential (primary) hypertension; E78.00 Pure hypercholesterolemia, unspecified; I48.91 Unspecified atrial fibrillation; M19.90 Unspecified osteoarthritis, unspecified site; M54.9 Dorsalgia, unspecified; G89.29 Other chronic pain; M54.2 Cervicalgia; G43.909 Migraine, unspecified, not intractable, without status migrainosus; F41.9 Anxiety disorder, unspecified; F32.A Depression, unspecified; E66.9 Obesity, unspecified; Z86.16 Personal history of COVID-19; Z79.899 Other long term (current) drug therapy; Z79.01 Long term (current) use of anticoagulants; Z88.0 Allergy status to penicillin; Z88.1 Allergy status to other antibiotic agents; Z88.8 Allergy status to other drugs, medicaments and biological substances
CPT/HCPCS: 36415; 51702; 71045; 80053; 81001; 83605; 83880; 85025; 85610; 86140; 87040; 87070; 87077; 87186; 87205; 96361; 96374; 97110-GP; 97162-GP; 99223; 99232; 99233; 99238; 99285-25; A9270-GY; J2185; J7030; J7040

== ENCOUNTER 2025-07-08 11:26 | Inpatient (IN) | payer MEDICARE, BC ==
[2025-07-08] MEDS ORDERED: Ondansetron 4 MG/2 ML SDV IV PRN (12:34)
[2025-07-08] MEDS ORDERED: [UNRECOGNIZED DRUG - REMARK] SCH (12:34)
[2025-07-08] MEDS ORDERED: Triamcinolone Acetonide 0.1% Crm 15 GM Tube TOP PRN (12:34)
[2025-07-08] MEDS ORDERED: Ondansetron 4 MG Tab.DIS PO PRN (12:34)
[2025-07-08 13:12] LABS: INR 2.47 (0.92-1.18)
[2025-07-08] MEDS: Meropenem 1 GM SDV IVPUSH SCH (19:37)
[2025-07-08] MEDS: Nystatin Topical Powder 15 GM Bottle TOP SCH (20:02)
[2025-07-09] MEDS: Acetaminophen/oxyCODONE 325-5 MG Tab PO PRN (04:43)
[2025-07-09] MEDS: Potassium Chloride 20 MEQ Tab.ER PO SCH (07:47)
[2025-07-13 08:01] LABS: INR 4.24 (0.92-1.18)
[2025-07-14 08:02] LABS: INR 3.89 (0.92-1.18)
[2025-07-15 07:40] LABS: INR 3.96 (0.92-1.18)
[2025-07-16 08:13] LABS: INR 3.61 (0.92-1.18)
[2025-07-17 08:19] LABS: INR 3.41 (0.92-1.18)
[2025-07-18 08:01] LABS: INR 3.13 (0.92-1.18)
[2025-07-18 19:34] VITALS: PULSE 62
[2025-07-19 07:39] VITALS: BP 114/68
[2025-07-19 07:40] LABS: INR 2.59 (0.92-1.18)
[2025-07-19] MEDS: Warfarin** 1 MG TABLET PO ONE (11:19)
== END 2025-07-19 13:45 | disposition home or self-care (01) | DRG 948 ==
LOC: CC.MS 11:26 → UNDOADMIN 11:26 → CC.MS 12:34
PROVIDERS: ADMIT Nurse Practitioner; ATTEND Nurse Practitioner
DX: R53.81 Other malaise (principal); L03.116 Cellulitis of left lower limb; Z79.899 Other long term (current) drug therapy; Z79.01 Long term (current) use of anticoagulants
CPT/HCPCS: 36415; 85610; 87040; 97110-GP; 97760-GP; 99315; A9270-GY; J2185

== ENCOUNTER 2025-08-14 09:11 | Inpatient (IN) | payer MEDICARE, BC ==
[2025-08-14] MEDS ORDERED: Sodium Chloride 0.9% 10 ML Syringe FLUSH PRN (09:59)
[2025-08-14 10:11] LABS: BASOPHILS ABSOLUTE AUTO 0.01 10^3/uL (0.00-0.50); BASOPHILS PERCENT AUTO 0.1 % (0-1); EOSINOPHILS ABSOLUTE AUTO 0.21 10^3/uL (0.00-1.50); EOSINOPHILS PERCENT AUTO 2.2 % (0-6); IMMATURE GRAN ABSOLUTE AUTO 0.03 10^3/uL (0.00-0.49); IMMATURE GRAN PERCENT AUTO 0.3 % (0.0-4.9); LYMPHOCYTES ABSOLUTE AUTO 0.39 10^3/uL (0.60-5.00); LYMPHOCYTES PERCENT AUTO 4.1 % (24-44); MONOCYTES ABSOLUTE AUTO 0.73 10^3/uL (0.00-1.50); MONOCYTES PERCENT AUTO 7.7 % (0-10); NEUTROPHILS ABSOLUTE AUTO 8.07 x10^3/uL (1.80-8.00); NEUTROPHILS PERCENT AUTO 85.6 % (41-71); PLATELET COUNT,PLT 159 10^3/uL (150-400); RED BLOOD CELL COUNT 4.15 x10^6/uL (4.50-6.00); WHITE BLOOD CELL COUNT,WBC 9.4 10^3/uL (4.0-11.0)
[2025-08-14 10:27] LABS: LACTIC ACID 0.7 mmol/L (0.4-2.0)
[2025-08-14 10:32] LABS: PRO B-TYPE NATRIUR PEPT,BNPPRO 3111.0 pg/mL (0-1000)
[2025-08-14 10:34] LABS: ALANINE AMINOTRANSFERASE,ALT 7.0 U/L (12-78); ASPARTATE AMNIOTRANSFERASE,AST 10.0 U/L (15-37); BILIRUBIN TOTAL 1.3 mg/dL (0.0-1.0); BLOOD UREA NITROGEN,BUN 33.0 mg/dL (7-18); CARBON DIOXIDE,CO2 35.0 mmol/L (21-32); CHLORIDE,CL 103.0 mEq/L (98-106); CREATININE 1.8 mg/dL (0.7-1.3); EST CRCL DRUG DOSING (CG) 41.31 mL/min; GLUCOSE RANDOM 96.0 mg/dL (75-99); POTASSIUM,K 3.5 mEq/L (3.5-5.0); PROTEIN TOTAL,TP 7.6 g/dL (6.4-8.2); SODIUM,NA 144.0 mEq/L (136-145)
[2025-08-14 10:35] LABS: ESTIMATED GFR 39.0 mL/min (>=60)
[2025-08-14 10:43] LABS: APPEARANCE,URINE CLEAR (CLEAR); GLUCOSE,URINE NEGATIVE (NEGATIVE); OCCULT BLOOD,URINE TRACE-INTACT (NEGATIVE)
[2025-08-14 10:48] LABS: CORONAVIRUS COVID-19 NAA NEGATIVE (NEGATIVE); INFLUENZA A NAA NEGATIVE (NEGATIVE); INFLUENZA B NAA NEGATIVE (NEGATIVE)
[2025-08-14 10:53] LABS: INR 2.84 (0.92-1.18)
[2025-08-14 10:54] LABS: SQUAMOUS EPITHELIAL CELLS,UR FEW /HPF (NOT SEEN)
[2025-08-14] MEDS ORDERED: Ondansetron 4 MG Tab.DIS PO PRN (12:38)
[2025-08-14] MEDS ORDERED: Ondansetron 4 MG/2 ML SDV IV PRN (12:38)
[2025-08-14] MEDS ORDERED: Triamcinolone Acetonide 0.1% Crm 15 GM Tube TOP PRN (13:05)
[2025-08-14] MEDS ORDERED: Pharmacy Consult Order SCH (15:00)
[2025-08-14] MEDS: Nystatin Topical Powder 15 GM Bottle TOP SCH (19:33)
[2025-08-15 07:41] LABS: BASOPHILS ABSOLUTE AUTO 0.02 10^3/uL (0.00-0.50); BASOPHILS PERCENT AUTO 0.2 % (0-1); EOSINOPHILS ABSOLUTE AUTO 0.31 10^3/uL (0.00-1.50); EOSINOPHILS PERCENT AUTO 3.5 % (0-6); IMMATURE GRAN ABSOLUTE AUTO 0.02 10^3/uL (0.00-0.49); IMMATURE GRAN PERCENT AUTO 0.2 % (0.0-4.9); LYMPHOCYTES ABSOLUTE AUTO 0.30 10^3/uL (0.60-5.00); LYMPHOCYTES PERCENT AUTO 3.4 % (24-44); MONOCYTES ABSOLUTE AUTO 0.67 10^3/uL (0.00-1.50); MONOCYTES PERCENT AUTO 7.6 % (0-10); NEUTROPHILS ABSOLUTE AUTO 7.49 x10^3/uL (1.80-8.00); NEUTROPHILS PERCENT AUTO 85.1 % (41-71); PLATELET COUNT,PLT 135 10^3/uL (150-400); RED BLOOD CELL COUNT 3.90 x10^6/uL (4.50-6.00); WHITE BLOOD CELL COUNT,WBC 8.8 10^3/uL (4.0-11.0)
[2025-08-15 07:47] LABS: ALANINE AMINOTRANSFERASE,ALT 7.0 U/L (12-78); ASPARTATE AMNIOTRANSFERASE,AST 7.0 U/L (15-37); BILIRUBIN TOTAL 1.9 mg/dL (0.0-1.0); BLOOD UREA NITROGEN,BUN 30.0 mg/dL (7-18); CARBON DIOXIDE,CO2 33.0 mmol/L (21-32); CHLORIDE,CL 104.0 mEq/L (98-106); CREATININE 1.5 mg/dL (0.7-1.3); EST CRCL DRUG DOSING (CG) 49.57 mL/min; GLUCOSE RANDOM 89.0 mg/dL (75-99); POTASSIUM,K 3.3 mEq/L (3.5-5.0); PROTEIN TOTAL,TP 7.0 g/dL (6.4-8.2); SODIUM,NA 145.0 mEq/L (136-145)
[2025-08-15] MEDS: Potassium Chloride 20 MEQ Tab.ER PO SCH (07:47)
[2025-08-15 07:52] LABS: ESTIMATED GFR 49.0 mL/min (>=60)
[2025-08-15 07:56] LABS: INR 2.98 (0.92-1.18)
[2025-08-15] MEDS ORDERED: [UNRECOGNIZED DRUG - OTHER] PO SCH (08:00)
[2025-08-15] MEDS: Iopamidol 755 Mg/ML 100 ML Bottle IVPUSH ONE (11:00)
[2025-08-15] MEDS: Warfarin** 1 MG TABLET PO ONE (11:56)
[2025-08-16 07:30] LABS: PLATELET COUNT,PLT 149 10^3/uL (150-400); RED BLOOD CELL COUNT 3.90 x10^6/uL (4.50-6.00); WHITE BLOOD CELL COUNT,WBC 6.6 10^3/uL (4.0-11.0)
[2025-08-16 08:07] LABS: ASPARTATE AMNIOTRANSFERASE,AST 9.0 U/L (15-37); BILIRUBIN TOTAL 1.3 mg/dL (0.0-1.0); CARBON DIOXIDE,CO2 35.0 mmol/L (21-32); CHLORIDE,CL 104.0 mEq/L (98-106); CREATININE 1.7 mg/dL (0.7-1.3); EST CRCL DRUG DOSING (CG) 43.74 mL/min; GLUCOSE RANDOM 87.0 mg/dL (75-99); POTASSIUM,K 4.3 mEq/L (3.5-5.0); PROTEIN TOTAL,TP 7.1 g/dL (6.4-8.2); SODIUM,NA 143.0 mEq/L (136-145)
[2025-08-16 08:33] LABS: BAND PERCENT MAN 1 % (0-5); LYMPHOCYTES PERCENT MAN 7 % (21-55); MONOCYTES PERCENT MAN 6 % (2-12); SEG NEUTROPHILS PERCENT MAN 86 % (35-85)
[2025-08-16 08:37] LABS: ALANINE AMINOTRANSFERASE,ALT 7.0 U/L (12-78); BLOOD UREA NITROGEN,BUN 38.0 mg/dL (7-18)
[2025-08-16 08:43] LABS: ESTIMATED GFR 42.0 mL/min (>=60)
[2025-08-16 09:57] LABS: INR 3.09 (0.92-1.18)
[2025-08-17 07:56] LABS: BASOPHILS ABSOLUTE AUTO 0.02 10^3/uL (0.00-0.50); BASOPHILS PERCENT AUTO 0.3 % (0-1); EOSINOPHILS ABSOLUTE AUTO 0.59 10^3/uL (0.00-1.50); EOSINOPHILS PERCENT AUTO 8.3 % (0-6); IMMATURE GRAN ABSOLUTE AUTO 0.02 10^3/uL (0.00-0.49); IMMATURE GRAN PERCENT AUTO 0.3 % (0.0-4.9); INR 2.74 (0.92-1.18); LYMPHOCYTES ABSOLUTE AUTO 0.45 10^3/uL (0.60-5.00); LYMPHOCYTES PERCENT AUTO 6.4 % (24-44); MONOCYTES ABSOLUTE AUTO 0.62 10^3/uL (0.00-1.50); MONOCYTES PERCENT AUTO 8.8 % (0-10); NEUTROPHILS ABSOLUTE AUTO 5.38 x10^3/uL (1.80-8.00); NEUTROPHILS PERCENT AUTO 75.9 % (41-71); PLATELET COUNT,PLT 178 10^3/uL (150-400); RED BLOOD CELL COUNT 3.95 x10^6/uL (4.50-6.00); WHITE BLOOD CELL COUNT,WBC 7.1 10^3/uL (4.0-11.0)
[2025-08-17 08:31] LABS: ALANINE AMINOTRANSFERASE,ALT 7.0 U/L (12-78); ASPARTATE AMNIOTRANSFERASE,AST 9.0 U/L (15-37); BILIRUBIN TOTAL 1.2 mg/dL (0.0-1.0); BLOOD UREA NITROGEN,BUN 39.0 mg/dL (7-18); CARBON DIOXIDE,CO2 33.0 mmol/L (21-32); CHLORIDE,CL 105.0 mEq/L (98-106); CREATININE 1.6 mg/dL (0.7-1.3); EST CRCL DRUG DOSING (CG) 46.47 mL/min; GLUCOSE RANDOM 83.0 mg/dL (75-99); POTASSIUM,K 3.4 mEq/L (3.5-5.0); PROTEIN TOTAL,TP 6.7 g/dL (6.4-8.2); SODIUM,NA 145.0 mEq/L (136-145)
[2025-08-17 08:34] LABS: ESTIMATED GFR 45.0 mL/min (>=60)
[2025-08-17 08:51] VITALS: BP 130/75; PULSE 67
== END 2025-08-17 12:52 | disposition swing bed (61) | DRG 194 ==
LOC: CC.ED 09:11 → CC.MS 11:18 → UNDOADMIN 12:00 → CC.MS 12:00
PROVIDERS: ADMIT Nurse Practitioner Family; ATTEND Nurse Practitioner Family
DX: J18.9 Pneumonia, unspecified organism (principal); R06.02 Shortness of breath; L03.115 Cellulitis of right lower limb; L03.116 Cellulitis of left lower limb; R50.81 Fever presenting with conditions classified elsewhere; I48.91 Unspecified atrial fibrillation; E78.00 Pure hypercholesterolemia, unspecified; I10 Essential (primary) hypertension; Z68.45 Body mass index [BMI] 70 or greater, adult; M19.90 Unspecified osteoarthritis, unspecified site; Z88.1 Allergy status to other antibiotic agents; M54.9 Dorsalgia, unspecified; G89.29 Other chronic pain; Z79.899 Other long term (current) drug therapy; M54.2 Cervicalgia; G43.909 Migraine, unspecified, not intractable, without status migrainosus; G20.A1 Parkinson's disease without dyskinesia, without mention of fluctuations; F41.9 Anxiety disorder, unspecified; F32.A Depression, unspecified; E66.9 Obesity, unspecified; Z68.36 Body mass index [BMI] 36.0-36.9, adult; Z88.0 Allergy status to penicillin; Z79.01 Long term (current) use of anticoagulants; Z88.8 Allergy status to other drugs, medicaments and biological substances
CPT/HCPCS: 36415; 71045; 80053; 81001; 83605; 83735; 83880; 84484; 85025; 85610; 86140; 87040 ×2; 87636; 93005; 93010; 99285; J2185; 71260; 87070; 87205; 94640; 99223; 99232; 99233; 99239; A9270-GY; Q9967

== ENCOUNTER 2025-08-17 12:26 | Inpatient (IN) | payer MEDICARE, BC ==
[2025-08-17] MEDS ORDERED: Ondansetron 4 MG Tab.DIS PO PRN (13:12)
[2025-08-17] MEDS ORDERED: Triamcinolone Acetonide 0.1% Crm 15 GM Tube TOP PRN (13:12)
[2025-08-17] MEDS ORDERED: Pharmacy Consult Order SCH (13:12)
[2025-08-17] MEDS ORDERED: Sodium Chloride 0.9% 10 ML Syringe FLUSH PRN (13:12)
[2025-08-17] MEDS ORDERED: Ondansetron 4 MG/2 ML SDV IV PRN (13:12)
[2025-08-17] MEDS: Nystatin Topical Powder 15 GM Bottle TOP SCH (20:06)
[2025-08-18 07:56] LABS: INR 2.48 (0.92-1.18)
[2025-08-18] MEDS: Potassium Chloride 20 MEQ Tab.ER PO SCH (08:00)
[2025-08-19 08:01] LABS: INR 2.38 (0.92-1.18)
[2025-08-19] MEDS: Sodium Chloride 0.9% 10 ML Syringe FLUSH PRN (09:16)
[2025-08-20 07:30] LABS: ALANINE AMINOTRANSFERASE,ALT 10.0 U/L (12-78); ASPARTATE AMNIOTRANSFERASE,AST 13.0 U/L (15-37); BILIRUBIN TOTAL 1.1 mg/dL (0.0-1.0); BLOOD UREA NITROGEN,BUN 30.0 mg/dL (7-18); CARBON DIOXIDE,CO2 35.0 mmol/L (21-32); CHLORIDE,CL 103.0 mEq/L (98-106); CREATININE 1.4 mg/dL (0.7-1.3); EST CRCL DRUG DOSING (CG) 53.11 mL/min; GLUCOSE RANDOM 88.0 mg/dL (75-99); POTASSIUM,K 3.2 mEq/L (3.5-5.0); PRO B-TYPE NATRIUR PEPT,BNPPRO 2632.0 pg/mL (0-1000); PROTEIN TOTAL,TP 6.7 g/dL (6.4-8.2); SODIUM,NA 146.0 mEq/L (136-145)
[2025-08-20 07:38] LABS: BASOPHILS ABSOLUTE AUTO 0.02 10^3/uL (0.00-0.50); BASOPHILS PERCENT AUTO 0.3 % (0-1); EOSINOPHILS ABSOLUTE AUTO 0.40 10^3/uL (0.00-1.50); EOSINOPHILS PERCENT AUTO 6.8 % (0-6); ESTIMATED GFR 53.0 mL/min (>=60); IMMATURE GRAN ABSOLUTE AUTO 0.02 10^3/uL (0.00-0.49); IMMATURE GRAN PERCENT AUTO 0.3 % (0.0-4.9); LYMPHOCYTES ABSOLUTE AUTO 0.67 10^3/uL (0.60-5.00); LYMPHOCYTES PERCENT AUTO 11.5 % (24-44); MONOCYTES ABSOLUTE AUTO 0.64 10^3/uL (0.00-1.50); MONOCYTES PERCENT AUTO 10.9 % (0-10); NEUTROPHILS ABSOLUTE AUTO 4.10 x10^3/uL (1.80-8.00); NEUTROPHILS PERCENT AUTO 70.2 % (41-71); PLATELET COUNT,PLT 201 10^3/uL (150-400); RED BLOOD CELL COUNT 4.17 x10^6/uL (4.50-6.00); WHITE BLOOD CELL COUNT,WBC 5.9 10^3/uL (4.0-11.0)
[2025-08-20 07:40] LABS: INR 2.46 (0.92-1.18)
[2025-08-21 07:43] LABS: INR 2.54 (0.92-1.18)
[2025-08-23 08:03] LABS: INR 3.09 (0.92-1.18)
[2025-08-23 08:11] VITALS: BP 153/99; PULSE 65
[2025-08-23] MEDS: Warfarin** 1 MG TABLET PO SCH (11:45)
== END 2025-08-23 12:40 | disposition home or self-care (01) | DRG 195 ==
LOC: CC.MS 12:26 → UNDOADMIN 13:01 → CC.MS 13:01
PROVIDERS: ADMIT Physician Assistant Medical; ATTEND Physician Assistant Medical
DX: J18.9 Pneumonia, unspecified organism (principal); I89.0 Lymphedema, not elsewhere classified
CPT/HCPCS: 36415; 71046; 80053; 83880; 85025; 85610; 94640; 97110-GP; 97530-GP; 99315; A9270-GY; J2185

== ENCOUNTER 2025-08-31 10:05 | Emergency (ER) | payer MEDICARE, BC ==
[2025-08-31 10:18] VITALS: BP 154/86; PULSE 66
[2025-08-31 10:44] LABS: BASOPHILS ABSOLUTE AUTO 0.01 10^3/uL (0.00-0.50); BASOPHILS PERCENT AUTO 0.2 % (0-1); EOSINOPHILS ABSOLUTE AUTO 0.36 10^3/uL (0.00-1.50); EOSINOPHILS PERCENT AUTO 6.3 % (0-6); IMMATURE GRAN ABSOLUTE AUTO 0.02 10^3/uL (0.00-0.49); IMMATURE GRAN PERCENT AUTO 0.4 % (0.0-4.9); LYMPHOCYTES ABSOLUTE AUTO 0.57 10^3/uL (0.60-5.00); LYMPHOCYTES PERCENT AUTO 10.0 % (24-44); MONOCYTES ABSOLUTE AUTO 0.53 10^3/uL (0.00-1.50); MONOCYTES PERCENT AUTO 9.3 % (0-10); NEUTROPHILS ABSOLUTE AUTO 4.19 x10^3/uL (1.80-8.00); NEUTROPHILS PERCENT AUTO 73.8 % (41-71); PLATELET COUNT,PLT 287 10^3/uL (150-400); RED BLOOD CELL COUNT 4.33 x10^6/uL (4.50-6.00); WHITE BLOOD CELL COUNT,WBC 5.7 10^3/uL (4.0-11.0)
[2025-08-31 10:57] LABS: ALANINE AMINOTRANSFERASE,ALT 7.0 U/L (12-78); ASPARTATE AMNIOTRANSFERASE,AST 9.0 U/L (15-37); BILIRUBIN TOTAL 0.6 mg/dL (0.0-1.0); BLOOD UREA NITROGEN,BUN 38.0 mg/dL (7-18); CARBON DIOXIDE,CO2 32.0 mmol/L (21-32); CHLORIDE,CL 105.0 mEq/L (98-106); CREATININE 1.7 mg/dL (0.7-1.3); EST CRCL DRUG DOSING (CG) 43.74 mL/min; GLUCOSE RANDOM 91.0 mg/dL (75-99); POTASSIUM,K 3.9 mEq/L (3.5-5.0); PROTEIN TOTAL,TP 7.2 g/dL (6.4-8.2); SODIUM,NA 143.0 mEq/L (136-145)
[2025-08-31 10:58] LABS: ESTIMATED GFR 42.0 mL/min (>=60)
[2025-08-31 11:00] LABS: LACTIC ACID 1.0 mmol/L (0.4-2.0)
== END 2025-08-31 11:28 | disposition home or self-care (01) ==
LOC: CC.ED 10:05
DX: T81.89XA Other complications of procedures, not elsewhere classified, initial encounter (principal); R19.7 Diarrhea, unspecified; I48.91 Unspecified atrial fibrillation; E78.00 Pure hypercholesterolemia, unspecified; I10 Essential (primary) hypertension; E66.9 Obesity, unspecified; Z79.899 Other long term (current) drug therapy; Z79.01 Long term (current) use of anticoagulants; Z88.0 Allergy status to penicillin; Z88.1 Allergy status to other antibiotic agents; Z88.8 Allergy status to other drugs, medicaments and biological substances; Z68.43 Body mass index [BMI] 50.0-59.9, adult
CPT/HCPCS: 36415; 80053; 83605; 85025; 86140; 87040; 87070; 87077; 87186; 87205; 99284